=== PATIENT | male | born 1965 | race Caucasian/White ===

== ENCOUNTER 2019-06-23 11:28 | Observation (INO) | payer OTHER ==
[~2019-06-23] VITALS: Ht 175.3 cm; Wt 118.6 kg
[~2019-06-23 11:28] MED LIST: ALBU90OI INH; ALBU90OI61 INH; ALLO300 PO; AMOX500 PO; ATOR40TA PO; AZIT250 PO; CYCL10 PO; DIAZ5 PO; DIPH50 PO; FLUSAL1005 IH; FLUSAL2505 IH; GABA300 PO; GEMF600 PO; GENT.3OPSA OS; GLYB5 PO; HYDACE5 PO; HYDACE7.5 PO; HYDCHL25 PO; IBUP800 PO; LISI20 PO; LOSA50 PO; MECL25 PO; METF500 PO; METO10 PO; METO50 PO; METO5A PO; NAPR500 PO; OMEP20ER PO; PRED20 PO; PROCODE120 PO; PROM25 PO; ROPI1 PO; RXTRAM50 PO; SENN187 PO; SIMV40 PO; SULTRIDS PO; TRAM50 PO
[2019-06-23 12:37] LABS: BASOPHILS ABSOLUTE AUTO 0.11 K/mm3 (0.00-0.23); BASOPHILS PERCENT AUTO 1 % (0-2); EOSINOPHILS ABSOLUTE AUTO 0.46 K/mm3 (0.00-0.68); EOSINOPHILS PERCENT AUTO 4 % (0-6); Hematocrit 43.4 % (37.0-53.0); Hemoglobin 14.2 g/dL (13.5-17.5); IMMATURE GRAN ABSOLUTE AUTO 0.05 K/mm3 (0.00-0.10); IMMATURE GRAN PERCENT AUTO 1 % (0-1); LYMPHOCYTES ABSOLUTE AUTO 3.95 K/mm3 (0.84-5.20); LYMPHOCYTES PERCENT AUTO 38 % (21-46); MONOCYTES ABSOLUTE AUTO 0.83 K/mm3 (0.16-1.47); MONOCYTES PERCENT AUTO 8 % (4-13); Mean Corpuscular HGB Conc 32.7 g/dL (31.5-36.5); Mean Corpuscular Volume 85 fL (80-100); Mean Platelet Volume 9.6 fL (9.1-12.4); NEUTROPHILS ABSOLUTE AUTO 5.09 K/mm3 (1.96-9.15); NEUTROPHILS PERCENT AUTO 49 % (41-73); Platelet Count 264 K/mm3 (150-400); RDW Coefficient Variation 13.2 % (11.7-14.2); RDW Standard Deviation 41.6 fL (35.1-46.3); Red Blood Cell Count 5.08 M/mm3 (4.30-5.90); White Blood Cell Count 10.49 K/mm3 (4.00-11.30)
[2019-06-23 12:43] LABS: Alanine Aminotransfer (ALT/SGP 61 U/L (12-78); Albumin, Blood 3.8 g/dL (3.4-5.0); Albumin/Globulin Ratio 0.9 (0.8-1.8); Alk Phos 94 U/L (50-136); Anion Gap 4 mmol/L (6-16); Aspartate Aminotrans (AST/SGOT 37 U/L (12-37); Bilirubin, Total 0.7 mg/dL (0.1-1.0); Blood Urea Nitrogen 16 mg/dL (8-24); Bun/Creatinine Ratio 19.2 (12.0-20.0); CO2, Blood 22 mmol/L (21-32); Chloride, Blood 111 mmol/L (98-108); Creatinine, Blood 0.84 mg/dL (0.60-1.20); Globulin, Blood 4.2 g/dL (2.2-4.0); Glomerular Filtration Rate >60 (60-); Glucose, Blood 93 mg/dL (70-99); Potassium, Blood 3.8 mmol/L (3.5-5.5); Sodium, Blood 137 mmol/L (136-145); Troponin I <0.015 ng/mL (0.000-0.040)
[2019-06-23] MEDS ORDERED: Crestor40 MG PO (14:07)
[2019-06-23] MEDS ORDERED: LISI5 PO (14:07)
[2019-06-23] MEDS ORDERED: NITR.4SL SL (14:08)
[2019-06-23] MEDS ORDERED: Coreg12.5 MG PO (14:08)
[2019-06-23] MEDS ORDERED: METF500C PO (14:08)
[2019-06-23] MEDS ORDERED: METO25ER PO (14:09)
[2019-06-23] MEDS ORDERED: Aspir 8181 MG PO (14:10)
[2019-06-23] MEDS ORDERED: MAGNESIUM PO (14:12)
--- NOTE | 2019-06-23 18:04 | NUR ---
PT ARRIVES ASSUMED CARE OF PT AT 1600 HRS, PT ARRIVED FROM ED BY YAHIR AND SELF TRANSFERRED TO PCU BED W/O ISSUES. ACCOMPANIED BY FAMILY, FAMILY LEFT PT'S ROOM FOR HOME AT APPROX 1800 HRS, PT AWAKE, ALERT IN BED EATING DINNER. CALL LIGHT W/IN REACH
--- NOTE | 2019-06-23 18:28 | NUR ---
SHIFT SUMMARY NO CHANGES SINCE ARRIVAL TO UNIT. WILL MONITOR UNTIL GIVING REPORT TO ONCOMING SHIFT. BED LOCKED AND LOW, CALL LIGHT W/IN REACH
[2019-06-24 01:19] LABS: BASOPHILS ABSOLUTE AUTO 0.09 K/mm3 (0.00-0.23); BASOPHILS PERCENT AUTO 1 % (0-2); EOSINOPHILS ABSOLUTE AUTO 0.44 K/mm3 (0.00-0.68); EOSINOPHILS PERCENT AUTO 6 % (0-6); Hematocrit 40.6 % (37.0-53.0); Hemoglobin 13.3 g/dL (13.5-17.5); IMMATURE GRAN ABSOLUTE AUTO 0.04 K/mm3 (0.00-0.10); IMMATURE GRAN PERCENT AUTO 1 % (0-1); LYMPHOCYTES ABSOLUTE AUTO 2.64 K/mm3 (0.84-5.20); LYMPHOCYTES PERCENT AUTO 39 % (21-46); MONOCYTES ABSOLUTE AUTO 0.63 K/mm3 (0.16-1.47); MONOCYTES PERCENT AUTO 9 % (4-13); Mean Corpuscular HGB 27.9 pg (26.0-34.0); Mean Corpuscular HGB Conc 32.8 g/dL (31.5-36.5); Mean Corpuscular Volume 85 fL (80-100); Mean Platelet Volume 9.3 fL (9.1-12.4); NEUTROPHILS PERCENT AUTO 44 % (41-73); Platelet Count 203 K/mm3 (150-400); RDW Coefficient Variation 13.2 % (11.7-14.2); RDW Standard Deviation 41.3 fL (35.1-46.3); Red Blood Cell Count 4.76 M/mm3 (4.30-5.90); White Blood Cell Count 6.84 K/mm3 (4.00-11.30)
[2019-06-24 01:38] LABS: Anion Gap 10 mmol/L (6-16); Blood Urea Nitrogen 15 mg/dL (8-24); Bun/Creatinine Ratio 18.9 (12.0-20.0); CO2, Blood 21 mmol/L (21-32); Calcium, Blood 8.5 mg/dL (8.5-10.1); Chloride, Blood 109 mmol/L (98-108); Creatinine, Blood 0.79 mg/dL (0.60-1.20); Glomerular Filtration Rate >60 (60-); Glucose, Blood 170 mg/dL (70-99); Potassium, Blood 3.6 mmol/L (3.5-5.5); Sodium, Blood 140 mmol/L (136-145); Troponin I <0.015 ng/mL (0.000-0.040)
[2019-06-24 03:30] LABS: U Amphetamine Screen Not Detected; U Barbituate Screen Not Detected; U Benzodiazapine Screen Not Detected; U Buprenorphine Screen Not Detected; U Cannabinoids Screen Not Detected; U Cocaine Screen Not Detected; U Methadone Screen Not Detected; U Methamphetamine Screen Not Detected; U Opiates Screen Not Detected; U Oxycodone Screen Not Detected; U Phencyclidine Screen Not Detected; U Propoxyphene Screen Not Detected
--- NOTE | 2019-06-24 05:20 | NUR ---
SHIFT SUMMARY: PATIENT VSS, CALL LIGHT WITHIN REACH, STEADY ON FEET, BED LOW AND LOCKED. PATIENT WANTS TO GO OUTSIDE AND SMOKE. PATIENT EDUCATED ON DANGERS OF SMOKING WITH CP AND THE INABILITY TO MONITOR HIS HEART WHEN HE IS OUTSIDE. PATIENT COMPLIANT AND DECIDED TO STAY IN HIS ROOM. MONITORING CLOSELY.
--- NOTE | 2019-06-24 11:24 | NUR ---
Patient is lying in bed and alert. Patient tells me about his 120 days of being clean and sober, his recent coming to conversion experience and how he now tells everybody about Darren. Patient also explains about his medical issues and the plan of care being executed on his behalf. Patient asks for a Bible and I offer to provide prayer. I listen empathically, supply a Bible, reinforce helpful attitudes and practices and provide pastorl correctional counselor and prayer. Patient responds well and displays evidence of an elevated mood. I will continue to remain available to patient and family.
[2019-06-24] MEDS ORDERED: CLOP75 PO (15:25)
[2019-06-24] MEDS ORDERED: Nicoderm Cq1 EACH TOP (15:26)
--- NOTE | 2019-06-24 16:41 | NUR ---
PT EDUCATED ABOUT NEW MEDCIATIONS, OUTPT IMAGING, AND ESTABLISHING WITH PCP. PT EXPRESSED UNDERSTANDING OF DC TEACHING DENIES FURTHER NEEDS. PT HOME WITH ALL HOME MEDS AND BELONGINGS
--- NOTE | 2019-06-24 17:31 | NUR ---
STRESS TEST SCHEDULING ATTEMPTED TO CALL PATIENT'S CELL PHONE. NO ANSWER AND VOICEMAIL IS FULL. SPOKE TO CHHAYA'S SISTER IDRIS REGARDING PT'S SCHEDULED STRESS TEST ON THURSDAY AND THURSDAY. SISTER VERBALIZES UNDERSTANDING AND DENIES QUESTIONS.
== END 2019-06-24 16:41 | disposition home or self-care (01) ==
LOC: ER 11:28 → PCU 11:29
PROVIDERS: Emergency Medicine; Nurse Practitioner Acute Care; ADMIT Internal Medicine
DX: R07.9 Chest pain, unspecified (principal); I25.10 Atherosclerotic heart disease of native coronary artery without angina pectoris; I25.2 Old myocardial infarction; I11.0 Hypertensive heart disease with heart failure; I50.32 Chronic diastolic (congestive) heart failure; E11.9 Type 2 diabetes mellitus without complications; E78.5 Hyperlipidemia, unspecified; G47.33 Obstructive sleep apnea (adult) (pediatric); F17.210 Nicotine dependence, cigarettes, uncomplicated; Z95.5 Presence of coronary angioplasty implant and graft; Z86.73 Personal history of transient ischemic attack (TIA), and cerebral infarction without residual deficits; Z79.899 Other long term (current) drug therapy; Z79.82 Long term (current) use of aspirin; Z79.84 Long term (current) use of oral hypoglycemic drugs; Z88.1 Allergy status to other antibiotic agents; Z88.8 Allergy status to other drugs, medicaments and biological substances
CPT/HCPCS: 36415; 71046; 80048; 80053; 82947; 83880; 84484; 85025; 93005; 93010; 93306; 96360; 96361; 96372; 99285-25; A9270; G0378; J1650; J7030

== ENCOUNTER 2019-06-27 11:42 | Emergency (ER) | payer OTHER ==
[~2019-06-27] VITALS: Ht 175.3 cm; Wt 111.1 kg
[~2019-06-27 11:42] MED LIST changes: +Aspir 8181 MG PO; +CLOP75 PO; +Coreg12.5 MG PO; +Crestor40 MG PO; +LISI5 PO; +MAGNESIUM PO; +METF500C PO; +METO25ER PO; +NITR.4SL SL; +Nicoderm Cq1 EACH TOP
== END 2019-06-27 12:41 | disposition home or self-care (01) ==
LOC: ER 11:42
DX: Z76.0 Encounter for issue of repeat prescription (principal); Z88.1 Allergy status to other antibiotic agents; Z88.8 Allergy status to other drugs, medicaments and biological substances; Z79.899 Other long term (current) drug therapy; Z79.84 Long term (current) use of oral hypoglycemic drugs; Z79.82 Long term (current) use of aspirin; E11.9 Type 2 diabetes mellitus without complications; I10 Essential (primary) hypertension
CPT/HCPCS: 99281

== ENCOUNTER 2019-07-12 10:23 | Emergency (ER) | payer OTHER ==
[~2019-07-12] VITALS: Ht 175.3 cm; Wt 111.1 kg
[2019-07-12] MEDS ORDERED: MONDOXYNE NL100 MG PO (11:36)
== END 2019-07-12 11:40 | disposition home or self-care (01) ==
LOC: ER 10:23
DX: S91.331A Puncture wound without foreign body, right foot, initial encounter (principal); W22.8XXA Striking against or struck by other objects, initial encounter; Z88.8 Allergy status to other drugs, medicaments and biological substances; Z88.1 Allergy status to other antibiotic agents; Z79.899 Other long term (current) drug therapy; Z79.84 Long term (current) use of oral hypoglycemic drugs; Z79.82 Long term (current) use of aspirin; E11.9 Type 2 diabetes mellitus without complications; I10 Essential (primary) hypertension; F17.200 Nicotine dependence, unspecified, uncomplicated
CPT/HCPCS: 99282

== ENCOUNTER 2019-07-25 12:03 | Emergency (ER) | payer OTHER ==
[~2019-07-25] VITALS: Ht 175.3 cm; Wt 113.4 kg
[~2019-07-25 12:03] MED LIST changes: +MONDOXYNE NL100 MG PO
[2019-07-25] MEDS ORDERED: MAGNESIUM OXID500 MG PO (12:33)
[2019-07-25] MEDS ORDERED: Crestor40 MG PO (12:33)
[2019-07-25] MEDS ORDERED: METF500 PO (12:33)
[2019-07-25] MEDS ORDERED: Prinivil5 MG PO (12:33)
[2019-07-25] MEDS ORDERED: CLOP75 PO (12:33)
[2019-07-25] MEDS ORDERED: Toprol Xl25 MG PO (12:33)
== END 2019-07-25 12:39 | disposition home or self-care (01) ==
LOC: ER 12:03
DX: Z76.0 Encounter for issue of repeat prescription (principal); E11.9 Type 2 diabetes mellitus without complications; I10 Essential (primary) hypertension; F17.200 Nicotine dependence, unspecified, uncomplicated; Z88.8 Allergy status to other drugs, medicaments and biological substances; Z88.1 Allergy status to other antibiotic agents; Z79.899 Other long term (current) drug therapy; Z79.82 Long term (current) use of aspirin; Z79.84 Long term (current) use of oral hypoglycemic drugs; Z79.01 Long term (current) use of anticoagulants
CPT/HCPCS: 99281

== ENCOUNTER 2019-08-03 11:44 | Emergency (ER) | payer OTHER ==
[~2019-08-03] VITALS: Ht 175.3 cm; Wt 113.4 kg
[~2019-08-03 11:44] MED LIST changes: +MAGNESIUM OXID500 MG PO; +Prinivil5 MG PO; +Toprol Xl25 MG PO
[2019-08-03] MEDS ORDERED: METFORMIN HCL500 M2 PO (12:02)
[2019-08-03] MEDS ORDERED: PRINIVIL5 MG PO (12:02)
[2019-08-03] MEDS ORDERED: MAGNESIUM OXID400 M2 PO (12:02)
[2019-08-03] MEDS ORDERED: ROSUVASTATIN CA40 MG PO (12:03)
[2019-08-03] MEDS ORDERED: Nicoderm Cq1 EACH TOP (12:03)
[2019-08-03] MEDS ORDERED: PLAVIX75 MG PO (12:03)
[2019-08-03] MEDS ORDERED: METOPROLOL SUCC25 MG PO (12:03)
[2019-08-03] MEDS ORDERED: Augmentin 875-1 EACH PO (13:54)
[2019-08-03] MEDS ORDERED: Mupirocin22 GM TOP (13:54)
== END 2019-08-03 14:01 | disposition home or self-care (01) ==
LOC: ER 11:44
DX: L03.115 Cellulitis of right lower limb (principal); L03.116 Cellulitis of left lower limb; E11.40 Type 2 diabetes mellitus with diabetic neuropathy, unspecified; I11.0 Hypertensive heart disease with heart failure; I50.9 Heart failure, unspecified; M10.9 Gout, unspecified; I25.10 Atherosclerotic heart disease of native coronary artery without angina pectoris; E78.5 Hyperlipidemia, unspecified; Z86.73 Personal history of transient ischemic attack (TIA), and cerebral infarction without residual deficits; F17.210 Nicotine dependence, cigarettes, uncomplicated; Z88.1 Allergy status to other antibiotic agents; Z88.8 Allergy status to other drugs, medicaments and biological substances; Z79.899 Other long term (current) drug therapy
CPT/HCPCS: 73630; 82947; 99283-25

== ENCOUNTER 2019-10-17 20:55 | Emergency (ER) | payer OTHER ==
[~2019-10-17] VITALS: Ht 175.3 cm; Wt 115.2 kg
[~2019-10-17 20:55] MED LIST changes: +Augmentin 875-1 EACH PO; +MAGNESIUM OXID400 M2 PO; +METFORMIN HCL500 M2 PO; +METOPROLOL SUCC25 MG PO; +Mupirocin22 GM TOP; +PLAVIX75 MG PO; +PRINIVIL5 MG PO; +ROSUVASTATIN CA40 MG PO
== END 2019-10-18 00:20 | disposition home or self-care (01) ==
LOC: ER 20:55
DX: M25.552 Pain in left hip (principal); G89.29 Other chronic pain; E11.40 Type 2 diabetes mellitus with diabetic neuropathy, unspecified; I11.0 Hypertensive heart disease with heart failure; I50.9 Heart failure, unspecified; E78.5 Hyperlipidemia, unspecified; F17.210 Nicotine dependence, cigarettes, uncomplicated; I25.10 Atherosclerotic heart disease of native coronary artery without angina pectoris; Z88.8 Allergy status to other drugs, medicaments and biological substances; Z88.1 Allergy status to other antibiotic agents; M10.9 Gout, unspecified
CPT/HCPCS: 73502; 99283-25; J1100

== ENCOUNTER 2019-11-10 00:41 | Emergency (ER) | payer OTHER ==
[~2019-11-10] VITALS: Ht 175.3 cm; Wt 113.4 kg
[~2019-11-10 00:41] MED LIST changes: +FLUTICASONE-SA1 EAC4 INH; +GEMFIBROZIL600 MG PO; +IBU800 M1 PO; +LOW DOSE ASPIRI81 M1 PO; +Lopressor 50 mg50 MG PO; +NEURONTIN300 MG PO; +Nortriptyline H25 MG PO; +PRINIVIL10 MG PO; +Simvastatin20 MG PO; +Ventolin/Prove6.7 GM INH
[2019-11-10 01:01] LABS: BASOPHILS ABSOLUTE AUTO 0.12 K/mm3 (0.00-0.23); BASOPHILS PERCENT AUTO 1 % (0-2); EOSINOPHILS ABSOLUTE AUTO 0.32 K/mm3 (0.00-0.68); EOSINOPHILS PERCENT AUTO 3 % (0-6); Hematocrit 44.1 % (37.0-53.0); Hemoglobin 14.7 g/dL (13.5-17.5); IMMATURE GRAN ABSOLUTE AUTO 0.23 K/mm3 (0.00-0.10); IMMATURE GRAN PERCENT AUTO 2 % (0-1); LYMPHOCYTES ABSOLUTE AUTO 3.21 K/mm3 (0.84-5.20); LYMPHOCYTES PERCENT AUTO 28 % (21-46); MONOCYTES ABSOLUTE AUTO 0.83 K/mm3 (0.16-1.47); MONOCYTES PERCENT AUTO 7 % (4-13); Mean Corpuscular HGB 27.7 pg (26.0-34.0); Mean Corpuscular HGB Conc 33.3 g/dL (31.5-36.5); Mean Corpuscular Volume 83 fL (80-100); Mean Platelet Volume 9.3 fL (9.1-12.4); NEUTROPHILS ABSOLUTE AUTO 6.94 K/mm3 (1.96-9.15); NEUTROPHILS PERCENT AUTO 60 % (41-73); Platelet Count 256 K/mm3 (150-400); RDW Coefficient Variation 12.8 % (11.7-14.2); RDW Standard Deviation 38.6 fL (35.1-46.3); Red Blood Cell Count 5.31 M/mm3 (4.30-5.90); White Blood Cell Count 11.65 K/mm3 (4.00-11.30)
[2019-11-10 01:19] LABS: Alanine Aminotransfer (ALT/SGP 141 U/L (12-78); Albumin, Blood 3.6 g/dL (3.4-5.0); Albumin/Globulin Ratio 0.8 (0.8-1.8); Alk Phos 124 U/L (50-136); Anion Gap 8 mmol/L (6-16); Aspartate Aminotrans (AST/SGOT 111 U/L (12-37); Bilirubin, Total 0.3 mg/dL (0.1-1.0); Blood Urea Nitrogen 25 mg/dL (8-24); Bun/Creatinine Ratio 27.3 (12.0-20.0); CO2, Blood 23 mmol/L (21-32); Calcium, Blood 9.2 mg/dL (8.5-10.1); Chloride, Blood 107 mmol/L (98-108); Creatinine, Blood 0.92 mg/dL (0.60-1.20); Globulin, Blood 4.3 g/dL (2.2-4.0); Glomerular Filtration Rate >60 (60-); Glucose, Blood 248 mg/dL (70-99); Potassium, Blood 3.7 mmol/L (3.5-5.5); Sodium, Blood 138 mmol/L (136-145); Total Protein, Blood 7.9 g/dL (6.4-8.2)
[2019-11-10 02:13] LABS: Source, Urine Voided
[2019-11-10 02:17] LABS: Bilirubin, Urine Neg (Neg); Blood, Urine 5+ (Neg); Glucose Qualitative, Urine 3+ (Neg); Ketones, Urine Neg (Neg); Leukocyte Esterase, Urine Neg (Neg); Nitrite, Urine Neg (Neg); Protein, Urine 2+ (Neg); Specific Gravity, Urine 1.015 (1.003-1.022); Urobilinogen, Urine NORM (Normal); pH, Urine 6.5 (5.0-8.0)
[2019-11-10 02:18] LABS: Appearance, Urine Clear (Clear); Color, Urine Yellow (P-Yellow)
[2019-11-10 02:24] LABS: Bacteria Few /hpf; Mucus Light (0-Heavy); Red Blood Cells, Urine 50-100 /hpf (0-2); Squamous Epithelial Cells Few /hpf (Few); White Blood Cells, Urine 0-2 /hpf (0-5)
[2019-11-10] MEDS ORDERED: IBUP800 PO (02:45)
[2019-11-10] MEDS ORDERED: Zofran4 MG PO (02:45)
== END 2019-11-10 03:10 | disposition home or self-care (01) ==
LOC: ER 00:41
PROVIDERS: Emergency Medicine
DX: N13.2 Hydronephrosis with renal and ureteral calculous obstruction (principal); E11.40 Type 2 diabetes mellitus with diabetic neuropathy, unspecified; E78.5 Hyperlipidemia, unspecified; I10 Essential (primary) hypertension; F17.210 Nicotine dependence, cigarettes, uncomplicated; Z79.899 Other long term (current) drug therapy
CPT/HCPCS: 36415; 74176; 80053; 81001; 83690; 85025; 93005; 93010; 96361; 96374; 96375; 99284-25; J1885; J2405; J7030

== ENCOUNTER 2019-11-19 02:42 | Emergency (ER) | payer OTHER ==
[~2019-11-19] VITALS: Ht 175.3 cm; Wt 113.4 kg
[~2019-11-19 02:42] MED LIST changes: +Zofran4 MG PO
[2019-11-19 03:04] LABS: BASOPHILS ABSOLUTE AUTO 0.09 K/mm3 (0.00-0.23); BASOPHILS PERCENT AUTO 1 % (0-2); EOSINOPHILS ABSOLUTE AUTO 0.21 K/mm3 (0.00-0.68); EOSINOPHILS PERCENT AUTO 2 % (0-6); Hematocrit 40.6 % (37.0-53.0); Hemoglobin 13.5 g/dL (13.5-17.5); IMMATURE GRAN ABSOLUTE AUTO 0.07 K/mm3 (0.00-0.10); IMMATURE GRAN PERCENT AUTO 1 % (0-1); LYMPHOCYTES ABSOLUTE AUTO 2.82 K/mm3 (0.84-5.20); LYMPHOCYTES PERCENT AUTO 28 % (21-46); MONOCYTES ABSOLUTE AUTO 0.68 K/mm3 (0.16-1.47); MONOCYTES PERCENT AUTO 7 % (4-13); Mean Corpuscular HGB 28.1 pg (26.0-34.0); Mean Corpuscular HGB Conc 33.3 g/dL (31.5-36.5); Mean Corpuscular Volume 84 fL (80-100); Mean Platelet Volume 9.5 fL (9.1-12.4); NEUTROPHILS ABSOLUTE AUTO 6.26 K/mm3 (1.96-9.15); NEUTROPHILS PERCENT AUTO 62 % (41-73); Platelet Count 269 K/mm3 (150-400); RDW Coefficient Variation 12.9 % (11.7-14.2); RDW Standard Deviation 39.8 fL (35.1-46.3); Red Blood Cell Count 4.81 M/mm3 (4.30-5.90); White Blood Cell Count 10.13 K/mm3 (4.00-11.30)
[2019-11-19 03:20] LABS: Alanine Aminotransfer (ALT/SGP 106 U/L (12-78); Albumin, Blood 3.7 g/dL (3.4-5.0); Alk Phos 133 U/L (50-136); Anion Gap 9 mmol/L (6-16); Aspartate Aminotrans (AST/SGOT 56 U/L (12-37); Bilirubin, Total 0.3 mg/dL (0.1-1.0); Blood Urea Nitrogen 23 mg/dL (8-24); Bun/Creatinine Ratio 25.4 (12.0-20.0); CO2, Blood 21 mmol/L (21-32); Chloride, Blood 110 mmol/L (98-108); Creatinine, Blood 0.91 mg/dL (0.60-1.20); Globulin, Blood 3.7 g/dL (2.2-4.0); Glomerular Filtration Rate >60 (60-); Glucose, Blood 236 mg/dL (70-99); Potassium, Blood 3.6 mmol/L (3.5-5.5); Sodium, Blood 140 mmol/L (136-145); Total Protein, Blood 7.4 g/dL (6.4-8.2); Troponin I <0.015 ng/mL (0.000-0.040)
== END 2019-11-19 05:45 | disposition home or self-care (01) ==
LOC: ER 02:42
PROVIDERS: Emergency Medicine
DX: R07.9 Chest pain, unspecified (principal); F19.10 Other psychoactive substance abuse, uncomplicated; I25.10 Atherosclerotic heart disease of native coronary artery without angina pectoris; E11.40 Type 2 diabetes mellitus with diabetic neuropathy, unspecified; I11.0 Hypertensive heart disease with heart failure; I50.9 Heart failure, unspecified; F17.210 Nicotine dependence, cigarettes, uncomplicated; Z88.8 Allergy status to other drugs, medicaments and biological substances; Z88.1 Allergy status to other antibiotic agents; Z79.82 Long term (current) use of aspirin; Z79.899 Other long term (current) drug therapy; Z79.84 Long term (current) use of oral hypoglycemic drugs; Z86.73 Personal history of transient ischemic attack (TIA), and cerebral infarction without residual deficits
CPT/HCPCS: 36415; 71045; 80053; 83690; 84484; 85025; 93005; 93010; 99285-25

== ENCOUNTER 2020-11-06 19:01 | Emergency (ER) | payer OTHER ==
[~2020-11-06] VITALS: Ht 177.8 cm; Wt 111.6 kg
[2020-11-06 19:40] LABS: Calcium, Ionized (POC) 1.23 mmol/L (1.10-1.46); Chloride (POC) 103 mmol/L (98-108); Creatinine (POC) 0.5 mg/dL (0.8-1.3); Glucose (ISTAT POC) 235 mg/dL (70-99); Potassium (POC) 3.6 mmol/L (3.5-5.5); Sodium (POC) 136 mmol/L (135-148); Total CO2 (POC) 25 mmol/L (21-32)
== END 2020-11-06 21:17 | disposition home or self-care (01) ==
LOC: ER 19:01
PROVIDERS: Emergency Medicine
DX: E11.65 Type 2 diabetes mellitus with hyperglycemia (principal); I11.0 Hypertensive heart disease with heart failure; I50.9 Heart failure, unspecified; E11.40 Type 2 diabetes mellitus with diabetic neuropathy, unspecified; E78.5 Hyperlipidemia, unspecified; Z86.73 Personal history of transient ischemic attack (TIA), and cerebral infarction without residual deficits; Z79.899 Other long term (current) drug therapy; Z79.02 Long term (current) use of antithrombotics/antiplatelets; Z88.1 Allergy status to other antibiotic agents; Z88.8 Allergy status to other drugs, medicaments and biological substances; Z79.82 Long term (current) use of aspirin; Z87.442 Personal history of urinary calculi; Z95.5 Presence of coronary angioplasty implant and graft
CPT/HCPCS: 36415; 80047; 85014; 93005; 93010; 96374; 96376; 99285-25; J0360

== ENCOUNTER 2022-01-27 07:21 | Emergency (ER) | payer OTHER ==
[~2022-01-27] VITALS: Ht 167.6 cm; Wt 113.8 kg
[2022-01-27] MEDS ORDERED: Amoxicillin500 MG PO (08:14)
== END 2022-01-27 08:30 | disposition home or self-care (01) ==
LOC: ER 07:21
DX: K04.7 Periapical abscess without sinus (principal); Z88.1 Allergy status to other antibiotic agents; Z88.8 Allergy status to other drugs, medicaments and biological substances; Z79.899 Other long term (current) drug therapy; I10 Essential (primary) hypertension; E11.9 Type 2 diabetes mellitus without complications; F17.210 Nicotine dependence, cigarettes, uncomplicated
CPT/HCPCS: 99282

== ENCOUNTER 2022-11-07 11:48 | Inpatient (IN) | payer OTHER ==
[~2022-11-07] VITALS: Ht 167.6 cm; Wt 113.5 kg
[~2022-11-07 11:48] MED LIST changes: +Amoxicillin500 MG PO
[2022-11-07 12:59] LABS: BASOPHILS ABSOLUTE AUTO 0.07 K/mm3 (0.00-0.23); BASOPHILS PERCENT AUTO 0 % (0-2); EOSINOPHILS PERCENT AUTO 0 % (0-6); Hematocrit 44.6 % (37.0-53.0); Hemoglobin 15.1 g/dL (13.5-17.5); IMMATURE GRAN ABSOLUTE AUTO 0.23 K/mm3 (0.00-0.10); IMMATURE GRAN PERCENT AUTO 1 % (0-1); LYMPHOCYTES PERCENT AUTO 5 % (21-46); MONOCYTES ABSOLUTE AUTO 0.81 K/mm3 (0.16-1.47); MONOCYTES PERCENT AUTO 4 % (4-13); Mean Corpuscular HGB 27.7 pg (26.0-34.0); Mean Corpuscular HGB Conc 33.9 g/dL (31.5-36.5); Mean Corpuscular Volume 82 fL (80-100); Mean Platelet Volume 9.4 fL (9.1-12.4); NEUTROPHILS ABSOLUTE AUTO 20.04 K/mm3 (1.96-9.15); NEUTROPHILS PERCENT AUTO 91 % (41-73); Platelet Count 251 K/mm3 (150-400); RDW Coefficient Variation 12.9 % (11.7-14.2); RDW Standard Deviation 38.5 fL (35.1-46.3); Red Blood Cell Count 5.45 M/mm3 (4.30-5.90); White Blood Cell Count 22.15 K/mm3 (4.00-11.30)
[2022-11-07 13:05] LABS: Influenza A, PCR NEGATIVE (NEGATIVE); Influenza B, PCR NEGATIVE (NEGATIVE); Resp Syncytial Virus, PCR NEGATIVE (NEGATIVE); SARS-Cov-2 (COVID-19) PCR, MMC NEGATIVE (NEGATIVE)
[2022-11-07 13:09] LABS: Albumin, Blood 3.5 g/dL (3.4-5.0); Albumin/Globulin Ratio 0.7 (0.8-1.8); Bilirubin, Total 1.1 mg/dL (0.1-1.0); Bun/Creatinine Ratio 20.7 (12.0-20.0); Calcium, Blood 9.8 mg/dL (8.5-10.1); Creatinine, Blood 0.73 mg/dL (0.60-1.20); Globulin, Blood 4.7 g/dL (2.2-4.0); Potassium, Blood 3.9 mmol/L (3.5-5.5); Total Protein, Blood 8.2 g/dL (6.4-8.2)
[2022-11-07 16:29] LABS: Source, Urine Clean Catch
[2022-11-07 16:33] LABS: Appearance, Urine Clear (Clear); Bilirubin, Urine Neg (Neg); Blood, Urine 1+ (Neg); Color, Urine Yellow (P-Yellow); Glucose Qualitative, Urine 4+ (Neg); Ketones, Urine 1+ (Neg); Leukocyte Esterase, Urine 2+ (Neg); Nitrite, Urine Neg (Neg); Protein, Urine 3+ (Neg); Urobilinogen, Urine NORM (Normal)
[2022-11-07 16:53] LABS: Bacteria Many /hpf; Hyaline Casts 0-2 /lpf (0-2); Squamous Epithelial Cells Rare /hpf (Few); White Blood Cells, Urine 50-100 /hpf (0-5)
[2022-11-07] MEDS ORDERED: ROSU10TA PO (20:15)
[2022-11-07] MEDS ORDERED: LISI20 PO (20:17)
[2022-11-08 05:29] LABS: Bun/Creatinine Ratio 22.4 (12.0-20.0); Calcium, Blood 8.8 mg/dL (8.5-10.1); Creatinine, Blood 0.58 mg/dL (0.60-1.20); Potassium, Blood 3.5 mmol/L (3.5-5.5)
--- NOTE | 2022-11-08 16:47 | NUR ---
DAYSHIFT SUMMARY Patient admitted for UTI. Vitals stable, afberile. Urine is carin color, patient has voided several times today, 100-200mL each void. Patient thinks he is retaining urine. PVR was 0mL. Will continue to assess PVR. IV Potassium, and IV Rocephin administred. Normal saline infusing. Patient complained of constipation x several days. Colace, Miralax & supp given, pt reported 3x small BMs. Telemetry in place, NSR sustaining HR 70-80s all day. This afternoon, answering service telephone operator reported HR increased to 150s for a few seconds, but did not sustain, this was the only abnormal event that occured this shift. Patient will remain hospitalized overnight, will continue plan of care.
[2022-11-09 04:47] LABS: BASOPHILS ABSOLUTE AUTO 0.08 K/mm3 (0.00-0.23); BASOPHILS PERCENT AUTO 1 % (0-2); EOSINOPHILS ABSOLUTE AUTO 0.08 K/mm3 (0.00-0.68); EOSINOPHILS PERCENT AUTO 1 % (0-6); IMMATURE GRAN ABSOLUTE AUTO 0.11 K/mm3 (0.00-0.10); IMMATURE GRAN PERCENT AUTO 1 % (0-1); LYMPHOCYTES ABSOLUTE AUTO 1.38 K/mm3 (0.84-5.20); LYMPHOCYTES PERCENT AUTO 14 % (21-46); MONOCYTES ABSOLUTE AUTO 0.53 K/mm3 (0.16-1.47); MONOCYTES PERCENT AUTO 5 % (4-13); Mean Corpuscular HGB 27.7 pg (26.0-34.0); Mean Corpuscular HGB Conc 33.3 g/dL (31.5-36.5); Mean Corpuscular Volume 83 fL (80-100); Mean Platelet Volume 9.2 fL (9.1-12.4); NEUTROPHILS ABSOLUTE AUTO 7.63 K/mm3 (1.96-9.15); NEUTROPHILS PERCENT AUTO 78 % (41-73); Platelet Count 220 K/mm3 (150-400); RDW Coefficient Variation 13.1 % (11.7-14.2); RDW Standard Deviation 39.7 fL (35.1-46.3); Red Blood Cell Count 5.06 M/mm3 (4.30-5.90); White Blood Cell Count 9.81 K/mm3 (4.00-11.30)
[2022-11-09 05:41] LABS: Albumin, Blood 2.8 g/dL (3.4-5.0); Anion Gap 5 mmol/L (6-16); Blood Urea Nitrogen 12 mg/dL (8-24); Bun/Creatinine Ratio 20.8 (12.0-20.0); CO2, Blood 23 mmol/L (21-32); Calcium, Blood 9.2 mg/dL (8.5-10.1); Chloride, Blood 103 mmol/L (98-108); Creatinine, Blood 0.58 mg/dL (0.60-1.20); Glomerular Filtration Rate 112 (60-); Glucose, Blood 186 mg/dL (70-99); Phosphorus, Blood 2.5 mg/dL (2.5-4.9); Potassium, Blood 3.9 mmol/L (3.5-5.5); Sodium, Blood 131 mmol/L (136-145)
--- NOTE | 2022-11-09 07:10 | NUR ---
This morning patient complaining of constipation & nausea. MOM & Miralax given on NOC shift. Patient reported "small pepple stool" and white mucus-like stool during night. Bowel tones active all quadrants. Rectal exam performed no stool noted during assessment. Sennakot, Bisacodyl supp & prune juice administred. Patient also c/o dysuria.
[2022-11-09] MEDS ORDERED: MIRALAX17 GM PO (13:42)
[2022-11-09] MEDS ORDERED: SULTRIDS PO (13:42)
--- NOTE | 2022-11-09 14:17 | NUR ---
PRNs for constipation effective, patient denies ABD pain. Patient stable for discharge. Reviewed discharge education, encouraged patient to eat high-fiber diet, drinks fluids and take all meds as prescribed. Patient verbalized understanding. Removed IVs. Patient left med floor at 1410.
== END 2022-11-09 15:17 | disposition home or self-care (01) | DRG 872 ==
LOC: ER 11:48 → MEDS 19:30
PROVIDERS: Family Medicine; Physician Assistant; Student in an Organized Health Care Education/Training Program; ADMIT Internal Medicine
DX: A41.51 Sepsis due to Escherichia coli [E. coli] (principal); N39.0 Urinary tract infection, site not specified; E87.20 Acidosis, unspecified; E87.1 Hypo-osmolality and hyponatremia; R65.20 Severe sepsis without septic shock; Z20.822 Contact with and (suspected) exposure to COVID-19; M10.9 Gout, unspecified; I25.10 Atherosclerotic heart disease of native coronary artery without angina pectoris; E11.40 Type 2 diabetes mellitus with diabetic neuropathy, unspecified; I11.0 Hypertensive heart disease with heart failure; I50.9 Heart failure, unspecified; R07.89 Other chest pain; G47.33 Obstructive sleep apnea (adult) (pediatric); E78.5 Hyperlipidemia, unspecified; K59.00 Constipation, unspecified; F17.210 Nicotine dependence, cigarettes, uncomplicated; Z91.198 Patient's noncompliance with other medical treatment and regimen for other reason; Z71.6 Tobacco abuse counseling; Z86.19 Personal history of other infectious and parasitic diseases; Z87.442 Personal history of urinary calculi; Z95.5 Presence of coronary angioplasty implant and graft; Z98.890 Other specified postprocedural states; Z86.73 Personal history of transient ischemic attack (TIA), and cerebral infarction without residual deficits; Z88.1 Allergy status to other antibiotic agents; Z88.8 Allergy status to other drugs, medicaments and biological substances; Z79.02 Long term (current) use of antithrombotics/antiplatelets; Z79.2 Long term (current) use of antibiotics; Z79.82 Long term (current) use of aspirin; Z79.84 Long term (current) use of oral hypoglycemic drugs; Z79.899 Other long term (current) drug therapy
CPT/HCPCS: 0241U; 36415; 71046; 80048; 80053; 80069; 81001; 82947; 83036; 83605; 83735; 83880; 84484; 85025; 87040; 87077; 87086; 87186; 93005; 93010; 94640; 94664; 94760; 96361; 96374; 96375; 99284-25; A9270; J0696; J1650; J1815; J2405; J2765; J3480; J7030; J7050

== ENCOUNTER 2024-01-14 05:54 | Emergency (ER) | payer OTHER ==
[~2024-01-14] VITALS: Ht 167.6 cm; Wt 105.2 kg
[~2024-01-14 05:54] MED LIST changes: +ASPI81CH PO; +B-1100 M1 PO; +Crestor20 MG PO; +DULERA 100 MCG/13 GM INH; +FOLI1 PO; +FURO20 PO; +HUMALOG KW100 UNIT/1 SC; +INSULANI SC; +MIRALAX17 GM PO; +ROSU10TA PO
[2024-01-14] MEDS ORDERED: Ipratropium/Albuterol SulF 2.5-0.5MG/3 ML Amp INH ONE (06:20)
[2024-01-14] MEDS ORDERED: Diphenoxylat/Atrop 2.5 / 0.025MG 1 Tab PO ONE (06:20)
[2024-01-14] MEDS ORDERED: Furosemide 10 MG/ML 4ML Vial IV ONE (06:20)
[2024-01-14 06:31] LABS: BASOPHILS ABSOLUTE AUTO 0.08 K/mm3 (0.00-0.23); BASOPHILS PERCENT AUTO 1 % (0-2); EOSINOPHILS ABSOLUTE AUTO 0.22 K/mm3 (0.00-0.68); EOSINOPHILS PERCENT AUTO 2 % (0-6); Hematocrit 44.4 % (37.0-53.0); Hemoglobin 14.4 g/dL (13.5-17.5); IMMATURE GRAN ABSOLUTE AUTO 0.08 K/mm3 (0.00-0.10); IMMATURE GRAN PERCENT AUTO 1 % (0-1); LYMPHOCYTES ABSOLUTE AUTO 2.85 K/mm3 (0.84-5.20); LYMPHOCYTES PERCENT AUTO 29 % (21-46); MONOCYTES PERCENT AUTO 5 % (4-13); Mean Corpuscular HGB 27.1 pg (26.0-34.0); Mean Corpuscular HGB Conc 32.4 g/dL (31.5-36.5); Mean Corpuscular Volume 84 fL (80-100); Mean Platelet Volume 9.6 fL (9.1-12.4); NEUTROPHILS ABSOLUTE AUTO 6.08 K/mm3 (1.96-9.15); NEUTROPHILS PERCENT AUTO 62 % (41-73); Platelet Count 270 K/mm3 (150-400); RDW Coefficient Variation 13.2 % (11.7-14.2); RDW Standard Deviation 40.1 fL (35.1-46.3); Red Blood Cell Count 5.32 M/mm3 (4.30-5.90); White Blood Cell Count 9.81 K/mm3 (4.00-11.30)
[2024-01-14 06:48] LABS: Albumin, Blood 3.2 g/dL (3.4-5.0); Albumin/Globulin Ratio 0.7 (0.8-1.8); Bilirubin, Total 0.4 mg/dL (0.1-1.0); Bun/Creatinine Ratio 27.1 (12.0-20.0); Calcium, Blood 9.2 mg/dL (8.5-10.1); Creatinine, Blood 0.66 mg/dL (0.60-1.20); Globulin, Blood 4.5 g/dL (2.2-4.0); Magnesium, Blood 1.5 mg/dL (1.6-2.4); Potassium, Blood 4.1 mmol/L (3.5-5.5); Total Protein, Blood 7.7 g/dL (6.4-8.2)
[2024-01-14] MEDS ORDERED: Magnesium Sulf 2 GM/Water 50ML 50 ML IV ONE (07:45)
[2024-01-14 10:10] VITALS: BP 148/96
== END 2024-01-14 10:50 | disposition home or self-care (01) ==
LOC: ER 05:54
PROVIDERS: Student in an Organized Health Care Education/Training Program
DX: I11.0 Hypertensive heart disease with heart failure (principal); I50.21 Acute systolic (congestive) heart failure; R19.7 Diarrhea, unspecified; E11.9 Type 2 diabetes mellitus without complications; J44.9 Chronic obstructive pulmonary disease, unspecified; F17.210 Nicotine dependence, cigarettes, uncomplicated; Z86.73 Personal history of transient ischemic attack (TIA), and cerebral infarction without residual deficits; Z79.82 Long term (current) use of aspirin; Z79.4 Long term (current) use of insulin; Z79.899 Other long term (current) drug therapy; Z88.8 Allergy status to other drugs, medicaments and biological substances; Z88.1 Allergy status to other antibiotic agents
CPT/HCPCS: 71046; 80053; 83735; 83880; 84145; 85025; 93005; 93010; 94640; 94664; 96365; 96374; 96375; 99284-25; A9270; J1940; J3475

== ENCOUNTER 2024-02-03 08:20 | Emergency (ER) | payer OTHER ==
[~2024-02-03] VITALS: Ht 175.3 cm; Wt 99.8 kg
[2024-02-03] MEDS ORDERED: Ipratropium/Albuterol SulF 2.5-0.5MG/3 ML Amp INH ONE (09:10)
[2024-02-03 09:28] LABS: BASOPHILS ABSOLUTE AUTO 0.09 K/mm3 (0.00-0.23); BASOPHILS PERCENT AUTO 1 % (0-2); EOSINOPHILS ABSOLUTE AUTO 0.15 K/mm3 (0.00-0.68); EOSINOPHILS PERCENT AUTO 2 % (0-6); Hematocrit 44.3 % (37.0-53.0); Hemoglobin 14.4 g/dL (13.5-17.5); IMMATURE GRAN ABSOLUTE AUTO 0.04 K/mm3 (0.00-0.10); IMMATURE GRAN PERCENT AUTO 1 % (0-1); LYMPHOCYTES ABSOLUTE AUTO 2.25 K/mm3 (0.84-5.20); LYMPHOCYTES PERCENT AUTO 26 % (21-46); MONOCYTES ABSOLUTE AUTO 0.45 K/mm3 (0.16-1.47); MONOCYTES PERCENT AUTO 5 % (4-13); Mean Corpuscular HGB 27.1 pg (26.0-34.0); Mean Corpuscular HGB Conc 32.5 g/dL (31.5-36.5); Mean Corpuscular Volume 83 fL (80-100); Mean Platelet Volume 9.6 fL (9.1-12.4); NEUTROPHILS ABSOLUTE AUTO 5.57 K/mm3 (1.96-9.15); NEUTROPHILS PERCENT AUTO 65 % (41-73); Platelet Count 228 K/mm3 (150-400); RDW Coefficient Variation 13.5 % (11.7-14.2); RDW Standard Deviation 41.1 fL (35.1-46.3); Red Blood Cell Count 5.31 M/mm3 (4.30-5.90); White Blood Cell Count 8.55 K/mm3 (4.00-11.30)
[2024-02-03 09:48] LABS: Albumin, Blood 3.4 g/dL (3.4-5.0); Albumin/Globulin Ratio 0.8 (0.8-1.8); Bilirubin, Total 0.6 mg/dL (0.1-1.0); Bun/Creatinine Ratio 15.5 (12.0-20.0); Calcium, Blood 8.7 mg/dL (8.5-10.1); Creatinine, Blood 0.77 mg/dL (0.60-1.20); Globulin, Blood 4.5 g/dL (2.2-4.0); Potassium, Blood 4.1 mmol/L (3.5-5.5); Total Protein, Blood 7.9 g/dL (6.4-8.2)
[2024-02-03] MEDS ORDERED: Furosemide 10 MG/ML 4ML Vial IV ONE (10:10)
[2024-02-03 11:08] LABS: Influenza A, PCR NEGATIVE (NEGATIVE); Influenza B, PCR NEGATIVE (NEGATIVE); Resp Syncytial Virus, PCR NEGATIVE (NEGATIVE); SARS-Cov-2 (COVID-19) PCR, MMC NEGATIVE (NEGATIVE)
[2024-02-03 11:30] VITALS: BP 129/96
[2024-02-03] MEDS ORDERED: MethylPREDNISolone Sod Succ 125 MG Vial IV ONE (11:30)
[2024-02-03] MEDS ORDERED: Azithromycin 250 MG Tab PO ONE (11:30)
[2024-02-03] MEDS ORDERED: Amoxicillin/Clavulanate K 875 MG Tab PO ONE (11:30)
[2024-02-03] MEDS ORDERED: AZIT250 PO (11:36)
[2024-02-03] MEDS ORDERED: AMOCLA875 PO (11:36)
== END 2024-02-03 12:05 | disposition home or self-care (01) ==
LOC: ER 08:20
PROVIDERS: Student in an Organized Health Care Education/Training Program
DX: J18.9 Pneumonia, unspecified organism (principal); I11.9 Hypertensive heart disease without heart failure; I50.9 Heart failure, unspecified; J44.9 Chronic obstructive pulmonary disease, unspecified; E78.5 Hyperlipidemia, unspecified; E11.40 Type 2 diabetes mellitus with diabetic neuropathy, unspecified; F17.210 Nicotine dependence, cigarettes, uncomplicated; Z86.73 Personal history of transient ischemic attack (TIA), and cerebral infarction without residual deficits; Z79.899 Other long term (current) drug therapy; Z79.82 Long term (current) use of aspirin; Z79.4 Long term (current) use of insulin; Z88.1 Allergy status to other antibiotic agents; Z88.8 Allergy status to other drugs, medicaments and biological substances
CPT/HCPCS: 0241U; 71046; 80053; 83880; 85025; 93005; 93010; 94640; 94664; 96374; 96375; 99285-25; A9270; J1940; J2919

== ENCOUNTER 2024-02-23 13:00 | Inpatient (IN) | payer OTHER ==
[~2024-02-23] VITALS: Ht 167.6 cm; Wt 103.1 kg
[~2024-02-23 13:00] MED LIST changes: +AMOCLA875 PO
[2024-02-23 13:28] LABS: BASOPHILS ABSOLUTE AUTO 0.08 K/mm3 (0.00-0.23); BASOPHILS PERCENT AUTO 1 % (0-2); EOSINOPHILS ABSOLUTE AUTO 0.17 K/mm3 (0.00-0.68); EOSINOPHILS PERCENT AUTO 3 % (0-6); Hematocrit 40.2 % (37.0-53.0); Hemoglobin 13.1 g/dL (13.5-17.5); IMMATURE GRAN ABSOLUTE AUTO 0.05 K/mm3 (0.00-0.10); IMMATURE GRAN PERCENT AUTO 1 % (0-1); LYMPHOCYTES ABSOLUTE AUTO 2.29 K/mm3 (0.84-5.20); LYMPHOCYTES PERCENT AUTO 36 % (21-46); MONOCYTES PERCENT AUTO 6 % (4-13); Mean Corpuscular HGB Conc 32.6 g/dL (31.5-36.5); Mean Corpuscular Volume 83 fL (80-100); Mean Platelet Volume 9.7 fL (9.1-12.4); NEUTROPHILS ABSOLUTE AUTO 3.36 K/mm3 (1.96-9.15); NEUTROPHILS PERCENT AUTO 53 % (41-73); Platelet Count 236 K/mm3 (150-400); RDW Coefficient Variation 13.4 % (11.7-14.2); RDW Standard Deviation 40.1 fL (35.1-46.3); Red Blood Cell Count 4.86 M/mm3 (4.30-5.90); White Blood Cell Count 6.35 K/mm3 (4.00-11.30)
[2024-02-23] MEDS ORDERED: Nitroglycerin 0.4 MG SUBL SL PRN ×2 (13:45→16:25)
[2024-02-23 13:51] LABS: Albumin, Blood 3.1 g/dL (3.4-5.0); Albumin/Globulin Ratio 0.7 (0.8-1.8); Bilirubin, Total 0.5 mg/dL (0.1-1.0); Bun/Creatinine Ratio 14.4 (12.0-20.0); Calcium, Blood 9.1 mg/dL (8.5-10.1); Creatinine, Blood 0.84 mg/dL (0.60-1.20); Globulin, Blood 4.2 g/dL (2.2-4.0); Potassium, Blood 3.6 mmol/L (3.5-5.5); Total Protein, Blood 7.3 g/dL (6.4-8.2)
[2024-02-23 16:32] LABS: Anti-Xa UFH, PHA Monitoring <0.10 IU/mL; International Normalized Ratio 1.03
[2024-02-23] MEDS ORDERED: Heparin Sodium 5000 Units/ML 1ML MDV IV ONE (16:45)
[2024-02-23] MEDS ORDERED: Heparin Sodium,Porcine/0.5 NS 500 ML IV SCH ×2 (16:45→18:20)
[2024-02-23] MEDS ORDERED: Dose Adjust by Pharmacy XX STA (16:46)
[2024-02-23 17:00] VITALS: BP 151/107
[2024-02-23 17:07] VITALS: BP 150/113
--- NOTE | 2024-02-23 17:34 | NUR ---
Spiritual Care | Pt. Request Pt. is awake in his ED room and welcomes my visit. Pt. is pleasant and recalls meeting this nurse quality on a previous hospitial visit. Pt. displays some measure of misunderstanding about his status. When a family memeber called he verbalized on the phone to them that he was on hospice, but then he also verbalized that the pants cutter was going to see him. Pt. asked this nurse quality "what does hospice mean?" After a brief discussion the Pt. requested this nurse quality to retrieve his daughter's phone numbers. Prayed with Pt. I will attempt to gather info for the Pt.
[2024-02-23] MEDS ORDERED: LORazepam 2 MG/ML 1ML Injection IV PRN (18:00)
[2024-02-23] MEDS ORDERED: ChlordiazePOXIDE 25 MG Cap PO PRN (18:05)
[2024-02-23] MEDS ORDERED: Albuterol HFA200 ACT/6.7 GM INH INH PRN (18:25)
--- NOTE | 2024-02-23 18:56 | NUR ---
PT ADMITTED TO PCU 17 FROM ER AT 1700. PT IS A/O X4, TRANSFERS SELF TO BED. STARTED ON HEPARIN GTT PER PHARMACY AFTER BOLUS GIVEN. NO CP AT THE MOMENT. NO SOB. RELAXED IN BED WATCHING TV.
[2024-02-23 20:16] VITALS: BP 135/101
[2024-02-23] MEDS ORDERED: Ondansetron HCl 2 MG / ML 2ML Vial IV PRN (20:30)
--- NOTE | 2024-02-23 20:48 | NUR ---
ASSUMED CARE PT IS A&O X4; SPO2 >92% ON CPAP; MAP >65. PT DENIES CP AT THIS TIME. COMPLAINS OF SOB W/ CRACKLES NOTED IN BASES, RT CALLED AND PT PLACED ON CPAP. COMPLAINED OF NAUSEA AFTER SITTING UP AT EDGE OF BED, REQUESTED PT GET BACK INTO BED AND TO NOT GET OUT OF BED. MEDICATED W/ ZOFRAN; PT NO LONGER NAUSEOUS. PT RESTING QUIETLY AT THIS TIME.
[2024-02-23] MEDS ORDERED: Thiamine HCl 100 MG in NS 50 ML IV SCH (21:00)
[2024-02-23] MEDS ORDERED: Insulin Human Lispro 100 Units/ML 3ML Syringe SC SCH (21:00)
[2024-02-23] MEDS ORDERED: Insulin Glargine-Yfgn 100 Unit/mL 3 ML SYR SC SCH (21:00)
[2024-02-23] MEDS ORDERED: Folic Acid 1 MG in NS 50 ML IV SCH (21:00)
[2024-02-23 23:32] VITALS: BP 140/103
--- NOTE | 2024-02-23 23:46 | NUR ---
UPDATE/HALLUCINATIONS PT BEGINNING TO FEEL NAUSEOUS, CIWA ASSESSED AT 14~, PT STATES HE DRINKS 1-2 24OZ HIGH ABV BEERS. ATIVAN ADMINISTERED PER CIWA PROTOCOL TO GOOD AFFECT (NAUSEA ABATING, LESS ANXIOUS, ETC.). IN CIWA MARKED HALLUCINATIONS AT 0 D/T PT STATING FOR PAST 7 YEARS PT HAS BEEN EXPERIENCING HALLUCINATIONS (SEEING CARTOON CHARACTERS). PT STATES HE HAS HAD BRAIN SURGERY AND DOCTORS CANNOT FIGURE OUT WHY PT IS HALLUCINATING.
--- NOTE | 2024-02-24 02:08 | NUR ---
UPDATE DR BOSCH NOTIFIED ABOUT DIABETIC ULCER ON LEFT FOOT.
[2024-02-24 02:31] LABS: Anion Gap 9 mmol/L (3-11); Blood Urea Nitrogen 13 mg/dL (8-24); Bun/Creatinine Ratio 21.7 (12.0-20.0); CHOL/HDL RATIO 4.7; CO2, Blood 23 mmol/L (21-32); Calcium, Blood 8.7 mg/dL (8.5-10.1); Chloride, Blood 109 mmol/L (98-108); Cholesterol 170 mg/dL (50-200); Glomerular Filtration Rate 111 (60-); Glucose, Blood 198 mg/dL (70-99); HDL Cholesterol 36 mg/dL (>39); LDL/HDL RATIO 2.9; Low Density Lipoprotein Chol 106 mg/dL (0-110); Sodium, Blood 137 mmol/L (136-145); Triglycerides 142 mg/dL (30-160); Very Low Density Lipoprot Chol 28 mg/dL (6-32)
[2024-02-24 02:33] LABS: BASOPHILS ABSOLUTE AUTO 0.09 K/mm3 (0.00-0.23); BASOPHILS PERCENT AUTO 1 % (0-2); EOSINOPHILS ABSOLUTE AUTO 0.19 K/mm3 (0.00-0.68); EOSINOPHILS PERCENT AUTO 2 % (0-6); Hematocrit 41.5 % (37.0-53.0); Hemoglobin 13.5 g/dL (13.5-17.5); IMMATURE GRAN ABSOLUTE AUTO 0.06 K/mm3 (0.00-0.10); IMMATURE GRAN PERCENT AUTO 1 % (0-1); LYMPHOCYTES PERCENT AUTO 37 % (21-46); MONOCYTES ABSOLUTE AUTO 0.52 K/mm3 (0.16-1.47); MONOCYTES PERCENT AUTO 5 % (4-13); Mean Corpuscular HGB 26.9 pg (26.0-34.0); Mean Corpuscular HGB Conc 32.5 g/dL (31.5-36.5); Mean Corpuscular Volume 83 fL (80-100); Mean Platelet Volume 10.2 fL (9.1-12.4); NEUTROPHILS ABSOLUTE AUTO 5.28 K/mm3 (1.96-9.15); NEUTROPHILS PERCENT AUTO 54 % (41-73); Platelet Count 222 K/mm3 (150-400); RDW Coefficient Variation 13.5 % (11.7-14.2); RDW Standard Deviation 40.2 fL (35.1-46.3); Red Blood Cell Count 5.01 M/mm3 (4.30-5.90); White Blood Cell Count 9.74 K/mm3 (4.00-11.30)
[2024-02-24] MEDS ORDERED: Dose Adjust by Pharmacy XX STA ×2 (02:54→10:28)
[2024-02-24] MEDS ORDERED: Heparin Sodium 5000 Units/ML 1ML MDV IV ONE ×2 (02:55→10:30)
[2024-02-24 04:07] VITALS: BP 142/102
--- NOTE | 2024-02-24 05:10 | NUR ---
SHIFT SUMMARY PT RESTED QUIETLY T/O NIGHT W/ INTERMITTENT EPISODES OF ANXIETY AND NAUSEA. TREATING PER CIWA PROTOCOL AND W/ ZOFRAN. NO ACUTE EVENTS OVERNIGHT. PT CONTINUES TO DENY CP, STATES SOB IS MILD "BETTER THAN BEFORE".
[2024-02-24 07:50] VITALS: BP 134/103
[2024-02-24] MEDS ORDERED: Lisinopril 20 MG Tab PO SCH (09:00)
[2024-02-24] MEDS ORDERED: Aspirin 81 MG Chew PO SCH (09:00)
[2024-02-24] MEDS ORDERED: Nicotine 7 MG PATCH TOP SCH (09:00)
[2024-02-24] MEDS ORDERED: Metoprolol Succinate 25 MG TABCR PO SCH (09:00)
[2024-02-24] MEDS ORDERED: Rosuvastatin Calcium 10 MG Tab PO SCH (09:00)
--- NOTE | 2024-02-24 09:38 | NUR ---
update patient off of tele and heparin infusing on the ground when radha reddy found patient in the bathroom. this rn checked iv patency and iv is good with good blood return to the right ac. heparin restarted and this rn spoke with pharmacist. tele came off at 0915 so said the time heparin came off and pharmacy okay with lab draw at this time. this rn informed primary rn archana.
[2024-02-24 11:15] VITALS: BP 102/84
[2024-02-24 15:53] VITALS: BP 134/98
[2024-02-24] MEDS ORDERED: ASPI81CH PO (16:11)
[2024-02-24] MEDS ORDERED: ALBU90OI INH (16:11)
[2024-02-24] MEDS ORDERED: LISI20 PO (16:11)
[2024-02-24] MEDS ORDERED: METO25ER PO (16:12)
[2024-02-24] MEDS ORDERED: NITR.4SL SL (16:12)
[2024-02-24] MEDS ORDERED: Nicoderm Cq1 EACH TOP (16:12)
[2024-02-24] MEDS ORDERED: MULVITA PO (16:13)
[2024-02-24] MEDS ORDERED: Crestor40 MG PO (16:13)
[2024-02-24] MEDS ORDERED: B-1100 M1 PO (16:13)
--- NOTE | 2024-02-24 18:04 | NUR ---
SHIFT SUMMARY PT A&Ox4, FORGETFUL AT TIMES, REPORTS SHORT TERM MEMORY LOSS AT BASELINE. CIWA STABLE. BP STABLE, SINUS-ST 90-100'S, DENIES CP/PRESSURE. SpO2> 92% RA, DENIES SOB. CONTINENT OF URINE AND BOWEL, SBA TO BATHROOM. PT REPORTS C/O NOT HAVING A PLACE TO GO WHEN DISCHARGE D/T BEING HOMELESS. NO OTHER EVENTS, WILL REPORT TO ONCOMING RN.
[2024-02-24] MEDS ORDERED: Acetaminophen 500 MG Tab PO PRN (18:40)
[2024-02-24 19:20] VITALS: BP 120/90
--- NOTE | 2024-02-24 19:44 | NUR ---
ASSUMPTION OF CARE AFTER RECEIVING REPORT FROM DEAN PALOMO, THIS RN ASSUMED CARE AT APPROX 1915. PATIENT ALERT AND ORIENTED X4. COOPERATIVE WITH CARE. COMMUNICATES NEEDS EFFECTIVELY. PERRLA. MOVES ALL EXTREMITIES EQUALLY. CIWA <8. REPORTS MILD NAUSEA SINCE LAST NIGHT, NO VOMITING AND BASELINE VISUAL HALLUCINATIONS DUE TO HX OF BRAIN SURGERY. REPORTS R SHOULDER PAIN, DESCRIBES AN ACHE. REPORTS THAT IT IS FROM SLEEPING IN A WRONG POSITION LAST NIGHT. ADMINISTERED PO TYLENOL PER EMAR. TELEMETRY SHOWING SINUS, SINUS TACH 90s-110s. DENIES CHEST PAIN, PRESSURE. REPORTS MILD SHORTNESS OF BREATH AT REST. BP STABLE. ON ROOM AIR, SATs >90%. PATIENT REPOSITIONING HIMSELF INDEPENDENTLY IN BED. INDEPENDENT WITH ADLs. SBA WITH MOBILITY. CALL LIGHT IN REACH.
[2024-02-24] MEDS ORDERED: Docusate Sodium 100 MG Cap PO SCH (21:00)
--- NOTE | 2024-02-24 21:21 | NUR ---
REPORT GIVEN TO ANGELA PALOMO FOR CARE ON MEDICAL FLOOR
[2024-02-24 22:09] VITALS: BP 145/101
[2024-02-25 05:15] LABS: BASOPHILS ABSOLUTE AUTO 0.07 K/mm3 (0.00-0.23); BASOPHILS PERCENT AUTO 1 % (0-2); EOSINOPHILS ABSOLUTE AUTO 0.17 K/mm3 (0.00-0.68); EOSINOPHILS PERCENT AUTO 2 % (0-6); Hematocrit 41.5 % (37.0-53.0); Hemoglobin 13.4 g/dL (13.5-17.5); IMMATURE GRAN ABSOLUTE AUTO 0.04 K/mm3 (0.00-0.10); IMMATURE GRAN PERCENT AUTO 1 % (0-1); LYMPHOCYTES ABSOLUTE AUTO 3.14 K/mm3 (0.84-5.20); LYMPHOCYTES PERCENT AUTO 38 % (21-46); MONOCYTES ABSOLUTE AUTO 0.56 K/mm3 (0.16-1.47); MONOCYTES PERCENT AUTO 7 % (4-13); Mean Corpuscular HGB 26.8 pg (26.0-34.0); Mean Corpuscular HGB Conc 32.3 g/dL (31.5-36.5); Mean Corpuscular Volume 83 fL (80-100); Mean Platelet Volume 9.8 fL (9.1-12.4); NEUTROPHILS PERCENT AUTO 52 % (41-73); Platelet Count 230 K/mm3 (150-400); RDW Coefficient Variation 13.5 % (11.7-14.2); RDW Standard Deviation 40.3 fL (35.1-46.3); White Blood Cell Count 8.28 K/mm3 (4.00-11.30)
[2024-02-25 05:25] VITALS: BP 114/79
[2024-02-25 05:31] VITALS: BP 119/88
[2024-02-25 05:38] VITALS: BP 120/92
[2024-02-25 06:02] LABS: Bun/Creatinine Ratio 22.4 (12.0-20.0); Calcium, Blood 9.4 mg/dL (8.5-10.1); Creatinine, Blood 0.67 mg/dL (0.60-1.20); Potassium, Blood 4.2 mmol/L (3.5-5.5)
[2024-02-25] MEDS ORDERED: FentaNYL Citrate 50 MCG/ML 2 ML Injection IV PRN (06:05)
[2024-02-25] MEDS ORDERED: FentaNYL Citrate 50 MCG/ML 2 ML Injection IV ONE (06:05)
[2024-02-25 06:09] VITALS: BP 130/100
[2024-02-25 06:37] VITALS: BP 129/102
[2024-02-25] MEDS ORDERED: Mag Hydrox/Al Hydrox/Simeth 72 ML,Lidocaine 2% Viscous Soln 36 ML,Atropine/Scopalam/Hyo... PO PRN (06:45)
[2024-02-25] MEDS ORDERED: Ketorolac Tromethamine 15mg Vial IV ONE (06:45)
--- NOTE | 2024-02-25 06:45 | NUR ---
SUMMARY- PT ARRIVED TO FLOOR IN NO DISTRESS. PT HAS BEEN SLEEPING MOST OF SHIFT. PT REMAINS ON TELE. PT ALSO ON 2 LPM O2 VIA NC. THIS AM PT WOKE W/ 10 CX PAIN. PT TX W/ 3 NTGS, NO CHANGE IN PAIN JUST INCREASE IN SOB. PROVIDER CALLED AND ORDERED EKG, FENTANYL AND TROPOINS. PT EKG UNREMARKABLE AND IS IN CHART. PT TX W/ FENTANYL W/ NO RELIEF. PROVIDER CALLED AGAIN AND ORDERED TORADOL ONE TIME AND A PRN GI COCKTAIL. PT REPORTS CX PAIN AND SOB BUT IS TALKING CALMLY ON PHONE CURRENTLY. REPORT GIVEN TO DERIAN JAMIL. CALL LIGHT IN REACH AND BED ALARM ON.
[2024-02-25 07:56] VITALS: BP 129/105
[2024-02-25] MEDS ORDERED: Metoprolol Succinate 25 MG TABCR PO SCH (09:00)
--- NOTE | 2024-02-25 10:39 | NUR ---
Pt. is awake in bed when he welcomes my visit. Facilitated updates about the Pts. prognosis and potential discharge plan. Pt. requested assistance in tracking down some of his family members and friends. Will attempt to do so. Considered matters of grief and loss. Pt. verbalized gratitude for the spiritual care visit.
--- NOTE | 2024-02-25 10:42 | NUR ---
pt sitting up on the side of the bed, a/ox4 pleasant and cooperative with care, follows commands well, reports 10/10 chest pain and is worse with deep breath, lungs are dim in bases resp even and unlabored, no cough noted, night rn turned 02 up to 5 liters as he is having chest pain, toradol and gi cocktail ordered, hrr, tele in place running sr in the 90's, voids with outdiff, skin c/w/d, sergio, christopher, call light in reach.
--- NOTE | 2024-02-25 11:00 | NUR ---
Pt sats are in high 90's, placed pt on r/a, checked him after ten minutes he is still in high 90's. pt states he's suppose to go home today. call light in reach.
--- NOTE | 2024-02-25 11:59 | NUR ---
Spiritual care follow up Retrieved contact information for Pt. from public [employer] pages source, as Pt. requested. Pt. verbalized gratitude for the spiritual care support.
--- NOTE | 2024-02-25 13:23 | NUR ---
pt states he is supposed to be discharged today, and has things to do so he's going to leave ama, he removed his iv, site was bleeding, he was holding a paper towel on it, dressing was placed on this, call to Dr. Westfall, he is ok for him to discharge which was written yesterday, faxed new medications to [facility], went over discharge instructions, he verbalized understanding, states his sister is waiting downstairs, left via wheelchair with director of financial planning in attendece with all his belongings.
== END 2024-02-25 13:12 | disposition home or self-care (01) | DRG 303 ==
LOC: ER 13:00 → MEDS 15:47 → PCU 15:47 → MEDS 02-24 21:41
PROVIDERS: Emergency Medicine; ADMIT Internal Medicine
DX: I25.110 Atherosclerotic heart disease of native coronary artery with unstable angina pectoris (principal); I50.22 Chronic systolic (congestive) heart failure; F17.210 Nicotine dependence, cigarettes, uncomplicated; B19.20 Unspecified viral hepatitis C without hepatic coma; J42 Unspecified chronic bronchitis; E78.5 Hyperlipidemia, unspecified; F15.10 Other stimulant abuse, uncomplicated; F10.10 Alcohol abuse, uncomplicated; E11.65 Type 2 diabetes mellitus with hyperglycemia; M10.9 Gout, unspecified; I11.0 Hypertensive heart disease with heart failure; G47.33 Obstructive sleep apnea (adult) (pediatric); Z95.5 Presence of coronary angioplasty implant and graft; Z98.890 Other specified postprocedural states; Z88.8 Allergy status to other drugs, medicaments and biological substances; Z88.1 Allergy status to other antibiotic agents; Z79.4 Long term (current) use of insulin; Z79.82 Long term (current) use of aspirin; Z79.01 Long term (current) use of anticoagulants; Z79.899 Other long term (current) drug therapy; Z86.73 Personal history of transient ischemic attack (TIA), and cerebral infarction without residual deficits; Z87.442 Personal history of urinary calculi; Z91.148 Patient's other noncompliance with medication regimen for other reason
CPT/HCPCS: 36415; 71046; 80048; 80053; 80061; 82947; 83036; 84484; 85025; 85520; 85610; 93005; 93010; 94660; 94762; 99285-25; A9270; C8929; J1644; J1815; J1885; J2060; J2405; J3010; J3411; Q9957

== ENCOUNTER 2024-03-10 17:15 | Emergency (ER) | payer OTHER ==
[~2024-03-10] VITALS: Ht 167.6 cm; Wt 102.1 kg
[~2024-03-10 17:15] MED LIST changes: +MULVITA PO
[2024-03-10 17:59] LABS: BASOPHILS PERCENT AUTO 1 % (0-2); EOSINOPHILS ABSOLUTE AUTO 0.17 K/mm3 (0.00-0.68); EOSINOPHILS PERCENT AUTO 2 % (0-6); Hematocrit 40.4 % (37.0-53.0); Hemoglobin 12.8 g/dL (13.5-17.5); IMMATURE GRAN ABSOLUTE AUTO 0.03 K/mm3 (0.00-0.10); IMMATURE GRAN PERCENT AUTO 0 % (0-1); LYMPHOCYTES ABSOLUTE AUTO 2.03 K/mm3 (0.84-5.20); LYMPHOCYTES PERCENT AUTO 25 % (21-46); MONOCYTES ABSOLUTE AUTO 0.54 K/mm3 (0.16-1.47); MONOCYTES PERCENT AUTO 7 % (4-13); Mean Corpuscular HGB 26.8 pg (26.0-34.0); Mean Corpuscular HGB Conc 31.7 g/dL (31.5-36.5); Mean Corpuscular Volume 85 fL (80-100); NEUTROPHILS ABSOLUTE AUTO 5.15 K/mm3 (1.96-9.15); NEUTROPHILS PERCENT AUTO 64 % (41-73); Platelet Count 274 K/mm3 (150-400); RDW Coefficient Variation 13.7 % (11.7-14.2); Red Blood Cell Count 4.77 M/mm3 (4.30-5.90); White Blood Cell Count 8.02 K/mm3 (4.00-11.30)
[2024-03-10 18:09] LABS: Albumin, Blood 2.9 g/dL (3.4-5.0); Albumin/Globulin Ratio 0.7 (0.8-1.8); Bilirubin, Total 0.3 mg/dL (0.1-1.0); Bun/Creatinine Ratio 33.6 (12.0-20.0); Calcium, Blood 8.8 mg/dL (8.5-10.1); Creatinine, Blood 0.63 mg/dL (0.60-1.20); Globulin, Blood 3.9 g/dL (2.2-4.0); Potassium, Blood 4.2 mmol/L (3.5-5.5); Total Protein, Blood 6.8 g/dL (6.4-8.2)
[2024-03-10] MEDS ORDERED: Ipratropium/Albuterol SulF 2.5-0.5MG/3 ML Amp INH ONE (18:30)
[2024-03-10] MEDS ORDERED: Furosemide 10 MG/ML 4ML Vial IV ONE (20:05)
[2024-03-10 21:00] VITALS: BP 92/71
== END 2024-03-10 21:19 | disposition home or self-care (01) ==
LOC: ER 17:15
PROVIDERS: Student in an Organized Health Care Education/Training Program
DX: R06.02 Shortness of breath (principal); E11.65 Type 2 diabetes mellitus with hyperglycemia; Z88.8 Allergy status to other drugs, medicaments and biological substances; Z88.1 Allergy status to other antibiotic agents; Z79.899 Other long term (current) drug therapy; Z79.4 Long term (current) use of insulin; Z79.82 Long term (current) use of aspirin; I11.0 Hypertensive heart disease with heart failure; I50.30 Unspecified diastolic (congestive) heart failure; E78.5 Hyperlipidemia, unspecified; E11.40 Type 2 diabetes mellitus with diabetic neuropathy, unspecified; J44.9 Chronic obstructive pulmonary disease, unspecified; F17.210 Nicotine dependence, cigarettes, uncomplicated
CPT/HCPCS: 71045; 80053; 83880; 84145; 84484; 85025; 93005; 93010; 94640; 94664; 96374; 99285-25; J1940

== ENCOUNTER 2024-03-13 10:04 | Emergency (ER) | payer OTHER ==
[~2024-03-13] VITALS: Ht 167.6 cm; Wt 102.1 kg
[2024-03-13 10:23] VITALS: BP 141/116
[2024-03-13] MEDS ORDERED: BACTRIM DS TAB1 EAC1 PO (11:18)
== END 2024-03-13 11:33 | disposition home or self-care (01) ==
LOC: ER 10:04
DX: E11.621 Type 2 diabetes mellitus with foot ulcer (principal); L97.511 Non-pressure chronic ulcer of other part of right foot limited to breakdown of skin; I25.10 Atherosclerotic heart disease of native coronary artery without angina pectoris; I11.0 Hypertensive heart disease with heart failure; I50.9 Heart failure, unspecified; J44.9 Chronic obstructive pulmonary disease, unspecified; F17.210 Nicotine dependence, cigarettes, uncomplicated; Z59.00 Homelessness unspecified; Z88.8 Allergy status to other drugs, medicaments and biological substances; Z88.1 Allergy status to other antibiotic agents; Z86.73 Personal history of transient ischemic attack (TIA), and cerebral infarction without residual deficits; Z95.5 Presence of coronary angioplasty implant and graft
CPT/HCPCS: 99283

== ENCOUNTER 2024-03-16 04:13 | Day surgery (SDC) | payer OTHER ==
[~2024-03-16 04:13] MED LIST changes: +BACTRIM DS TAB1 EAC1 PO
[2024-03-16] MEDS ORDERED: Lidocaine HCl 4% Cream 5 GM ONE (07:44)
== END 2024-03-16 23:03 | disposition home or self-care (01) ==
LOC: WOUND 04:13
DX: E11.621 Type 2 diabetes mellitus with foot ulcer (principal); L97.422 Non-pressure chronic ulcer of left heel and midfoot with fat layer exposed; I11.0 Hypertensive heart disease with heart failure; I50.9 Heart failure, unspecified; I25.10 Atherosclerotic heart disease of native coronary artery without angina pectoris; J44.9 Chronic obstructive pulmonary disease, unspecified; F17.200 Nicotine dependence, unspecified, uncomplicated; Z88.8 Allergy status to other drugs, medicaments and biological substances
CPT/HCPCS: 73630; 99406; A9270; G0463

== ENCOUNTER 2024-03-21 21:06 | Emergency (ER) | payer OTHER ==
[~2024-03-21] VITALS: Ht 167.6 cm; Wt 108.9 kg
[2024-03-21 22:04] LABS: BASOPHILS ABSOLUTE AUTO 0.12 K/mm3 (0.00-0.23); BASOPHILS PERCENT AUTO 1 % (0-2); EOSINOPHILS ABSOLUTE AUTO 0.26 K/mm3 (0.00-0.68); EOSINOPHILS PERCENT AUTO 3 % (0-6); Hematocrit 42.7 % (37.0-53.0); Hemoglobin 13.6 g/dL (13.5-17.5); IMMATURE GRAN ABSOLUTE AUTO 0.04 K/mm3 (0.00-0.10); IMMATURE GRAN PERCENT AUTO 0 % (0-1); LYMPHOCYTES ABSOLUTE AUTO 3.74 K/mm3 (0.84-5.20); LYMPHOCYTES PERCENT AUTO 40 % (21-46); MONOCYTES ABSOLUTE AUTO 0.51 K/mm3 (0.16-1.47); MONOCYTES PERCENT AUTO 6 % (4-13); Mean Corpuscular HGB Conc 31.9 g/dL (31.5-36.5); Mean Corpuscular Volume 82 fL (80-100); Mean Platelet Volume 9.8 fL (9.1-12.4); NEUTROPHILS ABSOLUTE AUTO 4.63 K/mm3 (1.96-9.15); NEUTROPHILS PERCENT AUTO 50 % (41-73); Platelet Count 288 K/mm3 (150-400); RDW Coefficient Variation 13.7 % (11.7-14.2); RDW Standard Deviation 40.6 fL (35.1-46.3); Red Blood Cell Count 5.23 M/mm3 (4.30-5.90)
[2024-03-21 22:17] LABS: Ethanol (Alcohol), Blood, Med <3 mg/dL
[2024-03-21 22:21] LABS: Alanine Aminotransfer (ALT/SGP 29 U/L (12-78); Albumin, Blood 3.2 g/dL (3.4-5.0); Albumin/Globulin Ratio 0.7 (0.8-1.8); Alk Phos 127 U/L (50-136); Anion Gap 11 mmol/L (3-11); Aspartate Aminotrans (AST/SGOT 22 U/L (12-37); Bilirubin, Total 0.6 mg/dL (0.1-1.0); Blood Urea Nitrogen 23 mg/dL (8-24); Bun/Creatinine Ratio 31.1 (12.0-20.0); CO2, Blood 22 mmol/L (21-32); Calcium, Blood 8.9 mg/dL (8.5-10.1); Chloride, Blood 108 mmol/L (98-108); Creatinine, Blood 0.74 mg/dL (0.60-1.20); Globulin, Blood 4.3 g/dL (2.2-4.0); Glomerular Filtration Rate 104 (60-); Glucose, Blood 191 mg/dL (70-99); Potassium, Blood 4.4 mmol/L (3.5-5.5); Sodium, Blood 137 mmol/L (136-145); Total Protein, Blood 7.5 g/dL (6.4-8.2)
[2024-03-21] MEDS ORDERED: Ondansetron HCl 2 MG / ML 2ML Vial IV ONE (23:40)
[2024-03-21] MEDS ORDERED: NS 1,000 ML IV SCH (23:40)
[2024-03-22 01:00] VITALS: BP 110/85
[2024-03-22] MEDS ORDERED: ALMACONE SUSPE355 ML PO (04:57)
[2024-03-27] MEDS ORDERED: ADULT GLYCERIN1 EACH PR (20:21)
[2024-03-27] MEDS ORDERED: MINERAL OIL133 M1 PR (20:21)
[2024-03-27] MEDS ORDERED: MIRALAX17 GM PO (20:21)
[2024-03-27] MEDS ORDERED: DICY20 PO (20:21)
[2024-04-07] MEDS ORDERED: AMOCLA875 PO (13:36)
[2024-04-15] MEDS ORDERED: ACET500 PO (01:19)
[2024-04-15] MEDS ORDERED: BASAGLAR K100 UNIT/1 SC (01:20)
[2024-04-15] MEDS ORDERED: Aspir 8181 MG PO (01:20)
[2024-04-15] MEDS ORDERED: METOPROLOL SUCC25 MG PO (01:21)
[2024-04-15] MEDS ORDERED: ROSUVASTATIN CA10 MG PO (01:23)
== END 2024-03-22 01:27 | disposition home or self-care (01) ==
LOC: ER 21:06
PROVIDERS: Student in an Organized Health Care Education/Training Program
DX: E86.0 Dehydration (principal); R11.0 Nausea; F10.20 Alcohol dependence, uncomplicated; E11.621 Type 2 diabetes mellitus with foot ulcer; L97.529 Non-pressure chronic ulcer of other part of left foot with unspecified severity; I11.0 Hypertensive heart disease with heart failure; I50.20 Unspecified systolic (congestive) heart failure; I25.10 Atherosclerotic heart disease of native coronary artery without angina pectoris; J44.9 Chronic obstructive pulmonary disease, unspecified; F17.210 Nicotine dependence, cigarettes, uncomplicated; Z79.899 Other long term (current) drug therapy; Z88.8 Allergy status to other drugs, medicaments and biological substances
CPT/HCPCS: 80053; 80320; 85025; 93005; 93010; 96361; 96374; 99285-25; A9270; J2405; J7030

== ENCOUNTER 2024-04-04 03:00 | Day surgery (SDC) | payer OTHER ==
[~2024-04-04 03:00] MED LIST changes: +ADULT GLYCERIN1 EACH PR; +ALMACONE SUSPE355 ML PO; +DICY20 PO; +MINERAL OIL133 M1 PR
[2024-04-04] MEDS ORDERED: Lidocaine HCl 4% Cream 5 GM ONE (08:35)
[2024-04-05] MEDS ORDERED: CEPH500 PO (01:19)
[2024-04-07] MEDS ORDERED: AMOCLA875 PO ×2 (13:36)
[2024-04-15] MEDS ORDERED: ACET500 PO (01:19)
[2024-04-15] MEDS ORDERED: Aspir 8181 MG PO (01:20)
[2024-04-15] MEDS ORDERED: BASAGLAR K100 UNIT/1 SC (01:20)
[2024-04-15] MEDS ORDERED: METOPROLOL SUCC25 MG PO (01:21)
[2024-04-15] MEDS ORDERED: ROSUVASTATIN CA10 MG PO (01:23)
== END 2024-04-05 00:57 | disposition home or self-care (01) ==
LOC: WOUND 03:00
DX: E11.621 Type 2 diabetes mellitus with foot ulcer (principal); L97.522 Non-pressure chronic ulcer of other part of left foot with fat layer exposed; E11.65 Type 2 diabetes mellitus with hyperglycemia; I11.0 Hypertensive heart disease with heart failure; I50.9 Heart failure, unspecified; I25.10 Atherosclerotic heart disease of native coronary artery without angina pectoris; J44.9 Chronic obstructive pulmonary disease, unspecified; R07.89 Other chest pain; M25.511 Pain in right shoulder; T36.4X5A Adverse effect of tetracyclines, initial encounter; E11.40 Type 2 diabetes mellitus with diabetic neuropathy, unspecified; I50.20 Unspecified systolic (congestive) heart failure; E78.5 Hyperlipidemia, unspecified; F17.210 Nicotine dependence, cigarettes, uncomplicated; Z86.73 Personal history of transient ischemic attack (TIA), and cerebral infarction without residual deficits; Z86.79 Personal history of other diseases of the circulatory system; Z79.4 Long term (current) use of insulin; Z79.899 Other long term (current) drug therapy; Z79.82 Long term (current) use of aspirin; Z88.8 Allergy status to other drugs, medicaments and biological substances; Z88.1 Allergy status to other antibiotic agents
CPT/HCPCS: 71046; 80047; 80053; 83735; 84484; 85014; 85025; 93005; 93010; 99284-25; A9270

== ENCOUNTER 2024-04-05 00:08 | Emergency (ER) | payer OTHER ==
[~2024-04-05] VITALS: Ht 167.6 cm; Wt 99.8 kg
[2024-04-05] MEDS ORDERED: Cephalexin Monohydrate 500 MG Cap PO ONE (00:55)
[2024-04-05] MEDS ORDERED: Ibuprofen 600 MG Tab PO ONE (00:55)
[2024-04-05] MEDS ORDERED: CEPH500 PO (01:19)
[2024-04-05 01:30] VITALS: BP 131/83
[2024-04-07] MEDS ORDERED: AMOCLA875 PO ×2 (13:36)
[2024-04-15] MEDS ORDERED: ACET500 PO (01:19)
[2024-04-15] MEDS ORDERED: Aspir 8181 MG PO (01:20)
[2024-04-15] MEDS ORDERED: BASAGLAR K100 UNIT/1 SC (01:20)
[2024-04-15] MEDS ORDERED: METOPROLOL SUCC25 MG PO (01:21)
[2024-04-15] MEDS ORDERED: ROSUVASTATIN CA10 MG PO (01:23)
== END 2024-04-05 01:50 | disposition home or self-care (01) ==
LOC: ER 00:08
DX: Z47.89 Encounter for other orthopedic aftercare (principal); E11.40 Type 2 diabetes mellitus with diabetic neuropathy, unspecified; I11.0 Hypertensive heart disease with heart failure; I50.20 Unspecified systolic (congestive) heart failure; F17.210 Nicotine dependence, cigarettes, uncomplicated; Z86.73 Personal history of transient ischemic attack (TIA), and cerebral infarction without residual deficits; J44.9 Chronic obstructive pulmonary disease, unspecified; Z68.35 Body mass index [BMI] 35.0-35.9, adult; Z79.899 Other long term (current) drug therapy; Z88.1 Allergy status to other antibiotic agents; Z88.8 Allergy status to other drugs, medicaments and biological substances
CPT/HCPCS: 93971; 99284-25; A9270

== ENCOUNTER 2024-04-08 03:32 | Emergency (ER) | payer OTHER ==
[~2024-04-08] VITALS: Ht 170.2 cm; Wt 99.8 kg
[~2024-04-08 03:32] MED LIST changes: +CEPH500 PO
[2024-04-08] MEDS ORDERED: ONDA4ODT MM (06:38)
[2024-04-08 06:47] VITALS: BP 144/88
[2024-04-15] MEDS ORDERED: ACET500 PO (01:19)
[2024-04-15] MEDS ORDERED: Aspir 8181 MG PO (01:20)
[2024-04-15] MEDS ORDERED: BASAGLAR K100 UNIT/1 SC (01:20)
[2024-04-15] MEDS ORDERED: METOPROLOL SUCC25 MG PO (01:21)
[2024-04-15] MEDS ORDERED: ROSUVASTATIN CA10 MG PO (01:23)
== END 2024-04-08 06:47 | disposition home or self-care (01) ==
LOC: ER 03:32
DX: R11.0 Nausea (principal); Z88.8 Allergy status to other drugs, medicaments and biological substances; Z88.1 Allergy status to other antibiotic agents; Z79.899 Other long term (current) drug therapy; E11.40 Type 2 diabetes mellitus with diabetic neuropathy, unspecified; I11.0 Hypertensive heart disease with heart failure; I50.9 Heart failure, unspecified; E78.5 Hyperlipidemia, unspecified; J44.9 Chronic obstructive pulmonary disease, unspecified; F17.210 Nicotine dependence, cigarettes, uncomplicated
CPT/HCPCS: 99283

== ENCOUNTER 2024-04-11 14:51 | Emergency (ER) | payer OTHER ==
[~2024-04-11] VITALS: Ht 167.6 cm; Wt 99.8 kg
[~2024-04-11 14:51] MED LIST changes: +ONDA4ODT MM
[2024-04-11 17:43] LABS: BASOPHILS ABSOLUTE AUTO 0.12 K/mm3 (0.00-0.23); BASOPHILS PERCENT AUTO 1 % (0-2); EOSINOPHILS ABSOLUTE AUTO 0.24 K/mm3 (0.00-0.68); EOSINOPHILS PERCENT AUTO 2 % (0-6); Hematocrit 47.2 % (37.0-53.0); Hemoglobin 14.9 g/dL (13.5-17.5); IMMATURE GRAN ABSOLUTE AUTO 0.03 K/mm3 (0.00-0.10); IMMATURE GRAN PERCENT AUTO 0 % (0-1); LYMPHOCYTES ABSOLUTE AUTO 3.37 K/mm3 (0.84-5.20); LYMPHOCYTES PERCENT AUTO 33 % (21-46); MONOCYTES ABSOLUTE AUTO 0.56 K/mm3 (0.16-1.47); MONOCYTES PERCENT AUTO 5 % (4-13); Mean Corpuscular HGB 26.1 pg (26.0-34.0); Mean Corpuscular HGB Conc 31.6 g/dL (31.5-36.5); Mean Corpuscular Volume 83 fL (80-100); Mean Platelet Volume 10.2 fL (9.1-12.4); NEUTROPHILS ABSOLUTE AUTO 5.97 K/mm3 (1.96-9.15); NEUTROPHILS PERCENT AUTO 58 % (41-73); Platelet Count 234 K/mm3 (150-400); RDW Coefficient Variation 14.6 % (11.7-14.2); RDW Standard Deviation 43.7 fL (35.1-46.3); Red Blood Cell Count 5.71 M/mm3 (4.30-5.90); White Blood Cell Count 10.29 K/mm3 (4.00-11.30)
[2024-04-11 18:01] LABS: Albumin, Blood 3.2 g/dL (3.4-5.0); Albumin/Globulin Ratio 0.8 (0.8-1.8); Bilirubin, Total 1.2 mg/dL (0.1-1.0); Bun/Creatinine Ratio 18.6 (12.0-20.0); Calcium, Blood 8.9 mg/dL (8.5-10.1); Creatinine, Blood 0.91 mg/dL (0.60-1.20); Globulin, Blood 3.9 g/dL (2.2-4.0); Potassium, Blood 3.9 mmol/L (3.5-5.5); Total Protein, Blood 7.1 g/dL (6.4-8.2)
[2024-04-11] MEDS ORDERED: Promethazine HCl 25 MG Tab PO ONE (19:30)
[2024-04-11] MEDS ORDERED: MAGCIT300 PO (19:30)
[2024-04-11] MEDS ORDERED: PROM25 PO (19:31)
[2024-04-11 20:26] VITALS: BP 107/85
[2024-04-15] MEDS ORDERED: ACET500 PO (01:19)
[2024-04-15] MEDS ORDERED: BASAGLAR K100 UNIT/1 SC (01:20)
[2024-04-15] MEDS ORDERED: Aspir 8181 MG PO (01:20)
[2024-04-15] MEDS ORDERED: METOPROLOL SUCC25 MG PO (01:21)
[2024-04-15] MEDS ORDERED: ROSUVASTATIN CA10 MG PO (01:23)
[2024-04-16] MEDS ORDERED: METO25 PO (13:18)
[2024-04-18] MEDS ORDERED: ONDA4ODT MM (21:32)
== END 2024-04-11 20:44 | disposition home or self-care (01) ==
LOC: ER 14:51
PROVIDERS: Student in an Organized Health Care Education/Training Program
DX: K59.00 Constipation, unspecified (principal); K52.9 Noninfective gastroenteritis and colitis, unspecified; I11.0 Hypertensive heart disease with heart failure; I50.20 Unspecified systolic (congestive) heart failure; E11.40 Type 2 diabetes mellitus with diabetic neuropathy, unspecified; I25.10 Atherosclerotic heart disease of native coronary artery without angina pectoris; E78.5 Hyperlipidemia, unspecified; J44.9 Chronic obstructive pulmonary disease, unspecified; F17.210 Nicotine dependence, cigarettes, uncomplicated; Z88.5 Allergy status to narcotic agent; Z88.8 Allergy status to other drugs, medicaments and biological substances; Z88.1 Allergy status to other antibiotic agents; Z79.899 Other long term (current) drug therapy
CPT/HCPCS: 74019; 74177; 80053; 83605; 83690; 85025; 99284-25; A9270; Q9967

== ENCOUNTER 2024-04-16 22:57 | Emergency (ER) | payer OTHER ==
[~2024-04-16] VITALS: Ht 167.6 cm; Wt 101.2 kg
[~2024-04-16 22:57] MED LIST changes: +ACET500 PO; +BASAGLAR K100 UNIT/1 SC; +MAGCIT300 PO; +METO25 PO; +ROSUVASTATIN CA10 MG PO
[2024-04-16 23:17] LABS: BASOPHILS PERCENT AUTO 1 % (0-2); EOSINOPHILS ABSOLUTE AUTO 0.24 K/mm3 (0.00-0.68); EOSINOPHILS PERCENT AUTO 3 % (0-6); Hematocrit 50.1 % (37.0-53.0); Hemoglobin 15.4 g/dL (13.5-17.5); IMMATURE GRAN ABSOLUTE AUTO 0.02 K/mm3 (0.00-0.10); IMMATURE GRAN PERCENT AUTO 0 % (0-1); LYMPHOCYTES ABSOLUTE AUTO 3.31 K/mm3 (0.84-5.20); LYMPHOCYTES PERCENT AUTO 34 % (21-46); MONOCYTES ABSOLUTE AUTO 0.56 K/mm3 (0.16-1.47); MONOCYTES PERCENT AUTO 6 % (4-13); Mean Corpuscular HGB 25.5 pg (26.0-34.0); Mean Corpuscular HGB Conc 30.7 g/dL (31.5-36.5); Mean Corpuscular Volume 83 fL (80-100); Mean Platelet Volume 10.3 fL (9.1-12.4); NEUTROPHILS ABSOLUTE AUTO 5.45 K/mm3 (1.96-9.15); NEUTROPHILS PERCENT AUTO 56 % (41-73); Platelet Count 214 K/mm3 (150-400); RDW Coefficient Variation 14.4 % (11.7-14.2); RDW Standard Deviation 43.3 fL (35.1-46.3); Red Blood Cell Count 6.05 M/mm3 (4.30-5.90); White Blood Cell Count 9.68 K/mm3 (4.00-11.30)
[2024-04-16 23:35] LABS: Albumin, Blood 3.2 g/dL (3.4-5.0); Albumin/Globulin Ratio 0.9 (0.8-1.8); Bilirubin, Total 0.9 mg/dL (0.1-1.0); Bun/Creatinine Ratio 13.2 (12.0-20.0); Calcium, Blood 9.2 mg/dL (8.5-10.1); Creatinine, Blood 1.06 mg/dL (0.60-1.20); Globulin, Blood 3.6 g/dL (2.2-4.0); Potassium, Blood 4.4 mmol/L (3.5-5.5); Total Protein, Blood 6.8 g/dL (6.4-8.2)
[2024-04-16] MEDS ORDERED: Magnesium Hydroxide Conc 10 ML UDC PO ONE (23:55)
[2024-04-17] MEDS ORDERED: Miralax17 GM PO (00:29)
[2024-04-17 00:35] LABS: Source, Urine Voided
[2024-04-17 00:39] LABS: Appearance, Urine Clear (Clear); Bilirubin, Urine Neg (Neg); Blood, Urine Neg (Neg); Color, Urine Yellow (P-Yellow); Glucose Qualitative, Urine Neg (Neg); Ketones, Urine Neg (Neg); Leukocyte Esterase, Urine 1+ (Neg); Nitrite, Urine Neg (Neg); Protein, Urine 3+ (Neg); Specific Gravity, Urine 1.015 (1.003-1.022); Urobilinogen, Urine NORM (Normal)
[2024-04-17 00:45] LABS: Bacteria Rare /hpf; Hyaline Casts 0-2 /lpf (0-2); Red Blood Cells, Urine Not Seen /hpf (0-2); Squamous Epithelial Cells Not Seen /hpf (Few)
[2024-04-17 01:00] VITALS: BP 139/99
[2024-04-18] MEDS ORDERED: ONDA4ODT MM (21:32)
[2024-04-20] MEDS ORDERED: K-Dur10 MEQ PO (15:53)
[2024-04-20] MEDS ORDERED: FURO40 PO (15:53)
[2024-04-20] MEDS ORDERED: SULTRIDS PO (15:53)
== END 2024-04-17 01:05 | disposition home or self-care (01) ==
LOC: ER 22:57
PROVIDERS: Emergency Medicine
DX: K59.00 Constipation, unspecified (principal); E78.5 Hyperlipidemia, unspecified; I11.0 Hypertensive heart disease with heart failure; I50.20 Unspecified systolic (congestive) heart failure; E11.40 Type 2 diabetes mellitus with diabetic neuropathy, unspecified; J44.9 Chronic obstructive pulmonary disease, unspecified; F17.210 Nicotine dependence, cigarettes, uncomplicated; Z86.73 Personal history of transient ischemic attack (TIA), and cerebral infarction without residual deficits; Z79.82 Long term (current) use of aspirin; Z79.4 Long term (current) use of insulin; Z79.899 Other long term (current) drug therapy; Z88.1 Allergy status to other antibiotic agents; Z88.8 Allergy status to other drugs, medicaments and biological substances
CPT/HCPCS: 74018; 80053; 81001; 85025; 99284-25; A9270

== ENCOUNTER 2024-04-30 22:13 | Emergency (ER) | payer OTHER ==
[~2024-04-30] VITALS: Ht 167.6 cm; Wt 90.7 kg
[~2024-04-30 22:13] MED LIST changes: +BUME1 PO; +CEFD300 PO; +FURO40 PO; +Flomax0.4 MG PO; +K-Dur10 MEQ PO; +Miralax17 GM PO
[2024-04-30] MEDS ORDERED: Nitroglycerin 0.4 MG SUBL SL PRN (22:25)
[2024-04-30] MEDS ORDERED: INSULIN GL100 UNIT/2 SQ (22:30)
[2024-04-30 22:34] LABS: BASOPHILS ABSOLUTE AUTO 0.08 K/mm3 (0.00-0.23); BASOPHILS PERCENT AUTO 1 % (0-2); EOSINOPHILS ABSOLUTE AUTO 0.17 K/mm3 (0.00-0.68); EOSINOPHILS PERCENT AUTO 2 % (0-6); Hematocrit 44.1 % (37.0-53.0); IMMATURE GRAN ABSOLUTE AUTO 0.02 K/mm3 (0.00-0.10); IMMATURE GRAN PERCENT AUTO 0 % (0-1); LYMPHOCYTES ABSOLUTE AUTO 1.97 K/mm3 (0.84-5.20); LYMPHOCYTES PERCENT AUTO 28 % (21-46); MONOCYTES ABSOLUTE AUTO 0.46 K/mm3 (0.16-1.47); MONOCYTES PERCENT AUTO 6 % (4-13); Mean Corpuscular HGB 25.8 pg (26.0-34.0); Mean Corpuscular HGB Conc 31.7 g/dL (31.5-36.5); Mean Corpuscular Volume 81 fL (80-100); Mean Platelet Volume 10.2 fL (9.1-12.4); NEUTROPHILS ABSOLUTE AUTO 4.46 K/mm3 (1.96-9.15); NEUTROPHILS PERCENT AUTO 62 % (41-73); Platelet Count 191 K/mm3 (150-400); RDW Coefficient Variation 14.6 % (11.7-14.2); RDW Standard Deviation 42.4 fL (35.1-46.3); Red Blood Cell Count 5.43 M/mm3 (4.30-5.90); White Blood Cell Count 7.16 K/mm3 (4.00-11.30)
[2024-04-30 22:49] LABS: Bun/Creatinine Ratio 21.8 (12.0-20.0); Calcium, Blood 9.3 mg/dL (8.5-10.1); Creatinine, Blood 1.33 mg/dL (0.60-1.20); Potassium, Blood 4.5 mmol/L (3.5-5.5)
[2024-05-01] MEDS ORDERED: Ondansetron HCl 2 MG / ML 2ML Vial IV ONE (01:00)
[2024-05-01 01:30] VITALS: BP 109/84
[2024-05-01] MEDS ORDERED: Furosemide 10 MG/ML 4ML Vial IV ONE (01:30)
[2024-05-01] MEDS ORDERED: ACET500 PO (01:33)
[2024-05-01] MEDS ORDERED: FURO20 PO (01:33)
[2024-05-01] MEDS ORDERED: ONDA4ODT MM (01:33)
== END 2024-05-01 02:10 | disposition home or self-care (01) ==
LOC: ER 22:13
PROVIDERS: Emergency Medicine
DX: R07.89 Other chest pain (principal); R60.9 Edema, unspecified; I50.20 Unspecified systolic (congestive) heart failure; I11.0 Hypertensive heart disease with heart failure; E78.5 Hyperlipidemia, unspecified; E11.40 Type 2 diabetes mellitus with diabetic neuropathy, unspecified; J44.9 Chronic obstructive pulmonary disease, unspecified; F17.210 Nicotine dependence, cigarettes, uncomplicated; Z86.73 Personal history of transient ischemic attack (TIA), and cerebral infarction without residual deficits; Z79.899 Other long term (current) drug therapy; Z79.4 Long term (current) use of insulin; Z88.1 Allergy status to other antibiotic agents; Z88.8 Allergy status to other drugs, medicaments and biological substances
CPT/HCPCS: 71045; 80048; 83735; 83880; 84484; 85025; 93005; 93010; 96374; 99285-25; A9270; J2405

== ENCOUNTER 2024-05-14 11:20 | Inpatient (IN) | payer OTHER ==
[~2024-05-14] VITALS: Ht 167.6 cm; Wt 109.0 kg
[~2024-05-14 11:20] MED LIST changes: +INSULIN GL100 UNIT/2 SC
[2024-05-14 12:25] LABS: BASOPHILS ABSOLUTE AUTO 0.08 K/mm3 (0.00-0.23); BASOPHILS PERCENT AUTO 1 % (0-2); EOSINOPHILS ABSOLUTE AUTO 0.04 K/mm3 (0.00-0.68); EOSINOPHILS PERCENT AUTO 0 % (0-6); Hematocrit 46.6 % (37.0-53.0); Hemoglobin 14.8 g/dL (13.5-17.5); IMMATURE GRAN ABSOLUTE AUTO 0.08 K/mm3 (0.00-0.10); IMMATURE GRAN PERCENT AUTO 1 % (0-1); LYMPHOCYTES ABSOLUTE AUTO 2.52 K/mm3 (0.84-5.20); LYMPHOCYTES PERCENT AUTO 20 % (21-46); MONOCYTES ABSOLUTE AUTO 0.92 K/mm3 (0.16-1.47); MONOCYTES PERCENT AUTO 7 % (4-13); Mean Corpuscular HGB 25.1 pg (26.0-34.0); Mean Corpuscular HGB Conc 31.8 g/dL (31.5-36.5); Mean Corpuscular Volume 79 fL (80-100); Mean Platelet Volume 10.7 fL (9.1-12.4); NEUTROPHILS ABSOLUTE AUTO 8.86 K/mm3 (1.96-9.15); NEUTROPHILS PERCENT AUTO 71 % (41-73); Platelet Count 201 K/mm3 (150-400); RDW Coefficient Variation 15.3 % (11.7-14.2); RDW Standard Deviation 42.8 fL (35.1-46.3)
[2024-05-14 12:38] LABS: Albumin, Blood 3.4 g/dL (3.4-5.0); Albumin/Globulin Ratio 0.9 (0.8-1.8); Bilirubin, Total 2.6 mg/dL (0.1-1.0); Bun/Creatinine Ratio 26.2 (12.0-20.0); Calcium, Blood 9.4 mg/dL (8.5-10.1); Creatinine, Blood 0.84 mg/dL (0.60-1.20); Globulin, Blood 3.7 g/dL (2.2-4.0); Potassium, Blood 4.2 mmol/L (3.5-5.5); Total Protein, Blood 7.1 g/dL (6.4-8.2)
[2024-05-14] MEDS ORDERED: Vancomycin HCL 2,000 MG in NS 520 ML IV ONE (15:35)
[2024-05-14] MEDS ORDERED: Nitroglycerin 0.4 MG SUBL SL PRN (18:55)
[2024-05-14] MEDS ORDERED: Piperacillin/Tazobactam Sod 3.375 GM in NS 100 ML IV SCH ×2 (19:00→19:30)
[2024-05-14] MEDS ORDERED: Acetaminophen 500 MG Tab PO PRN (19:00)
[2024-05-14] MEDS ORDERED: Furosemide 10 MG/ML 4ML Vial IV ONE ×2 (19:00→19:35)
[2024-05-14] MEDS ORDERED: Acetaminophen 325 MG TABLET PO PRN (19:05)
[2024-05-14] MEDS ORDERED: FLU VACC TS2024-25(6MOS UP)/PF 45 MCG/0.5 ML SYRINGE IM SCH (19:05)
[2024-05-14] MEDS ORDERED: Magnesium Hydroxide Conc 10 ML UDC PO PRN (19:15)
[2024-05-14] MEDS ORDERED: Bisacodyl 10 MG Supp PR PRN (19:15)
[2024-05-14] MEDS ORDERED: Lisinopril 5 MG Tab PO SCH (20:00)
[2024-05-14] MEDS ORDERED: Spironolactone 25 MG Tab PO SCH (20:00)
[2024-05-14] MEDS ORDERED: Ondansetron 4 MG SoluTab MM SCH (20:00)
[2024-05-14] MEDS ORDERED: Insulin Glargine-Yfgn 100 Unit/mL 3 ML SYR SC SCH ×2 (21:00)
[2024-05-14] MEDS ORDERED: Insulin Human Lispro 100 Units/ML 3ML Syringe SC SCH (21:00)
[2024-05-14] MEDS ORDERED: Docusate Sodium 100 MG Cap PO SCH (21:00)
[2024-05-14] MEDS ORDERED: Sennosides 8.6 MG Tab PO SCH (21:00)
[2024-05-14 22:44] VITALS: BP 111/83
--- NOTE | 2024-05-14 23:39 | NUR ---
Patient arrived to room 340 via stretcher for the ED. Patient is alert and oriented but then is forgetful on some health questions. He does not seem to remember what to do first check his blood sugars, eat first then check it or take his insulin then check it. 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 He states he smokes 1 cig a day. He lives [facility] the transportation center. Patient has a heart murmur. He has edema tariq lower extremities and feet. Feet painful to the touch, pulses via doppler. Pt has crackles tariq lung bases rt greather then left. Pt is on RA. States he recently had PNA. Pt abdomen is rounded and distended, soft to touch. States no BM for 4 days and he "feels full" and says eating is hard. Bowel tones are active. Patient was admitted for cellulitis to tariq lower legs. Left lower leg is much more red/purple with some slight weeping around ankle. Right leg is pink. Both legs and feet are painful. Pt states he is unsteady and has difficulty ambulating. Has recently been using a walker.
[2024-05-15] MEDS ORDERED: NS 250 ML IV PRN (00:35)
[2024-05-15 04:40] VITALS: BP 104/79
[2024-05-15 05:39] LABS: BASOPHILS ABSOLUTE AUTO 0.08 K/mm3 (0.00-0.23); BASOPHILS PERCENT AUTO 1 % (0-2); EOSINOPHILS ABSOLUTE AUTO 0.12 K/mm3 (0.00-0.68); EOSINOPHILS PERCENT AUTO 1 % (0-6); Hematocrit 42.7 % (37.0-53.0); Hemoglobin 13.6 g/dL (13.5-17.5); IMMATURE GRAN ABSOLUTE AUTO 0.02 K/mm3 (0.00-0.10); IMMATURE GRAN PERCENT AUTO 0 % (0-1); LYMPHOCYTES ABSOLUTE AUTO 1.41 K/mm3 (0.84-5.20); LYMPHOCYTES PERCENT AUTO 17 % (21-46); MONOCYTES ABSOLUTE AUTO 0.53 K/mm3 (0.16-1.47); MONOCYTES PERCENT AUTO 6 % (4-13); Mean Corpuscular HGB 25.5 pg (26.0-34.0); Mean Corpuscular HGB Conc 31.9 g/dL (31.5-36.5); Mean Corpuscular Volume 80 fL (80-100); Mean Platelet Volume 10.4 fL (9.1-12.4); NEUTROPHILS ABSOLUTE AUTO 6.26 K/mm3 (1.96-9.15); NEUTROPHILS PERCENT AUTO 74 % (41-73); Platelet Count 164 K/mm3 (150-400); RDW Coefficient Variation 15.1 % (11.7-14.2); RDW Standard Deviation 43.7 fL (35.1-46.3); Red Blood Cell Count 5.34 M/mm3 (4.30-5.90); White Blood Cell Count 8.42 K/mm3 (4.00-11.30)
[2024-05-15 06:23] LABS: Albumin, Blood 2.8 g/dL (3.4-5.0); Albumin/Globulin Ratio 0.8 (0.8-1.8); Bilirubin, Total 1.5 mg/dL (0.1-1.0); Bun/Creatinine Ratio 25.5 (12.0-20.0); Creatinine, Blood 0.83 mg/dL (0.60-1.20); Globulin, Blood 3.7 g/dL (2.2-4.0); Potassium, Blood 3.3 mmol/L (3.5-5.5); Total Protein, Blood 6.5 g/dL (6.4-8.2)
--- NOTE | 2024-05-15 06:35 | NUR ---
SHIFT SUMMARY: Pt is admitted for cellulitis of the right leg and is a full code. Is alert and able to make needs known. ADLs have been 1p. States that he has some pain but did not need anything to help manage pain when asked. Iv to left forearm is patent with dressing that is CDI. IV ATB infused without issues.
[2024-05-15 07:52] VITALS: BP 105/82
[2024-05-15] MEDS ORDERED: Metoprolol Succinate 25 MG TABCR PO SCH (09:00)
[2024-05-15] MEDS ORDERED: Empagliflozin 10 MG TAB PO SCH ×2 (09:00)
[2024-05-15] MEDS ORDERED: Spironolactone 25 MG Tab PO SCH ×2 (09:00)
[2024-05-15] MEDS ORDERED: Metoprolol Tartrate 25 MG Tab PO SCH (09:00)
[2024-05-15] MEDS ORDERED: Enoxaparin 40 MG/0.4 ML SYR SC SCH (09:00)
[2024-05-15] MEDS ORDERED: Furosemide 40 MG Tab PO SCH (09:00)
[2024-05-15] MEDS ORDERED: Tamsulosin HCl 0.4 MG Cap PO SCH (09:00)
[2024-05-15] MEDS ORDERED: Vancomycin HCL 2,000 MG in NS 500 ML IV ONE (15:45)
[2024-05-15 15:51] VITALS: BP 106/76
[2024-05-15] MEDS ORDERED: Potassium Chloride 20 MEQ TabCR PO ONE (16:00)
--- NOTE | 2024-05-15 18:40 | NUR ---
REPORT RECEIVED VERIFIED, PT DOING WELL TODAY. BILAT EXTREMITY EDEMA, LEFT LEG WITH SCD. RIGHT LEG PAINFUL AND RED WITH MINIMAL WEEPING, LEG PROPED UP ON PAPER BISHOP. ANTIBIOTIC ARE INFUSING, PT HAS BEEN VERY PLEASENT AND COOPERATIVE. NEW IV STARTED TO RIGHT FA AND HAS VANCO INFUSING. PT ABLE TO MAKE NEEDS KNOWN
[2024-05-15 19:40] VITALS: BP 85/53
[2024-05-15 19:54] VITALS: BP 104/85
[2024-05-16] MEDS ORDERED: MIRALAX17 GM PO
[2024-05-16] MEDS ORDERED: Vancomycin HCL 1,500 MG in NS 250 ML IV SCH (04:00)
[2024-05-16 04:48] VITALS: BP 94/70
[2024-05-16 05:04] LABS: BASOPHILS ABSOLUTE AUTO 0.06 K/mm3 (0.00-0.23); BASOPHILS PERCENT AUTO 1 % (0-2); EOSINOPHILS ABSOLUTE AUTO 0.15 K/mm3 (0.00-0.68); EOSINOPHILS PERCENT AUTO 2 % (0-6); IMMATURE GRAN ABSOLUTE AUTO 0.04 K/mm3 (0.00-0.10); IMMATURE GRAN PERCENT AUTO 1 % (0-1); LYMPHOCYTES ABSOLUTE AUTO 1.49 K/mm3 (0.84-5.20); LYMPHOCYTES PERCENT AUTO 18 % (21-46); MONOCYTES ABSOLUTE AUTO 0.62 K/mm3 (0.16-1.47); MONOCYTES PERCENT AUTO 8 % (4-13); Mean Corpuscular HGB 25.5 pg (26.0-34.0); Mean Corpuscular HGB Conc 31.8 g/dL (31.5-36.5); Mean Corpuscular Volume 80 fL (80-100); Mean Platelet Volume 10.3 fL (9.1-12.4); NEUTROPHILS ABSOLUTE AUTO 5.77 K/mm3 (1.96-9.15); NEUTROPHILS PERCENT AUTO 71 % (41-73); Platelet Count 182 K/mm3 (150-400); RDW Standard Deviation 43.5 fL (35.1-46.3); Red Blood Cell Count 5.48 M/mm3 (4.30-5.90); White Blood Cell Count 8.13 K/mm3 (4.00-11.30)
[2024-05-16 05:39] LABS: Albumin, Blood 2.9 g/dL (3.4-5.0); Albumin/Globulin Ratio 0.8 (0.8-1.8); Bilirubin, Total 1.4 mg/dL (0.1-1.0); Bun/Creatinine Ratio 17.9 (12.0-20.0); Creatinine, Blood 1.06 mg/dL (0.60-1.20); Globulin, Blood 3.8 g/dL (2.2-4.0); Total Protein, Blood 6.7 g/dL (6.4-8.2)
--- NOTE | 2024-05-16 06:19 | NUR ---
SHIFT SUMMARY: Pt is admitted for cellulitis of the right leg and is a full code. Is alert and able to make needs known. ADLs have been 1p. Stated that he had minimal pain and did not need anything to help with pain management. Did state that he have nausea off and on through out the shift. Currently taking zofran every 4 hours that he states is mostly effective.
[2024-05-16 07:45] VITALS: BP 110/90
[2024-05-16] MEDS ORDERED: Furosemide 10 MG / ML 2ML Vial IV SCH (09:00)
[2024-05-16 15:37] LABS: Vancomycin, Trough 20.1 ug/mL (5.0-10.0)
[2024-05-16 15:49] VITALS: BP 111/90
--- NOTE | 2024-05-16 17:17 | NUR ---
report received verified. pt doing much better today legs are less swollen and no discharge noted. pt hoping to go home today. pt worked with Physical Therapy and ambulated in hendrix, pt was very FUENTES and requested to go back to bed. Dr Mckeon into see pt and CT ordered of pt right leg to rule out infection. CT was negative and confirmed cellulits. spoke with heart center and imaging today about pt appointments tomorrow. morning imagines of ALBERTO will need to be rescheduled. if pt is discharged he has appointment with cart driver.
[2024-05-16 20:30] VITALS: BP 110/90
[2024-05-16] MEDS ORDERED: MULVITA PO (23:56)
[2024-05-16] MEDS ORDERED: Fleet Enema132 ML PR (23:56)
[2024-05-16] MEDS ORDERED: ASPI81CH PO (23:56)
[2024-05-16] MEDS ORDERED: Nicoderm Cq1 EACH TOP (23:57)
[2024-05-16] MEDS ORDERED: Acetaminophen650 M1 PO (23:58)
[2024-05-16] MEDS ORDERED: MICONAZOLE NITR85 GM TOP (23:58)
[2024-05-16] MEDS ORDERED: ROSUVASTATIN CA10 MG PO (23:59)
[2024-05-16] MEDS ORDERED: DULCOLAX400 MG/5 M PO (23:59)
[2024-05-17] MEDS ORDERED: METOPROLOL TART25 MG PO
[2024-05-17] MEDS ORDERED: FUROSEMIDE20 MG PO (00:01)
[2024-05-17] MEDS ORDERED: SPIRONOLACTONE50 MG PO (00:01)
[2024-05-17] MEDS ORDERED: METOPROLOL SUCC25 MG PO (00:02)
[2024-05-17] MEDS ORDERED: LISI5 PO (00:02)
[2024-05-17] MEDS ORDERED: NEURONTIN300 MG PO (00:02)
[2024-05-17] MEDS ORDERED: TAMSULOSIN HCL0.4 M1 PO (00:03)
[2024-05-17] MEDS ORDERED: BUME2 PO (00:03)
[2024-05-17] MEDS ORDERED: ONDA4ODT MM (00:05)
[2024-05-17] MEDS ORDERED: Vancomycin HCL 1,250 MG in NS 250 ML IV SCH (04:00)
--- NOTE | 2024-05-17 04:44 | NUR ---
SUMMARY: PT A/OX4, IS PLEASANT AND COOPERATIVE W/CARE AND CALLS APPROPRIATELY TO SPECIFY NEEDS. HE'S 1PA OOB AND USES URINAL AD DANIS. IV ABX BEING RECIEVED FOR RLE CELLULITIS. LEG REMAINS RED, EDEMATOUS AND WARM TO TOUCH BUT IS GRADUALLY IMPROVING. PLAN IS TO RECEIVE AM ABX THEN D/C AROUND NOON TO MAKE OUTPATIENT CARDIOLOGY APPOINTMENT AT 1600. NO ACUTE CHANGES, VSS/AFEBRILE. WCTM AND REPORT TO DAY RN.
[2024-05-17 05:20] VITALS: BP 118/93
[2024-05-17 07:07] VITALS: BP 117/92
[2024-05-17] MEDS ORDERED: OxyCODONE HCL 5 MG TAB PO PRN (10:45)
[2024-05-17 15:42] VITALS: BP 114/95
--- NOTE | 2024-05-17 18:20 | NUR ---
SHIFT SUMMARY: PT IS A/O X 4, ONE ASSIST, PLEASANT AND COOPERATIVE WITH CARE. REDNESS AND SWELLING TO RLE SLIGHTLY IMPROVING. PAIN IS MANAGED BETTER WITH OXYCODONE. NO FURTHER REPORTS OF NAUSEA AT THIS TIME. ELEVATING RLE ON 2 PILLOWS AND HEATING PAD PLACED PER DR. BOUDREAUX'S INSTRUCTIONS THIS MORNING. PT REPORTS HEAT PAD HELPS WITH PAIN ALSO.
[2024-05-17 19:52] VITALS: BP 117/85
[2024-05-18 02:17] VITALS: BP 109/89
--- NOTE | 2024-05-18 05:37 | NUR ---
SUMMARY: PT A/OX4, CALLS APPROPRIATELY TO SPECIFY NEEDS AND IS PLEASANT AND COOPERATIVE W/CARE. HE'S UP W/1PA TO TOILET AND USES URINAL AD DANIS. RLE REMAINS EDEMATOUS AND RED W/CONCENTRATED PURPLE TINGED AREA TO R.CALF. LEGS ELEVATED IN BED AND KPAD IN PLACE PER INSTRUCTIONS. IV ABX BEING RECEIVED FOR CELLULITIS AND PRN ROXICODONE PROVIDED FOR TOLERABLE RELIEF OF ASSOCIATED PAIN. NO ACUTE CHANGES, VSS/AFEBRILE. WCTM AND REPORT TO DAY RN.
[2024-05-18 07:16] VITALS: BP 121/98
[2024-05-18] MEDS ORDERED: Bumetanide 1 MG Tab PO SCH (09:00)
[2024-05-18] MEDS ORDERED: Spironolactone 50 MG Tab PO SCH (09:00)
[2024-05-18 15:12] VITALS: BP 125/95
--- NOTE | 2024-05-18 17:32 | NUR ---
SHIFT SUMMARY PT SHOWERED TODAY. MEDICATED FOR PAIN TWICE THIS SHIFT. PT AMBULATING WELL IN ROOM, WORKED WITH PHYSICAL THERAPY WELL. PT THOUGHT HE LOST SOME MONEY TODAY, BUT THEN FOUND IT IN HIS ROOM. SECURITY WAS CALLED TO LOCK IT UP SO THE PATIENT DOES NOT LOSE IT AGAIN. PT ELEVATING FOOT WHILE IN BED WELL. HEAT THERAPY IN USE PRN. PT DENIES OTHER NEEDS AT THIS TIME. VS REVIEWED. CALL LIGHT IN REACH. DENIES OTHER NEEDS AT THIS TIME.
[2024-05-18 19:05] VITALS: BP 137/98
[2024-05-19 04:38] VITALS: BP 130/81
[2024-05-19 05:24] LABS: BASOPHILS ABSOLUTE AUTO 0.08 K/mm3 (0.00-0.23); BASOPHILS PERCENT AUTO 1 % (0-2); EOSINOPHILS ABSOLUTE AUTO 0.21 K/mm3 (0.00-0.68); EOSINOPHILS PERCENT AUTO 3 % (0-6); Hematocrit 44.8 % (37.0-53.0); IMMATURE GRAN ABSOLUTE AUTO 0.04 K/mm3 (0.00-0.10); IMMATURE GRAN PERCENT AUTO 1 % (0-1); LYMPHOCYTES ABSOLUTE AUTO 1.97 K/mm3 (0.84-5.20); LYMPHOCYTES PERCENT AUTO 25 % (21-46); MONOCYTES ABSOLUTE AUTO 0.68 K/mm3 (0.16-1.47); MONOCYTES PERCENT AUTO 8 % (4-13); Mean Corpuscular HGB Conc 31.3 g/dL (31.5-36.5); Mean Corpuscular Volume 80 fL (80-100); Mean Platelet Volume 9.9 fL (9.1-12.4); NEUTROPHILS ABSOLUTE AUTO 5.07 K/mm3 (1.96-9.15); NEUTROPHILS PERCENT AUTO 63 % (41-73); Platelet Count 229 K/mm3 (150-400); RDW Coefficient Variation 14.8 % (11.7-14.2); RDW Standard Deviation 43.4 fL (35.1-46.3); Red Blood Cell Count 5.59 M/mm3 (4.30-5.90); White Blood Cell Count 8.05 K/mm3 (4.00-11.30)
--- NOTE | 2024-05-19 05:52 | NUR ---
DRIVING TEACHER PATIENT IS A&OX4, FORGETFUL AT TIMES DUE TO SHORT TERM MEMORY LOSS FROM A PAST BRAIN SURGERY. PATIENT IS NOT ON TELE, AND IS ON ROOM AIR. PATIENT COMPLAINED OF PAIN AND NAUSEA. PAIN MEDS GIVEN AND SCHEDULE NAUSEA MEDS GIVEN. PATIENT IS INDEPENDENT IN ROOM AND CALLS APPROPRIATELY. PLAN POSSIBLE D/C HOME TODAY
[2024-05-19 06:07] LABS: Albumin, Blood 3.2 g/dL (3.4-5.0); Albumin/Globulin Ratio 0.8 (0.8-1.8); Bilirubin, Total 0.9 mg/dL (0.1-1.0); Bun/Creatinine Ratio 19.4 (12.0-20.0); Calcium, Blood 9.6 mg/dL (8.5-10.1); Creatinine, Blood 1.03 mg/dL (0.60-1.20); Globulin, Blood 4.2 g/dL (2.2-4.0); Potassium, Blood 4.2 mmol/L (3.5-5.5); Total Protein, Blood 7.4 g/dL (6.4-8.2)
[2024-05-19 07:20] VITALS: BP 131/110
--- NOTE | 2024-05-19 07:50 | NUR ---
ASSUMED CARE OF PATIENT. UPON INTRODUCING SELF, PATIENT ASKED WHEN LEFT ARM BANDAGE WOULD BE CHANGED, STATING IT WAS DUE AT 0600 BUT NIGHT NURSE STATED THAT IS WHEN SHE WAS OFF WORK AND DAY SHIFT NURSE WOULD BE DOING IT. SPOKE WITH NIGHT NURSE WHO STATED SHE HAD TOLD PATIENT IT SEEMED SENSELESS TO DO SO AT 0600 SINCE HE WAS DISCHARGING THIS MORNING AND SISTER WAS COMING TO SEE HOW WOUND CARE WAS DONE. PATIENT WILL NOT BE DISCHARGING BEFORE NEXT DRESSING WOULD'VE BEEN DUE AT 1000.
[2024-05-19] MEDS ORDERED: JARDIANCE10 MG PO (13:13)
[2024-05-19] MEDS ORDERED: CIPR500 PO (13:14)
[2024-05-19] MEDS ORDERED: OXAYDO5 M1 PO (13:15)
--- NOTE | 2024-05-19 21:07 | NUR ---
DISCHARGE/SHIFT SUMMARY: A&Ox4. PLEASANT AND COOPERATIVE WITH CARE. CALLS APPROPRIATELY AND IS ABLE TO ADVOCATE NEEDS EFFECTIVELY. ANXIOUS AND FIXATED ON WHEN MONEY WOULD BE PICKED UP FROM SECURITY DESPITE SEVERAL REMINDERS. AMBULATING INDEPENDENTLY WITHIN ROOM WITH FWW AND 4WW ONCE DELIVERED BY [facility] [place]. CONTINENT x2 WITH BM TODAY. MEDICATED PRN PAIN x2. DISCHARGED WITH INSTRUCTIONS TO FOLLOW-UP WITH PCP NEXT WEEK. MED REC TO [facility] IN [place]. IV REMOVED BY THIS RN. PATIENT ESCORTED FROM FLOOR BY [facility] WITH ALL BELONGINGS, DISCHARGE PACKET, AND YELLOW ENVELOPE SLIP TO SECURITY FOR VALUABLES AND THEN TO PARKING LOT FOR [employer] TRANSPORTATION.
[2024-05-20] MEDS ORDERED: PRED20 PO (08:46)
== END 2024-05-19 14:12 | disposition home health service (06) | DRG 602 ==
LOC: ER 11:20 → ERHOLD 11:21 → MEDS 11:21
PROVIDERS: Emergency Medicine; Internal Medicine; ADMIT Internal Medicine
DX: L03.115 Cellulitis of right lower limb (principal); I50.23 Acute on chronic systolic (congestive) heart failure; I11.0 Hypertensive heart disease with heart failure; G47.33 Obstructive sleep apnea (adult) (pediatric); I25.10 Atherosclerotic heart disease of native coronary artery without angina pectoris; E78.5 Hyperlipidemia, unspecified; F17.210 Nicotine dependence, cigarettes, uncomplicated; J44.9 Chronic obstructive pulmonary disease, unspecified; M10.9 Gout, unspecified; B19.20 Unspecified viral hepatitis C without hepatic coma; F15.10 Other stimulant abuse, uncomplicated; F10.10 Alcohol abuse, uncomplicated; E11.65 Type 2 diabetes mellitus with hyperglycemia; E11.40 Type 2 diabetes mellitus with diabetic neuropathy, unspecified; Z88.8 Allergy status to other drugs, medicaments and biological substances; B96.5 Pseudomonas (aeruginosa) (mallei) (pseudomallei) as the cause of diseases classified elsewhere; Z88.1 Allergy status to other antibiotic agents; Z79.4 Long term (current) use of insulin; Z95.5 Presence of coronary angioplasty implant and graft; Z79.01 Long term (current) use of anticoagulants; Z86.73 Personal history of transient ischemic attack (TIA), and cerebral infarction without residual deficits; Z87.442 Personal history of urinary calculi; Z91.148 Patient's other noncompliance with medication regimen for other reason; Z98.890 Other specified postprocedural states
CPT/HCPCS: 36415; 73590; 73701; 80053; 80202; 82947; 83605; 85025; 87040; 87070; 87075; 87077; 87186; 87205; 94762; 96365; 96366; 96367; 96372; 96375; 96376; 97110; 97116; 97162; 97530; 99284-25; A9270; G0378; J1650; J1815; J1940; J2543; J3370; J7040; J7050; Q9967

== ENCOUNTER 2024-05-19 17:33 | Emergency (ER) | payer OTHER ==
[~2024-05-19] VITALS: Ht 167.6 cm; Wt 97.5 kg
[~2024-05-19 17:33] MED LIST changes: +Acetaminophen650 M1 PO; +BUME2 PO; +CIPR500 PO; +DULCOLAX400 MG/5 M PO; +FUROSEMIDE20 MG PO; +Fleet Enema132 ML PR; +JARDIANCE10 MG PO; +METOPROLOL TART25 MG PO; +MICONAZOLE NITR85 GM TOP; +OXAYDO5 M1 PO; +SPIRONOLACTONE50 MG PO; +TAMSULOSIN HCL0.4 M1 PO
[2024-05-19 18:08] VITALS: BP 115/82
[2024-05-20] MEDS ORDERED: PRED20 PO (08:46)
== END 2024-05-20 01:16 | disposition left against medical advice (07) ==
LOC: ER 17:33
DX: Z53.21 Procedure and treatment not carried out due to patient leaving prior to being seen by health care provider (principal)
CPT/HCPCS: 82947

== ENCOUNTER 2024-05-20 05:41 | Emergency (ER) | payer OTHER ==
[~2024-05-20] VITALS: Ht 180.3 cm; Wt 158.8 kg
[2024-05-20] MEDS ORDERED: Albuterol 2.5 MG/3 ML VIAL INH SCH (05:50)
[2024-05-20 05:57] LABS: BASOPHILS ABSOLUTE AUTO 0.08 K/mm3 (0.00-0.23); BASOPHILS PERCENT AUTO 1 % (0-2); EOSINOPHILS ABSOLUTE AUTO 0.17 K/mm3 (0.00-0.68); EOSINOPHILS PERCENT AUTO 2 % (0-6); Hematocrit 43.9 % (37.0-53.0); Hemoglobin 13.9 g/dL (13.5-17.5); IMMATURE GRAN ABSOLUTE AUTO 0.06 K/mm3 (0.00-0.10); IMMATURE GRAN PERCENT AUTO 1 % (0-1); LYMPHOCYTES ABSOLUTE AUTO 1.47 K/mm3 (0.84-5.20); LYMPHOCYTES PERCENT AUTO 20 % (21-46); MONOCYTES ABSOLUTE AUTO 0.57 K/mm3 (0.16-1.47); MONOCYTES PERCENT AUTO 8 % (4-13); Mean Corpuscular HGB Conc 31.7 g/dL (31.5-36.5); Mean Corpuscular Volume 79 fL (80-100); Mean Platelet Volume 9.2 fL (9.1-12.4); NEUTROPHILS ABSOLUTE AUTO 4.93 K/mm3 (1.96-9.15); NEUTROPHILS PERCENT AUTO 68 % (41-73); Platelet Count 221 K/mm3 (150-400); RDW Coefficient Variation 14.6 % (11.7-14.2); Red Blood Cell Count 5.56 M/mm3 (4.30-5.90); White Blood Cell Count 7.28 K/mm3 (4.00-11.30)
[2024-05-20 06:37] LABS: Albumin, Blood 3.3 g/dL (3.4-5.0); Albumin/Globulin Ratio 0.8 (0.8-1.8); Bilirubin, Total 0.9 mg/dL (0.1-1.0); Bun/Creatinine Ratio 18.2 (12.0-20.0); Calcium, Blood 9.6 mg/dL (8.5-10.1); Creatinine, Blood 1.48 mg/dL (0.60-1.20); Globulin, Blood 4.3 g/dL (2.2-4.0); Potassium, Blood 4.4 mmol/L (3.5-5.5); Total Protein, Blood 7.6 g/dL (6.4-8.2)
[2024-05-20] MEDS ORDERED: PRED20 PO (08:46)
[2024-05-20] MEDS ORDERED: Ciprofloxacin 500 MG Tab PO ONE (08:50)
[2024-05-20 08:58] VITALS: BP 104/78
== END 2024-05-20 08:59 | disposition home or self-care (01) ==
LOC: ER 05:41
PROVIDERS: Emergency Medicine
DX: J44.1 Chronic obstructive pulmonary disease with (acute) exacerbation (principal); R07.9 Chest pain, unspecified; L03.115 Cellulitis of right lower limb; F17.200 Nicotine dependence, unspecified, uncomplicated; Z88.8 Allergy status to other drugs, medicaments and biological substances; Z88.1 Allergy status to other antibiotic agents; Z79.899 Other long term (current) drug therapy; Z79.4 Long term (current) use of insulin; E11.40 Type 2 diabetes mellitus with diabetic neuropathy, unspecified; E78.5 Hyperlipidemia, unspecified; F17.210 Nicotine dependence, cigarettes, uncomplicated; I11.0 Hypertensive heart disease with heart failure; I50.20 Unspecified systolic (congestive) heart failure
CPT/HCPCS: 71045; 80053; 84484; 85025; 93005; 93010; 93971; 94644; 94664; 99285-25

== ENCOUNTER 2024-05-29 04:34 | Emergency (ER) | payer OTHER ==
[~2024-05-29] VITALS: Ht 167.6 cm; Wt 95.7 kg
[2024-05-29 04:38] VITALS: BP 115/92
[2024-05-29] MEDS ORDERED: Acetaminophen 325 MG TABLET PO ONE (04:55)
[2024-05-29] MEDS ORDERED: OxyCODONE HCL 5 MG TAB PO ONE (06:15)
[2024-05-29] MEDS ORDERED: ELIQUIS5 M2 PO (06:15)
[2024-05-29] MEDS ORDERED: RX Prepack 6 Tabs Oxycodone 5mg UD ONE (06:15)
== END 2024-05-29 06:28 | disposition home or self-care (01) ==
LOC: ER 04:34
DX: I82.4Z1 Acute embolism and thrombosis of unspecified deep veins of right distal lower extremity (principal); I10 Essential (primary) hypertension; E78.5 Hyperlipidemia, unspecified; E11.40 Type 2 diabetes mellitus with diabetic neuropathy, unspecified; J44.9 Chronic obstructive pulmonary disease, unspecified; F17.210 Nicotine dependence, cigarettes, uncomplicated; Z87.2 Personal history of diseases of the skin and subcutaneous tissue; Z86.73 Personal history of transient ischemic attack (TIA), and cerebral infarction without residual deficits; Z79.52 Long term (current) use of systemic steroids; Z79.82 Long term (current) use of aspirin; Z79.899 Other long term (current) drug therapy; Z88.1 Allergy status to other antibiotic agents; Z88.8 Allergy status to other drugs, medicaments and biological substances
CPT/HCPCS: 93971; 99284-25; A9270

== ENCOUNTER 2024-06-03 19:25 | Inpatient (IN) | payer OTHER ==
[~2024-06-03] VITALS: Ht 167.6 cm; Wt 93.5 kg
[~2024-06-03 19:25] MED LIST changes: +ELIQUIS5 M2 PO
[2024-06-03 19:52] LABS: BASOPHILS ABSOLUTE AUTO 0.09 K/mm3 (0.00-0.23); BASOPHILS PERCENT AUTO 1 % (0-2); EOSINOPHILS ABSOLUTE AUTO 0.18 K/mm3 (0.00-0.68); EOSINOPHILS PERCENT AUTO 2 % (0-6); Hematocrit 49.1 % (37.0-53.0); Hemoglobin 16.1 g/dL (13.5-17.5); IMMATURE GRAN ABSOLUTE AUTO 0.08 K/mm3 (0.00-0.10); IMMATURE GRAN PERCENT AUTO 1 % (0-1); LYMPHOCYTES ABSOLUTE AUTO 2.72 K/mm3 (0.84-5.20); LYMPHOCYTES PERCENT AUTO 24 % (21-46); MONOCYTES ABSOLUTE AUTO 0.78 K/mm3 (0.16-1.47); MONOCYTES PERCENT AUTO 7 % (4-13); Mean Corpuscular HGB 25.3 pg (26.0-34.0); Mean Corpuscular HGB Conc 32.8 g/dL (31.5-36.5); Mean Corpuscular Volume 77 fL (80-100); Mean Platelet Volume 9.5 fL (9.1-12.4); NEUTROPHILS PERCENT AUTO 66 % (41-73); Platelet Count 275 K/mm3 (150-400); RDW Coefficient Variation 15.8 % (11.7-14.2); RDW Standard Deviation 41.6 fL (35.1-46.3); Red Blood Cell Count 6.37 M/mm3 (4.30-5.90); White Blood Cell Count 11.35 K/mm3 (4.00-11.30)
[2024-06-03 20:10] LABS: Alanine Aminotransfer (ALT/SGP 32 U/L (12-78); Albumin, Blood 3.4 g/dL (3.4-5.0); Albumin/Globulin Ratio 0.8 (0.8-1.8); Alk Phos 127 U/L (50-136); Anion Gap 10 mmol/L (3-11); Aspartate Aminotrans (AST/SGOT 27 U/L (12-37); Bilirubin, Total 0.9 mg/dL (0.1-1.0); Blood Urea Nitrogen 30 mg/dL (8-24); Bun/Creatinine Ratio 32.6 (12.0-20.0); CO2, Blood 23 mmol/L (21-32); Calcium, Blood 9.5 mg/dL (8.5-10.1); Chloride, Blood 106 mmol/L (98-108); Creatinine, Blood 0.92 mg/dL (0.60-1.20); Globulin, Blood 4.3 g/dL (2.2-4.0); Glomerular Filtration Rate 95 (60-); Glucose, Blood 172 mg/dL (70-99); Potassium, Blood 4.3 mmol/L (3.5-5.5); Sodium, Blood 135 mmol/L (136-145); Total Protein, Blood 7.7 g/dL (6.4-8.2)
[2024-06-03] MEDS ORDERED: NS 1,000 ML IV SCH (20:15)
[2024-06-03] MEDS ORDERED: Metoprolol Tartrate 1 MG/ML 5 ML VIAL IV PRN (20:15)
[2024-06-03 20:52] LABS: C-REACTIVE PROTEIN, EXT RANGE <0.290 mg/dL (0.000-0.300)
[2024-06-03] MEDS ORDERED: Clindamycin 600mg in D5W 50 ML IV ONE (21:35)
[2024-06-03] MEDS ORDERED: Vancomycin HCL 1,250 MG in NS 250 ML IV ONE (21:35)
[2024-06-03] MEDS ORDERED: Digoxin 0.25 MG/ML 2ML Amp IV SCH (23:45)
[2024-06-03] MEDS ORDERED: OxyCODONE HCL 5 MG TAB PO PRN (23:55)
[2024-06-03] MEDS ORDERED: Ondansetron HCl 2 MG / ML 2ML Vial IV PRN (23:55)
[2024-06-04] MEDS ORDERED: FLU VACC TS2024-25(6MOS UP)/PF 45 MCG/0.5 ML SYRINGE IM SCH (00:25)
[2024-06-04] MEDS ORDERED: NS 1,000 ML IV SCH (01:00)
[2024-06-04] MEDS ORDERED: Albuterol 2.5 MG/3 ML VIAL INH PRN (01:55)
[2024-06-04] MEDS ORDERED: Vancomycin HCL 750 MG in NS 250 ML IV ONE (02:00)
[2024-06-04] MEDS ORDERED: Gabapentin 300 MG Cap PO SCH (02:00)
[2024-06-04] MEDS ORDERED: Digoxin 0.25 MG/ML 2ML Amp IV ONE (03:00)
[2024-06-04] MEDS ORDERED: NS 500 ML IV SCH ×2 (03:00)
[2024-06-04] MEDS ORDERED: NS 250 ML IV SCH (03:00)
[2024-06-04 03:10] LABS: Anti-Xa UFH, PHA Monitoring 0.85 IU/mL; International Normalized Ratio 1.1; Prothrombin Time Results 11.7 Sec (9.7-11.5)
[2024-06-04] MEDS ORDERED: Heparin Sodium 5000 Units/ML 1ML MDV IV ONE (03:20)
[2024-06-04] MEDS ORDERED: Heparin Sodium,Porcine/0.5 NS 500 ML IV SCH (03:20)
[2024-06-04 03:56] LABS: Anion Gap 9 mmol/L (3-11); Blood Urea Nitrogen 26 mg/dL (8-24); Bun/Creatinine Ratio 38.3 (12.0-20.0); CO2, Blood 22 mmol/L (21-32); Calcium, Blood 9.1 mg/dL (8.5-10.1); Chloride, Blood 109 mmol/L (98-108); Creatinine, Blood 0.68 mg/dL (0.60-1.20); Digoxin (Lanoxin) 0.38 ug/mL (0.80-2.00); Glomerular Filtration Rate 106 (60-); Glucose, Blood 176 mg/dL (70-99); Potassium, Blood 4.2 mmol/L (3.5-5.5); Sodium, Blood 136 mmol/L (136-145)
[2024-06-04] MEDS ORDERED: Metoprolol Tartrate 50 MG Tab PO ONE (04:00)
[2024-06-04 04:26] LABS: BASOPHILS ABSOLUTE AUTO 0.07 K/mm3 (0.00-0.23); BASOPHILS PERCENT AUTO 1 % (0-2); EOSINOPHILS PERCENT AUTO 2 % (0-6); Hematocrit 41.4 % (37.0-53.0); Hemoglobin 13.1 g/dL (13.5-17.5); IMMATURE GRAN ABSOLUTE AUTO 0.05 K/mm3 (0.00-0.10); IMMATURE GRAN PERCENT AUTO 1 % (0-1); LYMPHOCYTES PERCENT AUTO 30 % (21-46); MONOCYTES ABSOLUTE AUTO 0.67 K/mm3 (0.16-1.47); MONOCYTES PERCENT AUTO 8 % (4-13); Mean Corpuscular HGB 24.8 pg (26.0-34.0); Mean Corpuscular HGB Conc 31.6 g/dL (31.5-36.5); Mean Corpuscular Volume 78 fL (80-100); Mean Platelet Volume 9.3 fL (9.1-12.4); NEUTROPHILS ABSOLUTE AUTO 4.77 K/mm3 (1.96-9.15); NEUTROPHILS PERCENT AUTO 58 % (41-73); Platelet Count 191 K/mm3 (150-400); RDW Standard Deviation 42.7 fL (35.1-46.3); Red Blood Cell Count 5.29 M/mm3 (4.30-5.90); White Blood Cell Count 8.26 K/mm3 (4.00-11.30)
[2024-06-04 05:32] LABS: Albumin, Blood 2.3 g/dL (3.4-5.0); Albumin/Globulin Ratio 0.8 (0.8-1.8); Bilirubin, Total 0.7 mg/dL (0.1-1.0); Bun/Creatinine Ratio 37.7 (12.0-20.0); Calcium, Blood 7.1 mg/dL (8.5-10.1); Creatinine, Blood 0.58 mg/dL (0.60-1.20); Globulin, Blood 2.9 g/dL (2.2-4.0); Potassium, Blood 3.4 mmol/L (3.5-5.5); Total Protein, Blood 5.2 g/dL (6.4-8.2)
[2024-06-04] MEDS ORDERED: Potassium Chl 20MEQ/Water100ML 100 ML IV SCH (06:15)
[2024-06-04 06:48] LABS: Source, Urine Clean Catch
[2024-06-04 06:51] LABS: Appearance, Urine Clear (Clear); Bilirubin, Urine Neg (Neg); Blood, Urine 2+ (Neg); Color, Urine Yellow (P-Yellow); Glucose Qualitative, Urine Neg (Neg); Ketones, Urine Neg (Neg); Leukocyte Esterase, Urine Neg (Neg); Nitrite, Urine Neg (Neg); Protein, Urine 3+ (Neg); Specific Gravity, Urine 1.015 (1.003-1.022); Urobilinogen, Urine NORM (Normal); pH, Urine 6.5 (5.0-8.0)
[2024-06-04 06:57] LABS: Bacteria Rare /hpf; Squamous Epithelial Cells Rare /hpf (Few); White Blood Cells, Urine 0-2 /hpf (0-5)
[2024-06-04 07:02] LABS: U Amphetamine Screen Not Detected; U Barbituate Screen Not Detected; U Benzodiazapine Screen Not Detected; U Buprenorphine Screen Not Detected; U Cannabinoids Screen Not Detected; U Cocaine Screen Not Detected; U Methadone Screen Not Detected; U Methamphetamine Screen Not Detected; U Opiates Screen Not Detected; U Oxycodone Screen Not Detected; U Phencyclidine Screen Not Detected
[2024-06-04 07:31] LABS: Influenza A, PCR NEGATIVE (NEGATIVE); Influenza B, PCR NEGATIVE (NEGATIVE); Resp Syncytial Virus, PCR NEGATIVE (NEGATIVE); SARS-Cov-2 (COVID-19) PCR, MMC NEGATIVE (NEGATIVE)
[2024-06-04] MEDS ORDERED: Digoxin 0.25 MG/ML 2ML Amp IV SCH (09:00)
[2024-06-04] MEDS ORDERED: Nicotine 7 MG PATCH TOP SCH (09:00)
[2024-06-04] MEDS ORDERED: Metoprolol Tartrate 25 MG Tab PO SCH (09:00)
[2024-06-04] MEDS ORDERED: Dose Adjust by Pharmacy XX STA (11:06)
[2024-06-04] MEDS ORDERED: Digoxin 0.25 MG/ML 2ML Amp IV STA (12:52)
[2024-06-04] MEDS ORDERED: Spironolactone 25 MG Tab PO SCH (13:00)
[2024-06-04] MEDS ORDERED: Torsemide 20 MG TAB PO SCH (13:00)
[2024-06-04] MEDS ORDERED: Empagliflozin 10 MG TAB PO SCH ×2 (13:00→14:00)
[2024-06-04] MEDS ORDERED: Metoprolol Succinate 25 MG TABCR PO SCH (13:00)
[2024-06-04] MEDS ORDERED: Vancomycin HCL 1,250 MG in NS 250 ML IV SCH (14:00)
[2024-06-04] MEDS ORDERED: Propofol 10mg/ml 20 ml Vial (Procedural) IV ONE (14:29)
[2024-06-04 18:03] VITALS: BP 109/68
--- NOTE | 2024-06-04 18:43 | NUR ---
PT ARRIVED TO [facility] FROM ER VIA STRETCHER AT 1755. PT ABLE TO STAND AND PIVOT TO BED WITHOUT DIFFICULTY. SEE DOCUMENTED VS AND ASSESSMENT. PT HAS NO COMPLAINTS ON ARRIVAL. CONTINUOUS TELEMETRY MONITORING IN PLACE. PT'S BELONGINGS ARRIVED TO ROOM WITH PT. PT HAS NO NEEDS OR CONCERNS AT THIS TIME. PT ORIENTED TO ROOM, CALL LIGHT AND UNIT ROUTINES, VERBALIZES UNDERSTANDING. CALL LIGHT IN REACH. WILL CONTINUE TO MONITOR AND GIVE REPORT TO NOC SHIFT RN.
[2024-06-04 19:59] VITALS: BP 122/107
[2024-06-04] MEDS ORDERED: Apixaban 5 MG Tab PO SCH (21:00)
[2024-06-04] MEDS ORDERED: Acetaminophen 325 MG TABLET PO PRN (23:15)
[2024-06-04] MEDS ORDERED: Nitroglycerin 0.4 MG SUBL SL PRN (23:15)
[2024-06-04] MEDS ORDERED: Magnesium Hydroxide Conc 10 ML UDC PO PRN (23:15)
[2024-06-04] MEDS ORDERED: Polyethylene Glycol 3350 17 gm PO PRN (23:15)
[2024-06-05 00:11] VITALS: BP 116/87
[2024-06-05 04:45] VITALS: BP 129/90
--- NOTE | 2024-06-05 04:45 | NUR ---
SHIFT SUMMERY PT IS ALERT AND ORIENTED X4. 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 BP WNL. AFRBRILE. HE HAS CHRONIC PAIN AND HAS BEEN MEDICATED PER EMAR. VOIDS IN THE URINAL. HE IS ON ROOM AIR W/OXYGEN SAT 100% AT THIS TIME. HE HAS HAD NO CHEST PAIN OR RESP DISTRESS THIS SHIFT. HE HAS BEEN AWAKE MOST OF THE NIGHT. PT HAS TOLERATED DIET/MEDS WELL.
[2024-06-05 04:55] LABS: BASOPHILS ABSOLUTE AUTO 0.12 K/mm3 (0.00-0.23); BASOPHILS PERCENT AUTO 1 % (0-2); EOSINOPHILS ABSOLUTE AUTO 0.29 K/mm3 (0.00-0.68); EOSINOPHILS PERCENT AUTO 3 % (0-6); Hematocrit 53.1 % (37.0-53.0); Hemoglobin 16.8 g/dL (13.5-17.5); IMMATURE GRAN ABSOLUTE AUTO 0.05 K/mm3 (0.00-0.10); IMMATURE GRAN PERCENT AUTO 1 % (0-1); LYMPHOCYTES ABSOLUTE AUTO 2.86 K/mm3 (0.84-5.20); LYMPHOCYTES PERCENT AUTO 31 % (21-46); MONOCYTES ABSOLUTE AUTO 0.75 K/mm3 (0.16-1.47); MONOCYTES PERCENT AUTO 8 % (4-13); Mean Corpuscular HGB 24.7 pg (26.0-34.0); Mean Corpuscular HGB Conc 31.6 g/dL (31.5-36.5); Mean Corpuscular Volume 78 fL (80-100); Mean Platelet Volume 9.7 fL (9.1-12.4); NEUTROPHILS ABSOLUTE AUTO 5.27 K/mm3 (1.96-9.15); NEUTROPHILS PERCENT AUTO 57 % (41-73); Platelet Count 259 K/mm3 (150-400); RDW Coefficient Variation 16.6 % (11.7-14.2); RDW Standard Deviation 42.1 fL (35.1-46.3); Red Blood Cell Count 6.79 M/mm3 (4.30-5.90); White Blood Cell Count 9.34 K/mm3 (4.00-11.30)
[2024-06-05 05:34] LABS: Magnesium, Blood 1.8 mg/dL (1.6-2.4)
[2024-06-05 05:46] LABS: Creatinine, Blood 0.79 mg/dL (0.60-1.20); Potassium, Blood 4.1 mmol/L (3.5-5.5)
[2024-06-05 05:48] LABS: Calcium, Blood 9.8 mg/dL (8.5-10.1)
[2024-06-05] MEDS ORDERED: Insulin Human Lispro 100 Units/ML 3ML Syringe SC SCH (07:30)
[2024-06-05 07:35] VITALS: BP 114/89
[2024-06-05] MEDS ORDERED: Aspirin 81 MG Chew PO SCH (09:00)
[2024-06-05] MEDS ORDERED: Tamsulosin HCl 0.4 MG Cap PO SCH (09:00)
[2024-06-05] MEDS ORDERED: Multivitamins 1 Tab PO SCH (09:00)
[2024-06-05] MEDS ORDERED: Digoxin 0.25 MG Tab PO SCH (09:00)
[2024-06-05] MEDS ORDERED: Metoprolol Succinate 50 MG TABCR PO SCH (09:00)
[2024-06-05] MEDS ORDERED: Lisinopril 5 MG Tab PO SCH ×2 (09:00→21:00)
[2024-06-05 12:20] VITALS: BP 114/85
[2024-06-05] MEDS ORDERED: Vancomycin HCL 1,000 MG in NS 250 ML IV SCH (14:00)
[2024-06-05] MEDS ORDERED: Amiodarone HCl 200 MG Tab PO ONE (14:25)
--- NOTE | 2024-06-05 17:52 | NUR ---
SHIFT SUMMARY: REPORT FROM BRIDGET RN, THIS RN TO ASSUME CARE OF PT AT 1128 PT A&OX4 THROUGHOUT SHIFT. CALLED APPROPRIATELY AND MADE NEEDS KNOWN TO STAFF. PREVIOUS NURSE REPORTED HR IN THE 120'S AT REST AND HR IN THE 140'S WITH ACTIVITY. PTS HE BEGAN TO TREND UP TO THE 130'S-[address] LAM NOTIFIED AND GAVE A VERBAL ORDER FOR 400MG AMIODERONE PO NOW AND THEN 400MG AMIODERONE PO TID. PT MEDICATED PER ORDERS AND STILL REMAINS WITH A HR AT 138-140. DENIES ANY CP OR SOB. VSS OTHERWISE. ON RA MAINTAINING AN O2 SAT ABOVE 95%. NO OTHER SIGNIFICANT EVENTS HAPPENED THIS SHIFT. WILL CONTINUE TO CARE FOR PT WILL END OF SHIFT.
[2024-06-05 19:37] VITALS: BP 115/85
[2024-06-05] MEDS ORDERED: Amiodarone HCl 200 MG Tab PO SCH (21:00)
[2024-06-05] MEDS ORDERED: Insulin Glargine-Yfgn 100 Unit/mL 3 ML SYR SC SCH (21:00)
[2024-06-05 23:51] VITALS: BP 96/76
[2024-06-06] VITALS (39 sets, daily range): BP systolic 54–113; BP diastolic 35–101
[2024-06-06] MEDS ORDERED: Omeprazole 20 MG CapCR PO SCH (06:00)
--- NOTE | 2024-06-06 06:12 | NUR ---
SHIFT SUMMARY; PT WAS A LITTLE CONFUSED LAST NIGHT UPON WAKING UP CHANGED HIS GOWN TO HOME CLOTHES AND WAS PLANNING ON LEAVING, PT WAS EASILY REDIRECTED MADE AWARE THAT HE'S AT THE HOSPITAL AT THIS TIME. PT WENT BACK TO BED. PT WAS ABLE TO AMBULATE TO THE BATHROOM VIA WALKER SBA WITH NO ISSUES. PT MEDICATED FOR RIGHT LEG PAIN. VITALS HAS BEEN STABLE, HRR AFIB MOSTLY IN THE 110'S, TACHS UP TO 130'S WITH AMBULATION/EXERTION. PT DENIES SOB, CHEST PAIN/PRESSURE. SBP 100-110'S, SATS ABOVE 90% ON RA, AFEBRILE. PT COMPLIANT WITH FLUIDS RESTRICTION MAXED OUT 500MLS FLUID FOR THE NIGHT. NO OTHER ISSUES ENCOUNTERED FOR THE SHIFT, PT WAS ABLE TO WEAR CPAP MACHINE HALF OF THE SHIFT. PT HAS BEEN CALLING APPROPRIATELY, WILL REPORT TO ONCOMING SHIFT
[2024-06-06 08:19] LABS: Albumin, Blood 3.5 g/dL (3.4-5.0); Albumin/Globulin Ratio 0.8 (0.8-1.8); Bilirubin, Total 0.9 mg/dL (0.1-1.0); Bun/Creatinine Ratio 30.9 (12.0-20.0); Calcium, Blood 9.5 mg/dL (8.5-10.1); Creatinine, Blood 0.94 mg/dL (0.60-1.20); Globulin, Blood 4.4 g/dL (2.2-4.0); Magnesium, Blood 2.2 mg/dL (1.6-2.4); Phosphorus, Blood 5.2 mg/dL (2.5-4.9); Potassium, Blood 4.8 mmol/L (3.5-5.5); Total Protein, Blood 7.9 g/dL (6.4-8.2)
[2024-06-06 08:20] LABS: BASOPHILS ABSOLUTE AUTO 0.07 K/mm3 (0.00-0.23); BASOPHILS PERCENT AUTO 1 % (0-2); EOSINOPHILS ABSOLUTE AUTO 0.22 K/mm3 (0.00-0.68); EOSINOPHILS PERCENT AUTO 2 % (0-6); Hematocrit 53.1 % (37.0-53.0); Hemoglobin 16.6 g/dL (13.5-17.5); IMMATURE GRAN ABSOLUTE AUTO 0.07 K/mm3 (0.00-0.10); IMMATURE GRAN PERCENT AUTO 1 % (0-1); LYMPHOCYTES ABSOLUTE AUTO 2.85 K/mm3 (0.84-5.20); LYMPHOCYTES PERCENT AUTO 29 % (21-46); MONOCYTES ABSOLUTE AUTO 0.77 K/mm3 (0.16-1.47); MONOCYTES PERCENT AUTO 8 % (4-13); Mean Corpuscular HGB 24.7 pg (26.0-34.0); Mean Corpuscular HGB Conc 31.3 g/dL (31.5-36.5); Mean Corpuscular Volume 79 fL (80-100); Mean Platelet Volume 9.9 fL (9.1-12.4); NEUTROPHILS ABSOLUTE AUTO 5.96 K/mm3 (1.96-9.15); NEUTROPHILS PERCENT AUTO 60 % (41-73); Platelet Count 245 K/mm3 (150-400); RDW Coefficient Variation 16.3 % (11.7-14.2); RDW Standard Deviation 42.5 fL (35.1-46.3); Red Blood Cell Count 6.72 M/mm3 (4.30-5.90); White Blood Cell Count 9.94 K/mm3 (4.00-11.30)
[2024-06-06] MEDS ORDERED: Amiodarone HCl 200 MG Tab PO SCH (09:15)
[2024-06-06 14:32] LABS: Vancomycin, Trough 19.6 ug/mL (5.0-10.0)
[2024-06-06] MEDS ORDERED: Vancomycin HCL 750 MG in NS 250 ML IV SCH (15:00)
[2024-06-06] MEDS ORDERED: Prochlorperazine Edisylate 10 mg Vial IV PRN (15:40)
[2024-06-06] MEDS ORDERED: NS 250 ML IV ONE ×2 (15:45→16:20)
[2024-06-06] MEDS ORDERED: Scopolamine Hydrobromide Patch TD ONE (16:30)
[2024-06-06] MEDS ORDERED: NS 500 ML IV ONE (17:10)
--- NOTE | 2024-06-06 17:30 | NUR ---
ARRIVAL TO ICU: Patient came over from PCU for hypotension, SBP fell into the 50s. Patient was given 500cc NS bolus and blood pressures improved. He is alert and oriented, he states when this started he started having visual changes and his neck hurt. EKG was done no changes noted. He is in A-Fib with a rate in the low 100s. BP is 80s/60s with a MAP of 67-70. LS DIM T/O, he is mid to high 90s on RA. BT+. PPP, his BLE are dusky. He has an ulcer to his left inner foot, he states he cut off his own bunion and it didn't heal. Blood pressures are stable at this time, per RN we should be recieving orders for Levophed.
--- NOTE | 2024-06-06 17:31 | NUR ---
TRANSFER NOTE PT RETURNED FROM SHOWER @ 1545. VITALS TAKEN.BP HYPOTENSIVE. EKG TAKEN, NOTIFED MD, 250 ML BOLUS GIVEN AND PT LAID FLAT IN BED, UPON COMPLETION BP CAME TO PT BASELINE, BUT AFTER 15 MIN PT BECAME HYPOTENSICE AGAIN. MD NOTIFED WITH ANOTHER 250 ML BOLUS, UPON COMPLETION PT BP DID NOT RETURN TO BASELINE. MD NOTIFED, PT TRANFERED TO ICU, BEDSIDE REPORT GIVEN TO RECIVING NURSE. PT CONTINUED NAUSEA T/O AFTERNOON, ZOFAN NOT EFFECTIVE/DC'D DUE TO QTC PROLONGATION AND SCOPOLAMINE PATCH ORDED AND PLACED BEHIND RIGHT EAR.
[2024-06-06] MEDS ORDERED: Piperacillin/Tazobactam Sod 4.5 GM in NS 100 ML IV SCH (17:39)
[2024-06-06 17:41] LABS: BASOPHILS ABSOLUTE AUTO 0.08 K/mm3 (0.00-0.23); BASOPHILS PERCENT AUTO 1 % (0-2); EOSINOPHILS ABSOLUTE AUTO 0.09 K/mm3 (0.00-0.68); EOSINOPHILS PERCENT AUTO 1 % (0-6); Hematocrit 45.5 % (37.0-53.0); Hemoglobin 14.1 g/dL (13.5-17.5); IMMATURE GRAN ABSOLUTE AUTO 0.09 K/mm3 (0.00-0.10); IMMATURE GRAN PERCENT AUTO 1 % (0-1); LYMPHOCYTES ABSOLUTE AUTO 1.95 K/mm3 (0.84-5.20); LYMPHOCYTES PERCENT AUTO 16 % (21-46); MONOCYTES ABSOLUTE AUTO 0.55 K/mm3 (0.16-1.47); MONOCYTES PERCENT AUTO 5 % (4-13); Mean Corpuscular HGB 24.7 pg (26.0-34.0); Mean Corpuscular Volume 80 fL (80-100); Mean Platelet Volume 9.9 fL (9.1-12.4); NEUTROPHILS ABSOLUTE AUTO 9.22 K/mm3 (1.96-9.15); NEUTROPHILS PERCENT AUTO 77 % (41-73); Platelet Count 198 K/mm3 (150-400); RDW Coefficient Variation 14.9 % (11.7-14.2); RDW Standard Deviation 42.6 fL (35.1-46.3); Red Blood Cell Count 5.72 M/mm3 (4.30-5.90); White Blood Cell Count 11.98 K/mm3 (4.00-11.30)
[2024-06-06 18:05] LABS: Albumin, Blood 2.7 g/dL (3.4-5.0); Albumin/Globulin Ratio 0.9 (0.8-1.8); Bilirubin, Total 0.9 mg/dL (0.1-1.0); Bun/Creatinine Ratio 23.9 (12.0-20.0); Calcium, Blood 7.6 mg/dL (8.5-10.1); Creatinine, Blood 1.42 mg/dL (0.60-1.20); Globulin, Blood 3.1 g/dL (2.2-4.0); Phosphorus, Blood 4.6 mg/dL (2.5-4.9); Potassium, Blood 5.1 mmol/L (3.5-5.5); Total Protein, Blood 5.8 g/dL (6.4-8.2)
--- NOTE | 2024-06-06 18:40 | NUR ---
UPdate: Patients MAP dropped into the low 60s, Levophed has been started at 2 mcg. He is resting comforotably, call light in reach.
[2024-06-06 20:35] LABS: Source, Urine Clean Catch
[2024-06-06 20:40] LABS: Appearance, Urine Hazy (Clear); Bilirubin, Urine Neg (Neg); Blood, Urine 5+ (Neg); Color, Urine Yellow (P-Yellow); Glucose Qualitative, Urine 4+ (Neg); Ketones, Urine Neg (Neg); Leukocyte Esterase, Urine 1+ (Neg); Nitrite, Urine Neg (Neg); Protein, Urine 3+ (Neg); Urobilinogen, Urine NORM (Normal)
[2024-06-06 20:48] LABS: Bacteria Few /hpf; Hyaline Casts 0-2 /lpf (0-2); Squamous Epithelial Cells Rare /hpf (Few)
[2024-06-06 20:49] LABS: Calcium Oxalate Crystals Rare /hpf
--- NOTE | 2024-06-06 21:14 | NUR ---
ASSUMPTION OF CARE: RECEIVED REPORT FROM EMILIA PALOMO AT 1900. PT ALERT AND ORIENTED, FOLLOWING COMMANDS. PT HAS C/O NAUSEA, HEADACHE AND BLURRED VISION UPON ASSESSMENT. ALLEVIATED WITH CRACKERS AND SPRITE. PT RESTING COMFORTABLY AT THIS TIME. HAD C/O PAIN IN RIGHT LOWER LEG, MEDICATED WITH PRN PAIN MEDICATION. MANAGER BUSINESS INTELLIGENCE IN PLACE, A-FLUTTER, HR 100'S. SBP 70'S-80'S. MAP >65, LEVOPHED AT 2 MCG/MIN THROUGH RAC PIV. PIV INTACT, FLUSHES AND DRAWS BACK. PIV TO LAC, PATENT AND SALINE LOCKED. CURRENTLY ON RA WITH SPO2 MID 90'S. DENIES SOB. LUNGS CLEAR. TOLERATING PO INTAKE. VOIDING INTO URINAL DARK/RHONDA URINE. NO BM YET. RIGHT LOWER LEG RED/WARM TO TOUCH. BED LOW AND LOCKED, CALL LIGHT IN REACH.
[2024-06-07] VITALS (75 sets, daily range): BP systolic 74–164; BP diastolic 56–125
[2024-06-07] MEDS ORDERED: Midodrine 5 MG Tab PO ONE (00:45)
[2024-06-07 03:50] LABS: BASOPHILS ABSOLUTE AUTO 0.06 K/mm3 (0.00-0.23); BASOPHILS PERCENT AUTO 1 % (0-2); EOSINOPHILS ABSOLUTE AUTO 0.07 K/mm3 (0.00-0.68); EOSINOPHILS PERCENT AUTO 1 % (0-6); Hematocrit 46.6 % (37.0-53.0); Hemoglobin 14.7 g/dL (13.5-17.5); IMMATURE GRAN ABSOLUTE AUTO 0.08 K/mm3 (0.00-0.10); IMMATURE GRAN PERCENT AUTO 1 % (0-1); LYMPHOCYTES ABSOLUTE AUTO 2.79 K/mm3 (0.84-5.20); LYMPHOCYTES PERCENT AUTO 23 % (21-46); MONOCYTES ABSOLUTE AUTO 1.02 K/mm3 (0.16-1.47); MONOCYTES PERCENT AUTO 8 % (4-13); Mean Corpuscular HGB 24.7 pg (26.0-34.0); Mean Corpuscular HGB Conc 31.5 g/dL (31.5-36.5); Mean Corpuscular Volume 79 fL (80-100); Mean Platelet Volume 10.5 fL (9.1-12.4); NEUTROPHILS ABSOLUTE AUTO 8.16 K/mm3 (1.96-9.15); NEUTROPHILS PERCENT AUTO 67 % (41-73); Platelet Count 201 K/mm3 (150-400); RDW Coefficient Variation 15.2 % (11.7-14.2); RDW Standard Deviation 42.5 fL (35.1-46.3); Red Blood Cell Count 5.94 M/mm3 (4.30-5.90); White Blood Cell Count 12.18 K/mm3 (4.00-11.30)
[2024-06-07 04:14] LABS: Albumin, Blood 3.1 g/dL (3.4-5.0); Albumin/Globulin Ratio 0.8 (0.8-1.8); Bilirubin, Total 1.2 mg/dL (0.1-1.0); Bun/Creatinine Ratio 30.2 (12.0-20.0); Calcium, Blood 9.4 mg/dL (8.5-10.1); Creatinine, Blood 1.59 mg/dL (0.60-1.20); Potassium, Blood 5.7 mmol/L (3.5-5.5); Total Protein, Blood 7.1 g/dL (6.4-8.2)
[2024-06-07] MEDS ORDERED: Prochlorperazine Edisylate 10 mg Vial IV PRN (04:35)
--- NOTE | 2024-06-07 05:04 | NUR ---
SHIFT SUMMARY: PT MORE CONFUSED THIS MORNING. WOKE UP AND ASKED WHERE HE WAS AND WHY HE WAS HERE. STATES HE HAS NO RECOLLECTION OF COMING TO THE HOSPITAL. PT HAVING FREQUENT COMPLAINTS OF NAUSEA/ VOMITING, BLURRED VISION AND HEADACHES. DR. LÓPEZ MADE AWARE. MEDICATED PER EMAR WITH COMPAZINE FOR NAUSEA. PT ALSO HAVING C/O PAIN IN LOWER RIGHT LEG, MEDICATED WITH PRN PAIN MEDICATION. REMAINS ON RA WITH SPO2 MID TO HIGH 90'S. REMAINS IN FLUTTER/AFIB WITH HR 100'S. MAP MAINTAINING >65. LEVOPHED ON SB SINCE 0. ONE TIME DOSE OF MIDODRINE GIVEN FOR BP. PT ABLE TO TOLERATE PO MEDS WELL THIS AM. PT UNABLE TO VOID THIS AM, BLADDER SCAN SHOWED 400, PT STRAIGHT CATHED, DRAINING YELLOW URINE. NO BM THIS SHIFT. PIVS INTACT AND SALINE LOCKED. AFEBRILE. BED LOW AND LOCKED, CALL LIGHT IN REACH.
[2024-06-07] MEDS ORDERED: Bumetanide 0.25 MG/ML 4ML ViaL IV STA (06:39)
[2024-06-07] MEDS ORDERED: DOBUtamine 250 MG/D5W 250 ML 250 ML IV SCH (06:50)
[2024-06-07 08:22] LABS: Source, Urine Foley catheter
[2024-06-07 08:51] LABS: Appearance, Urine Clear (Clear); Bilirubin, Urine Neg (Neg); Blood, Urine 4+ (Neg); Color, Urine Yellow (P-Yellow); Glucose Qualitative, Urine 3+ (Neg); Ketones, Urine Neg (Neg); Leukocyte Esterase, Urine 2+ (Neg); Nitrite, Urine Neg (Neg); Protein, Urine 3+ (Neg); Urobilinogen, Urine NORM (Normal)
[2024-06-07] MEDS ORDERED: Lactobacil 2-S.Thermo-Bifido 1 1 Cap PO SCH (09:00)
--- NOTE | 2024-06-07 09:09 | NUR ---
ASSUMED CARE BEDSIDE REPORT FROM JAYDA PALOMO AT 0700. PT RESTING IN BED, WAKES c VERBAL STIMULI. A&OX 4. FOLLOWS COMMANDS. STATES HE WAS CONFUSED LAST NOC. STATES THIS NORMAL FOR HIM. DENIES NEEDS OR COMPLAINTS OTHER THAN URINARY RETENTION. DISCUSSED c LUCÍA BLUE PLACED FOR CRITICAL I&O. LUNGS CLEAR, DIM IN BASES. ON RA. HR 100-110'S. BP STABLE. MAP>65. DOBUTAMINE HELD D/T MAP PARAMETERS. DISCUSSED c DR MANNING. WILL CONTINUE PLAN OF CARE.
[2024-06-07 09:26] LABS: Bacteria Few /hpf; Granular Casts 0-2 /lpf (0); Squamous Epithelial Cells Rare /hpf (Few)
[2024-06-07 14:58] LABS: Vancomycin, Trough 23.7 ug/mL (5.0-10.0)
--- NOTE | 2024-06-07 17:19 | NUR ---
SHIFT SUMMARY PT SLEPT MOST OF SHIFT, WOKE FOR MEALS. OCCASIONALLY DISORIENTED UP AWAKENING BUT REORIENTS EASILY. A&X 4. FOLLOWS COMMANDS. DENIES COMPLAINTS. LUNGS CLEAR, ON RA. AFIB, RATE 100-120'S. BP STABLE. DOBUTAMINE GTT STARTED FOR URINARY OUTPUT. AT MAX RATE OF 10 MCG/KG/MIN PER DR LAM, OK TO RUN PIV PER MD. IV PATENCY CHECKED HOURLY, INFUSING THROUGH LAC, + BLOOD RETURN. CASTREJON PLACED, 1635 ML CLEAR YELLOW URINE OUT THIS SHIFT. 1500 FLUID RESTRICTION. TOLERATING PO WELL. WILL CONTINUE PLAN OF CARE UNTIL REPORT TO ONCOMING NURSE.
--- NOTE | 2024-06-07 19:00 | NUR ---
ASSUMED CARE OF PATIENT AT APPROXIMATELY 1900. REPORT RECEIVED FROM STACIA MELO. PT RESTING IN BED, WATCHING TELEVISION. INTERACTING WITH STAFF APPROPRIATELY DURING BEDSIDE REPORT. CONTINOUS CARDIAC MONITORING IN PLACE SHOWING ST WITH HR OF 114. BP 150/90, MAP 106. DOBUTAMINE INFUSING AT 10 MCG/KG/MIN. ON RA WITH O2 SATURATION OF 95%. CASTREJON PATENT AND DRAINING CLEAR YELLOW URINE TO GRAVITY. VSS AND NO ACUTE NEEDS IDENTIFIED AT THIS TIME. SEE SHIFT ASSESSMENT FOR FULL DETAILS.
[2024-06-07] MEDS ORDERED: Metoprolol Succinate 25 MG TABCR PO SCH (21:00)
[2024-06-07] MEDS ORDERED: Tamsulosin HCl 0.4 MG Cap PO SCH (21:00)
[2024-06-07] MEDS ORDERED: Vancomycin HCL 1,000 MG in NS 250 ML IV SCH (21:00)
[2024-06-08] VITALS (81 sets, daily range): BP systolic 84–163; BP diastolic 50–140
[2024-06-08 03:39] LABS: BASOPHILS ABSOLUTE AUTO 0.07 K/mm3 (0.00-0.23); BASOPHILS PERCENT AUTO 1 % (0-2); EOSINOPHILS ABSOLUTE AUTO 0.19 K/mm3 (0.00-0.68); EOSINOPHILS PERCENT AUTO 2 % (0-6); Hematocrit 43.8 % (37.0-53.0); Hemoglobin 14.1 g/dL (13.5-17.5); IMMATURE GRAN ABSOLUTE AUTO 0.05 K/mm3 (0.00-0.10); IMMATURE GRAN PERCENT AUTO 1 % (0-1); LYMPHOCYTES ABSOLUTE AUTO 2.11 K/mm3 (0.84-5.20); LYMPHOCYTES PERCENT AUTO 21 % (21-46); MONOCYTES ABSOLUTE AUTO 0.55 K/mm3 (0.16-1.47); MONOCYTES PERCENT AUTO 6 % (4-13); Mean Corpuscular HGB 25.1 pg (26.0-34.0); Mean Corpuscular HGB Conc 32.2 g/dL (31.5-36.5); Mean Corpuscular Volume 78 fL (80-100); NEUTROPHILS PERCENT AUTO 70 % (41-73); Platelet Count 165 K/mm3 (150-400); RDW Standard Deviation 42.2 fL (35.1-46.3); Red Blood Cell Count 5.62 M/mm3 (4.30-5.90); White Blood Cell Count 10.07 K/mm3 (4.00-11.30)
[2024-06-08 04:02] LABS: Albumin/Globulin Ratio 0.8 (0.8-1.8); Bilirubin, Total 1.2 mg/dL (0.1-1.0); Creatinine, Blood 1.09 mg/dL (0.60-1.20); Globulin, Blood 3.6 g/dL (2.2-4.0); Magnesium, Blood 1.8 mg/dL (1.6-2.4); Potassium, Blood 4.4 mmol/L (3.5-5.5); Total Protein, Blood 6.6 g/dL (6.4-8.2)
--- NOTE | 2024-06-08 05:07 | NUR ---
SHIFT SUMMARY PT REMAINED ALERT AND ORIENTED X 4 T/O ENTIRETY OF SHIFT. ABLE TO FOLLOW COMMANDS, MAKE PURPOSEFUL MOVEMENTS, AND MAKE NEEDS KNOWN. AFEBRILE. REPORTED ONE EPISODE OF L LEG PAIN AT 04/26. MEDICATED PER EMAR WITH GOOD BENEFIT. CONTINOUS CARDIAC MONITORING IN PLACE SHOWING AFIB/FLUTTER WITH HR IN 110'S-120'S. BP STABLE, MAP > 65. ON RA WITH O2 SATURATIONS > 92%. NO BM THIS SHIFT. DENIES N/V. 500 mL FLUID INTAKE PER RESTRICTION. HOURLY I+O's TRACKED VIA PATENT CASTREJON. DISCOLORATION TO RLE REMAINS UNCHANGED SINCE START OF SHIFT. DOBUTATMINE CONTINUES TO INFUSE AT 10 MCG/KG/MIN. WILL CONTINUE TO MONITOR AND REPORT TO ONCOMING RN.
[2024-06-08] MEDS ORDERED: Mag Sulfate 1 GM/D5% 100ML 100 ML IV STA (06:53)
--- NOTE | 2024-06-08 07:08 | NUR ---
CALL FROM DR. LAM VERBAL FROM DR. LAM TO TITRATE PT'S DOBUTAMINE DOWN TO OFF OVER 5 HOURS. HERNANDEZ REYNOSO, RN NOTIFIED OF THIS PT'S DAY SHIFT NURSE.
--- NOTE | 2024-06-08 07:24 | NUR ---
ASSUMPTION OF CARE: ASSUMED CARE OF PATIENT. PATIENT SITTING UP IN BED. PATIENT ALERT, CHATTING WITH RN AND ANSWERING QUESTIONS APPROPRIATELY. PATIENT REPORTS HIS PAIN IS DECREASING POST ADMINISTRATION OF PRN OXYCODONE. PATIENT REPORTS FEELING CONSTIPATED. PRN BOWEL CARE ON EMAR. PATIENT STABLE ON ROOM AIR WITH SPO2 >96%. PATIENT DENIES SHORTNESS OF BREATH OR DIFFICULTY BREATHING. VITALS STABLE WITH BPS IN THE 120S AND MAPS >65. HR IN THE LOW 120S. TITRATION DOWN OF DOBUTAMINE STARTED PER DR. LAM ORDERS (DOWN TO 8 MCG/KG/MIN). URINE OUTPUT 285 OVER LAST TWO HOURS. CASTREJON IN PLACE AND DRAINING FREELY.
[2024-06-08] MEDS ORDERED: Torsemide 20 MG TAB PO SCH (09:00)
[2024-06-08] MEDS ORDERED: Digoxin 0.25 MG/ML 2ML Amp IV ONE (12:35)
--- NOTE | 2024-06-08 14:38 | NUR ---
Pt. is awake in bed when he welcomes my visit. Pt. is known to this product operations associate from previous stays in this hospital. Facilitaed a medical update and reveiw of his life story since his [facility] hospital visit. Considered matters olf radha and belief. Listen with empathy and a calming presence. Prayed with Pt. Pt. verbalized gratitude for the spiritual care visit.
[2024-06-08 16:35] LABS: Magnesium, Blood 2.2 mg/dL (1.6-2.4); Potassium, Blood 4.4 mmol/L (3.5-5.5)
[2024-06-08 16:36] LABS: Vancomycin, Random 15.2 ug/mL
[2024-06-08] MEDS ORDERED: Digoxin 0.25 MG/ML 2ML Amp IV SCH (17:00)
--- NOTE | 2024-06-08 18:19 | NUR ---
SHIFT SUMMARY: NEURO: PATIENT ALERT AND ORIENTED X 4 THROUGHOUT THE SHIFT. PATIENT WILL JUMP FROM THOUGHT TO THOUGHT AT TIMES. PATIENT REPORTS NUMBNESS/TINGLING IN BLE AT BASELINE. EQUAL STRENGTH ACROSS EXTREMITIES. PATIENT UP TO THE CHAIR TWICE. PATIENT UTILIZED WALKER APPROPRIATELY. HOME WALKER AT BEDSIDE. CARDIAC: PATIENT TITRATED OFF OF DOBUTAMINE TODAY PER DR. LAM ORDERS. PATIENT TO STANDBY AROUND NOON. PATIENT'S HR IN THE MORNING WAS 120-121. THE DAY PROGRESSED, HR TRENDED DOWN SLIGHTLY. BY THE END OF SHIFT, HR 113-115 BPM. VITALS SOFT AT TIMES WITH SBP AROUND 90. MAPS REMAINED >65. DISCUSSED DIGOXIN DOSES WITH PHARMACY AND DR. LAM. TOTAL NUMBER OF IV DOSES FOR TODAY DECREASED TO 2 (FROM 3). RESPIRATORY: PATIENT REMAINS STABLE ON ROOM AIR. PATIENT DENIES SHORTNESS OF BREATH OR DIFFICULTY BREATHING. SPO2 >96%. GI/: PATIENT DENIES NAUSEA. PATIENT HAS A MODERATE TO EXCELLENT APPETITE. PATIENT REPORTS SOME FEELINGS OF CONSTIPATION. MEDICATED PER PRN ORDERS THIS AM. OBTAINED ORDER FOR SCHEDULED BOWEL CARE FROM DR. DYER. PATIENT RESPONDED WELL TO DIURETICS. OUTPUT INCREASED AFTER ADMINISTRATION. A DELAYED RESPONSE WAS NOTED THIS AFTERNOON WITH A LARGE RESPONSE OVER 3 HOURS. URINE IS CLEAR YELLOW WITH NO FOUL ODOR NOTED. PSYCHSOCIAL: PATIENT VISITED BY HIS MACHINIST CLASS B TODAY. PATIENT SPEAKS OF FRIENDS AND FAMILY AND REPORTS THAT HE HAS A "GOOD SUPPORT SYSTEM".
--- NOTE | 2024-06-08 19:07 | NUR ---
ASSUMED CARE OF PATIENT AT APPROXIMATELY 1900 REPORT RECEIVED FROM HERNANDEZ REYNOSO RN. PT UP TO CHAIR TODAY, WATCHING TELEVISION, INTERACTING WITH STAFF APPROPRIATELY DURING BEDSIDE REPORT. MEDICATED FOR PAIN AT APPROXIMATELY 1800, AND REPORTS THAT HIS PAIN IS NOW DOWN TO A 5. CONTINOUS CARIDAC MONITORING IN PLACE SHOWING A FLUTTER WITH HR OF 84, BP STABLE WITH MAP > 65. ON RA WITH O2 SATURATION > 92%. CASTREJON PATENT. PIP/TAZO INFUSING. VSS AND NO ACUTE NEEDS IDENTIFED AT THIS TIME. SEE SHIFT ASSESSMENT FOR FULL DETAILS.
[2024-06-08] MEDS ORDERED: Vancomycin HCL 1,250 MG in NS 250 ML IV SCH (21:00)
[2024-06-08] MEDS ORDERED: Docusate Sodium/Senna 1 Tab PO SCH (21:00)
[2024-06-09] VITALS (38 sets, daily range): BP systolic 88–227; BP diastolic 64–186
--- NOTE | 2024-06-09 02:56 | NUR ---
PT TO ICU ROOM 11 VIA [facility] WITH ED STAFF. SETTLED INTO ROOM BY LINDA PALOMO AND BRET RN. CONTINOUS CARDIAC MONITORING IN PLACE SHOWED SINUS RUBENS WITH HR OF 46 AND BP OF 183/56. PT ASYMPTOMATIC, ALERT AND ORIENTED X 4, INTERACTING WITH STAFF AND ANSWERING QUESTIONS APPROPRIATELY. ON RA WITH O2 SATURATION OF 94%. PT AND GRANDDAUGHTER AT BEDSIDE. SEE ADMIT ASSESSMENT FOR FULL DETAILS.
[2024-06-09 03:36] LABS: BASOPHILS ABSOLUTE AUTO 0.07 K/mm3 (0.00-0.23); BASOPHILS PERCENT AUTO 1 % (0-2); EOSINOPHILS ABSOLUTE AUTO 0.18 K/mm3 (0.00-0.68); EOSINOPHILS PERCENT AUTO 2 % (0-6); Hematocrit 45.5 % (37.0-53.0); Hemoglobin 14.5 g/dL (13.5-17.5); IMMATURE GRAN ABSOLUTE AUTO 0.05 K/mm3 (0.00-0.10); IMMATURE GRAN PERCENT AUTO 1 % (0-1); LYMPHOCYTES ABSOLUTE AUTO 2.28 K/mm3 (0.84-5.20); LYMPHOCYTES PERCENT AUTO 25 % (21-46); MONOCYTES PERCENT AUTO 7 % (4-13); Mean Corpuscular HGB 24.7 pg (26.0-34.0); Mean Corpuscular HGB Conc 31.9 g/dL (31.5-36.5); Mean Corpuscular Volume 78 fL (80-100); Mean Platelet Volume 10.2 fL (9.1-12.4); NEUTROPHILS ABSOLUTE AUTO 6.12 K/mm3 (1.96-9.15); NEUTROPHILS PERCENT AUTO 66 % (41-73); Platelet Count 175 K/mm3 (150-400); RDW Coefficient Variation 14.8 % (11.7-14.2); RDW Standard Deviation 41.5 fL (35.1-46.3); Red Blood Cell Count 5.87 M/mm3 (4.30-5.90)
[2024-06-09 04:22] LABS: Anion Gap 9 mmol/L (3-11); Blood Urea Nitrogen 31 mg/dL (8-24); Bun/Creatinine Ratio 25.6 (12.0-20.0); CO2, Blood 28 mmol/L (21-32); Calcium, Blood 9.7 mg/dL (8.5-10.1); Chloride, Blood 101 mmol/L (98-108); Creatinine, Blood 1.21 mg/dL (0.60-1.20); Digoxin (Lanoxin) 1.72 ug/mL (0.80-2.00); Glomerular Filtration Rate 69 (60-); Glucose, Blood 93 mg/dL (70-99); Magnesium, Blood 2.2 mg/dL (1.6-2.4); Sodium, Blood 134 mmol/L (136-145)
--- NOTE | 2024-06-09 05:31 | NUR ---
SHIFT SUMMARY PT REMAINED ALERT AND ORIENTED X 4 T/O ENTIRETY OF SHIFT. ABLE TO FOLLOW COMMANDS, MAKE PURPOSEFUL MOVEMENTS, AND MAKE NEEDS KNOWN. AFEBRILE. REPORTED ONE EPISODE OF PAIN IN RLE AT 04/26. MEDICATED PER EMAR WITH GOOD BENEFIT. CONTINOUS CARDIAC MONITORING SHOWED A FLUTTER WITH HR 70'S-80'S. BP STABLE WITH MAP > 65. ON RA WITH O2 SATURATIONS > 92%. NO BM THIS SHIFT. BOWEL PROTOCOL INTITIATED 06/08/24 AM. CASTREJON REMAINS PATENT AND DRAINING TO GRAVITY. WILL CONTINUE TO MONITOR AND REPORT TO ONCOMING RN.
--- NOTE | 2024-06-09 08:00 | NUR ---
ASSUMPTION OF CARE THIS RN ASSUMED CARE OF PT AT 0700 UPON RECEIVING BEDSIDE SHIFT REPORT FROM NIGHT RN. UPON INITIAL ASSESSMENT, PT ALERT AND ORIENTED x4. COMPLAINS OF PAIN TO RT LEG, PRN OXYCODONE GIVEN, SEE MAR. MAP > 65. VITALLY STABLE ON ROOM AIR. NO S/S ACUTE DISTRESS. OOBTC W/ 1P ASSIST AND WALKER. CASTREJON PATENT, DRAINING VIA GRAVITY WITHOUT DIFFICULTY.
--- NOTE | 2024-06-09 10:27 | NUR ---
FAMILY COMMUNICATION/PLAN OF CARE: THIS RN SPOKE WITH PT'S ZACKERY العلي REGARDING UPDATES AND PLAN OF CARE. SEVERIANO EXPRESSED THAT PER PREVIOUS DISCUSSIONS WITH DR. RUIZ, THE PLAN IS TO GIVE THE PT 14 DAYS ON THE VENTILATOR BEFORE TERMINAL EXTUBATION WITH FAMILY PRESENT AND AT BEDSIDE. PER PREVIOUS DOCUMENTATION, PATIENT HAS BEEN INTUBATED SINCE 06/02. THIS RN DISCUSSED THIS PLAN WITH DR. VELASQUEZ AT BEDSIDE.
--- NOTE | 2024-06-09 21:20 | NUR ---
ASSUMED CARE/TRANSFER TO PCU ASSUMED CARE AT 1900. PT A/O X 4. FOLLOWS DIRECTIONS. C/O 05/26 RLE PAIN AT SHIFT CHANGE. MEDICATED PER EMAR. VSS. ON RA. PT TRANSFERED TO PCU 14 WITH THIS RN. ALL BELONGINGS AND MEDICATIONS SENT WITH.
--- NOTE | 2024-06-09 21:38 | NUR ---
Receiving pt from ICU- Received report from STACIA Paiz. Patient arrived via WC, stand pivot into bed without issue. Vancomycin still infusing without issue. Patients' VSS are stable. Patient inquiring about pain meds, told him he's not eligble for any until after midnight, pt states an understanding and says "i just dont like this to get out of control", referencing his RLE. Denies other pain interventions when offered. Pt requesting a bible, bible provided to patient. No other needs at this time, pt is stable, resting in bed.
[2024-06-10] VITALS (7 sets, daily range): BP systolic 81–117; BP diastolic 58–95
[2024-06-10 04:39] LABS: BASOPHILS ABSOLUTE AUTO 0.09 K/mm3 (0.00-0.23); BASOPHILS PERCENT AUTO 1 % (0-2); EOSINOPHILS PERCENT AUTO 2 % (0-6); Hematocrit 47.7 % (37.0-53.0); Hemoglobin 14.9 g/dL (13.5-17.5); IMMATURE GRAN ABSOLUTE AUTO 0.05 K/mm3 (0.00-0.10); IMMATURE GRAN PERCENT AUTO 1 % (0-1); LYMPHOCYTES ABSOLUTE AUTO 2.73 K/mm3 (0.84-5.20); LYMPHOCYTES PERCENT AUTO 32 % (21-46); MONOCYTES ABSOLUTE AUTO 0.49 K/mm3 (0.16-1.47); MONOCYTES PERCENT AUTO 6 % (4-13); Mean Corpuscular HGB 24.4 pg (26.0-34.0); Mean Corpuscular HGB Conc 31.2 g/dL (31.5-36.5); Mean Corpuscular Volume 78 fL (80-100); Mean Platelet Volume 10.1 fL (9.1-12.4); NEUTROPHILS ABSOLUTE AUTO 4.91 K/mm3 (1.96-9.15); NEUTROPHILS PERCENT AUTO 58 % (41-73); Platelet Count 183 K/mm3 (150-400); RDW Coefficient Variation 14.9 % (11.7-14.2); RDW Standard Deviation 41.8 fL (35.1-46.3); Red Blood Cell Count 6.11 M/mm3 (4.30-5.90); White Blood Cell Count 8.47 K/mm3 (4.00-11.30)
[2024-06-10 05:03] LABS: Albumin, Blood 3.1 g/dL (3.4-5.0); Albumin/Globulin Ratio 0.8 (0.8-1.8); Bun/Creatinine Ratio 24.1 (12.0-20.0); Calcium, Blood 9.5 mg/dL (8.5-10.1); Globulin, Blood 3.9 g/dL (2.2-4.0); Potassium, Blood 4.4 mmol/L (3.5-5.5)
--- NOTE | 2024-06-10 06:07 | NUR ---
shift summary- No changes to note over night. Pt spo2 held above 92% the entire night, vitals stable throughout the night. Pt is requesting pain meds every four hours- watching the clock, and then when asking what his pain level is, he states "10/10" nearly everytime. Attempted to educate him about use of the pain scale and rating pain, but unsure if successful. Pt requesting shower today and hopeful to discharge.
[2024-06-10] MEDS ORDERED: Digoxin 0.125 MG Tab PO SCH (09:00)
[2024-06-10] MEDS ORDERED: Sacubitril/Valsartan 24 MG-26 MG Tab PO SCH (09:00)
[2024-06-10] MEDS ORDERED: Metoprolol Succinate 25 MG TABCR PO SCH (09:00)
[2024-06-10] MEDS ORDERED: Torsemide 20 MG TAB PO SCH (09:00)
--- NOTE | 2024-06-10 18:18 | NUR ---
SHIFT SUMMARY PT A&OX4. SP02>90%ON RA. TELEMETRY SHOWS AFLUTTER, HR 100'S-120'S. MD IBARRA IN ROOM THIS AM TO ASSESS, STARTED NEW MEDICATIONS, SEE EMAR. CASTREJON CATHETER DRAINING CLEAR YELLOW URINE TO GRAVITY, SEVERAL LITERS OUT, SEE I&O. NO BM THIS SHIFT. PT C/O OF CONSTIPATION, BOWEL CARE GIVEN PER EMAR. PT C/O OF PAIN, MEDICATED PER EMAR. PT ABLE TO AMBULATE TO SHOWER THIS AFTERNOON. FRIEND IN ROOM VISITING THIS SHIFT. CALL LIGHT IN REACH.
[2024-06-11] VITALS (11 sets, daily range): BP systolic 82–115; BP diastolic 55–90
[2024-06-11 04:05] LABS: BASOPHILS ABSOLUTE AUTO 0.12 K/mm3 (0.00-0.23); BASOPHILS PERCENT AUTO 1 % (0-2); EOSINOPHILS ABSOLUTE AUTO 0.28 K/mm3 (0.00-0.68); EOSINOPHILS PERCENT AUTO 3 % (0-6); Hematocrit 51.2 % (37.0-53.0); Hemoglobin 16.6 g/dL (13.5-17.5); IMMATURE GRAN ABSOLUTE AUTO 0.07 K/mm3 (0.00-0.10); IMMATURE GRAN PERCENT AUTO 1 % (0-1); LYMPHOCYTES ABSOLUTE AUTO 2.58 K/mm3 (0.84-5.20); LYMPHOCYTES PERCENT AUTO 27 % (21-46); MONOCYTES ABSOLUTE AUTO 0.53 K/mm3 (0.16-1.47); MONOCYTES PERCENT AUTO 6 % (4-13); Mean Corpuscular HGB 24.9 pg (26.0-34.0); Mean Corpuscular HGB Conc 32.4 g/dL (31.5-36.5); Mean Corpuscular Volume 77 fL (80-100); Mean Platelet Volume 10.1 fL (9.1-12.4); NEUTROPHILS ABSOLUTE AUTO 5.88 K/mm3 (1.96-9.15); NEUTROPHILS PERCENT AUTO 62 % (41-73); Platelet Count 239 K/mm3 (150-400); RDW Coefficient Variation 15.9 % (11.7-14.2); RDW Standard Deviation 40.7 fL (35.1-46.3); Red Blood Cell Count 6.66 M/mm3 (4.30-5.90); White Blood Cell Count 9.46 K/mm3 (4.00-11.30)
[2024-06-11 04:44] LABS: Anion Gap 12 mmol/L (3-11); Blood Urea Nitrogen 24 mg/dL (8-24); Bun/Creatinine Ratio 19.7 (12.0-20.0); CO2, Blood 27 mmol/L (21-32); Calcium, Blood 9.8 mg/dL (8.5-10.1); Chloride, Blood 98 mmol/L (98-108); Creatinine, Blood 1.22 mg/dL (0.60-1.20); Digoxin (Lanoxin) 0.87 ug/mL (0.80-2.00); Glomerular Filtration Rate 68 (60-); Glucose, Blood 140 mg/dL (70-99); Magnesium, Blood 2.2 mg/dL (1.6-2.4); Potassium, Blood 4.1 mmol/L (3.5-5.5); Sodium, Blood 133 mmol/L (136-145)
--- NOTE | 2024-06-11 16:39 | NUR ---
SHIFT SUMMARY PT A&Ox4, CALLS AND COMMUNICATES NEEDS APPROPRIATELY. BP SOFT WITH SBP 80-90's, ASYMPTOMATIC, MAP> 65. AFLUTTER 90-110's, DENIES CP/PRESSURE. SpO2> 92% RA, DENIES SOB. SBA w/ HOME WALKER IN ROOM. CONTINENT OF URINE AND BOWEL. COMPLIANT WITH FLUID RESTRICTION. MANAGED CHRONIC PAIN PER EMAR. NO OTHER EVENTS, WILL REPORT TO ONCOMING RN.
--- NOTE | 2024-06-11 21:07 | NUR ---
spoke to - during intial assessment of the patient, pt stated that the pain in his RLE has since changed. initially his pain was in the front of his leg (biggs), and now the pain has since migrated to the back of the calf. assessed for homans sign and spoke to who went to the bedside to assess pt. MD to review chart and put orders in for US if he deems it appropriate.
[2024-06-12 03:50] VITALS: BP 121/91
[2024-06-12 03:59] LABS: BASOPHILS ABSOLUTE AUTO 0.11 K/mm3 (0.00-0.23); BASOPHILS PERCENT AUTO 1 % (0-2); EOSINOPHILS ABSOLUTE AUTO 0.31 K/mm3 (0.00-0.68); EOSINOPHILS PERCENT AUTO 3 % (0-6); Hematocrit 48.7 % (37.0-53.0); Hemoglobin 15.5 g/dL (13.5-17.5); IMMATURE GRAN ABSOLUTE AUTO 0.06 K/mm3 (0.00-0.10); IMMATURE GRAN PERCENT AUTO 1 % (0-1); LYMPHOCYTES ABSOLUTE AUTO 2.89 K/mm3 (0.84-5.20); LYMPHOCYTES PERCENT AUTO 29 % (21-46); MONOCYTES ABSOLUTE AUTO 0.72 K/mm3 (0.16-1.47); MONOCYTES PERCENT AUTO 7 % (4-13); Mean Corpuscular HGB 24.6 pg (26.0-34.0); Mean Corpuscular HGB Conc 31.8 g/dL (31.5-36.5); Mean Corpuscular Volume 77 fL (80-100); Mean Platelet Volume 9.6 fL (9.1-12.4); NEUTROPHILS ABSOLUTE AUTO 6.03 K/mm3 (1.96-9.15); NEUTROPHILS PERCENT AUTO 60 % (41-73); Platelet Count 215 K/mm3 (150-400); RDW Coefficient Variation 14.8 % (11.7-14.2); RDW Standard Deviation 40.2 fL (35.1-46.3); White Blood Cell Count 10.12 K/mm3 (4.00-11.30)
[2024-06-12 04:16] LABS: Bun/Creatinine Ratio 21.9 (12.0-20.0); Calcium, Blood 9.5 mg/dL (8.5-10.1); Creatinine, Blood 1.14 mg/dL (0.60-1.20); Magnesium, Blood 2.2 mg/dL (1.6-2.4); Potassium, Blood 3.9 mmol/L (3.5-5.5)
--- NOTE | 2024-06-12 05:18 | NUR ---
shift summary- Carlitos had a relatively good night. A/O x4, pleasant and cooperative with all cares. still requiring the oxycodone for pain management, as he states his pain is 9/10 or 10/10 in RLE. though the oxycodone does appear to help, upon re-assessment. carlitos woke up around midnight and decided he was up for the day, RN noted odd behavior and bloodshot eyes, and pt stated "about to smoke this blunt". at that time the RN asked to search his belongings and pt admitted to having marijuana, but said he didnt use or smoke it. marijuana collected and locked in his med teacher lip reading a bio-hazard bag. charge attendant notified. after this incident carlitos fell asleep for a few hours and has been cooperative with all cares. no other incidents or issues to note. will continue to monitor.
[2024-06-12 07:50] VITALS: BP 116/90
[2024-06-12 08:40] LABS: Digoxin (Lanoxin) 0.98 ug/mL (0.80-2.00)
[2024-06-12 11:07] VITALS: BP 95/68
[2024-06-12 15:33] VITALS: BP 98/73
--- NOTE | 2024-06-12 17:34 | NUR ---
SHIFT SUMMARY PT A&Ox4, CALLS AND COMMUNICATES NEEDS APPROPRIATELY. BP SOFT WITH SBP 90-LOW 100's, ASYMPTOMATIC, MAP> 65. AFLUTTER 90-110's, DENIES CP/PRESSURE. SpO2> 92% RA, DENIES SOB. IND w/ HOME WALKER IN ROOM AND AMBULATING AROUND UNIT. CONTINENT OF URINE AND BOWEL. NONCOMPLIANT WITH FLUID RESTRICTION PT HAS 250mLs LEFT TO DRINK DURING NOC SHIFT; PTs FRIEND BROUGHT FOOD AND DRINK INTO ROOM. MANAGED CHRONIC PAIN PER EMAR. NO OTHER EVENTS, WILL REPORT TO ONCOMING RN.
[2024-06-12 19:39] VITALS: BP 125/92
--- NOTE | 2024-06-12 21:15 | NUR ---
ASSUMPTION OF CARE AFTER RECEIVING REPORT FROM DEAN PALOMO, THIS RN ASSUMED CARE AT APPROX 1915. PATIENT ALERT, SITTING ON SIDE OF BED COLORING DURING INITIAL ENCOUNTER. ANSWERS ORIENTATION QUESTIONS APPROPRIATELY. PERRLA. MOVES ALL EXTREMITIES WITH WEAKNESS TO RLE RELATED TO HX OF DVT/CELLULITIS. REPORTING 8/10 PAIN TO RLE. MEDICATED PER EMAR. PP FAINT/THREADY. RLE W/ TRACE EDEMA, PINK IN COLOR. AFEBRILE. TELEMETRY SHOWING AFLUTTER 80s-100s. BP STABLE, SBP 120s. MAP >65. DENIES CHEST PAIN, PRESSURE. NPO AT MIDNIGHT FOR CARDIOVERSION IN THE MORNING. CURRENTLY ON ROOM AIR, SATs >90%. RR EVEN, UNLABORED AT REST. MILD SHORTNESS OF BREATH WITH MOBILITY. SBA WITH WALKER FOR LINE, DEVICE MANAGEMENT. CALL LIGHT IN REACH.
[2024-06-12 23:18] VITALS: BP 100/80
[2024-06-13] VITALS (19 sets, daily range): BP systolic 92–127; BP diastolic 76–99
[2024-06-13 03:51] LABS: BASOPHILS PERCENT AUTO 1 % (0-2); EOSINOPHILS ABSOLUTE AUTO 0.28 K/mm3 (0.00-0.68); EOSINOPHILS PERCENT AUTO 3 % (0-6); Hematocrit 52.1 % (37.0-53.0); Hemoglobin 16.7 g/dL (13.5-17.5); IMMATURE GRAN ABSOLUTE AUTO 0.06 K/mm3 (0.00-0.10); IMMATURE GRAN PERCENT AUTO 1 % (0-1); LYMPHOCYTES ABSOLUTE AUTO 2.58 K/mm3 (0.84-5.20); LYMPHOCYTES PERCENT AUTO 28 % (21-46); MONOCYTES ABSOLUTE AUTO 0.63 K/mm3 (0.16-1.47); MONOCYTES PERCENT AUTO 7 % (4-13); Mean Corpuscular HGB 24.5 pg (26.0-34.0); Mean Corpuscular HGB Conc 32.1 g/dL (31.5-36.5); Mean Corpuscular Volume 76 fL (80-100); Mean Platelet Volume 9.8 fL (9.1-12.4); NEUTROPHILS ABSOLUTE AUTO 5.61 K/mm3 (1.96-9.15); NEUTROPHILS PERCENT AUTO 61 % (41-73); Platelet Count 234 K/mm3 (150-400); RDW Coefficient Variation 15.5 % (11.7-14.2); RDW Standard Deviation 40.1 fL (35.1-46.3); Red Blood Cell Count 6.83 M/mm3 (4.30-5.90); White Blood Cell Count 9.26 K/mm3 (4.00-11.30)
[2024-06-13 04:09] LABS: Bun/Creatinine Ratio 25.5 (12.0-20.0); Creatinine, Blood 1.02 mg/dL (0.60-1.20); Magnesium, Blood 2.2 mg/dL (1.6-2.4); Potassium, Blood 3.7 mmol/L (3.5-5.5)
[2024-06-13] MEDS ORDERED: [UNRECOGNIZED DRUG - OTHER] BOTHEYES PRN (04:50)
[2024-06-13] MEDS ORDERED: Peg 400/Hypromellose/Glycerin 15 DROP/ML BTL BOTHEYES PRN (05:00)
--- NOTE | 2024-06-13 05:33 | NUR ---
SHIFT SUMMARY NO ACUTE EVENTS SINCE ASSUMPTION OF CARE NOTE. PATIENT SLEPT OR RESTED QUIETLY THROUGHOUT NIGHT. AFEBRILE. RLE PAIN MANAGED PER EMAR WITH PO OXYCODONE. THIS MORNING, DID REPORT EYE DRYNESS AND BURNING. REPORTS THAT HE NORMALLY USES CLEAR EYE DROPS FOR RELIEF. MD RODAS CONTACTED - ARTIFICIAL TEAR DROPS ORDERED WITH REPORTED RELIEF. TELEMETRY SHOWING AFLUTTER 90s-100s. BP STABLE, SBP 100s-120s. MAP >65. DENIES CHEST PAIN, PRESSURE. NPO SINCE MIDNIGHT FOR POSSIBLE CARDIOVERSION TODAY. REMAINS ON ROOM AIR, SATs >90%. INDEPENDENT WITH ADLs. UP TO RESTROOM WITH SBA FWW FOR DEVICE MANAGEMENT. VOIDING. X1 BM THIS SHIFT. CALL LIGHT IN REACH. WILL CONTINUE TO MONITOR AND REPORT TO ONCOMING RN.
[2024-06-13] MEDS ORDERED: Lactated Ringer's 1,000 ML IV ONE (10:43)
[2024-06-13] MEDS ORDERED: Benzocaine Oral Spray 0.5ML UD ONE (11:02)
--- NOTE | 2024-06-13 11:24 | NUR ---
assumed care at 1125. anesthesia record in chart. pt awake.
--- NOTE | 2024-06-13 11:32 | NUR ---
pt a&ox4.
[2024-06-13] MEDS ORDERED: Digoxin 0.125 MG Tab PO SCH (15:00)
--- NOTE | 2024-06-13 18:19 | NUR ---
SHIFT SUMMARY PT A&OX4. VSS. PT TO CARDIOVERSION THIS AM IN [facility]. NOW NSR/SINUS TACH, HR 80'S-100'S. PT W/ FR 1500, REMAINED UNDER FOR THIS SHIFT ALLOTMENT. C/O OF BACK PAIN, MEDICATED PER EMAR. USED URINAL TO VOID. SOME DIFFICULTY VOIDING THIS MORNING BUT ABLE TO AFTER WALKING AROUND. BM THIS AFTERNOON. PT UP WALKING HALLS MOST OF SHIFT. STATES MULTIPLE TIMES "I WANT TO GO HOME". PT CURRENTLY SITTING ON SIDE OF BED, WATCHING FOOTBALL. CALL LIGHT IN REACH.
[2024-06-13] MEDS ORDERED: Amiodarone HCl 200 MG Tab PO SCH (21:00)
--- NOTE | 2024-06-13 21:34 | NUR ---
ASSUMPTION OF CARE AFTER RECEIVING REPORT FROM CAROL PALOMO, THIS RN ASSUMED CARE AT APPROX 1915. PATIENT ALERT AND ORIENTED X4. WATCHING TV IN ROOM. PERRLA. MOVES ALL EXTREMITIES WITH WEAKNESS TO RLE RELATED TO DVT/CELLULITIS. USES FWW INDEPENDENTLY TO AMBULATE. COMMUNICATING NEEDS EFFECTIVELY. AFEBRILE. REPORTING 8/10 PAIN TO RLE - MEDICATED PER EMAR W/ REPORTED RELIEF. TELEMETRY SHOWING SINUS 80s-90s S/P CARDIOVERSION TODAY. BP STABLE, SBP 100s. MAP >65. DENIES CHEST PAIN, PRESSURE. ON ROOM AIR, SATs >90%. INDEPENDENT WITH ADLs. VOIDING. CALL LIGHT IN REACH.
[2024-06-14 03:30] VITALS: BP 109/84
[2024-06-14 04:27] LABS: BASOPHILS PERCENT AUTO 1 % (0-2); EOSINOPHILS ABSOLUTE AUTO 0.29 K/mm3 (0.00-0.68); EOSINOPHILS PERCENT AUTO 3 % (0-6); Hematocrit 48.7 % (37.0-53.0); Hemoglobin 15.7 g/dL (13.5-17.5); IMMATURE GRAN ABSOLUTE AUTO 0.05 K/mm3 (0.00-0.10); IMMATURE GRAN PERCENT AUTO 1 % (0-1); LYMPHOCYTES PERCENT AUTO 32 % (21-46); MONOCYTES ABSOLUTE AUTO 0.62 K/mm3 (0.16-1.47); MONOCYTES PERCENT AUTO 7 % (4-13); Mean Corpuscular HGB 24.6 pg (26.0-34.0); Mean Corpuscular HGB Conc 32.2 g/dL (31.5-36.5); Mean Corpuscular Volume 76 fL (80-100); Mean Platelet Volume 9.8 fL (9.1-12.4); NEUTROPHILS PERCENT AUTO 57 % (41-73); Platelet Count 219 K/mm3 (150-400); RDW Coefficient Variation 14.9 % (11.7-14.2); RDW Standard Deviation 40.4 fL (35.1-46.3); Red Blood Cell Count 6.38 M/mm3 (4.30-5.90); White Blood Cell Count 9.16 K/mm3 (4.00-11.30)
[2024-06-14 04:55] LABS: Bun/Creatinine Ratio 25.2 (12.0-20.0); Calcium, Blood 9.5 mg/dL (8.5-10.1); Creatinine, Blood 0.99 mg/dL (0.60-1.20); Potassium, Blood 3.7 mmol/L (3.5-5.5)
--- NOTE | 2024-06-14 05:38 | NUR ---
SHIFT SUMMARY NO ACUTE EVENTS SINCE ASSUMPTION OF CARE. PATIENT SLEPT OR RESTED QUIETLY THROUGHOUT NIGHT, EASILY AROUSABLE WITH VERBAL STIMULI. MANAGING RLE PAIN PER EMAR. TELEMETRY SHOWING SINUS 80s-90s. BP STABLE, SBP 100s-110s. DENIES CHEST PAIN, PRESSURE. REMAINS ON ROOM AIR, SATs >90%. INDEPENDENT IN ROOM. DENIES DIFFICULTY VOIDING. URINE IS BECOMING MORE RHONDA IN COLOR. PATIENT TOOK A SHOWER THIS MORNING. CALL LIGHT IN REACH. WILL CONTINUE TO MONITOR AND REPORT TO ONCOMING RN.
[2024-06-14 08:13] VITALS: BP 110/78
[2024-06-14] MEDS ORDERED: AMIODARONE HCL200 M1 PO (10:50)
--- NOTE | 2024-06-14 10:50 | NUR ---
Spiritual Care Visit. Pt. is awake and standing up in his room when he welcomes my visit. Pt. is pleasant and verbalizes that he anticipated being dicharged [facility] today. Facilitated an update, as I had previously seen this Pt. Listen with empathy and a calming presence. Considered matters of radha and the Bible, Pt. displayed evidence of optimism. Prayed with the Pt. pt. verbalized gratitud efor the spiritual care visit.
[2024-06-14] MEDS ORDERED: DIGOX125 MC1 PO (10:51)
[2024-06-14] MEDS ORDERED: DOCUZEN 8.6-501 EACH PO (10:52)
[2024-06-14] MEDS ORDERED: GABA300 PO (10:53)
[2024-06-14] MEDS ORDERED: Nicoderm Cq1 EACH TOP (10:54)
[2024-06-14] MEDS ORDERED: OMEP20ER PO (10:54)
[2024-06-14] MEDS ORDERED: SOAANZ40 M1 PO (10:57)
--- NOTE | 2024-06-14 11:28 | NUR ---
DISCHARGE SUMMARY: PT A&OX4 AND SATTING >92% ON ROOM AIR. TELE REMOVED AND IV TAKEN OUT, WRAPPED WITH COBAND. WENT OVER DISCHARGE PAPERWORK AND KNOWS THAT NEW MEDICATIONS TO BE TAKEN AND THAT THEY WERE SENT TO HIS PHARAMACY OF CHOOSING. PT BELONGINGS TAKEN WITH HIM AND HE WALKED OUT WITH NURSE ASSIST WITH HIS WALKER.
== END 2024-06-14 11:34 | disposition home or self-care (01) | DRG 308 ==
LOC: ER 19:25 → ICUE 06-04 00:21 → PCU 06-04 00:21 → ERHOLD 06-04 00:21 → PCU 06-04 17:57 → ICUE 06-06 17:16 → PCU 06-09 21:11
PROVIDERS: Family Medicine; Internal Medicine; Internal Medicine Cardiovascular Disease; Nurse Practitioner Acute Care; Student in an Organized Health Care Education/Training Program; ADMIT Internal Medicine
PROC: 5A2204Z Restoration of Cardiac Rhythm, Single (ICD-10-PCS; principal; 2024-06-13)
DX: I48.3 Typical atrial flutter (principal); I50.23 Acute on chronic systolic (congestive) heart failure; R57.0 Cardiogenic shock; L03.115 Cellulitis of right lower limb; I82.401 Acute embolism and thrombosis of unspecified deep veins of right lower extremity; N17.9 Acute kidney failure, unspecified; N39.0 Urinary tract infection, site not specified; I25.10 Atherosclerotic heart disease of native coronary artery without angina pectoris; E11.9 Type 2 diabetes mellitus without complications; E78.5 Hyperlipidemia, unspecified; G47.33 Obstructive sleep apnea (adult) (pediatric); I48.19 Other persistent atrial fibrillation; I11.0 Hypertensive heart disease with heart failure; M10.9 Gout, unspecified; I42.0 Dilated cardiomyopathy; E11.40 Type 2 diabetes mellitus with diabetic neuropathy, unspecified; F15.10 Other stimulant abuse, uncomplicated; F10.10 Alcohol abuse, uncomplicated; B18.2 Chronic viral hepatitis C; I25.2 Old myocardial infarction; Z88.8 Allergy status to other drugs, medicaments and biological substances; Z88.1 Allergy status to other antibiotic agents; Z79.899 Other long term (current) drug therapy; Z87.442 Personal history of urinary calculi; Z95.5 Presence of coronary angioplasty implant and graft; Z98.890 Other specified postprocedural states; Z79.4 Long term (current) use of insulin; Z79.82 Long term (current) use of aspirin
CPT/HCPCS: 0241U; 36415; 51702; 71045; 71260; 73590; 80048; 80053; 80162; 80202; 81001; 82947; 83605; 83735; 83880; 84100; 84132; 84145; 84443; 84484; 85025; 85520; 85610; 85730; 86140; 87040; 87086; 93005; 93010; 93312; 93325; 94640; 94660; 94664; 94762; 96365; 96366; 96375; 96375-59; 99285-25; A9270; C8929; J0780; J1160; J1250; J1644; J1815; J2405; J2543; J2704; J3370; J3475; J3480; J7030; J7040; J7050; J7060; J7120; Q9957; Q9967

== ENCOUNTER 2024-07-19 22:20 | Emergency (ER) | payer OTHER ==
[~2024-07-19] VITALS: Ht 167.6 cm; Wt 102.1 kg
[~2024-07-19 22:20] MED LIST changes: +AMIODARONE HCL200 M1 PO; +DIGOX125 MC1 PO; +DOCUZEN 8.6-501 EACH PO; +NICO21TP TOP; +SOAANZ40 M1 PO
[2024-07-19 22:50] LABS: BASOPHILS ABSOLUTE AUTO 0.13 K/mm3 (0.00-0.23); BASOPHILS PERCENT AUTO 1 % (0-2); EOSINOPHILS ABSOLUTE AUTO 0.16 K/mm3 (0.00-0.68); EOSINOPHILS PERCENT AUTO 2 % (0-6); Hemoglobin 14.9 g/dL (13.5-17.5); IMMATURE GRAN ABSOLUTE AUTO 0.04 K/mm3 (0.00-0.10); IMMATURE GRAN PERCENT AUTO 0 % (0-1); LYMPHOCYTES ABSOLUTE AUTO 3.01 K/mm3 (0.84-5.20); LYMPHOCYTES PERCENT AUTO 31 % (21-46); MONOCYTES ABSOLUTE AUTO 0.71 K/mm3 (0.16-1.47); MONOCYTES PERCENT AUTO 7 % (4-13); Mean Corpuscular HGB 25.6 pg (26.0-34.0); Mean Corpuscular HGB Conc 31.7 g/dL (31.5-36.5); Mean Corpuscular Volume 81 fL (80-100); Mean Platelet Volume 9.9 fL (9.1-12.4); NEUTROPHILS PERCENT AUTO 59 % (41-73); Platelet Count 267 K/mm3 (150-400); RDW Coefficient Variation 19.5 % (11.7-14.2); RDW Standard Deviation 53.5 fL (35.1-46.3); Red Blood Cell Count 5.82 M/mm3 (4.30-5.90); White Blood Cell Count 9.85 K/mm3 (4.00-11.30)
[2024-07-19] MEDS ORDERED: Ciprofloxacin 400MG/D5 200ML 200 ML IV ONE (22:55)
[2024-07-19 23:10] LABS: Albumin, Blood 2.9 g/dL (3.4-5.0); Albumin/Globulin Ratio 0.8 (0.8-1.8); Bilirubin, Total 1.3 mg/dL (0.1-1.0); Calcium, Blood 9.2 mg/dL (8.5-10.1); Creatinine, Blood 0.95 mg/dL (0.60-1.20); Globulin, Blood 3.6 g/dL (2.2-4.0); Potassium, Blood 4.3 mmol/L (3.5-5.5); Total Protein, Blood 6.5 g/dL (6.4-8.2)
[2024-07-20 02:09] VITALS: BP 136/88
[2024-07-20] MEDS ORDERED: AZIT250 PO (02:44)
== END 2024-07-20 02:55 | disposition home or self-care (01) ==
LOC: ER 22:20
PROVIDERS: Student in an Organized Health Care Education/Training Program
DX: I27.82 Chronic pulmonary embolism (principal); J18.9 Pneumonia, unspecified organism; J90 Pleural effusion, not elsewhere classified; R18.8 Other ascites; I11.0 Hypertensive heart disease with heart failure; I50.20 Unspecified systolic (congestive) heart failure; J44.9 Chronic obstructive pulmonary disease, unspecified; I48.91 Unspecified atrial fibrillation; E78.5 Hyperlipidemia, unspecified; E11.40 Type 2 diabetes mellitus with diabetic neuropathy, unspecified; F17.210 Nicotine dependence, cigarettes, uncomplicated; Z86.73 Personal history of transient ischemic attack (TIA), and cerebral infarction without residual deficits; Z79.899 Other long term (current) drug therapy; Z79.82 Long term (current) use of aspirin; Z79.4 Long term (current) use of insulin; Z88.1 Allergy status to other antibiotic agents; Z88.8 Allergy status to other drugs, medicaments and biological substances
CPT/HCPCS: 71046; 71260; 74177; 80053; 84484; 85025; 85379; 93005; 93010; 93971; 99285-25; J0744; Q9967

== ENCOUNTER 2024-08-02 17:32 | Emergency (ER) | payer OTHER ==
[~2024-08-02] VITALS: Ht 167.6 cm; Wt 108.9 kg
[2024-08-02 17:54] LABS: BASOPHILS ABSOLUTE AUTO 0.12 K/mm3 (0.00-0.23); BASOPHILS PERCENT AUTO 1 % (0-2); EOSINOPHILS ABSOLUTE AUTO 0.15 K/mm3 (0.00-0.68); EOSINOPHILS PERCENT AUTO 2 % (0-6); Hematocrit 51.4 % (37.0-53.0); Hemoglobin 15.8 g/dL (13.5-17.5); IMMATURE GRAN ABSOLUTE AUTO 0.03 K/mm3 (0.00-0.10); IMMATURE GRAN PERCENT AUTO 0 % (0-1); LYMPHOCYTES ABSOLUTE AUTO 2.47 K/mm3 (0.84-5.20); LYMPHOCYTES PERCENT AUTO 28 % (21-46); MONOCYTES ABSOLUTE AUTO 0.57 K/mm3 (0.16-1.47); MONOCYTES PERCENT AUTO 6 % (4-13); Mean Corpuscular HGB 25.2 pg (26.0-34.0); Mean Corpuscular HGB Conc 30.7 g/dL (31.5-36.5); Mean Corpuscular Volume 82 fL (80-100); Mean Platelet Volume 10.2 fL (9.1-12.4); NEUTROPHILS ABSOLUTE AUTO 5.52 K/mm3 (1.96-9.15); NEUTROPHILS PERCENT AUTO 62 % (41-73); Platelet Count 244 K/mm3 (150-400); RDW Coefficient Variation 19.1 % (11.7-14.2); RDW Standard Deviation 54.6 fL (35.1-46.3); Red Blood Cell Count 6.26 M/mm3 (4.30-5.90); White Blood Cell Count 8.86 K/mm3 (4.00-11.30)
[2024-08-02 18:12] LABS: Albumin, Blood 3.1 g/dL (3.4-5.0); Albumin/Globulin Ratio 0.8 (0.8-1.8); Bun/Creatinine Ratio 15.9 (12.0-20.0); Calcium, Blood 9.2 mg/dL (8.5-10.1); Creatinine, Blood 0.94 mg/dL (0.60-1.20); Potassium, Blood 3.8 mmol/L (3.5-5.5); Total Protein, Blood 7.1 g/dL (6.4-8.2)
[2024-08-02] MEDS ORDERED: Torsemide 10 MG TAB PO ONE (22:25)
[2024-08-02 22:40] LABS: Source, Urine Clean Catch
[2024-08-02 22:53] LABS: Appearance, Urine Hazy (Clear); Blood, Urine 5+ (Neg); Color, Urine Yellow (P-Yellow); Glucose Qualitative, Urine Neg (Neg); Ketones, Urine Neg (Neg); Leukocyte Esterase, Urine 1+ (Neg); Nitrite, Urine Neg (Neg); Protein, Urine 4+ (Neg); Specific Gravity, Urine 1.025 (1.003-1.022); Urobilinogen, Urine 2+ (Normal)
[2024-08-02 23:05] LABS: Bilirubin, Urine 1+ (Neg)
[2024-08-02 23:06] LABS: Bacteria Mod /hpf; Red Blood Cells, Urine 50-100 /hpf (0-2); Squamous Epithelial Cells Few /hpf (Few); White Blood Cells, Urine 0-2 /hpf (0-5)
[2024-08-02] MEDS ORDERED: RX Prepack 2 Tabs Ondansetron ODT 4MG UD ONE (23:10)
[2024-08-02] MEDS ORDERED: Trimethoprim/Sulfamethoxazole DS Tab PO ONE (23:10)
[2024-08-03 02:15] VITALS: BP 133/99
[2024-08-03] MEDS ORDERED: SOAANZ40 M1 PO (02:49)
[2024-08-03] MEDS ORDERED: BACTRIM DS TAB1 EAC1 PO (02:49)
[2024-08-03] MEDS ORDERED: ONDA4 PO (03:03)
[2024-08-03] MEDS ORDERED: Cleocin HCl150 MG PO (03:03)
[2024-08-03] MEDS ORDERED: Percocet 5-3251 EACH PO (03:03)
[2024-08-03] MEDS ORDERED: RX Prepack 6 Tabs Oxycodone 5mg UD ONE (03:05)
== END 2024-08-03 03:17 | disposition home or self-care (01) ==
LOC: ER 17:32
PROVIDERS: Emergency Medicine; Student in an Organized Health Care Education/Training Program
DX: N20.0 Calculus of kidney (principal); L03.116 Cellulitis of left lower limb; I11.0 Hypertensive heart disease with heart failure; I50.9 Heart failure, unspecified; J44.89 Other specified chronic obstructive pulmonary disease; E11.9 Type 2 diabetes mellitus without complications; E78.00 Pure hypercholesterolemia, unspecified; Z79.899 Other long term (current) drug therapy; Z79.82 Long term (current) use of aspirin; Z79.4 Long term (current) use of insulin; Z88.1 Allergy status to other antibiotic agents; Z88.8 Allergy status to other drugs, medicaments and biological substances
CPT/HCPCS: 71046; 74176; 80053; 81001; 83880; 84484; 85025; 87086; 93005; 93010; 99285-25; A9270

== ENCOUNTER 2024-08-31 15:09 | Emergency (ER) | payer OTHER ==
[~2024-08-31] VITALS: Ht 167.6 cm; Wt 90.7 kg
[~2024-08-31 15:09] MED LIST changes: +Cleocin HCl150 MG PO; +ONDA4 PO; +Percocet 5-3251 EACH PO
[2024-08-31 16:24] LABS: BASOPHILS ABSOLUTE AUTO 0.08 K/mm3 (0.00-0.23); BASOPHILS PERCENT AUTO 1 % (0-2); EOSINOPHILS ABSOLUTE AUTO 0.14 K/mm3 (0.00-0.68); EOSINOPHILS PERCENT AUTO 2 % (0-6); Hematocrit 48.7 % (37.0-53.0); Hemoglobin 15.2 g/dL (13.5-17.5); IMMATURE GRAN ABSOLUTE AUTO 0.03 K/mm3 (0.00-0.10); IMMATURE GRAN PERCENT AUTO 0 % (0-1); LYMPHOCYTES ABSOLUTE AUTO 2.11 K/mm3 (0.84-5.20); LYMPHOCYTES PERCENT AUTO 27 % (21-46); MONOCYTES ABSOLUTE AUTO 0.43 K/mm3 (0.16-1.47); MONOCYTES PERCENT AUTO 6 % (4-13); Mean Corpuscular HGB 25.8 pg (26.0-34.0); Mean Corpuscular HGB Conc 31.2 g/dL (31.5-36.5); Mean Corpuscular Volume 83 fL (80-100); Mean Platelet Volume 9.9 fL (9.1-12.4); NEUTROPHILS ABSOLUTE AUTO 5.03 K/mm3 (1.96-9.15); NEUTROPHILS PERCENT AUTO 64 % (41-73); Platelet Count 218 K/mm3 (150-400); RDW Standard Deviation 51.8 fL (35.1-46.3); Red Blood Cell Count 5.89 M/mm3 (4.30-5.90); White Blood Cell Count 7.82 K/mm3 (4.00-11.30)
[2024-08-31 16:45] LABS: Albumin, Blood 3.1 g/dL (3.4-5.0); Albumin/Globulin Ratio 0.8 (0.8-1.8); Bilirubin, Total 1.4 mg/dL (0.1-1.0); Bun/Creatinine Ratio 22.1 (12.0-20.0); Calcium, Blood 9.3 mg/dL (8.5-10.1); Creatinine, Blood 0.86 mg/dL (0.60-1.20); Globulin, Blood 4.1 g/dL (2.2-4.0); Potassium, Blood 4.6 mmol/L (3.5-5.5); Total Protein, Blood 7.2 g/dL (6.4-8.2)
[2024-08-31] MEDS ORDERED: NS 1,000 ML IV SCH (22:15)
[2024-09-01 00:36] LABS: Source, Urine Clean Catch
[2024-09-01 00:47] LABS: Appearance, Urine Clear (Clear); Blood, Urine 1+ (Neg); Color, Urine Amber (P-Yellow); Glucose Qualitative, Urine Neg (Neg); Ketones, Urine Neg (Neg); Leukocyte Esterase, Urine 2+ (Neg); Nitrite, Urine Neg (Neg); Protein, Urine 3+ (Neg); Specific Gravity, Urine 1.025 (1.003-1.022); Urobilinogen, Urine 2+ (Normal)
[2024-09-01 00:54] LABS: Bilirubin, Urine 1+ (Neg)
[2024-09-01 00:55] LABS: Bacteria Mod /hpf; Mucus Light (0-Heavy); Red Blood Cells, Urine 0-2 /hpf (0-2); Squamous Epithelial Cells Few /hpf (Few)
[2024-09-01] MEDS ORDERED: CEPH500 PO (04:20)
[2024-09-01] MEDS ORDERED: CefTRIAXone Sodium 1,000 MG in NS 50 ML IV ONE (04:20)
[2024-09-01 04:45] VITALS: BP 118/89
== END 2024-09-01 04:53 | disposition home or self-care (01) ==
LOC: ER 15:09
PROVIDERS: Emergency Medicine; Physician Assistant
DX: N39.0 Urinary tract infection, site not specified (principal); R51.9 Headache, unspecified; E86.0 Dehydration; I11.0 Hypertensive heart disease with heart failure; I50.20 Unspecified systolic (congestive) heart failure; E11.40 Type 2 diabetes mellitus with diabetic neuropathy, unspecified; I25.10 Atherosclerotic heart disease of native coronary artery without angina pectoris; E78.5 Hyperlipidemia, unspecified; J44.9 Chronic obstructive pulmonary disease, unspecified; I48.91 Unspecified atrial fibrillation; Z95.5 Presence of coronary angioplasty implant and graft; Z88.8 Allergy status to other drugs, medicaments and biological substances; Z88.1 Allergy status to other antibiotic agents; Z79.4 Long term (current) use of insulin; Z79.82 Long term (current) use of aspirin; Z79.899 Other long term (current) drug therapy; Z79.01 Long term (current) use of anticoagulants
CPT/HCPCS: 51798; 80053; 81001; 85025; 87086; 93005; 93010; 96365; 99284-25; J0696; J7030

== ENCOUNTER 2024-09-17 01:06 | Emergency (ER) | payer OTHER ==
[~2024-09-17] VITALS: Ht 167.6 cm; Wt 90.7 kg
[2024-09-17 01:56] LABS: Albumin, Blood 3.3 g/dL (3.4-5.0); Albumin/Globulin Ratio 0.9 (0.8-1.8); Bilirubin, Total 1.1 mg/dL (0.1-1.0); Calcium, Blood 8.8 mg/dL (8.5-10.1); Creatinine, Blood 0.74 mg/dL (0.60-1.20); Globulin, Blood 3.6 g/dL (2.2-4.0); Potassium, Blood 3.5 mmol/L (3.5-5.5); Total Protein, Blood 6.9 g/dL (6.4-8.2)
[2024-09-17 02:09] LABS: BASOPHILS ABSOLUTE AUTO 0.08 K/mm3 (0.00-0.23); BASOPHILS PERCENT AUTO 1 % (0-2); EOSINOPHILS ABSOLUTE AUTO 0.16 K/mm3 (0.00-0.68); EOSINOPHILS PERCENT AUTO 3 % (0-6); Hematocrit 49.3 % (37.0-53.0); Hemoglobin 15.9 g/dL (13.5-17.5); IMMATURE GRAN ABSOLUTE AUTO 0.02 K/mm3 (0.00-0.10); IMMATURE GRAN PERCENT AUTO 0 % (0-1); LYMPHOCYTES ABSOLUTE AUTO 1.99 K/mm3 (0.84-5.20); LYMPHOCYTES PERCENT AUTO 32 % (21-46); MONOCYTES ABSOLUTE AUTO 0.39 K/mm3 (0.16-1.47); MONOCYTES PERCENT AUTO 6 % (4-13); Mean Corpuscular HGB 26.5 pg (26.0-34.0); Mean Corpuscular HGB Conc 32.3 g/dL (31.5-36.5); Mean Corpuscular Volume 82 fL (80-100); Mean Platelet Volume 10.5 fL (9.1-12.4); NEUTROPHILS ABSOLUTE AUTO 3.65 K/mm3 (1.96-9.15); NEUTROPHILS PERCENT AUTO 58 % (41-73); Platelet Count 180 K/mm3 (150-400); RDW Coefficient Variation 17.9 % (11.7-14.2); RDW Standard Deviation 50.4 fL (35.1-46.3); White Blood Cell Count 6.29 K/mm3 (4.00-11.30)
[2024-09-17 03:45] VITALS: BP 112/81
== END 2024-09-17 03:48 | disposition home or self-care (01) ==
LOC: ER 01:06
PROVIDERS: Emergency Medicine
DX: R07.9 Chest pain, unspecified (principal); I11.0 Hypertensive heart disease with heart failure; I50.20 Unspecified systolic (congestive) heart failure; J44.9 Chronic obstructive pulmonary disease, unspecified; I48.91 Unspecified atrial fibrillation; E11.40 Type 2 diabetes mellitus with diabetic neuropathy, unspecified; E78.5 Hyperlipidemia, unspecified; F17.210 Nicotine dependence, cigarettes, uncomplicated; Z79.899 Other long term (current) drug therapy; Z79.4 Long term (current) use of insulin; Z79.82 Long term (current) use of aspirin; Z88.1 Allergy status to other antibiotic agents; Z88.8 Allergy status to other drugs, medicaments and biological substances
CPT/HCPCS: 71045; 80053; 84484; 85025; 93005; 93010; 99285-25

== ENCOUNTER 2024-12-04 11:42 | Emergency (ER) | payer OTHER ==
[~2024-12-04] VITALS: Ht 172.7 cm; Wt 131.5 kg
[2024-12-04 12:04] LABS: BASOPHILS ABSOLUTE AUTO 0.08 K/mm3 (0.00-0.23); BASOPHILS PERCENT AUTO 1 % (0-2); EOSINOPHILS ABSOLUTE AUTO 0.05 K/mm3 (0.00-0.68); EOSINOPHILS PERCENT AUTO 1 % (0-6); Hematocrit 49.8 % (37.0-53.0); Hemoglobin 15.7 g/dL (13.5-17.5); IMMATURE GRAN ABSOLUTE AUTO 0.06 K/mm3 (0.00-0.10); IMMATURE GRAN PERCENT AUTO 1 % (0-1); LYMPHOCYTES ABSOLUTE AUTO 2.09 K/mm3 (0.84-5.20); LYMPHOCYTES PERCENT AUTO 21 % (21-46); MONOCYTES ABSOLUTE AUTO 0.55 K/mm3 (0.16-1.47); MONOCYTES PERCENT AUTO 6 % (4-13); Mean Corpuscular HGB 26.1 pg (26.0-34.0); Mean Corpuscular HGB Conc 31.5 g/dL (31.5-36.5); Mean Corpuscular Volume 83 fL (80-100); Mean Platelet Volume 9.7 fL (9.1-12.4); NEUTROPHILS ABSOLUTE AUTO 7.06 K/mm3 (1.96-9.15); NEUTROPHILS PERCENT AUTO 71 % (41-73); Platelet Count 222 K/mm3 (150-400); RDW Coefficient Variation 18.6 % (11.7-14.2); RDW Standard Deviation 53.1 fL (35.1-46.3); Red Blood Cell Count 6.01 M/mm3 (4.30-5.90); White Blood Cell Count 9.89 K/mm3 (4.00-11.30)
[2024-12-04 12:30] LABS: Albumin, Blood 3.1 g/dL (3.4-5.0); Albumin/Globulin Ratio 0.9 (0.8-1.8); Bilirubin, Total 1.9 mg/dL (0.1-1.0); Bun/Creatinine Ratio 19.7 (12.0-20.0); Calcium, Blood 8.5 mg/dL (8.5-10.1); Creatinine, Blood 0.81 mg/dL (0.60-1.20); Globulin, Blood 3.3 g/dL (2.2-4.0); Potassium, Blood 4.6 mmol/L (3.5-5.5); Total Protein, Blood 6.4 g/dL (6.4-8.2)
[2024-12-04] MEDS ORDERED: Ondansetron HCl 2 MG / ML 2ML Vial IV ONE (15:40)
[2024-12-04] MEDS ORDERED: Ketorolac Tromethamine 30mg Vial IV ONE (15:40)
[2024-12-04] MEDS ORDERED: Polyethylene Glycol 3350 17 gm PO ONE (15:50)
[2024-12-04 17:02] VITALS: BP 107/89
== END 2024-12-04 17:20 | disposition home or self-care (01) ==
LOC: ER 11:42
PROVIDERS: Student in an Organized Health Care Education/Training Program
DX: K59.00 Constipation, unspecified (principal); I10 Essential (primary) hypertension; E11.9 Type 2 diabetes mellitus without complications; J44.89 Other specified chronic obstructive pulmonary disease; F17.210 Nicotine dependence, cigarettes, uncomplicated
CPT/HCPCS: 80053; 85025; 96374; 96375; 99283-25; A9270; J1885; J2405

== ENCOUNTER 2024-12-19 19:09 | Emergency (ER) | payer OTHER ==
[~2024-12-19] VITALS: Ht 167.6 cm; Wt 90.7 kg
[2024-12-19 20:21] LABS: BASOPHILS PERCENT AUTO 2 % (0-2); EOSINOPHILS ABSOLUTE AUTO 0.16 K/mm3 (0.00-0.68); EOSINOPHILS PERCENT AUTO 2 % (0-6); IMMATURE GRAN ABSOLUTE AUTO 0.02 K/mm3 (0.00-0.10); IMMATURE GRAN PERCENT AUTO 0 % (0-1); LYMPHOCYTES PERCENT AUTO 28 % (21-46); MONOCYTES PERCENT AUTO 7 % (4-13); Mean Corpuscular HGB 26.7 pg (26.0-34.0); Mean Corpuscular HGB Conc 31.9 g/dL (31.5-36.5); Mean Corpuscular Volume 84 fL (80-100); Mean Platelet Volume 9.8 fL (9.1-12.4); NEUTROPHILS ABSOLUTE AUTO 4.15 K/mm3 (1.96-9.15); NEUTROPHILS PERCENT AUTO 61 % (41-73); Platelet Count 201 K/mm3 (150-400); RDW Coefficient Variation 18.5 % (11.7-14.2); RDW Standard Deviation 53.5 fL (35.1-46.3); Red Blood Cell Count 5.61 M/mm3 (4.30-5.90); White Blood Cell Count 6.83 K/mm3 (4.00-11.30)
[2024-12-19 20:47] LABS: Albumin/Globulin Ratio 0.8 (0.8-1.8); Bilirubin, Total 1.4 mg/dL (0.1-1.0); Bun/Creatinine Ratio 14.4 (12.0-20.0); Calcium, Blood 8.8 mg/dL (8.5-10.1); Creatinine, Blood 1.04 mg/dL (0.60-1.20); Globulin, Blood 3.7 g/dL (2.2-4.0); Potassium, Blood 3.9 mmol/L (3.5-5.5); Total Protein, Blood 6.7 g/dL (6.4-8.2)
[2024-12-20 01:05] VITALS: BP 139/99
== END 2024-12-20 01:07 | disposition home or self-care (01) ==
LOC: ER 19:09
PROVIDERS: Physician Assistant
DX: I11.0 Hypertensive heart disease with heart failure (principal); I50.9 Heart failure, unspecified; E11.9 Type 2 diabetes mellitus without complications; I25.10 Atherosclerotic heart disease of native coronary artery without angina pectoris; J44.9 Chronic obstructive pulmonary disease, unspecified; R63.5 Abnormal weight gain; F17.210 Nicotine dependence, cigarettes, uncomplicated; Z79.4 Long term (current) use of insulin; Z79.82 Long term (current) use of aspirin; Z79.899 Other long term (current) drug therapy; Z88.8 Allergy status to other drugs, medicaments and biological substances; Z86.73 Personal history of transient ischemic attack (TIA), and cerebral infarction without residual deficits
CPT/HCPCS: 71046; 80053; 83880; 85025; 93005; 93010; 93970; 99284-25

== ENCOUNTER 2025-02-07 14:29 | Inpatient (IN) | payer OTHER ==
[~2025-02-07] VITALS: Ht 167.6 cm; Wt 105.4 kg
[2025-02-07] MEDS ORDERED: Ampicillin Sod/Sulbactam Sod 3 GM in NS 100 ML IV ONE ×2 (14:40→18:25)
[2025-02-07 15:59] LABS: Hematocrit 48.3 % (37.0-53.0); Hemoglobin 15.6 g/dL (13.5-17.5); Mean Corpuscular HGB Conc 32.3 g/dL (31.5-36.5); Mean Corpuscular Volume 82 fL (80-100); NRBC ABSOLUTE 0.00 K/mm3 (0.00-0.02); NRBC Auto 0.0 /100 WBC (0.0-0.2); Platelet Count 189 K/mm3 (150-400); RDW Coefficient Variation 17.2 % (11.7-14.2); RDW Standard Deviation 49.3 fL (35.1-46.3)
[2025-02-07 16:20] LABS: Magnesium, Blood 1.6 mg/dL (1.6-2.4)
[2025-02-07 16:34] LABS: Alanine Aminotransfer (ALT/SGP 23 U/L (12-78); Albumin, Blood 2.8 g/dL (3.4-5.0); Albumin/Globulin Ratio 0.6 (0.8-1.8); Anion Gap 8 mmol/L (3-11); Aspartate Aminotrans (AST/SGOT 35 U/L (12-37); Bilirubin, Total 2.4 mg/dL (0.1-1.0); Blood Urea Nitrogen 24 mg/dL (8-24); CO2, Blood 26 mmol/L (21-32); Calcium, Blood 9.5 mg/dL (8.5-10.1); Chloride, Blood 102 mmol/L (98-108); Creatinine, Blood 0.89 mg/dL (0.60-1.20); Globulin, Blood 4.6 g/dL (2.2-4.0); Glucose, Blood 135 mg/dL (70-99); Potassium, Blood 4.3 mmol/L (3.5-5.5); Sodium, Blood 132 mmol/L (136-145); Total Protein, Blood 7.4 g/dL (6.4-8.2)
[2025-02-07 16:35] LABS: BAND PERCENT MAN 12 % (0-8); BASOPHILS ABSOLUTE MAN 0.00 K/mm3 (0.00-0.23); BASOPHILS PERCENT MAN 0 % (0-2); EOSINOPHILS ABSOLUTE MAN 0.10 K/mm3 (0.00-0.68); EOSINOPHILS PERCENT MAN 1 % (0-6); LYMPHOCYTES ABSOLUTE MAN 1.20 K/mm3 (0.84-5.20); LYMPHOCYTES PERCENT MAN 12 % (21-46); METAMYELOCYTE ABSOLUTE MAN 0.30 K/mm3 (0.00-0.00); METAMYELOCYTE PERCENT MAN 3 % (0-0); MONOCYTES ABSOLUTE MAN 0.50 K/mm3 (0.16-1.47); MONOCYTES PERCENT MAN 5 % (4-13); NEUTROPHILS ABSOLUTE MAN 7.92 K/mm3 (1.96-9.15); SEG NEUTROPHILS PERCENT MAN 67 % (41-73)
[2025-02-07 16:42] LABS: C-REACTIVE PROTEIN, EXT RANGE >19.000 mg/dL (0.000-0.300)
[2025-02-07] MEDS ORDERED: Ketorolac Tromethamine 15mg Vial IV ONE (18:25)
[2025-02-07] MEDS ORDERED: MAGNESIUM OXID500 MG PO (19:45)
[2025-02-07] MEDS ORDERED: ENTRESTO 24 MG1 EACH PO (19:49)
[2025-02-07] MEDS ORDERED: NS 500 ML IV SCH (20:00)
[2025-02-07] MEDS ORDERED: Vancomycin (Pharmacy Consult) IV SCH (20:00)
[2025-02-07] MEDS ORDERED: Lactobacil 2-S.Thermo-Bifido 1 1 Cap PO SCH (21:00)
[2025-02-07 21:02] VITALS: BP 115/99
[2025-02-07] MEDS ORDERED: NS 250 ML IV PRN (21:20)
[2025-02-07] MEDS ORDERED: Polyethylene Glycol 3350 17 gm PO PRN (21:45)
[2025-02-07] MEDS ORDERED: Formoterol/Mometasone MDI 5/100 mcg 13 GM INH SCH (22:30)
[2025-02-07] MEDS ORDERED: Piperacillin/Tazobactam Sod 3.375 GM in NS 100 ML IV SCH (23:00)
[2025-02-07 23:47] VITALS: BP 98/84
[2025-02-08 03:59] VITALS: BP 100/71
--- NOTE | 2025-02-08 04:24 | NUR ---
SHIFT SUMMARY 59 YR M ADMITTED ON 02/08/25. FULL CODE. PT WAS ADMITTED TO MEDICAL FLOOR FROM ED THIS SHIFT. HE HAS A DIABET ULCER ON HIS LLE THAT THIS NURSE COVERED WITH A NON ADHESIVE PAD AND WRAPPED W/ GAUZE. PIC OF WOUND IN CHART. PER BEHAVIORIST, PT HAD ST DEPRESSIONS AND ONE ST ELEVATION. DISCUSSED WITH CHARGE NURSE AND AGREED TO CONTINUE TO MONITOR. PT IS ASYMPTOMATIC AND OTHERWISE WAS SR IN THE 80'S. HE HAS SLEPT FOR MOST OF THIS SHIFT. NO ACUTE CHANGES. ABX GIVEN AND WILL CONTINUE DIURESING IN THE A.M. PT IS A&O AND IS ABLE TO MAKE HIS NEEDS KNOWN. BED IN LOW POSITION WITH ALARM ON AND CALL LIGHT IN REACH.
[2025-02-08 06:05] LABS: Hematocrit 44.1 % (37.0-53.0); Hemoglobin 14.4 g/dL (13.5-17.5); Mean Corpuscular HGB Conc 32.7 g/dL (31.5-36.5); Mean Corpuscular Volume 81 fL (80-100); NRBC ABSOLUTE 0.00 K/mm3 (0.00-0.02); NRBC Auto 0.0 /100 WBC (0.0-0.2); Platelet Count 164 K/mm3 (150-400); RDW Coefficient Variation 16.5 % (11.7-14.2); RDW Standard Deviation 48.4 fL (35.1-46.3)
[2025-02-08 06:33] LABS: Alanine Aminotransfer (ALT/SGP 17.0 U/L (12-78); Albumin, Blood 2.5 g/dL (3.4-5.0); Albumin/Globulin Ratio 0.6 (0.8-1.8); Anion Gap 10.0 mmol/L (3-11); Aspartate Aminotrans (AST/SGOT 15.0 U/L (12-37); Bilirubin, Total 2.0 mg/dL (0.1-1.0); Blood Urea Nitrogen 24.0 mg/dL (8-24); CO2, Blood 23.0 mmol/L (21-32); Calcium, Blood 9.0 mg/dL (8.5-10.1); Chloride, Blood 105.0 mmol/L (98-108); Creatinine, Blood 0.83 mg/dL (0.60-1.20); Globulin, Blood 4.0 g/dL (2.2-4.0); Glucose, Blood 124.0 mg/dL (70-99); Potassium, Blood 3.2 mmol/L (3.5-5.5); Sodium, Blood 135.0 mmol/L (136-145); Total Protein, Blood 6.5 g/dL (6.4-8.2)
[2025-02-08 07:10] LABS: BAND PERCENT MAN 1 % (0-8); BASOPHILS ABSOLUTE MAN 0.07 K/mm3 (0.00-0.23); BASOPHILS PERCENT MAN 1 % (0-2); EOSINOPHILS ABSOLUTE MAN 0.00 K/mm3 (0.00-0.68); EOSINOPHILS PERCENT MAN 0 % (0-6); LYMPHOCYTES % ATYPICAL MANUAL 1 % (0-0); LYMPHOCYTES ABSOLUTE MAN 0.51 K/mm3 (0.84-5.20); LYMPHOCYTES PERCENT MAN 6 % (21-46); MONOCYTES ABSOLUTE MAN 0.58 K/mm3 (0.16-1.47); MONOCYTES PERCENT MAN 8 % (4-13); NEUTROPHILS ABSOLUTE MAN 6.12 K/mm3 (1.96-9.15); SEG NEUTROPHILS PERCENT MAN 83 % (41-73)
[2025-02-08] MEDS ORDERED: Insulin Human Lispro 100 Units/ML 3ML Syringe SC SCH (07:30)
[2025-02-08 07:39] VITALS: BP 129/101
[2025-02-08] MEDS ORDERED: Enoxaparin 40 MG/0.4 ML SYR SC SCH (09:00)
[2025-02-08] MEDS ORDERED: Miconazole Nitrate 2% 85 GM PWD TOP SCH (14:00)
--- NOTE | 2025-02-08 15:13 | NUR ---
Pt. is awake in bed and welcomes my visit. Pt. is known to this bowl sander from the community. Pt, is pleasant. Facilitated a life update and listened with empathy and interest. Conisdered matters of radha and belief. Pt. requested a bible and after I prayed with the Pt. a bible was brought to the Pt. at bedside.
[2025-02-08] MEDS ORDERED: FentaNYL Citrate 50 MCG/ML 2 ML Injection IV PRN (15:15)
[2025-02-08 16:45] VITALS: BP 94/71
--- NOTE | 2025-02-08 17:19 | NUR ---
SHIFT SUMMARY PT A&OX4, VSS, BEDRIDDEN AT THIS TIME, TOLERATING PO, VOIDING, AND PAIN MANAGED PER EMAR. PT C/O OUT OF PROPORTION PAIN X1 THIS SHIFT. THIS RN CALLED AND RECEIVED ORDER FOR LLE CT. PT AWAITING CT AT THIS TIME. WOUND CARE/DRESSING COMPLETED PER ORDER. CALL LIGHT WITHIN REACH AND PT ABLE TO MAKE NEEDS KNOWN.
[2025-02-08 19:28] VITALS: BP 101/81
[2025-02-08] MEDS ORDERED: Insulin Glargine-Yfgn 100 Unit/mL 3 ML SYR SC SCH (21:00)
[2025-02-08 23:46] VITALS: BP 90/70
[2025-02-09 04:13] VITALS: BP 92/80
--- NOTE | 2025-02-09 05:27 | NUR ---
SHIFT SUMMARY A&OX4. VSS ON RA, CONTINUOUS PULSE OXIMETRY IN PLACE. BRIEF DESATS WITH SLEEP, PT REFUSED CPAP OVERNIGHT. PT REPORTS 10/10 LLE PAIN, UNRELIEVED WITH TRAMADOL. MD CONTACTED, NEW ORDERS RECEIVED. PT ABLE TO SLEEP AND REPORTS 8/10 PAIN AFTER 2MG DILAUDID X 1. CALL LIGHT IN REACH, NO FURTHER NEEDS AT THIS TIME.
[2025-02-09 05:36] LABS: Hematocrit 45.9 % (37.0-53.0); Hemoglobin 15.2 g/dL (13.5-17.5); LYMPHOCYTES ABSOLUTE AUTO 0.95 K/mm3 (0.84-5.20); LYMPHOCYTES PERCENT AUTO 10 % (21-46); MONOCYTES ABSOLUTE AUTO 0.72 K/mm3 (0.16-1.47); MONOCYTES PERCENT AUTO 8 % (4-13); Mean Corpuscular HGB Conc 33.1 g/dL (31.5-36.5); Mean Corpuscular Volume 82 fL (80-100); NRBC ABSOLUTE 0.00 K/mm3 (0.00-0.02); NRBC Auto 0.0 /100 WBC (0.0-0.2); Platelet Count 158 K/mm3 (150-400); RDW Coefficient Variation 17.3 % (11.7-14.2); RDW Standard Deviation 49.7 fL (35.1-46.3)
[2025-02-09 05:37] LABS: BASOPHILS ABSOLUTE AUTO 0.02 K/mm3 (0.00-0.23); BASOPHILS PERCENT AUTO 0 % (0-2); EOSINOPHILS ABSOLUTE AUTO 0.06 K/mm3 (0.00-0.68); EOSINOPHILS PERCENT AUTO 1 % (0-6); IMMATURE GRAN ABSOLUTE AUTO 0.03 K/mm3 (0.00-0.10); IMMATURE GRAN PERCENT AUTO 0 % (0-1); NEUTROPHILS ABSOLUTE AUTO 7.87 K/mm3 (1.96-9.15); NEUTROPHILS PERCENT AUTO 82 % (41-73)
[2025-02-09 05:56] LABS: Anion Gap 10.0 mmol/L (3-11); Blood Urea Nitrogen 21.0 mg/dL (8-24); CO2, Blood 25.0 mmol/L (21-32); Calcium, Blood 9.0 mg/dL (8.5-10.1); Chloride, Blood 100.0 mmol/L (98-108); Creatinine, Blood 0.8 mg/dL (0.60-1.20); Glucose, Blood 150.0 mg/dL (70-99); Potassium, Blood 3.5 mmol/L (3.5-5.5); Sodium, Blood 131.0 mmol/L (136-145)
[2025-02-09 07:52] VITALS: BP 93/77
--- NOTE | 2025-02-09 09:00 | NUR ---
pt resting in bed, awake, a/ox4, pleasant and cooperative with care, follows commands well, states pain ok at this time, lungs are clear in [place], fine crackles in bases, resp even and unlabored, no cough noted, on r/a, hrr, tele in place running sr with pvc's in 90's, trace edema noted to b/l le, ppp faint, cap refill<4 sec, vs low b/p this am, afebrile, piv to reac site is clear and patent, btx4, abd flat soft nontender, voids via urinal, skin has very red b/l le, left side has a dressing in place for drainage, dressing c/d/i, sergio, states no bm for several days, and hasn't been oob for four days, christopher, call light in reach.
--- NOTE | 2025-02-09 13:14 | NUR ---
pt requested pain med, this was administered per emar, held medications that will lower b/p, notified MD, she will let me know if need to give. call light in reach.
[2025-02-09 16:45] VITALS: BP 111/79
[2025-02-09] MEDS ORDERED: Albuterol 2.5 MG/3 ML VIAL INH PRN (16:45)
--- NOTE | 2025-02-09 18:30 | NUR ---
Carlitos developed a temp of 100.5 this evening, consult called in for surgical for possible abcess, no further changes this shift. will keep npo after mid per Dr. grewal light in reach.
--- NOTE | 2025-02-09 18:51 | NUR ---
pt complaining of pain in his left leg, medicated per oct, and changed dressing which was saturated, pt reports relief. call light in reach.
[2025-02-09 20:25] VITALS: BP 102/82
[2025-02-09 20:26] VITALS: BP 102/82
[2025-02-09 20:38] LABS: Vancomycin, Trough 10.8 ug/mL (5.0-10.0)
[2025-02-10] VITALS (19 sets, daily range): BP systolic 86–124; BP diastolic 60–90
[2025-02-10 05:17] LABS: Hematocrit 43.8 % (37.0-53.0); Hemoglobin 14.6 g/dL (13.5-17.5); LYMPHOCYTES ABSOLUTE AUTO 1.09 K/mm3 (0.84-5.20); LYMPHOCYTES PERCENT AUTO 10 % (21-46); MONOCYTES ABSOLUTE AUTO 0.72 K/mm3 (0.16-1.47); MONOCYTES PERCENT AUTO 6 % (4-13); Mean Corpuscular HGB Conc 33.3 g/dL (31.5-36.5); Mean Corpuscular Volume 80 fL (80-100); NRBC ABSOLUTE 0.02 K/mm3 (0.00-0.02); NRBC Auto 0.2 /100 WBC (0.0-0.2); Platelet Count 151 K/mm3 (150-400); RDW Coefficient Variation 16.8 % (11.7-14.2); RDW Standard Deviation 48.6 fL (35.1-46.3)
[2025-02-10 05:23] LABS: BASOPHILS ABSOLUTE AUTO 0.01 K/mm3 (0.00-0.23); BASOPHILS PERCENT AUTO 0 % (0-2); EOSINOPHILS ABSOLUTE AUTO 0.05 K/mm3 (0.00-0.68); EOSINOPHILS PERCENT AUTO 0 % (0-6); IMMATURE GRAN ABSOLUTE AUTO 0.14 K/mm3 (0.00-0.10); IMMATURE GRAN PERCENT AUTO 1 % (0-1); NEUTROPHILS ABSOLUTE AUTO 9.52 K/mm3 (1.96-9.15); NEUTROPHILS PERCENT AUTO 83 % (41-73)
[2025-02-10 06:05] LABS: Anion Gap 10.0 mmol/L (3-11); Blood Urea Nitrogen 20.0 mg/dL (8-24); CO2, Blood 25.0 mmol/L (21-32); Calcium, Blood 8.8 mg/dL (8.5-10.1); Chloride, Blood 99.0 mmol/L (98-108); Creatinine, Blood 0.81 mg/dL (0.60-1.20); Glucose, Blood 111.0 mg/dL (70-99); Potassium, Blood 3.8 mmol/L (3.5-5.5); Sodium, Blood 130.0 mmol/L (136-145)
--- NOTE | 2025-02-10 08:23 | NUR ---
PER DR CRYSTAL. HOLD ELLIQUIS AND ASA TODAY, OKAY GIVE OTHER H/R PILLS R/T SOFT BP
[2025-02-10] MEDS ORDERED: HYDROmorphone HCl/Pf 1MG SYR IV ONE (09:00)
[2025-02-10] MEDS ORDERED: Ipratropium/Albuterol SulF 2.5-0.5MG/3 ML Amp INH ONE (10:30)
--- NOTE | 2025-02-10 11:05 | NUR ---
[facility] PRE OP NOTE PT A&OX4, BREATHING RA, PT TO DSU IN HOSPITAL BED. PT C/O DIFFICULTY BREATHING O2 SAT REMAINS IN HIGH 90'S ON RA, LUNG SOUNDS SHALLOW BUT CLEAR. PT GIVEN DUONEB PER ANESTHESIA. PT RESTING QUIETLY C EYES CLOSED. Pre-Op teaching done. Pt verbalizes understanding. Patient confirms NPO status and agrees with scheduled surgery. PT L LEG WEEPING, SWOLLEN AND RED- WRAPPED C GAUZE BY FLOOR RN.
--- NOTE | 2025-02-10 11:06 | NUR ---
OUT TO DAY SURG, 1000
[2025-02-10] MEDS ORDERED: Etomidate 2MG / ML 10ML Vial ONE (11:17)
[2025-02-10] MEDS ORDERED: FentaNYL Citrate 50 MCG/ML 2 ML Injection ONE (11:18)
[2025-02-10] MEDS ORDERED: Phenylephrine HCl 10mg/ml 1 ml Vial ONE (11:26)
[2025-02-10] MEDS ORDERED: Dexamethasone Sod Phos 10 MG/ML 1ML VIAL ONE (11:28)
[2025-02-10] MEDS ORDERED: Ondansetron HCl 2 MG / ML 2ML Vial ONE (11:28)
[2025-02-10] MEDS ORDERED: Ketorolac Tromethamine 30mg Vial ONE (11:29)
[2025-02-10] MEDS ORDERED: Sodium Hypochlorite 480 ML BTL (0.25%) ONE (11:59)
[2025-02-10] MEDS ORDERED: FentaNYL Citrate 50 MCG/ML 2 ML Injection IV PRN ×5 (12:40→12:45)
[2025-02-10] MEDS ORDERED: Morphine Sulfate 4 MG/1 ML Injection IV PRN ×2 (12:40→12:45)
[2025-02-10] MEDS ORDERED: Ondansetron HCl 2 MG / ML 2ML Vial IV PRN ×2 (12:40→12:45)
[2025-02-10] MEDS ORDERED: Albuterol 2.5 MG/3 ML VIAL INH PRN ×2 (12:40→13:05)
[2025-02-10] MEDS ORDERED: Metoclopramide HCl 5MG / ML 2ML Vial IV PRN (12:45)
[2025-02-10] MEDS ORDERED: HYDROmorphone HCl/Pf 1MG SYR IV PRN (12:45)
--- NOTE | 2025-02-10 14:20 | NUR ---
BACK TO ROOM AT 1300, REPORT PER FABIAN FIELDS. PT AWAKE, TALKING. ON 3L O2. 1400 OFF O2. VSS, AND DOING WELL. TALKING TO SLUICE TENDER AT THIS TIME.
--- NOTE | 2025-02-10 17:49 | NUR ---
PT PLEASANT TODAY. HE DID VISIT WITH SPIRITUAL CARE ALSO TODAY. DID GO TO DAY SURGERY FOR LEFT LEG I&D. I DID REPLACE OUTER ABD DRESSINGS THIS AFTERNONN PER DR INSTRUCTIONS. S/S FLUID DRAINING. TOES PINK, GOOD CAP REFIL. NO FURTHER CONCERNS NOTED. BED IN LOW POSITION, CALL LITEIN REACH, CALLS APPROP
[2025-02-10] MEDS ORDERED: NS 250 ML IV PRN (20:55)
[2025-02-11 03:38] VITALS: BP 121/95
[2025-02-11 05:32] LABS: Hematocrit 42.1 % (37.0-53.0); Hemoglobin 13.6 g/dL (13.5-17.5); Mean Corpuscular HGB Conc 32.3 g/dL (31.5-36.5); Mean Corpuscular Volume 80 fL (80-100); NRBC ABSOLUTE 0.00 K/mm3 (0.00-0.02); NRBC Auto 0.0 /100 WBC (0.0-0.2); Platelet Count 141 K/mm3 (150-400); RDW Coefficient Variation 16.8 % (11.7-14.2); RDW Standard Deviation 49.1 fL (35.1-46.3)
[2025-02-11 05:44] LABS: Anion Gap 9.0 mmol/L (3-11); Blood Urea Nitrogen 22.0 mg/dL (8-24); CO2, Blood 24.0 mmol/L (21-32); Calcium, Blood 9.1 mg/dL (8.5-10.1); Chloride, Blood 100.0 mmol/L (98-108); Creatinine, Blood 0.72 mg/dL (0.60-1.20); Glucose, Blood 176.0 mg/dL (70-99); Potassium, Blood 4.0 mmol/L (3.5-5.5); Sodium, Blood 129.0 mmol/L (136-145)
[2025-02-11 05:58] LABS: BAND PERCENT MAN 6 % (0-8); BASOPHILS ABSOLUTE MAN 0.00 K/mm3 (0.00-0.23); BASOPHILS PERCENT MAN 0 % (0-2); EOSINOPHILS ABSOLUTE MAN 0.00 K/mm3 (0.00-0.68); EOSINOPHILS PERCENT MAN 0 % (0-6); LYMPHOCYTES ABSOLUTE MAN 1.13 K/mm3 (0.84-5.20); LYMPHOCYTES PERCENT MAN 8 % (21-46); MONOCYTES ABSOLUTE MAN 0.42 K/mm3 (0.16-1.47); MONOCYTES PERCENT MAN 3 % (4-13); NEUTROPHILS ABSOLUTE MAN 12.64 K/mm3 (1.96-9.15); SEG NEUTROPHILS PERCENT MAN 83 % (41-73)
--- NOTE | 2025-02-11 06:21 | NUR ---
SHIFT SUMMARY A&Ox4, VSS ON RA. REFUSED CPAP OVERNIGHT. PT REPORTS 7/10 LLE PAIN, PRN TRAMADOL EFFECTIVE. DRESSING CHANGED X 2, PT TOLERATED WELL. ENCOURAGED MOBILIZATION RE 4 DAYS WITHOUT BM. PRN MIRALAX GIVEN AND PRUNE JUICE X2, NO RESULTS AT THIS TIME. PT STOOD AT BEDSIDE, TOLERATED WELL.
[2025-02-11 07:55] VITALS: BP 118/92
[2025-02-11] MEDS ORDERED: Docusate Sodium/Senna 1 Tab PO PRN (09:30)
[2025-02-11 11:43] VITALS: BP 107/91
[2025-02-11 15:27] VITALS: BP 103/83
[2025-02-11 17:16] LABS: Anion Gap 13.0 mmol/L (3-11); Blood Urea Nitrogen 24.0 mg/dL (8-24); CO2, Blood 22.0 mmol/L (21-32); Calcium, Blood 9.3 mg/dL (8.5-10.1); Chloride, Blood 99.0 mmol/L (98-108); Creatinine, Blood 0.71 mg/dL (0.60-1.20); Glucose, Blood 171.0 mg/dL (70-99); Potassium, Blood 4.0 mmol/L (3.5-5.5); Sodium, Blood 130.0 mmol/L (136-145)
--- NOTE | 2025-02-11 18:21 | NUR ---
SHIFT SUMMARY A/OX4, ABLE TO MAKE NEEDS KNOWN. PLEASANT AND COOPERATIVE WITH CARE. TRAMADOL ADMINISTERED PER MAR FOR PAIN TO LLE CELLILITIS. WOUND CARE PROVIDED X3 THIS SHIFT DUE TO EXCESSIVE DRAINAGE. PLAN TO BE NPO AT MIDNIGHT FOR I&D TOMORROW AT 0900. TELEMETRY IN PLACE, NO EVENTS NOTED. DR. CRYSTAL NOTIFIED OF PATIENT WITHOUT BM FOR 4 DAYS, PRN BOWEL MEDS ORDERED AND ADMINISTERED PER MAR. LLE ELEVATED WITH PILLOW. NO OTHER CONCERNS AT THIS TIME, WILL CONTINUE TO MONITOR.
[2025-02-11 20:05] VITALS: BP 108/86
[2025-02-11 23:37] VITALS: BP 109/83
[2025-02-12] VITALS (16 sets, daily range): BP systolic 91–121; BP diastolic 64–102
[2025-02-12 05:19] LABS: BASOPHILS ABSOLUTE AUTO 0.09 K/mm3 (0.00-0.23); BASOPHILS PERCENT AUTO 1 % (0-2); EOSINOPHILS ABSOLUTE AUTO 0.02 K/mm3 (0.00-0.68); EOSINOPHILS PERCENT AUTO 0 % (0-6); Hematocrit 42.1 % (37.0-53.0); Hemoglobin 13.9 g/dL (13.5-17.5); IMMATURE GRAN ABSOLUTE AUTO 0.32 K/mm3 (0.00-0.10); IMMATURE GRAN PERCENT AUTO 2 % (0-1); LYMPHOCYTES ABSOLUTE AUTO 1.07 K/mm3 (0.84-5.20); LYMPHOCYTES PERCENT AUTO 5 % (21-46); MONOCYTES ABSOLUTE AUTO 0.56 K/mm3 (0.16-1.47); MONOCYTES PERCENT AUTO 3 % (4-13); Mean Corpuscular HGB Conc 33.0 g/dL (31.5-36.5); Mean Corpuscular Volume 80 fL (80-100); NEUTROPHILS ABSOLUTE AUTO 17.91 K/mm3 (1.96-9.15); NEUTROPHILS PERCENT AUTO 90 % (41-73); NRBC ABSOLUTE 0.03 K/mm3 (0.00-0.02); NRBC Auto 0.2 /100 WBC (0.0-0.2); Platelet Count 175 K/mm3 (150-400); RDW Coefficient Variation 16.7 % (11.7-14.2); RDW Standard Deviation 48.6 fL (35.1-46.3)
--- NOTE | 2025-02-12 06:44 | NUR ---
SHIFT SUMMARY PT SLEPT INTERMITTENTLY DURING THE NIGHT. MEDICATED FOR PAIN WITH TRAMADOL AND TYLENOL PER EMAR. DRESSING CHANGED X1 DURING THE NIGHT. CURRENTLY DRESSING WITH SMALL AMOUNT OF SEROSANG DRAINAGE. IV ANTIBIOTICS CONTINUE PER ORDER. PT MEDICATED FOR CONSTIPATION WITH PRN SENNA AND DULC SUPP, BUT REMAINS WITHOUT BM. PT DID AMBULATE TO BATHROOM WITH WALKER AND 1 ASSIST. PT C/O SOME NAUSEA THIS AM, RELIEVED WITH SCHEDULED PRILOSEC. BED IN LOWEST POSITION, CALL LIGHT WITHIN REACH, SIDERAILS UP X2.
[2025-02-12] MEDS ORDERED: FentaNYL Citrate 50 MCG/ML 2 ML Injection ONE (11:29)
[2025-02-12] MEDS ORDERED: Phenylephrine HCl 100 MCG/ML-NS 10MLSYR (1MG/10ML) ONE (11:35)
[2025-02-12] MEDS ORDERED: Magnesium Hydroxide Conc 10 ML UDC PO PRN (13:15)
[2025-02-12] MEDS ORDERED: FentaNYL Citrate 50 MCG/ML 2 ML Injection IV PRN (13:15)
--- NOTE | 2025-02-12 13:39 | NUR ---
PT TO PACU FROM RM 355 VIA BED FOR PREOP CARE AT 1325. ALERT & PLEASANT. SURGICAL PACK COMPLETE. AFEBRILE/VSS. SURGICAL HAT/BP CUFF/PAS SLEEVE TO RLE. WARM BLANKETS PLACED. LR AT TKO. BLUE RODRÍGUEZ CRNA AT BEDSIDE SPEAKING w/PATIENT.
--- NOTE | 2025-02-12 13:47 | NUR ---
PT TO OR 3 VIA BED AT 1350 IN STABLE CONDITION.
[2025-02-12] MEDS ORDERED: Ondansetron HCl 2 MG / ML 2ML Vial ONE (13:48)
[2025-02-12] MEDS ORDERED: HYDROmorphone HCl/Pf 1MG SYR ONE (14:35)
--- NOTE | 2025-02-12 17:57 | NUR ---
SHIFT SUMMARY PATIENT A/OX4, ABLE TO MAKE NEEDS KNOWN. PLEASANT AND COOPERATIVE WITH CARE. PATIENT WITH I&D THIS AFTERNOON TO E, DRESSING CHANGED X3 THIS SHIFT. PATIENT WITH PAIN TO LLE, PRN TRAMADOL ADMINISTERED PER MAR. NEW ORDER FOR IV FRENTANYL IN PLACE FOR BREAKTHROUGH PAIN. CT OBTAINED OF LLE. WBC TRENDING UP, AWARE. IV ABX ADMINISTERED PER MAR. PATIENT CONTINUES WITH NO BM X5DAYS, MULTIPLE PRN MEDICATIONS ADMINISTERED AND DR. CRYSTAL AWARE OF CONSTIPATION. TELEMETRY IN PLACE, NO EVENTS NOTED TODAY. NO OTHER CONCERNS, WILL CONTINUE TO MONITOR.
[2025-02-12 20:55] LABS: Vancomycin, Trough 13.8 ug/mL (5.0-10.0)
[2025-02-12] MEDS ORDERED: Ondansetron 4 MG SoluTab MM PRN (20:55)
[2025-02-12] MEDS ORDERED: HYDROmorphone HCl/Pf 1MG SYR IV PRN (20:55)
[2025-02-13] VITALS (7 sets, daily range): BP systolic 82–108; BP diastolic 65–90
[2025-02-13 05:09] LABS: BASOPHILS ABSOLUTE AUTO 0.08 K/mm3 (0.00-0.23); BASOPHILS PERCENT AUTO 1 % (0-2); EOSINOPHILS ABSOLUTE AUTO 0.02 K/mm3 (0.00-0.68); EOSINOPHILS PERCENT AUTO 0 % (0-6); Hematocrit 42.9 % (37.0-53.0); Hemoglobin 14.0 g/dL (13.5-17.5); IMMATURE GRAN ABSOLUTE AUTO 0.45 K/mm3 (0.00-0.10); IMMATURE GRAN PERCENT AUTO 3 % (0-1); LYMPHOCYTES ABSOLUTE AUTO 1.31 K/mm3 (0.84-5.20); LYMPHOCYTES PERCENT AUTO 7 % (21-46); MONOCYTES ABSOLUTE AUTO 0.63 K/mm3 (0.16-1.47); MONOCYTES PERCENT AUTO 4 % (4-13); Mean Corpuscular HGB Conc 32.6 g/dL (31.5-36.5); Mean Corpuscular Volume 79 fL (80-100); NEUTROPHILS ABSOLUTE AUTO 15.16 K/mm3 (1.96-9.15); NEUTROPHILS PERCENT AUTO 86 % (41-73); NRBC ABSOLUTE 0.04 K/mm3 (0.00-0.02); NRBC Auto 0.2 /100 WBC (0.0-0.2); Platelet Count 205 K/mm3 (150-400); RDW Coefficient Variation 16.7 % (11.7-14.2); RDW Standard Deviation 47.8 fL (35.1-46.3)
[2025-02-13 05:33] LABS: Anion Gap 8.0 mmol/L (3-11); Blood Urea Nitrogen 24.0 mg/dL (8-24); CO2, Blood 26.0 mmol/L (21-32); Calcium, Blood 9.1 mg/dL (8.5-10.1); Chloride, Blood 99.0 mmol/L (98-108); Creatinine, Blood 0.74 mg/dL (0.60-1.20); Glucose, Blood 141.0 mg/dL (70-99); Potassium, Blood 4.3 mmol/L (3.5-5.5); Sodium, Blood 129.0 mmol/L (136-145)
--- NOTE | 2025-02-13 06:19 | NUR ---
SHIFT SUMMARY PT SLEPT INTERMITTENTLY DURING THE NIGHT. IV ANTIBIOTICS CONTINUE PER ORDER. MEDCIATED FOR PAIN PER EMAR. AFTER DRESSING AND PACKING CHANGE PT C/O INCREASED PAIN. ORDER RECEIVED FOR IV DILAUDID PRN BEFORE DRESSING CHANGES. MEDICATED WITH DILAUDID PER EMARE WITH STATED RELIEF. DRESSING HAS NOT NEEDED TO BE CHANGED SINCE DRESSING CHANGE AT 1930. LEFT LEG ELEVATED ON PILLOWS. BOWEL CARE CONTINUES WITH NO RESULTS. BED IN LOWEST POSITION, CALL LIGHT WITHIN REACH, SIDERAILS UP X3.
--- NOTE | 2025-02-13 17:27 | NUR ---
SHIFT SUMMARY NO ACUTE CHANGES. A/Ox4. BED BATH AND DRESSING CHANGE COMPLETED TODAY. NO BM - PT IS PASSING GAS. BROWN COW PROVIDED PER PT REQUEST. VITALS STABLE. TELE REMAINS IN PLACE. PAIN TREATED PER EMAR. PT CURRENTLY RESTING IN BED WITH BED IN LOWEST POSITION AND CALL LIGHT WITHIN REACH.
[2025-02-14 03:47] VITALS: BP 108/82
--- NOTE | 2025-02-14 04:37 | NUR ---
PT A&O X4, CAN USE CALL SYSTEM APPROPRIATELY. VS WNL, TELE SI NSR IN 80'S, UP TO SIDE OF BED INDEPENDENTLY. USES URINAL, CPAP WHEN SLEEPING, WHICH HE DID NOT DO MUCH OF THIS SHIFT. PAIN NOTED TO INCREASE THROUGH NIGHT, ADMINISTERED TRAMADOL AND TYLENOL THROUGHOUT NIGHT. MILD NAUSEA NOTED AFTER VANCOMYCIN ZOFRAN ADMINISTERED. CBG WNL. UNSURE WHAT PLAN IS AT THIS TIME CX ARE NOT COMPLETED.
[2025-02-14 05:08] LABS: BASOPHILS ABSOLUTE AUTO 0.07 K/mm3 (0.00-0.23); BASOPHILS PERCENT AUTO 0 % (0-2); EOSINOPHILS ABSOLUTE AUTO 0.08 K/mm3 (0.00-0.68); EOSINOPHILS PERCENT AUTO 0 % (0-6); Hematocrit 43.7 % (37.0-53.0); Hemoglobin 14.2 g/dL (13.5-17.5); IMMATURE GRAN ABSOLUTE AUTO 0.64 K/mm3 (0.00-0.10); IMMATURE GRAN PERCENT AUTO 3 % (0-1); LYMPHOCYTES ABSOLUTE AUTO 1.68 K/mm3 (0.84-5.20); LYMPHOCYTES PERCENT AUTO 9 % (21-46); MONOCYTES ABSOLUTE AUTO 0.71 K/mm3 (0.16-1.47); MONOCYTES PERCENT AUTO 4 % (4-13); Mean Corpuscular HGB Conc 32.5 g/dL (31.5-36.5); Mean Corpuscular Volume 80 fL (80-100); NEUTROPHILS ABSOLUTE AUTO 16.35 K/mm3 (1.96-9.15); NEUTROPHILS PERCENT AUTO 84 % (41-73); NRBC ABSOLUTE 0.02 K/mm3 (0.00-0.02); NRBC Auto 0.1 /100 WBC (0.0-0.2); Platelet Count 216 K/mm3 (150-400); RDW Coefficient Variation 16.4 % (11.7-14.2); RDW Standard Deviation 47.5 fL (35.1-46.3)
[2025-02-14 05:46] LABS: Anion Gap 10.0 mmol/L (3-11); Blood Urea Nitrogen 24.0 mg/dL (8-24); CO2, Blood 25.0 mmol/L (21-32); Calcium, Blood 8.8 mg/dL (8.5-10.1); Chloride, Blood 98.0 mmol/L (98-108); Creatinine, Blood 0.74 mg/dL (0.60-1.20); Glucose, Blood 112.0 mg/dL (70-99); Potassium, Blood 4.5 mmol/L (3.5-5.5); Sodium, Blood 128.0 mmol/L (136-145)
[2025-02-14 07:37] VITALS: BP 115/88
[2025-02-14 11:03] VITALS: BP 102/79
[2025-02-14 15:58] VITALS: BP 106/84
--- NOTE | 2025-02-14 16:27 | NUR ---
Pt. is awake and welcomes my visit. Pt. is displaying evidence of pain from his suregry earlier in the day. Listened with empathy and a calming presence. Pt. is known to this tool and fixture repairer from the community. facilitated an update and Pt. verbalized a request that I would let his presybeterian know he is in the hospital. Prayed for the Pt. Pt. verbalized gratitude for the spiritual care visit.
--- NOTE | 2025-02-14 17:57 | NUR ---
PATIENT A/OX4, UP WITH FWW AND 1PA. DRESSING CHANGED THIS EVENING TO LLE, MEDICATED WITH DILAUDID PRIOR TO WOUND CARE. LLE WITH 3+EDEMA, ELEVATING ON PILLOWS. VSS, 2LO2 PLACED THIS AFTERNOON TO MAINTAIN SATS >90%. ZOFRAN GIVEN X2 TODAY FOR NAUSEA WITH STATED RELIEF. NO BM SINCE BEFORE ADMIT, BOWEL CARE STARTED. NSR ON TELE, DENIES ANY CHEST PAIN OR PRESSURE. PATIENT IS PLEASANT AND COOPERATIVE WITH CARE AND CALLS APPROPRIATELY FOR ASSISTANCE. NO OTHER NEW CONCERNS THIS SHIFT.
[2025-02-14 19:28] VITALS: BP 102/82
--- NOTE | 2025-02-14 20:59 | NUR ---
CPAP ON STBY, CPAP IS READY TO BE PUT ON WHEN PT REQUESTS RN NOTIFIDED
[2025-02-14 23:58] VITALS: BP 100/81
[2025-02-15 05:01] VITALS: BP 98/80
[2025-02-15 05:04] LABS: BASOPHILS ABSOLUTE AUTO 0.07 K/mm3 (0.00-0.23); BASOPHILS PERCENT AUTO 0 % (0-2); EOSINOPHILS ABSOLUTE AUTO 0.06 K/mm3 (0.00-0.68); EOSINOPHILS PERCENT AUTO 0 % (0-6); Hematocrit 44.1 % (37.0-53.0); Hemoglobin 14.5 g/dL (13.5-17.5); IMMATURE GRAN ABSOLUTE AUTO 0.66 K/mm3 (0.00-0.10); IMMATURE GRAN PERCENT AUTO 3 % (0-1); LYMPHOCYTES ABSOLUTE AUTO 1.33 K/mm3 (0.84-5.20); LYMPHOCYTES PERCENT AUTO 7 % (21-46); MONOCYTES ABSOLUTE AUTO 0.61 K/mm3 (0.16-1.47); MONOCYTES PERCENT AUTO 3 % (4-13); Mean Corpuscular HGB Conc 32.9 g/dL (31.5-36.5); Mean Corpuscular Volume 81 fL (80-100); NEUTROPHILS ABSOLUTE AUTO 17.10 K/mm3 (1.96-9.15); NEUTROPHILS PERCENT AUTO 86 % (41-73); NRBC ABSOLUTE 0.00 K/mm3 (0.00-0.02); NRBC Auto 0.0 /100 WBC (0.0-0.2); Platelet Count 209 K/mm3 (150-400); RDW Coefficient Variation 16.5 % (11.7-14.2); RDW Standard Deviation 47.4 fL (35.1-46.3)
[2025-02-15 05:22] LABS: Anion Gap 8.0 mmol/L (3-11); Blood Urea Nitrogen 21.0 mg/dL (8-24); CO2, Blood 27.0 mmol/L (21-32); Calcium, Blood 8.5 mg/dL (8.5-10.1); Chloride, Blood 96.0 mmol/L (98-108); Creatinine, Blood 0.86 mg/dL (0.60-1.20); Glucose, Blood 118.0 mg/dL (70-99); Potassium, Blood 4.3 mmol/L (3.5-5.5); Sodium, Blood 127.0 mmol/L (136-145)
--- NOTE | 2025-02-15 07:16 | NUR ---
PLEASANT TO CARE, CLEARLY MAKES NEEDS KNOWN, MEDICATED FOR PAIN THROUGH OUT THE SHIFT, PATIENT VOIDED PER BSU, NO CHANGES TO REPORT, DRSG CDI, CALL LIGHT WITH IN REACH
[2025-02-15 07:31] VITALS: BP 100/80
[2025-02-15 11:17] VITALS: BP 102/85
[2025-02-15] MEDS ORDERED: Arginine/Glutamine/Calcium Hmb 1 Packet PO SCH (14:00)
[2025-02-15 15:17] VITALS: BP 113/90
--- NOTE | 2025-02-15 16:04 | NUR ---
Pt. is awake in bed when he welcomes my visit. Pt. is pleasant and displays evidence of confidence and a senior field service engineer mood. Pt. verbalized that he was feeling better and the conversation moved to matters of radha and belief. Rapport is re-established as the Pt. is known to this chapalin from the community. Prayed with the Pt. Pt. verbalzied gratitude for the spiritual care visit and welcomed this event marketing manager to return tomorrow.
--- NOTE | 2025-02-15 18:32 | NUR ---
PATIENT ALERT AND ORIENTED X4. COOPERATIVE WITH CARE AND ABMULATED TO CHAIR WITH ASSISTANCE BUT UNABLE TO STAY IN CHAIR LONGER THAN 15 MIN DUE TO PAIN. PATIENT DRESSING CHANGED WITH MINIMAL DISCOMFORT. NO CONCERNS. CALL LIGHT WITHIN REACH
[2025-02-15 19:18] VITALS: BP 105/83
[2025-02-15 20:42] LABS: Vancomycin, Trough 14.5 ug/mL (5.0-10.0)
[2025-02-16] VITALS (7 sets, daily range): BP systolic 102–112; BP diastolic 82–91
--- NOTE | 2025-02-16 03:28 | NUR ---
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 ALERT AND ORIENTED AND COOPERATIVE WITH CARE. ADMIT DX ACUTE EXACERBATION OF CHF. MED TELE SR IN THE 80'S WITH BBB. ASYMPTOMATIC. ADA DIET WITH ACCUCHECKS DONE. HS ACCUCHECK 140, LONG ACTING INSULIN (GLARGINE) ADMINISTERED ORDERED. DRESSING OF LEFT CALF IS CDI. LEG ELEVATED SLIGHTLY FOR COMFORT. CONTINENT, USES URINAL. ABLE TO REPOSITION SELF WITHOUT ASSIST FOR COMFORT. IV ANTIBIOTICS ASMINISTERED ORDERED - SEE MAR FOR DETAILS. HAS BEEN RESTING QUIETLY WITH FEW INTERRUPTONS. CALL LIGHT IN REACH, RAILS UP X 2 AND BED IN LOW POSITION FOR SAFETY. WILL CONTINUE TO MONITOR
[2025-02-16 05:31] LABS: BASOPHILS ABSOLUTE AUTO 0.04 K/mm3 (0.00-0.23); BASOPHILS PERCENT AUTO 0 % (0-2); EOSINOPHILS ABSOLUTE AUTO 0.05 K/mm3 (0.00-0.68); EOSINOPHILS PERCENT AUTO 0 % (0-6); Hematocrit 43.9 % (37.0-53.0); Hemoglobin 14.2 g/dL (13.5-17.5); IMMATURE GRAN ABSOLUTE AUTO 0.54 K/mm3 (0.00-0.10); IMMATURE GRAN PERCENT AUTO 3 % (0-1); LYMPHOCYTES ABSOLUTE AUTO 1.24 K/mm3 (0.84-5.20); LYMPHOCYTES PERCENT AUTO 8 % (21-46); MONOCYTES ABSOLUTE AUTO 0.59 K/mm3 (0.16-1.47); MONOCYTES PERCENT AUTO 4 % (4-13); Mean Corpuscular HGB Conc 32.3 g/dL (31.5-36.5); Mean Corpuscular Volume 83 fL (80-100); NEUTROPHILS ABSOLUTE AUTO 13.47 K/mm3 (1.96-9.15); NEUTROPHILS PERCENT AUTO 85 % (41-73); NRBC ABSOLUTE 0.00 K/mm3 (0.00-0.02); NRBC Auto 0.0 /100 WBC (0.0-0.2); Platelet Count 232 K/mm3 (150-400); RDW Coefficient Variation 16.6 % (11.7-14.2); RDW Standard Deviation 49.1 fL (35.1-46.3)
[2025-02-16 05:55] LABS: Anion Gap 7.0 mmol/L (3-11); Blood Urea Nitrogen 25.0 mg/dL (8-24); C-REACTIVE PROTEIN, EXT RANGE 6.05 mg/dL (0.000-0.300); CO2, Blood 29.0 mmol/L (21-32); Calcium, Blood 8.5 mg/dL (8.5-10.1); Chloride, Blood 96.0 mmol/L (98-108); Creatinine, Blood 0.86 mg/dL (0.60-1.20); Glucose, Blood 92.0 mg/dL (70-99); Potassium, Blood 4.6 mmol/L (3.5-5.5); Sodium, Blood 127.0 mmol/L (136-145)
--- NOTE | 2025-02-16 14:07 | NUR ---
Pt. is awake and watching TV when he welcomes my visit. Pt. is pleasant and verbalizes encouraging news about his progress. Lsiten with interest and an encouraging spirit. Pt. displayed evidence of being encouraged, but did verbalize concern over his pain meds that seem to be giving him dreams. Prayed with Pt. pt. verbalized gratitude for the spiritual care visit.
[2025-02-16] MEDS ORDERED: HYDROcodone 7.5-APAP 325 TAB PO PRN (16:35)
--- NOTE | 2025-02-16 18:01 | NUR ---
PATIENT RECEIVED MULTIPLE MEDICATIONS FOR BOWEL CARE AND PATIENT UNABLE TO HAVE BOWEL MOVEMENT. PATIENT CONSIDERING ENEMA FOR RELIEF. PT ABLE TO GET PATIENT TO CHAIR. A/O X4. WOUND CARE DONE TO LEFT LOWER LEG. EDEMA REMAINS ABOUT SAME YESTERDAY. SEE DOCUMENTATION FOR MORE INFORMATION. NO CONCERNS
--- NOTE | 2025-02-17 04:30 | NUR ---
NOC SUMMARY- PT CARE ASSUMED BY THIS RN FROM RK @ 8535. PT HAS BEEN RESTING COMFORTABLY. PT HAS HAD NO COMPLAINTS. CALL LIGHT IN REACH.
--- NOTE | 2025-02-17 04:37 | NUR ---
NOC SUMMARY- PT CARE ASSUMED BY THIS RN @ 2230 HRS. PT DRESSING CHANGED AT BEGINNING OF SHIFT BY PREVIOUS RN. PT WOKE UP WITH DISCOMFORT AND SOME NAUSEA. PT MEDICATED FOR ISSUES WITH GOOD RELIEF. NO OTHER ISSUES REPORTED. CALL LIGHT IN REACH.
[2025-02-17 05:08] VITALS: BP 106/81
[2025-02-17 05:54] LABS: BASOPHILS ABSOLUTE AUTO 0.05 K/mm3 (0.00-0.23); BASOPHILS PERCENT AUTO 0 % (0-2); EOSINOPHILS ABSOLUTE AUTO 0.06 K/mm3 (0.00-0.68); EOSINOPHILS PERCENT AUTO 1 % (0-6); Hematocrit 42.3 % (37.0-53.0); Hemoglobin 13.9 g/dL (13.5-17.5); IMMATURE GRAN ABSOLUTE AUTO 0.44 K/mm3 (0.00-0.10); IMMATURE GRAN PERCENT AUTO 3 % (0-1); LYMPHOCYTES ABSOLUTE AUTO 0.99 K/mm3 (0.84-5.20); LYMPHOCYTES PERCENT AUTO 8 % (21-46); MONOCYTES ABSOLUTE AUTO 0.64 K/mm3 (0.16-1.47); MONOCYTES PERCENT AUTO 5 % (4-13); Mean Corpuscular HGB Conc 32.9 g/dL (31.5-36.5); Mean Corpuscular Volume 81 fL (80-100); NEUTROPHILS ABSOLUTE AUTO 10.60 K/mm3 (1.96-9.15); NEUTROPHILS PERCENT AUTO 83 % (41-73); NRBC ABSOLUTE 0.00 K/mm3 (0.00-0.02); NRBC Auto 0.0 /100 WBC (0.0-0.2); Platelet Count 251 K/mm3 (150-400); RDW Coefficient Variation 16.3 % (11.7-14.2); RDW Standard Deviation 47.8 fL (35.1-46.3)
[2025-02-17 06:25] LABS: Anion Gap 8.0 mmol/L (3-11); Blood Urea Nitrogen 23.0 mg/dL (8-24); CO2, Blood 23.0 mmol/L (21-32); Calcium, Blood 8.8 mg/dL (8.5-10.1); Chloride, Blood 101.0 mmol/L (98-108); Creatinine, Blood 0.7 mg/dL (0.60-1.20); Glucose, Blood 112.0 mg/dL (70-99); Potassium, Blood 4.5 mmol/L (3.5-5.5); Sodium, Blood 127.0 mmol/L (136-145)
[2025-02-17 07:41] VITALS: BP 114/92
[2025-02-17 16:22] VITALS: BP 100/80
--- NOTE | 2025-02-17 17:34 | NUR ---
SHIFT SUMMARY NO ACUTE CHANGES. FULL CODE. REMAINS ON RA AND SATING ABOVE 92%. TREATED FOR PAIN PER EMAR. ENEMA ADMINISTERED WITH GOOD RESULTS - MEDIUM SOFT BM. DRESSING CHANGE COMPLETED PER ORDERS, PT TOLERATED WELL. PT CURRENTLY RESTING IN CHAIR WITH CALL LIGHT WITHIN REACH. CALLS APPROPRIATELY.
[2025-02-17 19:07] VITALS: BP 90/72
--- NOTE | 2025-02-18 04:22 | NUR ---
PT ALERT AND ORIENTED X4. PATIENT ON ROOM AIR- PULSE OX IN PLACE. PATIENT MEDICATED FOR PAIN- SEE EMAR. PATIENT ON IV ANTIBIOTICS. DRESSING CHANGED PER ORDERS-TOLERATED WELL. CALLS APPROPRIAYTELY. USES URINAL. BED IN LOCKED AND LOW POSITION. CALL LIGHT WITHIN REACH,
[2025-02-18 06:04] VITALS: BP 93/77
[2025-02-18 07:38] VITALS: BP 105/86
[2025-02-18 08:39] LABS: BASOPHILS ABSOLUTE AUTO 0.05 K/mm3 (0.00-0.23); BASOPHILS PERCENT AUTO 0 % (0-2); EOSINOPHILS ABSOLUTE AUTO 0.06 K/mm3 (0.00-0.68); EOSINOPHILS PERCENT AUTO 1 % (0-6); Hematocrit 44.3 % (37.0-53.0); Hemoglobin 14.3 g/dL (13.5-17.5); IMMATURE GRAN ABSOLUTE AUTO 0.41 K/mm3 (0.00-0.10); IMMATURE GRAN PERCENT AUTO 3 % (0-1); LYMPHOCYTES ABSOLUTE AUTO 1.17 K/mm3 (0.84-5.20); LYMPHOCYTES PERCENT AUTO 9 % (21-46); MONOCYTES ABSOLUTE AUTO 0.68 K/mm3 (0.16-1.47); MONOCYTES PERCENT AUTO 5 % (4-13); Mean Corpuscular HGB Conc 32.3 g/dL (31.5-36.5); Mean Corpuscular Volume 82 fL (80-100); NEUTROPHILS ABSOLUTE AUTO 10.46 K/mm3 (1.96-9.15); NEUTROPHILS PERCENT AUTO 82 % (41-73); NRBC ABSOLUTE 0.00 K/mm3 (0.00-0.02); NRBC Auto 0.0 /100 WBC (0.0-0.2); Platelet Count 317 K/mm3 (150-400); RDW Coefficient Variation 17.0 % (11.7-14.2); RDW Standard Deviation 49.1 fL (35.1-46.3)
--- NOTE | 2025-02-18 09:00 | NUR ---
pt resting in bed watching tv this am, states hes having pain in his leg, otherwise doing ok, a/ox4, pleasant and cooperative with care, follows commands well, states he slept ok, lungs are clear in upper [place], dim in bases, resp even and unlabored, no cough noted, hrr, is on cont. ox, hrr, edema noted to b/l feet, greater on left than right, ppp faint, cap refill<3 sec, vs stable, afebrile, piv to lfa site is clear and patent, btx4, abd flat soft nontender, voids via urinal, skin has wound that has been I&D'd on right lower ext, and pink coccyx, maew, weak christopher call light in reach.
[2025-02-18 09:04] LABS: Anion Gap 8.0 mmol/L (3-11); Blood Urea Nitrogen 25.0 mg/dL (8-24); CO2, Blood 26.0 mmol/L (21-32); Calcium, Blood 8.9 mg/dL (8.5-10.1); Chloride, Blood 98.0 mmol/L (98-108); Creatinine, Blood 0.86 mg/dL (0.60-1.20); Glucose, Blood 101.0 mg/dL (70-99); Potassium, Blood 4.5 mmol/L (3.5-5.5); Sodium, Blood 127.0 mmol/L (136-145)
[2025-02-18 16:23] VITALS: BP 100/79
[2025-02-18 19:06] VITALS: BP 104/86
--- NOTE | 2025-02-18 19:10 | NUR ---
pt took a shower today, dressing changed to leg as there was moderate drainage, medicated for pain as requested, no further changes this shift, call light in reach.
[2025-02-18 20:54] LABS: Vancomycin, Trough 14.0 ug/mL (5.0-10.0)
[2025-02-19 03:28] VITALS: BP 116/95
[2025-02-19 05:48] LABS: BASOPHILS ABSOLUTE AUTO 0.07 K/mm3 (0.00-0.23); BASOPHILS PERCENT AUTO 1 % (0-2); EOSINOPHILS ABSOLUTE AUTO 0.07 K/mm3 (0.00-0.68); EOSINOPHILS PERCENT AUTO 1 % (0-6); Hematocrit 44.2 % (37.0-53.0); Hemoglobin 14.1 g/dL (13.5-17.5); IMMATURE GRAN ABSOLUTE AUTO 0.25 K/mm3 (0.00-0.10); IMMATURE GRAN PERCENT AUTO 2 % (0-1); LYMPHOCYTES ABSOLUTE AUTO 0.99 K/mm3 (0.84-5.20); LYMPHOCYTES PERCENT AUTO 8 % (21-46); MONOCYTES ABSOLUTE AUTO 0.73 K/mm3 (0.16-1.47); MONOCYTES PERCENT AUTO 6 % (4-13); Mean Corpuscular HGB Conc 31.9 g/dL (31.5-36.5); Mean Corpuscular Volume 83 fL (80-100); NEUTROPHILS ABSOLUTE AUTO 9.93 K/mm3 (1.96-9.15); NEUTROPHILS PERCENT AUTO 82 % (41-73); NRBC ABSOLUTE 0.00 K/mm3 (0.00-0.02); NRBC Auto 0.0 /100 WBC (0.0-0.2); Platelet Count 331 K/mm3 (150-400); RDW Coefficient Variation 17.2 % (11.7-14.2); RDW Standard Deviation 49.8 fL (35.1-46.3)
--- NOTE | 2025-02-19 06:14 | NUR ---
PT ALERT AND ORIENTRED X4. PATIENT USED CPAP DURING THE NIGHT. PATIENT MEDICATED FOR PAIN- SEE EMAR. IV ANTIBIOTICS GIVEN. PATIENT C/O ITCHING-ORDER FOR BENADRYL OBTAINED. DRESSING CHANGED DONE PER ORDERS. BED IN LOW POSITION WITH WHEELS LOCKED. CALL LIGHT WITHIN REACH
[2025-02-19 06:16] LABS: Anion Gap 7.0 mmol/L (3-11); Blood Urea Nitrogen 26.0 mg/dL (8-24); CO2, Blood 28.0 mmol/L (21-32); Calcium, Blood 9.2 mg/dL (8.5-10.1); Chloride, Blood 97.0 mmol/L (98-108); Creatinine, Blood 0.77 mg/dL (0.60-1.20); Glucose, Blood 125.0 mg/dL (70-99); Potassium, Blood 4.3 mmol/L (3.5-5.5); Sodium, Blood 128.0 mmol/L (136-145)
[2025-02-19] MEDS ORDERED: Cosyntropin 0.25 MG / ML 1ML Vial IV ONE (06:40)
[2025-02-19 07:19] VITALS: BP 106/80
--- NOTE | 2025-02-19 13:19 | NUR ---
ASSUMED CARE OF PT. A/O X 4 VSS, PAIN TO LEFT LE COVERED PER MAR. PT HAS BEEN APPROPRIATE WITH CARE. LLE SWOLLEN DRESSING IS CDI, PT ENC TO TURN IN BED IF NEEDING, HEEL PROTECTOR PLACED TO RIGHT HEEL DUE TO SORNESS.
--- NOTE | 2025-02-19 19:18 | NUR ---
dressing chage to left knee done, pt premedicated with dilaudid, old dressing removed and discarded. packing removed, pt viral well. new packing applied wound is well approx and healing no maloderous oder noted nor and discharge, some serous drainage to abd. xeroform applied with abd and andrea bandage.
[2025-02-19 20:17] VITALS: BP 106/84
[2025-02-20 04:20] VITALS: BP 100/77
[2025-02-20 05:16] LABS: BASOPHILS ABSOLUTE AUTO 0.06 K/mm3 (0.00-0.23); BASOPHILS PERCENT AUTO 1 % (0-2); EOSINOPHILS ABSOLUTE AUTO 0.06 K/mm3 (0.00-0.68); EOSINOPHILS PERCENT AUTO 1 % (0-6); Hematocrit 42.8 % (37.0-53.0); Hemoglobin 13.8 g/dL (13.5-17.5); IMMATURE GRAN ABSOLUTE AUTO 0.24 K/mm3 (0.00-0.10); IMMATURE GRAN PERCENT AUTO 2 % (0-1); LYMPHOCYTES ABSOLUTE AUTO 0.97 K/mm3 (0.84-5.20); LYMPHOCYTES PERCENT AUTO 8 % (21-46); MONOCYTES ABSOLUTE AUTO 0.76 K/mm3 (0.16-1.47); MONOCYTES PERCENT AUTO 6 % (4-13); Mean Corpuscular HGB Conc 32.2 g/dL (31.5-36.5); Mean Corpuscular Volume 83 fL (80-100); NEUTROPHILS ABSOLUTE AUTO 10.53 K/mm3 (1.96-9.15); NEUTROPHILS PERCENT AUTO 83 % (41-73); NRBC ABSOLUTE 0.00 K/mm3 (0.00-0.02); NRBC Auto 0.0 /100 WBC (0.0-0.2); Platelet Count 335 K/mm3 (150-400); RDW Coefficient Variation 16.9 % (11.7-14.2); RDW Standard Deviation 49.3 fL (35.1-46.3)
--- NOTE | 2025-02-20 05:31 | NUR ---
PATIENT ALERT AND ORIENTED DURING SHIFT. ON ROOM AIR. PAIN MEDICATION GIVEN-SEE EMAR. PATIENT USES URINAL. IV ANTIBIOTICS GIVEN. DRESSING CHANGED COMPLETED ON LLE-PT TOLERATED WELL. PATIENT ABLE TO TURN SELF IN BED AND MAKE NEEDS KNOWN. BED IN LOW AND WHEELS ARE LOCKED. CALL LIGHT WITHIN REACH.
[2025-02-20 05:40] LABS: Anion Gap 8.0 mmol/L (3-11); Blood Urea Nitrogen 25.0 mg/dL (8-24); CO2, Blood 27.0 mmol/L (21-32); Calcium, Blood 9.1 mg/dL (8.5-10.1); Chloride, Blood 99.0 mmol/L (98-108); Creatinine, Blood 0.78 mg/dL (0.60-1.20); Glucose, Blood 130.0 mg/dL (70-99); Potassium, Blood 4.4 mmol/L (3.5-5.5); Sodium, Blood 130.0 mmol/L (136-145)
[2025-02-20 08:06] VITALS: BP 116/86
[2025-02-20] MEDS ORDERED: Enoxaparin 40 MG/0.4 ML SYR SC SCH (15:00)
[2025-02-20 16:55] VITALS: BP 90/72
--- NOTE | 2025-02-20 19:50 | NUR ---
assumed care of pt a/o is very pleasent and c/o pain to left leg. pt medicated per oct. pt dressings to left leg were removed and pt was assisted to showviral reyes very well. when pt returned to bed dressings were left off for surgeon to look at. Dr Rodarte into see pt, npo after mid night orders given, for possible sx revisit. pt take to ct.
[2025-02-21] VITALS: BP 100/79
--- NOTE | 2025-02-21 04:30 | NUR ---
SUMMARY: PT A/OX4, ENDORSES NEEDS AND IS PLEASANT AND COOPERATIVE W/CARE. HE'S UP W/SBA AND FWW AND USES URINAL AT EOB. L.LEG DAILY DX CHANGE WAS COMPLETED ON DAY SHIFT AND REMAINS C/D/I. HE'S BEEN NPO SINCE MT FOR POSSIBLE REVISION OF LLE WOUND. PT WAS MEDICATED FOR TOLERABLE RELIEF OF ASSOCIATED PAIN W/PRN NORCO AND DILAUDID AND ZOFRAN WAS PROVIDED FOR INTERMITTENT NAUSEA. FOOT CRADLE IS ON BED AND BLE'S ARE ELEVATED FOR ONGOING EDEMA. HE'S ON 1-2L O2 VIA NC W/CONT BIOX INTACT. NO ACUTE CHANGES, VSS/AFEBRILE. WILL REPORT TO DAY RN.
[2025-02-21 05:14] LABS: BASOPHILS ABSOLUTE AUTO 0.11 K/mm3 (0.00-0.23); BASOPHILS PERCENT AUTO 1 % (0-2); EOSINOPHILS ABSOLUTE AUTO 0.07 K/mm3 (0.00-0.68); EOSINOPHILS PERCENT AUTO 1 % (0-6); Hematocrit 45.3 % (37.0-53.0); Hemoglobin 14.2 g/dL (13.5-17.5); IMMATURE GRAN ABSOLUTE AUTO 0.23 K/mm3 (0.00-0.10); IMMATURE GRAN PERCENT AUTO 2 % (0-1); LYMPHOCYTES ABSOLUTE AUTO 1.45 K/mm3 (0.84-5.20); LYMPHOCYTES PERCENT AUTO 12 % (21-46); MONOCYTES ABSOLUTE AUTO 0.96 K/mm3 (0.16-1.47); MONOCYTES PERCENT AUTO 8 % (4-13); Mean Corpuscular HGB Conc 31.3 g/dL (31.5-36.5); Mean Corpuscular Volume 85 fL (80-100); NEUTROPHILS ABSOLUTE AUTO 9.69 K/mm3 (1.96-9.15); NEUTROPHILS PERCENT AUTO 77 % (41-73); NRBC ABSOLUTE 0.00 K/mm3 (0.00-0.02); NRBC Auto 0.0 /100 WBC (0.0-0.2); Platelet Count 391 K/mm3 (150-400); RDW Coefficient Variation 17.2 % (11.7-14.2); RDW Standard Deviation 51.3 fL (35.1-46.3)
[2025-02-21 05:38] LABS: Anion Gap 8.0 mmol/L (3-11); Blood Urea Nitrogen 31.0 mg/dL (8-24); CO2, Blood 28.0 mmol/L (21-32); Calcium, Blood 9.3 mg/dL (8.5-10.1); Chloride, Blood 95.0 mmol/L (98-108); Creatinine, Blood 0.84 mg/dL (0.60-1.20); Glucose, Blood 79.0 mg/dL (70-99); Potassium, Blood 4.9 mmol/L (3.5-5.5); Sodium, Blood 126.0 mmol/L (136-145)
[2025-02-21 07:43] VITALS: BP 99/76
[2025-02-21 13:49] VITALS: BP 108/88
--- NOTE | 2025-02-21 13:50 | NUR ---
PT BROUGHT FROM FLOOR TO DAY SURGERY FOR PROCEDURE W/DR XAVIER. History, Chart, Medications and Allergies reviewed before start of procedure. Lungs clear T/O to Auscultation. Patient confirms NPO status and agrees with scheduled surgery. Pre-Op teaching done. Pt verbalizes understanding. PT BELONGINGS LEFT IN PERSONAL ROOM ON MEDICAL FLOOR FOR SAFEKEEPING. PT REPORTS PAIN TO LLE. PILLOWS PROVIDED FOR COMFORT. DENIES NAUSEA OR OTHER DISCOMFORTS.
--- NOTE | 2025-02-21 13:56 | NUR ---
PT HAS 22G TO LEFT FOREARM THAT FLUSHES WELL.
--- NOTE | 2025-02-21 16:43 | NUR ---
PROCEDURE POSTPONED TO TOMORROW. WILL TRANSFER PT BACK TO ROOM ON MEDICAL FLOOR VIA RAMAGON.
[2025-02-21 17:03] VITALS: BP 114/89
--- NOTE | 2025-02-21 18:41 | NUR ---
SUMMARY PT WAS NPO ALL MORNING TAKEN DOWN TO DAY SURG AROUND 1330. PT RETURNED TO ROOM WITH NO INTERVENTION, OTHER SURGERIES WERE RUNNING LATE. VITALS TAKEN UPON RETURN ALL WNL. PER DAY SURG NURSE PT TO BE NPO AT MIDNIGHT AGAIN TO PREPARE PT FOR POSSIBLE I&D THAT COULD NOT BE COMPLETED TODAY. PT 1 ASSIST WITH FWW. DRESSING TO LEFT LE CHAGNED PER ORDERS WITH PACKING TO LEFT MEDIAL CALF WOUND. PT MEDICATED WITH PRN IV DILAUDID PRIOR TO DRESSING CHANGE. MEDICATED WITH PRN NORCO UPON RETURN TO ROOM FROM DAY SURG. ABLE TO MAKE NEEDS KNOWN. CALL LIGHT IN REACH.
[2025-02-21 19:21] VITALS: BP 96/67
[2025-02-21 20:54] LABS: Vancomycin, Trough 15.2 ug/mL (5.0-10.0)
[2025-02-22] VITALS (18 sets, daily range): BP systolic 100–136; BP diastolic 71–96
[2025-02-22 05:11] LABS: BASOPHILS ABSOLUTE AUTO 0.08 K/mm3 (0.00-0.23); BASOPHILS PERCENT AUTO 1 % (0-2); EOSINOPHILS ABSOLUTE AUTO 0.09 K/mm3 (0.00-0.68); EOSINOPHILS PERCENT AUTO 1 % (0-6); Hematocrit 40.8 % (37.0-53.0); Hemoglobin 13.2 g/dL (13.5-17.5); IMMATURE GRAN ABSOLUTE AUTO 0.17 K/mm3 (0.00-0.10); IMMATURE GRAN PERCENT AUTO 2 % (0-1); LYMPHOCYTES ABSOLUTE AUTO 1.08 K/mm3 (0.84-5.20); LYMPHOCYTES PERCENT AUTO 10 % (21-46); MONOCYTES ABSOLUTE AUTO 0.90 K/mm3 (0.16-1.47); MONOCYTES PERCENT AUTO 8 % (4-13); Mean Corpuscular HGB Conc 32.4 g/dL (31.5-36.5); Mean Corpuscular Volume 83 fL (80-100); NEUTROPHILS ABSOLUTE AUTO 9.09 K/mm3 (1.96-9.15); NEUTROPHILS PERCENT AUTO 80 % (41-73); NRBC ABSOLUTE 0.00 K/mm3 (0.00-0.02); NRBC Auto 0.0 /100 WBC (0.0-0.2); Platelet Count 331 K/mm3 (150-400); RDW Coefficient Variation 17.0 % (11.7-14.2); RDW Standard Deviation 50.4 fL (35.1-46.3)
--- NOTE | 2025-02-22 05:48 | NUR ---
PAT A&O X5, PAIN NOTED IN LLED MEDICATED WITH NORCO, AND DILAUDID FOR DRESSING CHANGES. VS WNL, NPO AFTER MN FOR POSSIBLE I&D TODAY. PT CBG 160 AT HS RECIEVED LONG ACTING INSULIN ONLY. PT IS INDEPENDENT WITH BED MOBILITY, AND HAD X2 BM'S ON THIS DAY. PT LIVES ALONE MAY D/C TO UVR. REMAINS ON IVABX.
[2025-02-22 05:58] LABS: Anion Gap 5.0 mmol/L (3-11); Blood Urea Nitrogen 28.0 mg/dL (8-24); CO2, Blood 27.0 mmol/L (21-32); Calcium, Blood 8.9 mg/dL (8.5-10.1); Chloride, Blood 100.0 mmol/L (98-108); Creatinine, Blood 0.8 mg/dL (0.60-1.20); Glucose, Blood 110.0 mg/dL (70-99); Potassium, Blood 4.8 mmol/L (3.5-5.5); Sodium, Blood 127.0 mmol/L (136-145)
[2025-02-22] MEDS ORDERED: Bupivacaine 0.5% W/EPI 1:200000 SDV 30 ML Vial ONE (15:34)
--- NOTE | 2025-02-22 15:34 | NUR ---
PT BROUGHT FROM FLOOR TO DAY SURGERY FOR PROCEDURE WITH DR KENNEY. NO CHANGES FROM YESTERDAY. Patient confirms NPO status and agrees with scheduled surgery. Pre-Op teaching done. Pt verbalizes understanding. PT BELONGINGS LEFT IN PERSONAL ROOM ON MEDICAL FLOOR FOR SAFEKEEPING.
[2025-02-22] MEDS ORDERED: FentaNYL Citrate 50 MCG/ML 2 ML Injection ONE ×3 (15:44→17:28)
[2025-02-22] MEDS ORDERED: Ondansetron HCl 2 MG / ML 2ML Vial ONE (15:44)
[2025-02-22] MEDS ORDERED: Dexamethasone Sod Phos 10 MG/ML 1ML VIAL ONE (15:44)
[2025-02-22] MEDS ORDERED: Phenylephrine HCl 100 MCG/ML-NS 10MLSYR (1MG/10ML) ONE (16:03)
[2025-02-22] MEDS ORDERED: ePHEDrine Sulfate 50 MG/ML 1ML Injection ONE (16:20)
[2025-02-22] MEDS ORDERED: Vancomycin HCl 1000 MG ADDvantage ONE (16:21)
[2025-02-22] MEDS ORDERED: HYDROmorphone HCl/Pf 1MG SYR ONE (17:02)
--- NOTE | 2025-02-22 19:21 | NUR ---
SUMMARY PT NPO ALL MORNING PENDING I&D. TAKEN DOWN TO DAY SURG AROUND 1500. BROUGHT BACK UP AROUND 1745. PT DRESSING TO LEFT LEG APPEARS MILDY SATURATED. HAD ASKED CORPORATE FITNESS PROGRAM COORDINATOR IF DR. KENNEY HAD NEW WOUND CARE ORDERS. PER NURSE DR. KENNEY STATED NO LONGER DOING BID DRESSING CHAGNES, TO REIFNORCE CURRENT DRESSING AND WILL RE-EVALUATE. PT MEDICATED WITH PRN IV DILAUDID ONCE THIS AM. BILAT LE'S ELEVATED ON PILLOWS. ABLE TO MAKE NEEDS KNOWN. CALL LIGHT IN REACH.
[2025-02-23 01:23] VITALS: BP 115/89
--- NOTE | 2025-02-23 03:43 | NUR ---
SHIFT SUMMARY NO ACUTE EVENTS DURING THIS SHIFT. PT C/O 05/26 LLE PAIN, MEDICATED PER EMAR WITH PRN TYLENOL AND NORCO. RICKY BANDAGE, THE TOP LEVEL OF DRESSING ONLY CHANGED DUE TO YELLOWISH/REDDISH DRAINAGE, MODERATE AMOUNT. LE'S ELEVATED WITH 2 PILLOWS. PT IN RA, O2 SAT'S>95%, CONTINUOUS PULSE OXIMETER IN PLACE. PT DENIES SOB. HS B, LONG ACTING INSULIN ADMINISTERED ORDERED. BED AT THE LOWEST POSITION, CALL LIGHT W/I REACH. ASSISTED TO THE RESTROOM, 1-PERSON WITH FWW. BM DURING THIS SHIFT. ALL NEEDS MET. SNACKS PROVIDED. PT IS A/O X4, ABLE TO MAKE HIS NEEDS KNOWN AND COOPERATIVE WITH CARE.
[2025-02-23 04:57] LABS: BASOPHILS ABSOLUTE AUTO 0.02 K/mm3 (0.00-0.23); BASOPHILS PERCENT AUTO 0 % (0-2); EOSINOPHILS ABSOLUTE AUTO 0.00 K/mm3 (0.00-0.68); EOSINOPHILS PERCENT AUTO 0 % (0-6); Hematocrit 38.3 % (37.0-53.0); Hemoglobin 12.5 g/dL (13.5-17.5); IMMATURE GRAN ABSOLUTE AUTO 0.11 K/mm3 (0.00-0.10); IMMATURE GRAN PERCENT AUTO 1 % (0-1); LYMPHOCYTES ABSOLUTE AUTO 0.52 K/mm3 (0.84-5.20); LYMPHOCYTES PERCENT AUTO 5 % (21-46); MONOCYTES ABSOLUTE AUTO 0.40 K/mm3 (0.16-1.47); MONOCYTES PERCENT AUTO 4 % (4-13); Mean Corpuscular HGB Conc 32.6 g/dL (31.5-36.5); Mean Corpuscular Volume 82 fL (80-100); NEUTROPHILS ABSOLUTE AUTO 9.96 K/mm3 (1.96-9.15); NEUTROPHILS PERCENT AUTO 91 % (41-73); NRBC ABSOLUTE 0.00 K/mm3 (0.00-0.02); NRBC Auto 0.0 /100 WBC (0.0-0.2); Platelet Count 305 K/mm3 (150-400); RDW Coefficient Variation 16.8 % (11.7-14.2); RDW Standard Deviation 49.0 fL (35.1-46.3)
[2025-02-23 07:03] LABS: Anion Gap 11.0 mmol/L (3-11); Blood Urea Nitrogen 26.0 mg/dL (8-24); CO2, Blood 21.0 mmol/L (21-32); Calcium, Blood 8.8 mg/dL (8.5-10.1); Chloride, Blood 98.0 mmol/L (98-108); Creatinine, Blood 0.63 mg/dL (0.60-1.20); Glucose, Blood 192.0 mg/dL (70-99); Potassium, Blood 4.8 mmol/L (3.5-5.5); Sodium, Blood 125.0 mmol/L (136-145)
[2025-02-23 07:43] VITALS: BP 106/83
[2025-02-23 16:54] VITALS: BP 101/84
--- NOTE | 2025-02-23 17:32 | NUR ---
Spiritual Care Visit. Pt. is awake and welcomes my visit. Pt. had guest in room. Pt. requested I share kade eof his food with a friend who had been admitted in another room. The request was unfulfilled as the friend had already been discharged. This Pt. verbalized gratitude for the spiritual care visit and support.
--- NOTE | 2025-02-23 19:07 | NUR ---
DAY SUMMARY A&OX4, VSS, MEDICATED PER OCT FOR PAIN 05/26, DRESSINGS SATURATED THIS SHIFT, DID NOT REMOVE GAUZE DRESSING BUT REPLACED RICKY WRAPS, BEDRESTING AT THIS TIME, REPORT GIVEN TO STACIA VELASQUEZ.
[2025-02-23 19:21] VITALS: BP 106/78
[2025-02-24] VITALS (13 sets, daily range): BP systolic 98–113; BP diastolic 75–85
--- NOTE | 2025-02-24 02:51 | NUR ---
SHIFT SUMMARY NO ACUTE EVENTS DURING THIS SHIFT. NPO AFTER MIDNIGHT FOR A POSSIBLE 4TH I&D FOR LLE CELLULITIS, (PER PROVIDERS NOTES FROM 01/24/25). HS B. PT C/O 05/26 LLE PAIN, MEDICATED PER EMAR. NO DRAINAGE NOTED ON LLE DRESSING, RICKY BANDAGE IS C/D/I. LE'S ELEVATED WITH PILLOWS. ONE EPISODE OF NAUSEA DURING NIGHT HRS, MEDICATED WITH PRN ZOFRAN. BED AT THE LOWEST POSITION, CALL LIGHT W/I REACH. PT IS A/O X4, ABLE TO MAKE HIS NEEDS KNOWN AND COOPERATIVE WITH CARE.
[2025-02-24 06:25] LABS: Anion Gap 11.0 mmol/L (3-11); Blood Urea Nitrogen 33.0 mg/dL (8-24); CO2, Blood 22.0 mmol/L (21-32); Calcium, Blood 9.1 mg/dL (8.5-10.1); Chloride, Blood 98.0 mmol/L (98-108); Creatinine, Blood 0.75 mg/dL (0.60-1.20); Glucose, Blood 128.0 mg/dL (70-99); Potassium, Blood 4.8 mmol/L (3.5-5.5); Sodium, Blood 126.0 mmol/L (136-145)
--- NOTE | 2025-02-24 08:37 | NUR ---
BP 105//81 P 72, CALLED ALICIA WARD TO GIVE ALL HEART MEDS AND FLOMAX.
--- NOTE | 2025-02-24 10:54 | NUR ---
CALLED DR KENNEY, EXPECTED SURG ON LEG 1230 TODAY. CONTINUE NPO. HELD ANTICOAGS.
[2025-02-24] MEDS ORDERED: Ondansetron HCl 2 MG / ML 2ML Vial ONE (11:04)
[2025-02-24] MEDS ORDERED: FentaNYL Citrate 50 MCG/ML 2 ML Injection ONE (11:04)
[2025-02-24] MEDS ORDERED: Midazolam HCl 1MG / ML 2ML Vial ONE (11:04)
[2025-02-24] MEDS ORDERED: Dexamethasone Sod Phos 10 MG/ML 1ML VIAL ONE (11:04)
--- NOTE | 2025-02-24 11:45 | NUR ---
PT INTO SDS VIA YAHIR FOR RIGHT LEG I+D PER . PT NPO, Pre-Op teaching done. Pt verbalizes understanding. History, Chart, Medications and Allergies reviewed before start of procedure.
--- NOTE | 2025-02-24 11:47 | NUR ---
TO DAY SURG 113
[2025-02-24] MEDS ORDERED: Etomidate 2MG / ML 10ML Vial ONE (12:38)
[2025-02-24] MEDS ORDERED: ePHEDrine Sulfate 50 MG/ML 1ML Injection ONE (13:38)
[2025-02-24] MEDS ORDERED: Glycopyrrolate 0.2 MG/ML 5ML VIAL ONE (13:39)
--- NOTE | 2025-02-24 17:06 | NUR ---
OBSERVED LARGE BLISTER FILLED WITH DARK RED FLUID GROWING UNDER WOUND VAC AT TOP OF WOUND. PT HAS GOOD CAP REFILL ON TOES. CALLED DR KENNEY, HE TO COME SEE LATER. OKAY WRAP WITH 6" RICKY WRAP AND PLACE PAD UNDER IF POPS TO CATCH DISCHARGE. ABOUT ONE INCH RED FLUID IN WOUND VAC AT THIS TIME.
--- NOTE | 2025-02-24 17:37 | NUR ---
Pt. is awake in bed when he welcomes my visit. Pt. verbalizes that he has had his fifth surgery on his leg earlier in the day. Listen with empathy and a caring and calming presence. Pt. displayed evidence of being hopeful and positive. Pt. verbalized a request to have this personal trainer contact his orthodoxy. Prayed with the Pt. Confucianism is contacted by text. Pt. verbalized gratitude for the spiritual care visit.
--- NOTE | 2025-02-24 18:25 | NUR ---
PT PLEASANT COOP. DR IN TO SEE PT AND BLISTER. HE PUNCTURED AND DRAINED. REQUESTED ME TO PLACE MEPILEX OVER TO REGAIN SUCTION. DONE. AND IS WORKING . MARKED BLOOD LINE ON WOUND VAC CONTAINER. PT IN GOOD SPIRITS. PAIN MANAGED WITH AVAIL MEDS. FAMILY AND FRIENDS IN TO VISIT TODAY. NO OTHER NEW CONCERNS NOTED. BED IN LOW POSITION, CALL LITE IN REACH, CALLS APPROP
[2025-02-25 05:20] VITALS: BP 106/76
--- NOTE | 2025-02-25 05:32 | NUR ---
SHIFT SUMMARY: PATIENT SLEPT IN SHORT INTERVALS, MEDICATED X 2 FOR PAIN. ONCE FOR NAUSEA. WOUND VAC DRAINEED 100 ML RED LIQUID. CIRC TO LEFT TOES WNL.
[2025-02-25 06:19] LABS: Anion Gap 9.0 mmol/L (3-11); Blood Urea Nitrogen 27.0 mg/dL (8-24); CO2, Blood 25.0 mmol/L (21-32); Calcium, Blood 8.9 mg/dL (8.5-10.1); Chloride, Blood 98.0 mmol/L (98-108); Creatinine, Blood 0.74 mg/dL (0.60-1.20); Glucose, Blood 136.0 mg/dL (70-99); Potassium, Blood 4.5 mmol/L (3.5-5.5); Sodium, Blood 127.0 mmol/L (136-145)
[2025-02-25 07:36] VITALS: BP 100/71
--- NOTE | 2025-02-25 14:19 | NUR ---
REQUESTED MED LIST FROM [facility], LAST 90 DAYS
--- NOTE | 2025-02-25 14:24 | NUR ---
CONTACTED DR KENNEY FOR WOUND VAC ORDERS
[2025-02-25 16:03] VITALS: BP 96/71
[2025-02-25 19:06] VITALS: BP 114/88
[2025-02-25 21:46] VITALS: BP 108/82
[2025-02-26 03:02] VITALS: BP 125/88
--- NOTE | 2025-02-26 04:18 | NUR ---
SUMMARY: PT AOX4. PT UP TO CHAIR FOR A COUPLE OF HOURS ASSIST OF 1 FWW AND GB. PT WALKED TO BATHROOM AND BACK. HAD 1 BM OVERNIGHT. WOUND VAC DRAINED 100ML OF SANGUINEOUS OUTPUT. DRESSING CHANGED. PAIN MEDICATION AND NAUSEA MEDICATION GIVEN PER EMAR. CALL LIGHT WITHIN REACH AND BED IN LOW POSITION.
[2025-02-26 05:07] LABS: BASOPHILS ABSOLUTE AUTO 0.01 K/mm3 (0.00-0.23); BASOPHILS PERCENT AUTO 0 % (0-2); EOSINOPHILS ABSOLUTE AUTO 0.03 K/mm3 (0.00-0.68); EOSINOPHILS PERCENT AUTO 0 % (0-6); Hematocrit 36.8 % (37.0-53.0); Hemoglobin 12.1 g/dL (13.5-17.5); IMMATURE GRAN ABSOLUTE AUTO 0.12 K/mm3 (0.00-0.10); IMMATURE GRAN PERCENT AUTO 1 % (0-1); LYMPHOCYTES ABSOLUTE AUTO 1.21 K/mm3 (0.84-5.20); LYMPHOCYTES PERCENT AUTO 10 % (21-46); MONOCYTES ABSOLUTE AUTO 0.73 K/mm3 (0.16-1.47); MONOCYTES PERCENT AUTO 6 % (4-13); Mean Corpuscular HGB Conc 32.9 g/dL (31.5-36.5); Mean Corpuscular Volume 82 fL (80-100); NEUTROPHILS ABSOLUTE AUTO 9.68 K/mm3 (1.96-9.15); NEUTROPHILS PERCENT AUTO 82 % (41-73); NRBC ABSOLUTE 0.00 K/mm3 (0.00-0.02); NRBC Auto 0.0 /100 WBC (0.0-0.2); Platelet Count 319 K/mm3 (150-400); RDW Coefficient Variation 16.6 % (11.7-14.2); RDW Standard Deviation 49.1 fL (35.1-46.3)
[2025-02-26 05:27] LABS: Anion Gap 8.0 mmol/L (3-11); Blood Urea Nitrogen 28.0 mg/dL (8-24); CO2, Blood 24.0 mmol/L (21-32); Calcium, Blood 8.8 mg/dL (8.5-10.1); Chloride, Blood 97.0 mmol/L (98-108); Creatinine, Blood 0.74 mg/dL (0.60-1.20); Glucose, Blood 101.0 mg/dL (70-99); Potassium, Blood 4.9 mmol/L (3.5-5.5); Sodium, Blood 124.0 mmol/L (136-145)
[2025-02-26 07:44] VITALS: BP 152/128
--- NOTE | 2025-02-26 18:47 | NUR ---
SUMMARY- PT A/O X4, GETS UP TO THE BATHROOM INDEPENDANT. STOOD UP AND BATHED SELF IN BATHROOM. WOUND VAC PATENT, DRAINING MOD AMOUNT SS. REWRAPPED RICKY. MOD EDEMA TO THAT LEG/FOOT, CMS INTACT WITH PRE-EXHISTING NEUROPATHY, PT STILL ADMITS TO PAIN. MEDICATED WITH NORCO Q4-6 AND PT STATES ADQ RELEIF. PT ELEVATES LEG 95% OF THE DAY WHILE IN BED. PT STATES HE IS FEELING BACKED UP AND ABD FEELS BLOATED, STARTED BOWEL REGIMINE. BLOOD SUGARS STAY AROUND 100- WILL REPORT TO NOC RN
[2025-02-26 19:48] VITALS: BP 92/71
[2025-02-27 03:51] VITALS: BP 86/63
--- NOTE | 2025-02-27 04:42 | NUR ---
SHIFT SUMMARY: PT AOX4 CALLS APPROPRIATELY AND ABLE TO MAKE NEEDS KNOWN. PTSTILL VERY DISTENDED, AND CLAIMING SOME GI DISCOMFORT, ZOFRAN AND TUMS GIVEN PRN. PT TOLERATING WELL, NO BM DESPITE THE LACTULOSE. A LOT OF PAIN IN THE LLE, MEDICATED PER EMR. TOLERATING MEDICATIONS WELL. PT ANXIOUS AND ASKED TO ALLOW FAMILY TO STAY WITH HIM. FAMILY STAYED THE NIGHT, AND ARE PLEASANT. PT COOPERATIVE IN CARE. WOUND VAC HASNT HAD MUCH OUTPUT SINCE CHANGE OF SHIFT, STILL HOLDING SUCTION AND IN PLACE. PT IND WITH URINAL. PT IN BED RESTING, BED IN LOWEST POSITION, CALL LIGHT IN REACH. CONTINUING CARE.
[2025-02-27 05:53] LABS: BASOPHILS ABSOLUTE AUTO 0.01 K/mm3 (0.00-0.23); BASOPHILS PERCENT AUTO 0 % (0-2); EOSINOPHILS ABSOLUTE AUTO 0.14 K/mm3 (0.00-0.68); EOSINOPHILS PERCENT AUTO 2 % (0-6); Hematocrit 37.3 % (37.0-53.0); Hemoglobin 12.1 g/dL (13.5-17.5); IMMATURE GRAN ABSOLUTE AUTO 0.10 K/mm3 (0.00-0.10); IMMATURE GRAN PERCENT AUTO 1 % (0-1); LYMPHOCYTES ABSOLUTE AUTO 1.17 K/mm3 (0.84-5.20); LYMPHOCYTES PERCENT AUTO 12 % (21-46); MONOCYTES ABSOLUTE AUTO 0.54 K/mm3 (0.16-1.47); MONOCYTES PERCENT AUTO 6 % (4-13); Mean Corpuscular HGB Conc 32.4 g/dL (31.5-36.5); Mean Corpuscular Volume 82 fL (80-100); NEUTROPHILS ABSOLUTE AUTO 7.55 K/mm3 (1.96-9.15); NEUTROPHILS PERCENT AUTO 79 % (41-73); NRBC ABSOLUTE 0.00 K/mm3 (0.00-0.02); NRBC Auto 0.0 /100 WBC (0.0-0.2); Platelet Count 275 K/mm3 (150-400); RDW Coefficient Variation 16.4 % (11.7-14.2); RDW Standard Deviation 48.6 fL (35.1-46.3)
[2025-02-27 06:10] LABS: Anion Gap 13.0 mmol/L (3-11); Blood Urea Nitrogen 33.0 mg/dL (8-24); CO2, Blood 20.0 mmol/L (21-32); Calcium, Blood 9.1 mg/dL (8.5-10.1); Chloride, Blood 98.0 mmol/L (98-108); Creatinine, Blood 0.83 mg/dL (0.60-1.20); Glucose, Blood 127.0 mg/dL (70-99); Potassium, Blood 4.8 mmol/L (3.5-5.5); Sodium, Blood 126.0 mmol/L (136-145)
[2025-02-27 07:46] VITALS: BP 100/77
[2025-02-27] MEDS ORDERED: Torsemide 20 MG TAB PO SCH (09:00)
[2025-02-27 11:09] VITALS: BP 105/77
[2025-02-27 16:19] VITALS: BP 105/85
--- NOTE | 2025-02-27 16:23 | NUR ---
SHIFT SUMMARY- PT HAS BEEN PLEASENT AND COOPERATIVE WITH CARE ALL SHIFT. HIS BP HAS BEEN A LITTLE SOFT, HE RECIEVED HIS MEDICATIONS THIS MORNING THERE ARE HOLD PARAMETERS FOR BP AFFECTING MEDS, WILL PASS ON TO NIGHT RN TO BE SURE TO MONITOR. PT WAS MEDICATED FOR PAIN, BUT STAFF HAD TO OFFER PAIN MED, OTHERWISE HE DID NOT C/O INCREASED PAIN. PT HAS BEEN UP TO THE BATHROOM SEVERAL TIMES TODAY, LACTULOSE DOSE HELD AFTER THE AM DOSE, WHICH WORKED MARKEDLY WELL. PT IS DEFINATELY NO LONGER CONSTIPATED. PT IS CURRENTLY IN BED, CALL LIGHT IN REACH NO S&S OF DISTRESS NOTED, WILL PASS ON TO NIGHT RN IN REPORT. PT HAS KENNEDY THAT SECURITY HAS IN THE SAFE. HIS DAUGHTER WAS HERE AND HE REQUESTED THAT SECURITY BRING IT UP SO HE CAN GIVE HER KENNEDY, THEY DID AND THE SASH WAS RECOUNTED AND SENT BACK WITH SECURITY WITH A WITNESS FOR THE COUNT. OF NOTE, A STAFF MEMBER WENT INTO THE ROOM AND DISCOVERED A MOTOR POOL CLERK IN THE CHAIR, HIS DAUGHTER HAS BEEN SLEEPING IN THAT CHAIR. PLUNKET NURSE NOTIFIED, DAUGHTER NOT PRESENT AT THIS TIME.
[2025-02-27 19:57] VITALS: BP 88/61
[2025-02-28 02:43] VITALS: BP 94/67
[2025-02-28] MEDS ORDERED: HYDROmorphone HCl/Pf 1MG SYR IV ONE (04:30)
[2025-02-28 05:42] LABS: BASOPHILS ABSOLUTE AUTO 0.02 K/mm3 (0.00-0.23); BASOPHILS PERCENT AUTO 0 % (0-2); EOSINOPHILS ABSOLUTE AUTO 0.16 K/mm3 (0.00-0.68); EOSINOPHILS PERCENT AUTO 2 % (0-6); Hematocrit 36.2 % (37.0-53.0); Hemoglobin 12.0 g/dL (13.5-17.5); IMMATURE GRAN ABSOLUTE AUTO 0.08 K/mm3 (0.00-0.10); IMMATURE GRAN PERCENT AUTO 1 % (0-1); LYMPHOCYTES ABSOLUTE AUTO 0.85 K/mm3 (0.84-5.20); LYMPHOCYTES PERCENT AUTO 8 % (21-46); MONOCYTES ABSOLUTE AUTO 0.47 K/mm3 (0.16-1.47); MONOCYTES PERCENT AUTO 4 % (4-13); Mean Corpuscular HGB Conc 33.1 g/dL (31.5-36.5); Mean Corpuscular Volume 80 fL (80-100); NEUTROPHILS ABSOLUTE AUTO 9.10 K/mm3 (1.96-9.15); NEUTROPHILS PERCENT AUTO 85 % (41-73); NRBC ABSOLUTE 0.00 K/mm3 (0.00-0.02); NRBC Auto 0.0 /100 WBC (0.0-0.2); Platelet Count 232 K/mm3 (150-400); RDW Coefficient Variation 16.2 % (11.7-14.2); RDW Standard Deviation 47.2 fL (35.1-46.3)
--- NOTE | 2025-02-28 07:42 | NUR ---
PT HAS HAD SIGNIFICANT PAIN T/O THIS SHIFT. PAIN MEDICATIONS GIVEN EVERY 2 HOURS RX PT A&OX4, INDEPENDENT IN RM, ROADS SUPERINTENDENT=X4. PT DID NOT SLEEP T/O THIS SHIFT. POST RESIDUAL VOID WAS 92 ML. PT PLEASANT AND COOPERATIVE. PT REPORTED SOFT FORMED STOOL ONCE DURING THIS SHIFT.
--- NOTE | 2025-02-28 07:50 | NUR ---
PT HAD WOUND VAC CHANGED DURING THIS SHIFT. WOUND BED SHOWS 100% RED GRANULATED TISSUE WITH MUSCLE AND FASCIA VISIBLE. XEROFORM WAS REMOVED AND WOUND VAC WAS REPLACED WITH 2 PIECES OF BLACK FOAM. PT IS DRAINING SMALL AMOUNT OF SANGUINES DRAINAGE AT 120 MMHG.WOUND EDGES SHOW EPIBOLE AND INTACT WOUND EDGES WITH A SMALL PROXIMAL SECTION OF WOUND EDGE AT 1200 WITH UNDERMINDING NOTED AT 1 CM. PERIWOUND HAS H.R.S.T. AN RICKY WRAP LIGHTLY PLACED OVER WOUND. LLE HAS 1= EDEMA NOTED. PT HAS BEEN URINATING CLEAR YELLOW URINE WITHOUT DIFFICULTY T/O THIS SHIFT. AFTER DRESSING CHANGE PT HAD UNCONTROLLED PAIN AND 1MG IV DILAUDIUD WAS GIVEN AND WAS EFFECTIVE IN RELIEVING PAIN TO A TOLERABLE LEVEL. PT DID NOT SLEEP T/O THIS SHIFT.
[2025-02-28 07:56] VITALS: BP 105/79
[2025-02-28 11:07] LABS: Alanine Aminotransfer (ALT/SGP 20.0 U/L (12-78); Albumin, Blood 2.6 g/dL (3.4-5.0); Albumin/Globulin Ratio 0.7 (0.8-1.8); Anion Gap 12.0 mmol/L (3-11); Aspartate Aminotrans (AST/SGOT 24.0 U/L (12-37); Bilirubin, Total 1.0 mg/dL (0.1-1.0); Blood Urea Nitrogen 32.0 mg/dL (8-24); CO2, Blood 26.0 mmol/L (21-32); Calcium, Blood 8.7 mg/dL (8.5-10.1); Chloride, Blood 94.0 mmol/L (98-108); Creatinine, Blood 0.99 mg/dL (0.60-1.20); Globulin, Blood 3.8 g/dL (2.2-4.0); Glucose, Blood 96.0 mg/dL (70-99); Potassium, Blood 4.2 mmol/L (3.5-5.5); Sodium, Blood 128.0 mmol/L (136-145); Total Protein, Blood 6.4 g/dL (6.4-8.2)
[2025-02-28 15:07] VITALS: BP 112/75
--- NOTE | 2025-02-28 16:52 | NUR ---
SHIFT SUMMARY PT AOX4, COOPERATIVE, ABLE TO MAKE NEEDS KNOWN. PT IS 2 PERSON ASSIST, WAS IND/SBA WITH FWW YESTERDAY, BUT DUE TO IMPULSIVE AMBULATING AND NOT WAITING ON STAFF ASSISTANCE, PT COULD BE WEAKER TODAY. TOLERATING MEDICATIONS. WOUND VAC CHANGED LAST SHIFT, ORDERS TO CHANGE EVERY 2-3 DAYS. HAS BEEN IN BED MOST OF DAY EXCEPT ONE TRIP TO BATHROOM, AND THIS RN OPTED TO USE COMMODE INSTEAD OF TOILET FOR SAFETY REASONS. POSSIBLE DC TO SNF TOMORROW. BED IN LOWEST POSITION, CALL LIGHT WITHIN REACH.
--- NOTE | 2025-02-28 18:18 | NUR ---
Pt. is awake in bed and welcomes my visit. This grinder operator surface tool has visited this Pt. on many occassions. Pt. is pleasant and has his bible open on his lap. Facilitated an update and Pt. informs alonso pena that he has had a 6th surgery, but that the results have been encouraging. Considered matters of radha and family. Pt. displayed evidence of being very encouraged. Prayed with the Pt. Pt. verbalized gratitude for the spiritual care visit and welcomed this grinder operator surface tool to return.
[2025-02-28] MEDS ORDERED: HYDROcodone 10-APAP 325 TAB PO PRN (18:40)
[2025-02-28 19:58] VITALS: BP 99/71
[2025-03-01 04:38] VITALS: BP 93/69
--- NOTE | 2025-03-01 04:50 | NUR ---
SHIFT SUMMARY: PT AOX4 IND/ 1PA TO THE BATHROOM NEEDED. IN SOME PAIN AND NAUSEA MEDICATED PER EMR. WOUND VAC NOT HAVING MUCH OUTPUT BUT SEROSANGUINOUS FLUID STILL DRAINING. NO ACUTE OVERNIGHT EVENTS. SLEPT WELL THROUGH THE NIGHT WITH LITTLE COMPLAINTS. PT IN BED RESTING, BED IN LOWEST POSITION, CALL LIGHT IN REACH. CONTINUING CARE.
[2025-03-01 06:41] LABS: BASOPHILS ABSOLUTE AUTO 0.01 K/mm3 (0.00-0.23); BASOPHILS PERCENT AUTO 0 % (0-2); EOSINOPHILS ABSOLUTE AUTO 0.26 K/mm3 (0.00-0.68); EOSINOPHILS PERCENT AUTO 3 % (0-6); Hematocrit 38.9 % (37.0-53.0); Hemoglobin 12.4 g/dL (13.5-17.5); IMMATURE GRAN ABSOLUTE AUTO 0.05 K/mm3 (0.00-0.10); IMMATURE GRAN PERCENT AUTO 1 % (0-1); LYMPHOCYTES ABSOLUTE AUTO 0.95 K/mm3 (0.84-5.20); LYMPHOCYTES PERCENT AUTO 10 % (21-46); MONOCYTES ABSOLUTE AUTO 0.40 K/mm3 (0.16-1.47); MONOCYTES PERCENT AUTO 4 % (4-13); Mean Corpuscular HGB Conc 31.9 g/dL (31.5-36.5); Mean Corpuscular Volume 83 fL (80-100); NEUTROPHILS ABSOLUTE AUTO 7.84 K/mm3 (1.96-9.15); NEUTROPHILS PERCENT AUTO 83 % (41-73); NRBC ABSOLUTE 0.00 K/mm3 (0.00-0.02); NRBC Auto 0.0 /100 WBC (0.0-0.2); Platelet Count 224 K/mm3 (150-400); RDW Coefficient Variation 16.3 % (11.7-14.2); RDW Standard Deviation 48.8 fL (35.1-46.3)
[2025-03-01 07:14] LABS: Alanine Aminotransfer (ALT/SGP 21.0 U/L (12-78); Albumin, Blood 2.7 g/dL (3.4-5.0); Albumin/Globulin Ratio 0.6 (0.8-1.8); Anion Gap 11.0 mmol/L (3-11); Aspartate Aminotrans (AST/SGOT 21.0 U/L (12-37); Bilirubin, Total 1.2 mg/dL (0.1-1.0); Blood Urea Nitrogen 34.0 mg/dL (8-24); CO2, Blood 27.0 mmol/L (21-32); Calcium, Blood 9.0 mg/dL (8.5-10.1); Chloride, Blood 94.0 mmol/L (98-108); Creatinine, Blood 0.85 mg/dL (0.60-1.20); Globulin, Blood 4.4 g/dL (2.2-4.0); Glucose, Blood 99.0 mg/dL (70-99); Potassium, Blood 4.3 mmol/L (3.5-5.5); Sodium, Blood 128.0 mmol/L (136-145); Total Protein, Blood 7.1 g/dL (6.4-8.2)
[2025-03-01 07:39] VITALS: BP 106/75
--- NOTE | 2025-03-01 10:57 | NUR ---
"Spiritual Care | Pt. and Nurse request Pt. is awake in bed and welcomes my visit. Pt. is pleasant but verbalizes an expectation that he might be discharged home soon. Pt. added the expectation that he could get himself to wound care treatments. Listen with empathy and a calming presence. Facilitated more update and considered matters of radha and family. This chaplaon got turcios doout of the visit to another need in ICU. Pt. verbalized gratitude for the spiritual care encouragement and visits."
[2025-03-01] MEDS ORDERED: ELIQUIS5 M2 PO (15:14)
[2025-03-01] MEDS ORDERED: JUVEN PACKET1 EAC3 PO (15:17)
[2025-03-01] MEDS ORDERED: LINE600 PO (15:18)
[2025-03-01] MEDS ORDERED: Norco 10-325 T1 EACH PO (15:18)
[2025-03-01] MEDS ORDERED: DULERA 100 MCG-13 GM INH (15:19)
[2025-03-01] MEDS ORDERED: VISBIOME 112.51 EACH PO (15:19)
[2025-03-01 15:48] VITALS: BP 99/69
--- NOTE | 2025-03-01 16:52 | NUR ---
SHIFT SUMMARY PT AOX4, COOPERATIVE, ABLE TO MAKE NEEDS KNOWN. PT HAS BEEN ON ROOM AIR FOR DURATION OF SHIFT. TOLERATING MEDICATIONS. PT DC'D TO [facility], GAVE REPORT TO LIZZ PALOMO. PT TRANSFERRED VIA 1-2PERSON ASSIST TO WHEELCHAIR. HARD SCRIPT WENT WITH PT FOR [place], INFORMED MIXER DIAMOND POWDER. BELONGINGS WENT WITH PT. BED IN LOWEST POSITION, CALL LIGHT WITHIN REACH.
== END 2025-03-01 17:09 | DRG 853 ==
LOC: ER 14:29 → MEDS 19:06 → ENPENDDIS 03-01 13:57 → MEDS 03-01 17:09
PROVIDERS: Emergency Medicine; Family Medicine; Internal Medicine; Orthopaedic Surgery Sports Medicine; Student in an Organized Health Care Education/Training Program; ADMIT Internal Medicine
PROC: 3E03329 Introduction of Other Anti-infective into Peripheral Vein, Percutaneous Approach (ICD-10-PCS; 2025-02-07)
PROC: 5A09357 Assistance with Respiratory Ventilation, Less than 24 Consecutive Hours, Continuous Positive Airway Pressure (ICD-10-PCS; 2025-02-08)
PROC: 0J9P0ZZ Drainage of Left Lower Leg Subcutaneous Tissue and Fascia, Open Approach (ICD-10-PCS; 2025-02-10)
PROC: 0J9P0ZZ Drainage of Left Lower Leg Subcutaneous Tissue and Fascia, Open Approach (ICD-10-PCS; 2025-02-12)
PROC: 0JBP0ZZ Excision of Left Lower Leg Subcutaneous Tissue and Fascia, Open Approach (ICD-10-PCS; principal; 2025-02-22 16:00)
PROC: 0JBP0ZZ Excision of Left Lower Leg Subcutaneous Tissue and Fascia, Open Approach (ICD-10-PCS; 2025-02-24)
DX: A41.02 Sepsis due to Methicillin resistant Staphylococcus aureus (principal); I50.23 Acute on chronic systolic (congestive) heart failure; E87.1 Hypo-osmolality and hyponatremia; L03.116 Cellulitis of left lower limb; L02.416 Cutaneous abscess of left lower limb; E87.21 Acute metabolic acidosis; I96 Gangrene, not elsewhere classified; R65.20 Severe sepsis without septic shock; I25.10 Atherosclerotic heart disease of native coronary artery without angina pectoris; I48.0 Paroxysmal atrial fibrillation; F19.11 Other psychoactive substance abuse, in remission; E11.40 Type 2 diabetes mellitus with diabetic neuropathy, unspecified; I11.0 Hypertensive heart disease with heart failure; F17.210 Nicotine dependence, cigarettes, uncomplicated; G47.33 Obstructive sleep apnea (adult) (pediatric); J44.9 Chronic obstructive pulmonary disease, unspecified; T50.1X6A Underdosing of loop [high-ceiling] diuretics, initial encounter; D69.6 Thrombocytopenia, unspecified; Z91.138 Patient's unintentional underdosing of medication regimen for other reason; I25.2 Old myocardial infarction; Z95.5 Presence of coronary angioplasty implant and graft; Z86.19 Personal history of other infectious and parasitic diseases; Z86.718 Personal history of other venous thrombosis and embolism; Z88.8 Allergy status to other drugs, medicaments and biological substances; Z88.1 Allergy status to other antibiotic agents; Z79.4 Long term (current) use of insulin; Z79.82 Long term (current) use of aspirin; Z79.84 Long term (current) use of oral hypoglycemic drugs; Z86.73 Personal history of transient ischemic attack (TIA), and cerebral infarction without residual deficits
CPT/HCPCS: 36415; 71046; 73701; 80048; 80053; 80202; 80400; 82533; 82947; 83605; 83735; 83880; 83930; 83935; 84300; 84439; 84443; 85025; 85651; 86140; 87040; 87070; 87071; 87075; 87077; 87147; 87186; 87205; 93970; 93971; 94640; 94660; 94664; 94762; 96365; 96375; 97110; 97161; 97165; 97530; 97535; 99285-25; A9270; C8929; J0295; J0834; J1100; J1171; J1650; J1815; J1885; J1938; J2250; J2371; J2405; J2543; J2704; J3010; J3370; J3373; J7040; J7050; J7120; Q9957; Q9967

== ENCOUNTER 2025-03-02 08:35 | Emergency (ER) | payer OTHER ==
[~2025-03-02] VITALS: Ht 182.9 cm; Wt 95.2 kg
[~2025-03-02 08:35] MED LIST changes: +DULERA 100 MCG-13 GM INH; +ENTRESTO 24 MG1 EACH PO; +JUVEN PACKET1 EAC3 PO; +LINE600 PO; +Norco 10-325 T1 EACH PO; +VISBIOME 112.51 EACH PO
[2025-03-02] MEDS ORDERED: HYDROmorphone HCl/Pf 1MG SYR IV ONE (08:45)
[2025-03-02 09:51] LABS: BASOPHILS ABSOLUTE AUTO 0.03 K/mm3 (0.00-0.23); BASOPHILS PERCENT AUTO 0 % (0-2); EOSINOPHILS ABSOLUTE AUTO 0.16 K/mm3 (0.00-0.68); EOSINOPHILS PERCENT AUTO 1 % (0-6); Hematocrit 29.5 % (37.0-53.0); Hemoglobin 9.9 g/dL (13.5-17.5); IMMATURE GRAN ABSOLUTE AUTO 0.10 K/mm3 (0.00-0.10); IMMATURE GRAN PERCENT AUTO 1 % (0-1); LYMPHOCYTES ABSOLUTE AUTO 1.75 K/mm3 (0.84-5.20); LYMPHOCYTES PERCENT AUTO 13 % (21-46); MONOCYTES ABSOLUTE AUTO 0.57 K/mm3 (0.16-1.47); MONOCYTES PERCENT AUTO 4 % (4-13); Mean Corpuscular HGB Conc 33.6 g/dL (31.5-36.5); Mean Corpuscular Volume 80 fL (80-100); NEUTROPHILS ABSOLUTE AUTO 10.83 K/mm3 (1.96-9.15); NEUTROPHILS PERCENT AUTO 81 % (41-73); NRBC ABSOLUTE 0.00 K/mm3 (0.00-0.02); NRBC Auto 0.0 /100 WBC (0.0-0.2); Platelet Count 195 K/mm3 (150-400); RDW Coefficient Variation 16.0 % (11.7-14.2); RDW Standard Deviation 46.7 fL (35.1-46.3)
[2025-03-02 10:00] LABS: Anion Gap 12.0 mmol/L (3-11); Blood Urea Nitrogen 35.0 mg/dL (8-24); CO2, Blood 23.0 mmol/L (21-32); Calcium, Blood 8.8 mg/dL (8.5-10.1); Chloride, Blood 94.0 mmol/L (98-108); Creatinine, Blood 0.92 mg/dL (0.60-1.20); Glucose, Blood 138.0 mg/dL (70-99); Potassium, Blood 4.8 mmol/L (3.5-5.5); Sodium, Blood 124.0 mmol/L (136-145)
[2025-03-02 11:30] VITALS: BP 124/74
== END 2025-03-02 11:40 | disposition home or self-care (01) ==
LOC: ER 08:35
PROVIDERS: Emergency Medicine
DX: L76.22 Postprocedural hemorrhage of skin and subcutaneous tissue following other procedure (principal); E11.9 Type 2 diabetes mellitus without complications; I11.0 Hypertensive heart disease with heart failure; I50.9 Heart failure, unspecified; E78.5 Hyperlipidemia, unspecified; I48.91 Unspecified atrial fibrillation; J44.9 Chronic obstructive pulmonary disease, unspecified; F17.210 Nicotine dependence, cigarettes, uncomplicated; Z86.73 Personal history of transient ischemic attack (TIA), and cerebral infarction without residual deficits; Z79.82 Long term (current) use of aspirin; Z79.899 Other long term (current) drug therapy; Z79.4 Long term (current) use of insulin; Z88.1 Allergy status to other antibiotic agents; Z88.5 Allergy status to narcotic agent; Z88.8 Allergy status to other drugs, medicaments and biological substances
CPT/HCPCS: 80048; 85025; 96374; 99283-25; J1171

== ENCOUNTER 2025-03-02 19:06 | Inpatient (IN) | payer OTHER ==
[~2025-03-02] VITALS: Ht 167.6 cm; Wt 90.5 kg
[2025-03-02] MEDS ORDERED: HYDROmorphone HCl/Pf 1MG SYR IV ONE (20:35)
[2025-03-02 21:04] LABS: BASOPHILS ABSOLUTE AUTO 0.04 K/mm3 (0.00-0.23); BASOPHILS PERCENT AUTO 0 % (0-2); EOSINOPHILS ABSOLUTE AUTO 0.22 K/mm3 (0.00-0.68); EOSINOPHILS PERCENT AUTO 2 % (0-6); Hematocrit 24.9 % (37.0-53.0); Hemoglobin 8.2 g/dL (13.5-17.5); IMMATURE GRAN ABSOLUTE AUTO 0.05 K/mm3 (0.00-0.10); IMMATURE GRAN PERCENT AUTO 1 % (0-1); LYMPHOCYTES ABSOLUTE AUTO 1.32 K/mm3 (0.84-5.20); LYMPHOCYTES PERCENT AUTO 14 % (21-46); MONOCYTES ABSOLUTE AUTO 0.56 K/mm3 (0.16-1.47); MONOCYTES PERCENT AUTO 6 % (4-13); Mean Corpuscular HGB Conc 32.9 g/dL (31.5-36.5); Mean Corpuscular Volume 81 fL (80-100); NEUTROPHILS ABSOLUTE AUTO 7.02 K/mm3 (1.96-9.15); NEUTROPHILS PERCENT AUTO 76 % (41-73); NRBC ABSOLUTE 0.00 K/mm3 (0.00-0.02); NRBC Auto 0.0 /100 WBC (0.0-0.2); Platelet Count 155 K/mm3 (150-400); RDW Coefficient Variation 16.3 % (11.7-14.2); RDW Standard Deviation 47.4 fL (35.1-46.3)
[2025-03-02 21:27] LABS: Anion Gap 11.0 mmol/L (3-11); Blood Urea Nitrogen 36.0 mg/dL (8-24); CO2, Blood 24.0 mmol/L (21-32); Calcium, Blood 8.5 mg/dL (8.5-10.1); Chloride, Blood 97.0 mmol/L (98-108); Creatinine, Blood 0.94 mg/dL (0.60-1.20); Glucose, Blood 121.0 mg/dL (70-99); Potassium, Blood 4.6 mmol/L (3.5-5.5); Sodium, Blood 127.0 mmol/L (136-145)
[2025-03-02] MEDS ORDERED: NS 1,000 ML IV SCH ×3 (21:55→23:00)
[2025-03-02] MEDS ORDERED: HYDROmorphone HCl/Pf 1MG SYR IV PRN (22:50)
[2025-03-02] MEDS ORDERED: Naloxone HCl 0.4MG / ML 1ML Vial IV PRN (22:55)
[2025-03-02] MEDS ORDERED: Ondansetron HCl 2 MG / ML 2ML Vial IV PRN (22:55)
[2025-03-02] MEDS ORDERED: HYDROcodone 5-APAP 325 TAB PO PRN (23:45)
[2025-03-03] VITALS (8 sets, daily range): BP systolic 91–110; BP diastolic 63–78
--- NOTE | 2025-03-03 00:25 | NUR ---
TOOK REPORT FROM ED STACIA LOPEZ @ [id number]
[2025-03-03 01:21] LABS: Hematocrit 25.2 % (37.0-53.0); Hemoglobin 8.3 g/dL (13.5-17.5)
[2025-03-03 05:10] LABS: BASOPHILS ABSOLUTE AUTO 0.03 K/mm3 (0.00-0.23); BASOPHILS PERCENT AUTO 0 % (0-2); EOSINOPHILS ABSOLUTE AUTO 0.28 K/mm3 (0.00-0.68); EOSINOPHILS PERCENT AUTO 3 % (0-6); Hematocrit 26.1 % (37.0-53.0); Hemoglobin 8.6 g/dL (13.5-17.5); IMMATURE GRAN ABSOLUTE AUTO 0.05 K/mm3 (0.00-0.10); IMMATURE GRAN PERCENT AUTO 1 % (0-1); LYMPHOCYTES ABSOLUTE AUTO 1.21 K/mm3 (0.84-5.20); LYMPHOCYTES PERCENT AUTO 13 % (21-46); MONOCYTES ABSOLUTE AUTO 0.52 K/mm3 (0.16-1.47); MONOCYTES PERCENT AUTO 5 % (4-13); Mean Corpuscular HGB Conc 33.0 g/dL (31.5-36.5); Mean Corpuscular Volume 82 fL (80-100); NEUTROPHILS ABSOLUTE AUTO 7.47 K/mm3 (1.96-9.15); NEUTROPHILS PERCENT AUTO 78 % (41-73); NRBC ABSOLUTE 0.00 K/mm3 (0.00-0.02); NRBC Auto 0.0 /100 WBC (0.0-0.2); Platelet Count 161 K/mm3 (150-400); RDW Coefficient Variation 16.1 % (11.7-14.2); RDW Standard Deviation 47.3 fL (35.1-46.3)
[2025-03-03 05:32] LABS: Alanine Aminotransfer (ALT/SGP 21.0 U/L (12-78); Albumin, Blood 2.6 g/dL (3.4-5.0); Albumin/Globulin Ratio 0.6 (0.8-1.8); Anion Gap 10.0 mmol/L (3-11); Aspartate Aminotrans (AST/SGOT 21.0 U/L (12-37); Bilirubin, Total 1.0 mg/dL (0.1-1.0); Blood Urea Nitrogen 30.0 mg/dL (8-24); CO2, Blood 24.0 mmol/L (21-32); Calcium, Blood 8.8 mg/dL (8.5-10.1); Chloride, Blood 97.0 mmol/L (98-108); Creatinine, Blood 0.79 mg/dL (0.60-1.20); Globulin, Blood 4.3 g/dL (2.2-4.0); Glucose, Blood 133.0 mg/dL (70-99); Magnesium, Blood 1.8 mg/dL (1.6-2.4); Potassium, Blood 4.2 mmol/L (3.5-5.5); Sodium, Blood 127.0 mmol/L (136-145); Total Protein, Blood 6.9 g/dL (6.4-8.2)
--- NOTE | 2025-03-03 05:34 | NUR ---
SHIFT SUMMARY NOC PT A/O X 4. PLEASANT AND COOPERATIVE WITH CARE. BP SOFT. PT HAD ONGOING BLEEDING IN LLE FROM RECENT I&D'S. PT HGB 8.2 UPON ADMIT AND 2 SUTURES PLACED IN ED THAT STOPPED BLEEDING AND HGB 8.6 THIS AM. WOUND VAC PLACED ON LLE PER MD ORDERS AND MEPILEX IN PLACE ON COCCYX FOR STAGE 2 PRESSURE INJURIES. PT ON TELE SINUS RHYTHM/BBB/1DHB IN 80'S WITH PROLONGED QTC 0.50, ZOFRAN D/C. PT PAIN BEING MANAGED PER EMAR. ON CONTACT ISOLATION FOR MRSA IN WOUND. PT CURRENTLY RESTING WITH BED IN LOWEST POSITION, AND CALL LIGHT WITHIN REACH.
[2025-03-03] MEDS ORDERED: Lactobacil 2-S.Thermo-Bifido 1 1 Cap PO SCH (09:00)
[2025-03-03] MEDS ORDERED: Torsemide 20 MG TAB PO SCH (09:00)
[2025-03-03 13:09] LABS: Hematocrit 27.5 % (37.0-53.0); Hemoglobin 9.0 g/dL (13.5-17.5)
--- NOTE | 2025-03-03 13:53 | NUR ---
Pt. is awake in bed nad welcomed my visit. Pt. is pleasant. This high school assistant football coach has seen this Pt. on many occassions. Pt. had to return to the hospital because of a bd bleed in his surgical area. Facilitated an update. LListened with interest and empathy. Pt. welcomed prayer. Prayed with Pt. Pt. verbalized gratitude for th epsiritual care visit and welcomed this high school assistant football coach to return.
[2025-03-03] MEDS ORDERED: Polyethylene Glycol 3350 17 gm PO PRN (15:15)
[2025-03-03] MEDS ORDERED: Formoterol/Mometasone MDI 5/100 mcg 13 GM INH SCH (15:20)
[2025-03-03] MEDS ORDERED: Albuterol HFA200 ACT/6.7 GM INH INH PRN (15:20)
--- NOTE | 2025-03-03 17:28 | NUR ---
NO ACUTE CHANGES, MAKES NEEDS KNOWN, PT WORKED WITH PATIENT, PATIENT VERY WEEK TO EVEN TRANSFER, 2PA FOR TRANSFERS, MEDICATED FOR PAIN, WOUND VAC IN PLACE, CALL LIGHT WITH IN REACH
[2025-03-03] MEDS ORDERED: Insulin Glargine-Yfgn 100 Unit/mL 3 ML SYR SC SCH (21:00)
[2025-03-03] MEDS ORDERED: Arginine/Glutamine/Calcium Hmb 1 Packet PO SCH (21:00)
[2025-03-04 03:54] VITALS: BP 91/71
--- NOTE | 2025-03-04 04:04 | NUR ---
SHIFT SUMM: PT HAS BEEN RELAXING THIS SHIFT AND WAS MEDICATED PER EMAR FOR PAIN AND NAUSEA. PT HAS A WOUND VAC PATENT [facility]. PT HAS BEEN CONT W/URINAL AND SOME INCONT AND LINEN CHANGE COMPLETED. PT HAD A "BROWN COW" THIS EVEINING IN HOPES FOR A BM. PT IS ON TELE NSR IN THE 70'S W/BBB. PT IS ON RA AND CONT PULSE OX MAINTAINING SATS ABOVE 92%. PT USES CPAP AT NIGHT FOR SLEEPING. PT HAS CALL LIGHT IN REACH AND BED LOW AND LOCKED FOR SAFETY.
[2025-03-04 05:14] LABS: BASOPHILS ABSOLUTE AUTO 0.05 K/mm3 (0.00-0.23); BASOPHILS PERCENT AUTO 1 % (0-2); EOSINOPHILS ABSOLUTE AUTO 0.29 K/mm3 (0.00-0.68); EOSINOPHILS PERCENT AUTO 4 % (0-6); Hematocrit 25.4 % (37.0-53.0); Hemoglobin 8.3 g/dL (13.5-17.5); IMMATURE GRAN ABSOLUTE AUTO 0.03 K/mm3 (0.00-0.10); IMMATURE GRAN PERCENT AUTO 0 % (0-1); LYMPHOCYTES ABSOLUTE AUTO 1.23 K/mm3 (0.84-5.20); LYMPHOCYTES PERCENT AUTO 18 % (21-46); MONOCYTES ABSOLUTE AUTO 0.49 K/mm3 (0.16-1.47); MONOCYTES PERCENT AUTO 7 % (4-13); Mean Corpuscular HGB Conc 32.7 g/dL (31.5-36.5); Mean Corpuscular Volume 82 fL (80-100); NEUTROPHILS ABSOLUTE AUTO 4.70 K/mm3 (1.96-9.15); NEUTROPHILS PERCENT AUTO 69 % (41-73); NRBC ABSOLUTE 0.00 K/mm3 (0.00-0.02); NRBC Auto 0.0 /100 WBC (0.0-0.2); Platelet Count 154 K/mm3 (150-400); RDW Coefficient Variation 16.5 % (11.7-14.2); RDW Standard Deviation 47.9 fL (35.1-46.3)
[2025-03-04 06:11] LABS: Alanine Aminotransfer (ALT/SGP 22.0 U/L (12-78); Albumin, Blood 3.1 g/dL (3.4-5.0); Albumin/Globulin Ratio 0.7 (0.8-1.8); Anion Gap 10.0 mmol/L (3-11); Aspartate Aminotrans (AST/SGOT 24.0 U/L (12-37); Bilirubin, Total 0.9 mg/dL (0.1-1.0); Blood Urea Nitrogen 34.0 mg/dL (8-24); CO2, Blood 28.0 mmol/L (21-32); Calcium, Blood 9.4 mg/dL (8.5-10.1); Chloride, Blood 94.0 mmol/L (98-108); Creatinine, Blood 0.83 mg/dL (0.60-1.20); Globulin, Blood 4.4 g/dL (2.2-4.0); Glucose, Blood 101.0 mg/dL (70-99); Potassium, Blood 4.2 mmol/L (3.5-5.5); Sodium, Blood 128.0 mmol/L (136-145); Total Protein, Blood 7.5 g/dL (6.4-8.2)
[2025-03-04 07:49] VITALS: BP 96/65
[2025-03-04] MEDS ORDERED: Multivitamins 1 Tab PO SCH (09:00)
[2025-03-04 12:03] VITALS: BP 100/68
[2025-03-04 15:55] VITALS: BP 105/74
--- NOTE | 2025-03-04 17:19 | NUR ---
NO CHANGES TO CARE OR ACUITY, CLEARLY MAKES NEEDS KNOWN, MEDICATED FOR PAIN, CHAPLIAN CALLED IN FOR PATIENT, WORKED WITH PT TODAY, CALL LIGHT WITH IN REACH, WILL RLEAY TO PM RN
--- NOTE | 2025-03-04 17:58 | NUR ---
Callback- Spiritual care visit conducted. Carlitos (pt) is awake and alert. Pt is distressed following a recent phone call with his brother who recently , potentially suicide according to the pt. Conducted life review of pt's brother and examined their connection. Provided compassionate listening and normalized pt's experience of grief. Spiritual assessment conducted. Pt has a clear connection to radha, despite having various life challenges. Pt has a number of family members in the immediate area and is connected. Pt has been in the hospital for a longer than usual duration and is concerned about his leg being amputated as a result of cellulitis. 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 Pt thanked me for the prayer and visit and appeared uplifted following the visit.
[2025-03-04 19:45] VITALS: BP 100/68
[2025-03-04 23:56] VITALS: BP 83/58
[2025-03-05] VITALS (7 sets, daily range): BP systolic 88–105; BP diastolic 63–73
--- NOTE | 2025-03-05 03:23 | NUR ---
SHIFT SUMM: PT HAS BEEN RELAXING THIS SHIFT AND CALLS TO MAKE NEEDS KNOWN. PT IS IN CONTACT PREC FOR MRSA IN THE WOUNDS WITH A PATENT WOUND VAC TO THE E. PT HAS BEEN ON BEDREST AND USES THE URINAL IND. PT IS ON RA W/CONTINUOUS PULSE OX AND MAINTAINS SATS ABOVE 92%. PT HAS HAD SOFT BP'S BUT MAP ABOVE 65. PT HAS BEEN MEDICATED FOR NAUSEA AND PAIN THIS SHIFT PER EMAR. PT IS ON TELE NSR W/BBB IN THE 70'S. PT HAS AN ORDER FOR NO IV SINCE HIS INFILTRATED AND PT TOLERATES PO MEDS AND NO IV ANTIBIOTICS. PT WAS GIVEN A "BROWN COW" AND MIRALAX TO HELP PROMOTE A BM. PT HAS CALL LIGHT IN REACH AND BED LOW AND LOCKED.
[2025-03-05 05:11] LABS: BASOPHILS ABSOLUTE AUTO 0.04 K/mm3 (0.00-0.23); BASOPHILS PERCENT AUTO 1 % (0-2); EOSINOPHILS ABSOLUTE AUTO 0.25 K/mm3 (0.00-0.68); EOSINOPHILS PERCENT AUTO 4 % (0-6); Hematocrit 26.0 % (37.0-53.0); Hemoglobin 8.6 g/dL (13.5-17.5); IMMATURE GRAN ABSOLUTE AUTO 0.03 K/mm3 (0.00-0.10); IMMATURE GRAN PERCENT AUTO 1 % (0-1); LYMPHOCYTES ABSOLUTE AUTO 1.25 K/mm3 (0.84-5.20); LYMPHOCYTES PERCENT AUTO 19 % (21-46); MONOCYTES ABSOLUTE AUTO 0.58 K/mm3 (0.16-1.47); MONOCYTES PERCENT AUTO 9 % (4-13); Mean Corpuscular HGB Conc 33.1 g/dL (31.5-36.5); Mean Corpuscular Volume 81 fL (80-100); NEUTROPHILS ABSOLUTE AUTO 4.36 K/mm3 (1.96-9.15); NEUTROPHILS PERCENT AUTO 67 % (41-73); NRBC ABSOLUTE 0.00 K/mm3 (0.00-0.02); NRBC Auto 0.0 /100 WBC (0.0-0.2); Platelet Count 163 K/mm3 (150-400); RDW Coefficient Variation 16.2 % (11.7-14.2); RDW Standard Deviation 47.7 fL (35.1-46.3)
[2025-03-05 05:26] LABS: Anion Gap 10.0 mmol/L (3-11); Blood Urea Nitrogen 40.0 mg/dL (8-24); CO2, Blood 29.0 mmol/L (21-32); Calcium, Blood 9.6 mg/dL (8.5-10.1); Chloride, Blood 93.0 mmol/L (98-108); Creatinine, Blood 0.87 mg/dL (0.60-1.20); Glucose, Blood 91.0 mg/dL (70-99); Potassium, Blood 4.9 mmol/L (3.5-5.5); Sodium, Blood 127.0 mmol/L (136-145)
--- NOTE | 2025-03-05 18:38 | NUR ---
NO CHANGES, WOUND VAC TO LEG, MEDICATED FOR PAIN THROUGH OUT THE DAY, POSSIBLE DISCHARGE TOMORROW, CALL LIGHT WITH IN REACH
[2025-03-06] VITALS (8 sets, daily range): BP systolic 76–97; BP diastolic 47–70
--- NOTE | 2025-03-06 03:35 | NUR ---
SHIFT SUMMARY PATIENT HAS BEEN SLEEPING INTERMITTANTLY THROUGHOUT THE NIGHT. HE IS BEING MEDICATED WITH 2 NORCO EVERY 4 HOURS FOR PAIN CONTROL. PATIENT HAS BEEN ORIENTED X4. HE HAS HIS CALL LIGHT WITHIN REACH. SAFETY PRECAUTIONS ARE BEING MAINTAINED.
[2025-03-06 06:26] LABS: BASOPHILS ABSOLUTE AUTO 0.06 K/mm3 (0.00-0.23); BASOPHILS PERCENT AUTO 1 % (0-2); EOSINOPHILS ABSOLUTE AUTO 0.13 K/mm3 (0.00-0.68); EOSINOPHILS PERCENT AUTO 2 % (0-6); Hematocrit 23.8 % (37.0-53.0); Hemoglobin 7.9 g/dL (13.5-17.5); IMMATURE GRAN ABSOLUTE AUTO 0.04 K/mm3 (0.00-0.10); IMMATURE GRAN PERCENT AUTO 1 % (0-1); LYMPHOCYTES ABSOLUTE AUTO 1.35 K/mm3 (0.84-5.20); LYMPHOCYTES PERCENT AUTO 16 % (21-46); MONOCYTES ABSOLUTE AUTO 0.71 K/mm3 (0.16-1.47); MONOCYTES PERCENT AUTO 8 % (4-13); Mean Corpuscular HGB Conc 33.2 g/dL (31.5-36.5); Mean Corpuscular Volume 82 fL (80-100); NEUTROPHILS ABSOLUTE AUTO 6.30 K/mm3 (1.96-9.15); NEUTROPHILS PERCENT AUTO 73 % (41-73); NRBC ABSOLUTE 0.00 K/mm3 (0.00-0.02); NRBC Auto 0.0 /100 WBC (0.0-0.2); Platelet Count 174 K/mm3 (150-400); RDW Coefficient Variation 16.0 % (11.7-14.2); RDW Standard Deviation 46.5 fL (35.1-46.3)
[2025-03-06 06:43] LABS: Anion Gap 12.0 mmol/L (3-11); Blood Urea Nitrogen 63.0 mg/dL (8-24); CO2, Blood 25.0 mmol/L (21-32); Calcium, Blood 8.9 mg/dL (8.5-10.1); Chloride, Blood 92.0 mmol/L (98-108); Creatinine, Blood 1.42 mg/dL (0.60-1.20); Glucose, Blood 105.0 mg/dL (70-99); Potassium, Blood 5.0 mmol/L (3.5-5.5); Sodium, Blood 124.0 mmol/L (136-145)
[2025-03-06] MEDS ORDERED: NS 500 ML IV SCH ×3 (08:05→14:30)
--- NOTE | 2025-03-06 13:54 | NUR ---
THIS RN CALLED TO NOTIFY OF PT RETAINING 994 MLS OF URINE. PER PROVIDER, PLACE CASTREJON.
--- NOTE | 2025-03-06 13:59 | NUR ---
THIS RN CALLED TO NOTIFY OF PT'S LOW BP. PT ASYMPTOMATIC. NEW ORDER RECEIVED. EMAR UPDATED.
[2025-03-06 14:17] LABS: Source, Urine Clean Catch
[2025-03-06 15:30] LABS: Hematocrit 22.9 % (37.0-53.0); Hemoglobin 7.8 g/dL (13.5-17.5)
[2025-03-06 15:38] LABS: Bilirubin, Urine Neg (Neg); Color, Urine Yellow (P-Yellow); Glucose Qualitative, Urine Neg (Neg); Ketones, Urine Neg (Neg); Leukocyte Esterase, Urine Neg (Neg); Protein, Urine 1+ (Neg); Specific Gravity, Urine 1.010 (1.003-1.022); Urobilinogen, Urine 1+ (Normal)
[2025-03-06 15:56] LABS: White Blood Cells, Urine 0-2 /hpf (0-5)
[2025-03-06 16:09] LABS: Anion Gap 12.0 mmol/L (3-11); Blood Urea Nitrogen 65.0 mg/dL (8-24); CO2, Blood 26.0 mmol/L (21-32); Calcium, Blood 9.3 mg/dL (8.5-10.1); Chloride, Blood 91.0 mmol/L (98-108); Creatinine, Blood 1.3 mg/dL (0.60-1.20); Glucose, Blood 103.0 mg/dL (70-99); Potassium, Blood 4.8 mmol/L (3.5-5.5); Sodium, Blood 124.0 mmol/L (136-145)
--- NOTE | 2025-03-06 17:42 | NUR ---
SHIFT SUMMARY PT PLAN D/C TODAY, BUT BECAME HYPOTENSIVE AND WAS RETAINING URINE. PROVIDER WAS NOTIFIED, 2 500ML BONUS GIVEN, AND CASTREJON PLACED. SEE PREVIOUS NOTES. PT INITIALLY ASYMPTOMATIC BUT THEN C/O DIZZINESS WHILE WORKING W/ PHYSICAL THERAPY. BP MEDS AND DIURETIC HELD THIS AM. WOUND VAC REMAINS IN PLACE. BP CONT TO BE LOW, BUT SLIGHTLY IMPROVED. NO OTHER ACUTE CHANGES. CALL LIGHT WITHIN REACH AND PT ABLE TO MAKE NEEDS KNOWN.
[2025-03-06 18:34] LABS: Creatinine, Urine Random 46.9 mg/dL (27.00-270.00); Sodium, Urine, Random 28.0 mmol/L (20-110); Urea Nitrogen, Urine, Random 595.0 mg/dL (350-1000)
[2025-03-06] MEDS ORDERED: NS 250 ML IV ONE (21:15)
--- NOTE | 2025-03-06 21:42 | NUR ---
AFTER RECEIVING REPORT FROM MULTIPLE STAFF MEMBERS THAT THERE WAS A DOG IN PT'S BATHROOM WHO HAD LUNGED AT STAFF PREVIOUSLY, KNOCKED ON PT'S DOOR. PT'S DAUGHTER AT BEDSIDE WITH A SMALL, LONG HAIRED BLACK DOG WITH UPRIGHT EARS. DAUGHTER STATES THAT THE DOG IS PROTECTIVE OF PT. ASKED IF DOG HAD LUNGED AT ANY STAFF PREVIOUSLY, DAUGHTER AND PT CONFIRMED DOG HAD, BUT STATED IT WAS BECAUSE A NURSE WAS "RUNNING IN THE HALLWAY WITH A BED". PROVIDED THERAPEUTIC LISTENING. DAUGHTER STATED THAT THE DOG WAS LEFT IN THE BATHROOM BY SOMEONE ELSE WHILE SHE WAS DOWN IN PCU VISITING A FRIEND WHO SHE DOES NOT EXPECT TO SURVIVE. UPDATED PT AND HIS DAUGHTER THAT STAFF SAFETY MUST BE MAINTAINED, AND STATED THAT THE DOG COULD NOT BE BROUGHT INTO THE HOSPITAL AGAIN. DAUGHTER BECAME UPSET AND STATED THAT SHE COULD NOT RETURN BECAUSE THE DOG IS HER SERVICE DOG. DAUGHTER HAD VISITED LAST NIGHT WITHOUT DOG. DAUGHTER STATED THAT PT HAD ASKED HER TO BE AT BEDSIDE. DISCUSSED WITH PT WHO VERBALIZED AGREEMENT FOR DAUGHTER TO GO HOME AND TAKE CARE OF HERSELF SO THAT SHE COULD BE PRESENT FOR PT TOMORROW. RETITERATED THE IMPORTANCE OF A SAFE WORKING ENVIRONMENT AND THE NECESSITY OF STAFF BEING ABLE TO ENTER PT'S ROOM TO PROVIDE CARE. DURING THE CONVERSATION, PT'S BEDSIDE NURSE CAME INTO THE ROOM TO ADMINISTER PT'S MEDICATIONS. DOG BARKED AT RN. DAUGHTER PULLED DOG BACK AND ATTEMPTED TO STOP DOG FROM BARKING, DOG DID NOT FOLLOW DAUGHTER'S COMMANDS. DOG THEN LUNGED AT RN. STATED TO PT'S DAUGHTER THAT SHE HAD TO LEAVE AND TAKE THE DOG WITH HER, AND INSTRUCTED HER NOT TO BRING THE DOG BACK TO THE HOSPITAL. CALLED SECURITY AND UPDATED THEM THAT PT'S DAUGHTER MAY RETURN, BUT THE DOG IS NOT ALLOWED BACK IN THE HOSPITAL D/T SAFETY CONCERNS. DAUGHTER LEFT WITH THE DOG AT APPROX 2141.
[2025-03-07] VITALS (10 sets, daily range): BP systolic 77–99; BP diastolic 58–71
[2025-03-07 05:54] LABS: BASOPHILS ABSOLUTE AUTO 0.06 K/mm3 (0.00-0.23); BASOPHILS PERCENT AUTO 1 % (0-2); EOSINOPHILS ABSOLUTE AUTO 0.08 K/mm3 (0.00-0.68); EOSINOPHILS PERCENT AUTO 1 % (0-6); Hematocrit 23.0 % (37.0-53.0); Hemoglobin 7.7 g/dL (13.5-17.5); IMMATURE GRAN ABSOLUTE AUTO 0.05 K/mm3 (0.00-0.10); IMMATURE GRAN PERCENT AUTO 1 % (0-1); LYMPHOCYTES ABSOLUTE AUTO 1.13 K/mm3 (0.84-5.20); LYMPHOCYTES PERCENT AUTO 11 % (21-46); MONOCYTES ABSOLUTE AUTO 0.81 K/mm3 (0.16-1.47); MONOCYTES PERCENT AUTO 8 % (4-13); Mean Corpuscular HGB Conc 33.5 g/dL (31.5-36.5); Mean Corpuscular Volume 82 fL (80-100); NEUTROPHILS ABSOLUTE AUTO 7.98 K/mm3 (1.96-9.15); NEUTROPHILS PERCENT AUTO 79 % (41-73); NRBC ABSOLUTE 0.00 K/mm3 (0.00-0.02); NRBC Auto 0.0 /100 WBC (0.0-0.2); Platelet Count 179 K/mm3 (150-400); RDW Coefficient Variation 15.9 % (11.7-14.2); RDW Standard Deviation 45.6 fL (35.1-46.3)
[2025-03-07 06:14] LABS: Alanine Aminotransfer (ALT/SGP 22.0 U/L (12-78); Albumin, Blood 2.8 g/dL (3.4-5.0); Albumin/Globulin Ratio 0.7 (0.8-1.8); Anion Gap 10.0 mmol/L (3-11); Aspartate Aminotrans (AST/SGOT 22.0 U/L (12-37); Bilirubin, Total 1.2 mg/dL (0.1-1.0); Blood Urea Nitrogen 46.0 mg/dL (8-24); CO2, Blood 24.0 mmol/L (21-32); Calcium, Blood 9.3 mg/dL (8.5-10.1); Chloride, Blood 96.0 mmol/L (98-108); Creatinine, Blood 1.08 mg/dL (0.60-1.20); Globulin, Blood 4.3 g/dL (2.2-4.0); Glucose, Blood 105.0 mg/dL (70-99); Potassium, Blood 4.6 mmol/L (3.5-5.5); Sodium, Blood 125.0 mmol/L (136-145); Total Protein, Blood 7.1 g/dL (6.4-8.2)
--- NOTE | 2025-03-07 06:38 | NUR ---
SUMMARY AWAKE & ORIENTED. BP ON LOW SIDE DESPITE HAVING BOLUS IN AM. HELD AMIODARONE & ENTRESTO FOR NOW. DR BILLINGS AWARE AND ORDERED MIDODRINE + NS 250 BOLUS. BP IMPROVED SLIGHTLY TO NORMAL BUT AT BORDERLINE LEVEL. CN DISCOVERED THEY HAVE KEPT HIS DOG INSIDE BR SINCE YESTERDAY, RELATIVE ARRIVE AND ARGUED THAT THE DOG IS FOR THE PT'S THERAPY AND NEEDS TO STAY W/ HIM BUT INSIDE THE BR. WAS KNOWN THAT THE DOG MAY POTENTIALLY DO SOME HARM. THEN WE WITNESSED BARKING WHEN I ROLLED THE COMPUTER INSIDE THE RM THAT THE MANAGER RESPIRATORY COULDNT STOP IT WELL FROM BARKING, MIGHT HAVE USED THE COMPUTER'S WHEELS THAT THE DOG DISLIKE AN EXCUSE, ONLY BY THEN SHE AGREE TO GET IT OUT THROUGH [facility]. WOUND VAC DRESSING CHANGED. PT REFUSED DILAUDID DUE TO SICKNESS EFFECT BUT EVENTUALLY AGREED FOR IT DUE TO SEVERE INTOLERANCE TO THE PROCEDURAL PAIN.
--- NOTE | 2025-03-07 15:16 | NUR ---
THIS RN CALLED TO NOTIFY OF PT'S CONTINUED LOW BP AND CLARIFY GABAPENTIN FOR 1400. PER PROVIDER, HOLD 1400 GABAPENTIN DOSE.
--- NOTE | 2025-03-07 16:53 | NUR ---
Pt. is awake in bed and welcomed my visit. Pt. displayed evidence of looking ill, and verbalized that while his leg would is healing that he has been experiencing nausea. Listen with empathy michael a calming presence. Pt. displayed evidence of trust and being encouraged. Considered matters of faithful practice of radha. Prayed with Pt. Pt. verbalized gratitude for the spiritual care visit.
--- NOTE | 2025-03-07 17:51 | NUR ---
PT CONT TO BE HYPOTENSIVE AND HAVE POSITIVE ORTHOSTATIC VITALS. NEW MIDODRINE ORDER RECEIVED AND GIVEN W/ SLIGHT IMPROVEMENT. PT ASYMPTOMATIC AT THIS TIME, SEE PREVIOUS NOTES. WOUND VAC AND CASTREJON IN PLACE AND PATENT. POSSIBLE D/C TOMORROW. CALL LIGHT WITHIN REACH AND PT ABLE TO MAKE NEEDS KNOWN.
[2025-03-08] MEDS ORDERED: Metoclopramide HCl 5MG / ML 2ML Vial IV PRN (00:15)
[2025-03-08] MEDS ORDERED: FentaNYL Citrate 50 MCG/ML 2 ML Injection IV PRN (00:15)
[2025-03-08 02:57] VITALS: BP 99/68
[2025-03-08 04:56] LABS: BASOPHILS ABSOLUTE AUTO 0.06 K/mm3 (0.00-0.23); BASOPHILS PERCENT AUTO 1 % (0-2); EOSINOPHILS ABSOLUTE AUTO 0.13 K/mm3 (0.00-0.68); EOSINOPHILS PERCENT AUTO 2 % (0-6); Hematocrit 23.0 % (37.0-53.0); Hemoglobin 7.6 g/dL (13.5-17.5); IMMATURE GRAN ABSOLUTE AUTO 0.04 K/mm3 (0.00-0.10); IMMATURE GRAN PERCENT AUTO 1 % (0-1); LYMPHOCYTES ABSOLUTE AUTO 1.16 K/mm3 (0.84-5.20); LYMPHOCYTES PERCENT AUTO 16 % (21-46); MONOCYTES ABSOLUTE AUTO 0.52 K/mm3 (0.16-1.47); MONOCYTES PERCENT AUTO 7 % (4-13); Mean Corpuscular HGB Conc 33.0 g/dL (31.5-36.5); Mean Corpuscular Volume 82 fL (80-100); NEUTROPHILS ABSOLUTE AUTO 5.22 K/mm3 (1.96-9.15); NEUTROPHILS PERCENT AUTO 73 % (41-73); NRBC ABSOLUTE 0.00 K/mm3 (0.00-0.02); NRBC Auto 0.0 /100 WBC (0.0-0.2); Platelet Count 182 K/mm3 (150-400); RDW Coefficient Variation 15.9 % (11.7-14.2); RDW Standard Deviation 46.3 fL (35.1-46.3)
--- NOTE | 2025-03-08 05:14 | NUR ---
SHIFT SUMMARY NOC PT A/O X 4. PLEASANT AND COOPERATIVE WITH CARE. BP IMPROVED 99/71 AND 99/68. BEDTIME BP MEDICATION HELD DUE PARAMATERS. PT HAS WOUND VAC IN PLACE WITH SUCTION PER ORDERS ON LLE WITH SEROSANGUINOUS DRAINAGE. LLE PAIN BEING MANAGED PER EMAR. PT POSSIBLE DISCHARGE TODAY IF BP CONTINUES TO TREND IN CURRENT DIRECTION, AND GO BACK TO SNF. HGB 7.6 THIS AM. ON CONTACT ISOLATION FOR MRSA. PT CURRENTLY RESTING WITH BED IN LOWEST POSITION, AND CALL LIGHT WITHIN REACH.
[2025-03-08 05:25] LABS: Anion Gap 8.0 mmol/L (3-11); Blood Urea Nitrogen 42.0 mg/dL (8-24); CO2, Blood 24.0 mmol/L (21-32); Calcium, Blood 9.1 mg/dL (8.5-10.1); Chloride, Blood 99.0 mmol/L (98-108); Creatinine, Blood 0.83 mg/dL (0.60-1.20); Glucose, Blood 80.0 mg/dL (70-99); Potassium, Blood 4.5 mmol/L (3.5-5.5); Sodium, Blood 126.0 mmol/L (136-145)
[2025-03-08 07:08] VITALS: BP 90/69
[2025-03-08 07:16] LABS: Ferritin, Serum 288.0 ng/mL (26-388); Total Iron Binding Capacity 338.0 ug/dL (250-450)
--- NOTE | 2025-03-08 09:35 | NUR ---
UPON ATTEMPTING ORTHOSTATIC VITALS, PT C/O DIZZINESS. BP REMAINS LOW. DIZZINESS RESOLVED ONCE PT LYING IN BED. THIS RN CALLED TO NOTIFY. NEW ORDERS RECEIVED.
--- NOTE | 2025-03-08 10:11 | NUR ---
THIS RN GAVE REPORT TO STACIA DOVER. JAZZMINE TO ASSUME CARE OF PT.
[2025-03-08 13:21] VITALS: BP 76/54
[2025-03-08 13:26] VITALS: BP 94/64
[2025-03-08 16:24] VITALS: BP 100/67
--- NOTE | 2025-03-08 17:54 | NUR ---
P.t is awake and eating dinner. Daughter is at bedside. Pt. verbalized that he was improving and requested this bird cage assembler to visit a Pt. in [id number].
--- NOTE | 2025-03-08 18:29 | NUR ---
SHIFT SUMMARY: PT A&O X3-4. PLEASANT AND COOPERATIVE. RECEIVED REPORT FROM STACIA SANDERS AT APPROX 1000. AT THIS TIME, DRESSING WAS BEING PLACED ON COCCYX FOR PRESSURE ULCER. PT ADMITTED FOR LLE WOUND. WOUND VAC CHANGED THIS SHIFT. MEDICATED FOR PAIN BEFORE AND AFTER WOUND CHANGE. PRIOR RN SPOKE WITH PHYSICIAN REGARDING HYPOTENSION. MIDODRINE TID PROVIDED WITH AN AFTERNOON BLOOD PRESSURE OF 100/67. PLAN TO POTENTIALLY D/C BACK TO [facility] TOMORROW 03-09-2025. CALL LIGHT IN REACH. BED IN LOWEST POSITION.
[2025-03-08 19:30] VITALS: BP 112/77
[2025-03-09 04:00] VITALS: BP 97/74
[2025-03-09] MEDS ORDERED: Cosyntropin 0.25 MG / ML 1ML Vial IV ONE (05:55)
[2025-03-09 06:21] LABS: BASOPHILS ABSOLUTE AUTO 0.06 K/mm3 (0.00-0.23); BASOPHILS PERCENT AUTO 1 % (0-2); EOSINOPHILS ABSOLUTE AUTO 0.16 K/mm3 (0.00-0.68); EOSINOPHILS PERCENT AUTO 2 % (0-6); Hematocrit 23.3 % (37.0-53.0); Hemoglobin 7.7 g/dL (13.5-17.5); IMMATURE GRAN ABSOLUTE AUTO 0.03 K/mm3 (0.00-0.10); IMMATURE GRAN PERCENT AUTO 0 % (0-1); LYMPHOCYTES ABSOLUTE AUTO 1.25 K/mm3 (0.84-5.20); LYMPHOCYTES PERCENT AUTO 17 % (21-46); MONOCYTES ABSOLUTE AUTO 0.56 K/mm3 (0.16-1.47); MONOCYTES PERCENT AUTO 8 % (4-13); Mean Corpuscular HGB Conc 33.0 g/dL (31.5-36.5); Mean Corpuscular Volume 83 fL (80-100); NEUTROPHILS ABSOLUTE AUTO 5.43 K/mm3 (1.96-9.15); NEUTROPHILS PERCENT AUTO 73 % (41-73); NRBC ABSOLUTE 0.00 K/mm3 (0.00-0.02); NRBC Auto 0.0 /100 WBC (0.0-0.2); Platelet Count 190 K/mm3 (150-400); RDW Coefficient Variation 15.8 % (11.7-14.2); RDW Standard Deviation 46.4 fL (35.1-46.3)
[2025-03-09 06:43] LABS: Alanine Aminotransfer (ALT/SGP 20.0 U/L (12-78); Albumin, Blood 2.6 g/dL (3.4-5.0); Albumin/Globulin Ratio 0.6 (0.8-1.8); Anion Gap 10.0 mmol/L (3-11); Aspartate Aminotrans (AST/SGOT 17.0 U/L (12-37); Bilirubin, Total 0.7 mg/dL (0.1-1.0); Blood Urea Nitrogen 30.0 mg/dL (8-24); CO2, Blood 21.0 mmol/L (21-32); Calcium, Blood 8.8 mg/dL (8.5-10.1); Chloride, Blood 101.0 mmol/L (98-108); Creatinine, Blood 0.61 mg/dL (0.60-1.20); Globulin, Blood 4.2 g/dL (2.2-4.0); Glucose, Blood 82.0 mg/dL (70-99); Potassium, Blood 4.4 mmol/L (3.5-5.5); Sodium, Blood 128.0 mmol/L (136-145); Total Protein, Blood 6.8 g/dL (6.4-8.2)
[2025-03-09 07:32] VITALS: BP 107/75
--- NOTE | 2025-03-09 09:16 | NUR ---
0700-ASSUMED CARE OF PATIENT. PATIENT IS RESTING QUIETLY AT THIS TIME. DAUGHTER IN ROOM. PATIENT WITH WOUND VAC TO LEFT LOWER EXTREMITY. GOOD SEAL. MODERATE AMOUNT OF DRAINAGE TO DRAIN CONTAINER. CALL LIGHT WITHIN REACH. ENCOURAGED TO CALL WITH ANY NEEDS.
[2025-03-09] MEDS ORDERED: MIDO5 PO (12:13)
--- NOTE | 2025-03-09 15:54 | NUR ---
DISCHARGE ORDERS RECEIVED. REVIEWED WITH PATIENT AND REPORT CALLED TO [facility]. WOUND VAC TO LLE REMOVED. WET TO DRY DRESSING APPLIED PER MD ORDER. PATIENT TOLERATED WELL. WOUND OPEN, RED, HEALING TISSUE NOTED. PATIENT DISCHARGE VIA MEDICAL TRANSPORT.
--- NOTE | 2025-03-09 15:58 | NUR ---
PATIENT DISCHARGED HOME WITH CASTREJON CATHETER IN PLACE PER MED ORDER. PATIENT EDUCATED ON HOW TO PERFORM OWN CATHETER CARE. QUESTIONS ASKED AND ANSWERED. PATIENT VERBALIZES UNDERSTANDING OF CATHETER CARE
== END 2025-03-09 16:01 | DRG 982 ==
LOC: ER 19:06 → MEDS 19:07 → ENPENDDIS 03-07 15:12 → MEDS 03-09 16:01
PROVIDERS: Emergency Medicine; Internal Medicine; ADMIT Student in an Organized Health Care Education/Training Program
PROC: 0Y3J0ZZ Control Bleeding in Left Lower Leg, Open Approach (ICD-10-PCS; principal; 2025-03-02)
PROC: 5A09357 Assistance with Respiratory Ventilation, Less than 24 Consecutive Hours, Continuous Positive Airway Pressure (ICD-10-PCS; 2025-03-03)
PROC: 0T9B70Z Drainage of Bladder with Drainage Device, Via Natural or Artificial Opening (ICD-10-PCS; 2025-03-06)
DX: D62 Acute posthemorrhagic anemia (principal); E87.1 Hypo-osmolality and hyponatremia; N17.9 Acute kidney failure, unspecified; L03.116 Cellulitis of left lower limb; L02.416 Cutaneous abscess of left lower limb; I50.22 Chronic systolic (congestive) heart failure; L76.21 Postprocedural hemorrhage of skin and subcutaneous tissue following a dermatologic procedure; I48.20 Chronic atrial fibrillation, unspecified; I95.1 Orthostatic hypotension; G47.33 Obstructive sleep apnea (adult) (pediatric); I25.10 Atherosclerotic heart disease of native coronary artery without angina pectoris; J44.9 Chronic obstructive pulmonary disease, unspecified; F19.11 Other psychoactive substance abuse, in remission; Y83.8 Other surgical procedures as the cause of abnormal reaction of the patient, or of later complication, without mention of misadventure at the time of the procedure; E11.40 Type 2 diabetes mellitus with diabetic neuropathy, unspecified; K74.60 Unspecified cirrhosis of liver; F17.200 Nicotine dependence, unspecified, uncomplicated; I11.0 Hypertensive heart disease with heart failure; E78.5 Hyperlipidemia, unspecified; L89.152 Pressure ulcer of sacral region, stage 2; N40.1 Benign prostatic hyperplasia with lower urinary tract symptoms; R33.8 Other retention of urine; Z86.73 Personal history of transient ischemic attack (TIA), and cerebral infarction without residual deficits; Z79.4 Long term (current) use of insulin; Z79.82 Long term (current) use of aspirin; Z86.19 Personal history of other infectious and parasitic diseases; Z88.8 Allergy status to other drugs, medicaments and biological substances; Z88.1 Allergy status to other antibiotic agents; Z79.01 Long term (current) use of anticoagulants; Z79.891 Long term (current) use of opiate analgesic; Z79.51 Long term (current) use of inhaled steroids; Z95.5 Presence of coronary angioplasty implant and graft; I25.2 Old myocardial infarction; Z86.14 Personal history of Methicillin resistant Staphylococcus aureus infection; Z86.718 Personal history of other venous thrombosis and embolism
CPT/HCPCS: 12001; 36415; 80048; 80053; 80400; 81001; 82533; 82570; 82728; 82947; 83540; 83550; 83735; 84300; 84540; 85014; 85018; 85025; 86850; 86900; 86901; 94640; 94660; 94664; 94762; 96361; 96374; 96376; 97110; 97112; 97161; 97530; 99285-25; A9270; G0378; J0834; J1171; J1815; J2765; J3010; J7030; J7040; J7050

== ENCOUNTER 2025-03-10 23:30 | Inpatient (IN) | payer OTHER ==
[~2025-03-10] VITALS: Ht 167.6 cm; Wt 83.3 kg
[~2025-03-10 23:30] MED LIST changes: +MIDO5 PO
[2025-03-10 23:58] LABS: BASOPHILS ABSOLUTE AUTO 0.04 K/mm3 (0.00-0.23); BASOPHILS PERCENT AUTO 1 % (0-2); EOSINOPHILS ABSOLUTE AUTO 0.10 K/mm3 (0.00-0.68); EOSINOPHILS PERCENT AUTO 1 % (0-6); Hematocrit 21.6 % (37.0-53.0); Hemoglobin 7.3 g/dL (13.5-17.5); IMMATURE GRAN ABSOLUTE AUTO 0.03 K/mm3 (0.00-0.10); IMMATURE GRAN PERCENT AUTO 0 % (0-1); LYMPHOCYTES ABSOLUTE AUTO 1.20 K/mm3 (0.84-5.20); LYMPHOCYTES PERCENT AUTO 14 % (21-46); MONOCYTES ABSOLUTE AUTO 0.52 K/mm3 (0.16-1.47); MONOCYTES PERCENT AUTO 6 % (4-13); Mean Corpuscular HGB Conc 33.8 g/dL (31.5-36.5); Mean Corpuscular Volume 82 fL (80-100); NEUTROPHILS ABSOLUTE AUTO 6.45 K/mm3 (1.96-9.15); NEUTROPHILS PERCENT AUTO 77 % (41-73); NRBC ABSOLUTE 0.00 K/mm3 (0.00-0.02); NRBC Auto 0.0 /100 WBC (0.0-0.2); Platelet Count 216 K/mm3 (150-400); RDW Coefficient Variation 15.8 % (11.7-14.2); RDW Standard Deviation 45.1 fL (35.1-46.3)
[2025-03-11] VITALS (12 sets, daily range): BP systolic 92–110; BP diastolic 54–81
[2025-03-11 00:17] LABS: Alanine Aminotransfer (ALT/SGP 21.0 U/L (12-78); Albumin, Blood 2.7 g/dL (3.4-5.0); Albumin/Globulin Ratio 0.6 (0.8-1.8); Anion Gap 11.0 mmol/L (3-11); Aspartate Aminotrans (AST/SGOT 18.0 U/L (12-37); Bilirubin, Total 0.5 mg/dL (0.1-1.0); Blood Urea Nitrogen 24.0 mg/dL (8-24); CO2, Blood 21.0 mmol/L (21-32); Calcium, Blood 9.0 mg/dL (8.5-10.1); Chloride, Blood 101.0 mmol/L (98-108); Creatinine, Blood 0.56 mg/dL (0.60-1.20); Globulin, Blood 4.6 g/dL (2.2-4.0); Glucose, Blood 120.0 mg/dL (70-99); Potassium, Blood 4.8 mmol/L (3.5-5.5); Sodium, Blood 128.0 mmol/L (136-145); Total Protein, Blood 7.3 g/dL (6.4-8.2)
[2025-03-11] MEDS ORDERED: FentaNYL Citrate 50 MCG/ML 2 ML Injection IV PRN (00:30)
[2025-03-11] MEDS ORDERED: NS 1,000 ML IV SCH (00:35)
[2025-03-11 00:53] LABS: C-Reactive Protein, High Sens. 24.9 mg/L (0.000-3.000)
[2025-03-11] MEDS ORDERED: Ondansetron HCl 2 MG / ML 2ML Vial IV PRN (02:30)
[2025-03-11] MEDS ORDERED: Piperacillin/Tazobactam Sod 4.5 GM in NS 100 ML IV ONE (02:30)
[2025-03-11] MEDS ORDERED: NS 500 ML IV ONE (04:05)
[2025-03-11] MEDS ORDERED: NS 500 ML IV SCH ×2 (04:20→12:05)
[2025-03-11] MEDS ORDERED: Insulin Human Lispro 100 Units/ML 3ML Syringe SC SCH ×2 (06:00→21:00)
[2025-03-11 06:26] LABS: BASOPHILS ABSOLUTE AUTO 0.06 K/mm3 (0.00-0.23); BASOPHILS PERCENT AUTO 1 % (0-2); EOSINOPHILS ABSOLUTE AUTO 0.13 K/mm3 (0.00-0.68); EOSINOPHILS PERCENT AUTO 2 % (0-6); Hematocrit 19.8 % (37.0-53.0); Hemoglobin 6.6 g/dL (13.5-17.5); IMMATURE GRAN ABSOLUTE AUTO 0.03 K/mm3 (0.00-0.10); IMMATURE GRAN PERCENT AUTO 1 % (0-1); LYMPHOCYTES ABSOLUTE AUTO 1.17 K/mm3 (0.84-5.20); LYMPHOCYTES PERCENT AUTO 18 % (21-46); MONOCYTES ABSOLUTE AUTO 0.43 K/mm3 (0.16-1.47); MONOCYTES PERCENT AUTO 7 % (4-13); Mean Corpuscular HGB Conc 33.3 g/dL (31.5-36.5); Mean Corpuscular Volume 83 fL (80-100); NEUTROPHILS ABSOLUTE AUTO 4.67 K/mm3 (1.96-9.15); NEUTROPHILS PERCENT AUTO 72 % (41-73); NRBC ABSOLUTE 0.00 K/mm3 (0.00-0.02); NRBC Auto 0.0 /100 WBC (0.0-0.2); Platelet Count 182 K/mm3 (150-400); RDW Coefficient Variation 15.9 % (11.7-14.2); RDW Standard Deviation 46.6 fL (35.1-46.3)
[2025-03-11 06:51] LABS: Anion Gap 8.0 mmol/L (3-11); Blood Urea Nitrogen 21.0 mg/dL (8-24); CO2, Blood 21.0 mmol/L (21-32); Calcium, Blood 8.5 mg/dL (8.5-10.1); Chloride, Blood 104.0 mmol/L (98-108); Creatinine, Blood 0.62 mg/dL (0.60-1.20); Glucose, Blood 80.0 mg/dL (70-99); Potassium, Blood 4.4 mmol/L (3.5-5.5); Sodium, Blood 129.0 mmol/L (136-145)
[2025-03-11] MEDS ORDERED: ASPI81CH PO (10:23)
[2025-03-11] MEDS ORDERED: DULERA 100 MCG/13 GM INH (10:24)
[2025-03-11] MEDS ORDERED: BISA10S PR (10:24)
[2025-03-11 11:45] LABS: Ferritin, Serum 228.0 ng/mL (26-388); Total Iron Binding Capacity 358.0 ug/dL (250-450)
[2025-03-11] MEDS ORDERED: Ondansetron HCl 2 MG / ML 2ML Vial IV ONE (14:00)
[2025-03-11] MEDS ORDERED: HYDROcodone 5-APAP 325 TAB PO PRN (14:05)
[2025-03-11] MEDS ORDERED: Albuterol HFA200 ACT/6.7 GM INH INH PRN (14:20)
[2025-03-11] MEDS ORDERED: Formoterol/Mometasone MDI 5/100 mcg 13 GM INH SCH (14:20)
[2025-03-11 14:27] LABS: Stool Occult Blood Guaiac 1 Neg (Neg)
[2025-03-11 17:26] LABS: Hematocrit 22.3 % (37.0-53.0); Hemoglobin 7.4 g/dL (13.5-17.5)
[2025-03-11 17:53] LABS: Thyroid Stimulating Hormone 4.27 uIU/mL (0.360-4.800)
[2025-03-11] MEDS ORDERED: Lactobacil 2-S.Thermo-Bifido 1 1 Cap PO SCH (21:00)
[2025-03-12] VITALS (7 sets, daily range): BP systolic 81–114; BP diastolic 57–95
[2025-03-12 05:01] LABS: BASOPHILS ABSOLUTE AUTO 0.07 K/mm3 (0.00-0.23); BASOPHILS PERCENT AUTO 1 % (0-2); EOSINOPHILS ABSOLUTE AUTO 0.14 K/mm3 (0.00-0.68); EOSINOPHILS PERCENT AUTO 2 % (0-6); Hematocrit 23.2 % (37.0-53.0); Hemoglobin 7.6 g/dL (13.5-17.5); IMMATURE GRAN ABSOLUTE AUTO 0.04 K/mm3 (0.00-0.10); IMMATURE GRAN PERCENT AUTO 1 % (0-1); LYMPHOCYTES ABSOLUTE AUTO 1.33 K/mm3 (0.84-5.20); LYMPHOCYTES PERCENT AUTO 20 % (21-46); MONOCYTES ABSOLUTE AUTO 0.44 K/mm3 (0.16-1.47); MONOCYTES PERCENT AUTO 7 % (4-13); Mean Corpuscular HGB Conc 32.8 g/dL (31.5-36.5); Mean Corpuscular Volume 86 fL (80-100); NEUTROPHILS ABSOLUTE AUTO 4.60 K/mm3 (1.96-9.15); NEUTROPHILS PERCENT AUTO 70 % (41-73); NRBC ABSOLUTE 0.00 K/mm3 (0.00-0.02); NRBC Auto 0.0 /100 WBC (0.0-0.2); Platelet Count 176 K/mm3 (150-400); RDW Coefficient Variation 15.9 % (11.7-14.2); RDW Standard Deviation 47.3 fL (35.1-46.3)
[2025-03-12 05:29] LABS: Anion Gap 9.0 mmol/L (3-11); Blood Urea Nitrogen 15.0 mg/dL (8-24); CO2, Blood 22.0 mmol/L (21-32); Calcium, Blood 8.7 mg/dL (8.5-10.1); Chloride, Blood 102.0 mmol/L (98-108); Creatinine, Blood 0.61 mg/dL (0.60-1.20); Glucose, Blood 88.0 mg/dL (70-99); Potassium, Blood 4.1 mmol/L (3.5-5.5); Sodium, Blood 129.0 mmol/L (136-145)
[2025-03-12] MEDS ORDERED: Multivitamins 1 Tab PO SCH (09:00)
[2025-03-12] MEDS ORDERED: HYDROmorphone HCl/Pf 1MG SYR IV ONE (15:00)
[2025-03-13] VITALS (9 sets, daily range): BP systolic 85–104; BP diastolic 55–73
[2025-03-13 04:37] LABS: BASOPHILS ABSOLUTE AUTO 0.08 K/mm3 (0.00-0.23); BASOPHILS PERCENT AUTO 1 % (0-2); EOSINOPHILS ABSOLUTE AUTO 0.11 K/mm3 (0.00-0.68); EOSINOPHILS PERCENT AUTO 1 % (0-6); Hematocrit 24.5 % (37.0-53.0); Hemoglobin 8.2 g/dL (13.5-17.5); IMMATURE GRAN ABSOLUTE AUTO 0.03 K/mm3 (0.00-0.10); IMMATURE GRAN PERCENT AUTO 0 % (0-1); LYMPHOCYTES ABSOLUTE AUTO 1.44 K/mm3 (0.84-5.20); LYMPHOCYTES PERCENT AUTO 16 % (21-46); MONOCYTES ABSOLUTE AUTO 0.72 K/mm3 (0.16-1.47); MONOCYTES PERCENT AUTO 8 % (4-13); Mean Corpuscular HGB Conc 33.5 g/dL (31.5-36.5); Mean Corpuscular Volume 83 fL (80-100); NEUTROPHILS ABSOLUTE AUTO 6.38 K/mm3 (1.96-9.15); NEUTROPHILS PERCENT AUTO 73 % (41-73); NRBC ABSOLUTE 0.00 K/mm3 (0.00-0.02); NRBC Auto 0.0 /100 WBC (0.0-0.2); Platelet Count 187 K/mm3 (150-400); RDW Coefficient Variation 15.7 % (11.7-14.2); RDW Standard Deviation 46.0 fL (35.1-46.3)
[2025-03-13 05:01] LABS: Anion Gap 10.0 mmol/L (3-11); Blood Urea Nitrogen 13.0 mg/dL (8-24); CO2, Blood 24.0 mmol/L (21-32); Calcium, Blood 8.6 mg/dL (8.5-10.1); Chloride, Blood 100.0 mmol/L (98-108); Creatinine, Blood 0.56 mg/dL (0.60-1.20); Glucose, Blood 93.0 mg/dL (70-99); Potassium, Blood 4.7 mmol/L (3.5-5.5); Sodium, Blood 129.0 mmol/L (136-145)
[2025-03-13] MEDS ORDERED: HYDROcodone 5-APAP 325 TAB PO PRN (07:25)
[2025-03-13] MEDS ORDERED: ZINC OXIDE/PETROLATUM, YELLOW 1 APPLIC/71 GM PASTE TOP PRN (14:30)
[2025-03-14 02:39] VITALS: BP 93/73
[2025-03-14 06:04] LABS: BASOPHILS ABSOLUTE AUTO 0.09 K/mm3 (0.00-0.23); BASOPHILS PERCENT AUTO 1 % (0-2); EOSINOPHILS ABSOLUTE AUTO 0.13 K/mm3 (0.00-0.68); EOSINOPHILS PERCENT AUTO 2 % (0-6); Hematocrit 24.2 % (37.0-53.0); Hemoglobin 7.9 g/dL (13.5-17.5); IMMATURE GRAN ABSOLUTE AUTO 0.02 K/mm3 (0.00-0.10); IMMATURE GRAN PERCENT AUTO 0 % (0-1); LYMPHOCYTES ABSOLUTE AUTO 1.27 K/mm3 (0.84-5.20); LYMPHOCYTES PERCENT AUTO 19 % (21-46); MONOCYTES ABSOLUTE AUTO 0.53 K/mm3 (0.16-1.47); MONOCYTES PERCENT AUTO 8 % (4-13); Mean Corpuscular HGB Conc 32.6 g/dL (31.5-36.5); Mean Corpuscular Volume 84 fL (80-100); NEUTROPHILS ABSOLUTE AUTO 4.50 K/mm3 (1.96-9.15); NEUTROPHILS PERCENT AUTO 69 % (41-73); NRBC ABSOLUTE 0.00 K/mm3 (0.00-0.02); NRBC Auto 0.0 /100 WBC (0.0-0.2); Platelet Count 198 K/mm3 (150-400); RDW Coefficient Variation 15.9 % (11.7-14.2); RDW Standard Deviation 47.4 fL (35.1-46.3)
[2025-03-14 06:32] LABS: Alanine Aminotransfer (ALT/SGP 21.0 U/L (12-78); Albumin, Blood 2.7 g/dL (3.4-5.0); Albumin/Globulin Ratio 0.7 (0.8-1.8); Anion Gap 10.0 mmol/L (3-11); Aspartate Aminotrans (AST/SGOT 14.0 U/L (12-37); Bilirubin, Total 0.6 mg/dL (0.1-1.0); Blood Urea Nitrogen 14.0 mg/dL (8-24); CO2, Blood 24.0 mmol/L (21-32); Calcium, Blood 8.8 mg/dL (8.5-10.1); Chloride, Blood 100.0 mmol/L (98-108); Creatinine, Blood 0.61 mg/dL (0.60-1.20); Globulin, Blood 4.0 g/dL (2.2-4.0); Glucose, Blood 99.0 mg/dL (70-99); Potassium, Blood 4.5 mmol/L (3.5-5.5); Sodium, Blood 129.0 mmol/L (136-145); Total Protein, Blood 6.7 g/dL (6.4-8.2)
[2025-03-14 07:19] VITALS: BP 94/68
[2025-03-14 13:28] VITALS: BP 97/68
[2025-03-14 14:48] LABS: Hematocrit 23.6 % (37.0-53.0); Hemoglobin 7.7 g/dL (13.5-17.5)
[2025-03-14 15:02] VITALS: BP 87/61
[2025-03-14 18:21] VITALS: BP 104/68
[2025-03-14 19:47] VITALS: BP 93/63
[2025-03-15 05:13] VITALS: BP 94/62
[2025-03-15 05:39] LABS: BASOPHILS ABSOLUTE AUTO 0.08 K/mm3 (0.00-0.23); BASOPHILS PERCENT AUTO 1 % (0-2); EOSINOPHILS ABSOLUTE AUTO 0.10 K/mm3 (0.00-0.68); EOSINOPHILS PERCENT AUTO 1 % (0-6); Hematocrit 23.7 % (37.0-53.0); Hemoglobin 7.7 g/dL (13.5-17.5); IMMATURE GRAN ABSOLUTE AUTO 0.03 K/mm3 (0.00-0.10); IMMATURE GRAN PERCENT AUTO 0 % (0-1); LYMPHOCYTES ABSOLUTE AUTO 1.26 K/mm3 (0.84-5.20); LYMPHOCYTES PERCENT AUTO 15 % (21-46); MONOCYTES ABSOLUTE AUTO 0.74 K/mm3 (0.16-1.47); MONOCYTES PERCENT AUTO 9 % (4-13); Mean Corpuscular HGB Conc 32.5 g/dL (31.5-36.5); Mean Corpuscular Volume 85 fL (80-100); NEUTROPHILS ABSOLUTE AUTO 6.39 K/mm3 (1.96-9.15); NEUTROPHILS PERCENT AUTO 74 % (41-73); NRBC ABSOLUTE 0.00 K/mm3 (0.00-0.02); NRBC Auto 0.0 /100 WBC (0.0-0.2); Platelet Count 178 K/mm3 (150-400); RDW Coefficient Variation 15.9 % (11.7-14.2); RDW Standard Deviation 46.7 fL (35.1-46.3)
[2025-03-15 06:07] LABS: Anion Gap 7.0 mmol/L (3-11); Blood Urea Nitrogen 14.0 mg/dL (8-24); CO2, Blood 25.0 mmol/L (21-32); Calcium, Blood 9.0 mg/dL (8.5-10.1); Chloride, Blood 101.0 mmol/L (98-108); Creatinine, Blood 0.69 mg/dL (0.60-1.20); Glucose, Blood 105.0 mg/dL (70-99); Potassium, Blood 4.3 mmol/L (3.5-5.5); Sodium, Blood 129.0 mmol/L (136-145)
[2025-03-15 07:11] VITALS: BP 92/65
[2025-03-15 13:06] VITALS: BP 95/69
[2025-03-15 15:08] VITALS: BP 103/72
[2025-03-15 18:35] VITALS: BP 98/67
[2025-03-15 20:14] VITALS: BP 92/64
[2025-03-16 02:39] VITALS: BP 78/53
[2025-03-16 02:46] VITALS: BP 96/67
[2025-03-16 06:10] LABS: BASOPHILS ABSOLUTE AUTO 0.07 K/mm3 (0.00-0.23); BASOPHILS PERCENT AUTO 1 % (0-2); EOSINOPHILS ABSOLUTE AUTO 0.13 K/mm3 (0.00-0.68); EOSINOPHILS PERCENT AUTO 1 % (0-6); Hematocrit 21.4 % (37.0-53.0); Hemoglobin 7.1 g/dL (13.5-17.5); IMMATURE GRAN ABSOLUTE AUTO 0.05 K/mm3 (0.00-0.10); IMMATURE GRAN PERCENT AUTO 0 % (0-1); LYMPHOCYTES ABSOLUTE AUTO 1.10 K/mm3 (0.84-5.20); LYMPHOCYTES PERCENT AUTO 10 % (21-46); MONOCYTES ABSOLUTE AUTO 0.69 K/mm3 (0.16-1.47); MONOCYTES PERCENT AUTO 6 % (4-13); Mean Corpuscular HGB Conc 33.2 g/dL (31.5-36.5); Mean Corpuscular Volume 84 fL (80-100); NEUTROPHILS ABSOLUTE AUTO 9.31 K/mm3 (1.96-9.15); NEUTROPHILS PERCENT AUTO 82 % (41-73); NRBC ABSOLUTE 0.00 K/mm3 (0.00-0.02); NRBC Auto 0.0 /100 WBC (0.0-0.2); Platelet Count 174 K/mm3 (150-400); RDW Coefficient Variation 15.9 % (11.7-14.2); RDW Standard Deviation 47.8 fL (35.1-46.3)
[2025-03-16 06:28] LABS: Anion Gap 11.0 mmol/L (3-11); Blood Urea Nitrogen 12.0 mg/dL (8-24); CO2, Blood 21.0 mmol/L (21-32); Calcium, Blood 8.8 mg/dL (8.5-10.1); Chloride, Blood 102.0 mmol/L (98-108); Creatinine, Blood 0.59 mg/dL (0.60-1.20); Glucose, Blood 102.0 mg/dL (70-99); Potassium, Blood 4.4 mmol/L (3.5-5.5); Sodium, Blood 130.0 mmol/L (136-145)
[2025-03-16 07:58] VITALS: BP 94/67
[2025-03-16 13:31] VITALS: BP 94/75
[2025-03-16 16:43] VITALS: BP 106/71
[2025-03-16 17:33] LABS: BASOPHILS ABSOLUTE AUTO 0.05 K/mm3 (0.00-0.23); BASOPHILS PERCENT AUTO 1 % (0-2); EOSINOPHILS ABSOLUTE AUTO 0.09 K/mm3 (0.00-0.68); EOSINOPHILS PERCENT AUTO 1 % (0-6); Hematocrit 22.3 % (37.0-53.0); Hemoglobin 7.3 g/dL (13.5-17.5); IMMATURE GRAN ABSOLUTE AUTO 0.05 K/mm3 (0.00-0.10); IMMATURE GRAN PERCENT AUTO 1 % (0-1); LYMPHOCYTES ABSOLUTE AUTO 1.38 K/mm3 (0.84-5.20); LYMPHOCYTES PERCENT AUTO 13 % (21-46); MONOCYTES ABSOLUTE AUTO 0.61 K/mm3 (0.16-1.47); MONOCYTES PERCENT AUTO 6 % (4-13); Mean Corpuscular HGB Conc 32.7 g/dL (31.5-36.5); Mean Corpuscular Volume 85 fL (80-100); NEUTROPHILS ABSOLUTE AUTO 8.62 K/mm3 (1.96-9.15); NEUTROPHILS PERCENT AUTO 80 % (41-73); NRBC ABSOLUTE 0.00 K/mm3 (0.00-0.02); NRBC Auto 0.0 /100 WBC (0.0-0.2); Platelet Count 163 K/mm3 (150-400); RDW Coefficient Variation 15.9 % (11.7-14.2); RDW Standard Deviation 46.8 fL (35.1-46.3)
[2025-03-16 19:37] VITALS: BP 97/64
[2025-03-17] VITALS (7 sets, daily range): BP systolic 70–96; BP diastolic 41–65
[2025-03-17 05:29] LABS: BASOPHILS ABSOLUTE AUTO 0.06 K/mm3 (0.00-0.23); BASOPHILS PERCENT AUTO 1 % (0-2); EOSINOPHILS ABSOLUTE AUTO 0.13 K/mm3 (0.00-0.68); EOSINOPHILS PERCENT AUTO 2 % (0-6); Hematocrit 22.5 % (37.0-53.0); Hemoglobin 7.3 g/dL (13.5-17.5); IMMATURE GRAN ABSOLUTE AUTO 0.03 K/mm3 (0.00-0.10); IMMATURE GRAN PERCENT AUTO 0 % (0-1); LYMPHOCYTES ABSOLUTE AUTO 1.28 K/mm3 (0.84-5.20); LYMPHOCYTES PERCENT AUTO 16 % (21-46); MONOCYTES ABSOLUTE AUTO 0.51 K/mm3 (0.16-1.47); MONOCYTES PERCENT AUTO 6 % (4-13); Mean Corpuscular HGB Conc 32.4 g/dL (31.5-36.5); Mean Corpuscular Volume 85 fL (80-100); NEUTROPHILS ABSOLUTE AUTO 6.15 K/mm3 (1.96-9.15); NEUTROPHILS PERCENT AUTO 75 % (41-73); NRBC ABSOLUTE 0.00 K/mm3 (0.00-0.02); NRBC Auto 0.0 /100 WBC (0.0-0.2); Platelet Count 166 K/mm3 (150-400); RDW Coefficient Variation 15.9 % (11.7-14.2); RDW Standard Deviation 47.4 fL (35.1-46.3)
[2025-03-17 05:57] LABS: Anion Gap 8.0 mmol/L (3-11); Blood Urea Nitrogen 9.0 mg/dL (8-24); CO2, Blood 24.0 mmol/L (21-32); Calcium, Blood 8.9 mg/dL (8.5-10.1); Chloride, Blood 101.0 mmol/L (98-108); Creatinine, Blood 0.59 mg/dL (0.60-1.20); Glucose, Blood 95.0 mg/dL (70-99); Potassium, Blood 4.2 mmol/L (3.5-5.5); Sodium, Blood 129.0 mmol/L (136-145)
[2025-03-17] MEDS ORDERED: HYDROmorphone HCl/Pf 1MG SYR IV ONE (14:25)
[2025-03-18] VITALS (7 sets, daily range): BP systolic 89–105; BP diastolic 60–70
[2025-03-18 05:37] LABS: BASOPHILS ABSOLUTE AUTO 0.06 K/mm3 (0.00-0.23); BASOPHILS PERCENT AUTO 1 % (0-2); EOSINOPHILS ABSOLUTE AUTO 0.14 K/mm3 (0.00-0.68); EOSINOPHILS PERCENT AUTO 2 % (0-6); Hematocrit 21.6 % (37.0-53.0); Hemoglobin 7.0 g/dL (13.5-17.5); IMMATURE GRAN ABSOLUTE AUTO 0.03 K/mm3 (0.00-0.10); IMMATURE GRAN PERCENT AUTO 1 % (0-1); LYMPHOCYTES ABSOLUTE AUTO 1.38 K/mm3 (0.84-5.20); LYMPHOCYTES PERCENT AUTO 21 % (21-46); MONOCYTES ABSOLUTE AUTO 0.56 K/mm3 (0.16-1.47); MONOCYTES PERCENT AUTO 8 % (4-13); Mean Corpuscular HGB Conc 32.4 g/dL (31.5-36.5); Mean Corpuscular Volume 84 fL (80-100); NEUTROPHILS ABSOLUTE AUTO 4.47 K/mm3 (1.96-9.15); NEUTROPHILS PERCENT AUTO 67 % (41-73); NRBC ABSOLUTE 0.00 K/mm3 (0.00-0.02); NRBC Auto 0.0 /100 WBC (0.0-0.2); Platelet Count 175 K/mm3 (150-400); RDW Coefficient Variation 16.2 % (11.7-14.2); RDW Standard Deviation 47.8 fL (35.1-46.3)
[2025-03-18 06:01] LABS: Alanine Aminotransfer (ALT/SGP 19.0 U/L (12-78); Albumin, Blood 2.6 g/dL (3.4-5.0); Albumin/Globulin Ratio 0.6 (0.8-1.8); Anion Gap 9.0 mmol/L (3-11); Aspartate Aminotrans (AST/SGOT 15.0 U/L (12-37); Bilirubin, Total 0.5 mg/dL (0.1-1.0); Blood Urea Nitrogen 11.0 mg/dL (8-24); CO2, Blood 24.0 mmol/L (21-32); Calcium, Blood 8.5 mg/dL (8.5-10.1); Chloride, Blood 102.0 mmol/L (98-108); Creatinine, Blood 0.64 mg/dL (0.60-1.20); Globulin, Blood 4.0 g/dL (2.2-4.0); Glucose, Blood 95.0 mg/dL (70-99); Potassium, Blood 4.3 mmol/L (3.5-5.5); Sodium, Blood 131.0 mmol/L (136-145); Total Protein, Blood 6.6 g/dL (6.4-8.2)
[2025-03-18] MEDS ORDERED: NS 1,000 ML BAG IR SCH (10:35)
[2025-03-18] MEDS ORDERED: NS 500 ML IV SCH (10:40)
[2025-03-19 04:14] VITALS: BP 92/59
[2025-03-19 05:04] LABS: BASOPHILS ABSOLUTE AUTO 0.06 K/mm3 (0.00-0.23); BASOPHILS PERCENT AUTO 1 % (0-2); EOSINOPHILS ABSOLUTE AUTO 0.14 K/mm3 (0.00-0.68); EOSINOPHILS PERCENT AUTO 2 % (0-6); Hematocrit 24.9 % (37.0-53.0); Hemoglobin 8.3 g/dL (13.5-17.5); IMMATURE GRAN ABSOLUTE AUTO 0.02 K/mm3 (0.00-0.10); IMMATURE GRAN PERCENT AUTO 0 % (0-1); LYMPHOCYTES ABSOLUTE AUTO 1.23 K/mm3 (0.84-5.20); LYMPHOCYTES PERCENT AUTO 20 % (21-46); MONOCYTES ABSOLUTE AUTO 0.46 K/mm3 (0.16-1.47); MONOCYTES PERCENT AUTO 8 % (4-13); Mean Corpuscular HGB Conc 33.3 g/dL (31.5-36.5); Mean Corpuscular Volume 84 fL (80-100); NEUTROPHILS ABSOLUTE AUTO 4.14 K/mm3 (1.96-9.15); NEUTROPHILS PERCENT AUTO 69 % (41-73); NRBC ABSOLUTE 0.00 K/mm3 (0.00-0.02); NRBC Auto 0.0 /100 WBC (0.0-0.2); Platelet Count 159 K/mm3 (150-400); RDW Coefficient Variation 16.3 % (11.7-14.2); RDW Standard Deviation 46.5 fL (35.1-46.3)
[2025-03-19 05:21] LABS: Anion Gap 12.0 mmol/L (3-11); Blood Urea Nitrogen 10.0 mg/dL (8-24); CO2, Blood 23.0 mmol/L (21-32); Calcium, Blood 8.6 mg/dL (8.5-10.1); Chloride, Blood 99.0 mmol/L (98-108); Creatinine, Blood 0.62 mg/dL (0.60-1.20); Glucose, Blood 87.0 mg/dL (70-99); Potassium, Blood 4.6 mmol/L (3.5-5.5); Sodium, Blood 129.0 mmol/L (136-145)
[2025-03-19 07:39] VITALS: BP 93/64
[2025-03-19] MEDS ORDERED: HYDROmorphone HCl/Pf 1MG SYR IV ONE (13:00)
[2025-03-19 13:19] VITALS: BP 99/60
[2025-03-19] MEDS ORDERED: HYDROmorphone HCl/Pf 1MG SYR ONE (15:04)
[2025-03-19 15:07] VITALS: BP 105/72
[2025-03-19 19:37] VITALS: BP 93/67
[2025-03-20 05:18] VITALS: BP 94/73
[2025-03-20 05:57] LABS: BASOPHILS ABSOLUTE AUTO 0.06 K/mm3 (0.00-0.23); BASOPHILS PERCENT AUTO 1 % (0-2); EOSINOPHILS ABSOLUTE AUTO 0.12 K/mm3 (0.00-0.68); EOSINOPHILS PERCENT AUTO 2 % (0-6); Hematocrit 24.1 % (37.0-53.0); Hemoglobin 8.0 g/dL (13.5-17.5); IMMATURE GRAN ABSOLUTE AUTO 0.02 K/mm3 (0.00-0.10); IMMATURE GRAN PERCENT AUTO 0 % (0-1); LYMPHOCYTES ABSOLUTE AUTO 1.28 K/mm3 (0.84-5.20); LYMPHOCYTES PERCENT AUTO 20 % (21-46); MONOCYTES ABSOLUTE AUTO 0.45 K/mm3 (0.16-1.47); MONOCYTES PERCENT AUTO 7 % (4-13); Mean Corpuscular HGB Conc 33.2 g/dL (31.5-36.5); Mean Corpuscular Volume 85 fL (80-100); NEUTROPHILS ABSOLUTE AUTO 4.35 K/mm3 (1.96-9.15); NEUTROPHILS PERCENT AUTO 69 % (41-73); NRBC ABSOLUTE 0.00 K/mm3 (0.00-0.02); NRBC Auto 0.0 /100 WBC (0.0-0.2); Platelet Count 172 K/mm3 (150-400); RDW Coefficient Variation 16.8 % (11.7-14.2); RDW Standard Deviation 47.4 fL (35.1-46.3)
[2025-03-20 06:17] LABS: Anion Gap 11.0 mmol/L (3-11); Blood Urea Nitrogen 12.0 mg/dL (8-24); CO2, Blood 23.0 mmol/L (21-32); Calcium, Blood 8.5 mg/dL (8.5-10.1); Chloride, Blood 100.0 mmol/L (98-108); Creatinine, Blood 0.6 mg/dL (0.60-1.20); Glucose, Blood 86.0 mg/dL (70-99); Potassium, Blood 4.6 mmol/L (3.5-5.5); Sodium, Blood 129.0 mmol/L (136-145)
[2025-03-20 07:38] VITALS: BP 98/68
== END 2025-03-20 15:30 | DRG 570 ==
LOC: ER 23:30 → MEDS 03-11 02:26 → PCU 03-11 02:26 → MEDS 03-13 20:23
PROVIDERS: Emergency Medicine; Family Medicine; Internal Medicine; Student in an Organized Health Care Education/Training Program; ADMIT Internal Medicine
PROC: 3E03329 Introduction of Other Anti-infective into Peripheral Vein, Percutaneous Approach (ICD-10-PCS; 2025-03-11)
PROC: 0JBP0ZZ Excision of Left Lower Leg Subcutaneous Tissue and Fascia, Open Approach (ICD-10-PCS; principal; 2025-03-12)
PROC: 0T9B70Z Drainage of Bladder with Drainage Device, Via Natural or Artificial Opening (ICD-10-PCS; 2025-03-12)
PROC: 30233N1 Transfusion of Nonautologous Red Blood Cells into Peripheral Vein, Percutaneous Approach (ICD-10-PCS; 2025-03-18)
DX: L03.116 Cellulitis of left lower limb (principal); G92.8 Other toxic encephalopathy; E87.1 Hypo-osmolality and hyponatremia; G45.9 Transient cerebral ischemic attack, unspecified; I50.22 Chronic systolic (congestive) heart failure; N17.9 Acute kidney failure, unspecified; R07.89 Other chest pain; M10.9 Gout, unspecified; I25.10 Atherosclerotic heart disease of native coronary artery without angina pectoris; I25.2 Old myocardial infarction; E11.42 Type 2 diabetes mellitus with diabetic polyneuropathy; E78.5 Hyperlipidemia, unspecified; I11.0 Hypertensive heart disease with heart failure; J44.9 Chronic obstructive pulmonary disease, unspecified; I48.91 Unspecified atrial fibrillation; F17.210 Nicotine dependence, cigarettes, uncomplicated; E86.0 Dehydration; G47.33 Obstructive sleep apnea (adult) (pediatric); D64.9 Anemia, unspecified; R33.9 Retention of urine, unspecified; I48.0 Paroxysmal atrial fibrillation; Z86.73 Personal history of transient ischemic attack (TIA), and cerebral infarction without residual deficits; Z87.442 Personal history of urinary calculi; Z86.718 Personal history of other venous thrombosis and embolism; Z86.19 Personal history of other infectious and parasitic diseases; Z98.890 Other specified postprocedural states; Z88.1 Allergy status to other antibiotic agents; Z88.5 Allergy status to narcotic agent; Z88.8 Allergy status to other drugs, medicaments and biological substances; Z79.01 Long term (current) use of anticoagulants; Z79.82 Long term (current) use of aspirin; Z79.4 Long term (current) use of insulin; Z79.899 Other long term (current) drug therapy
CPT/HCPCS: 36415; 36430; 51702; 70450; 71046; 73701; 80048; 80053; 82140; 82272; 82607; 82728; 82746; 82947; 83540; 83550; 83605; 84439; 84443; 84481; 84484; 85014; 85018; 85025; 86141; 86850; 86900; 86901; 86923; 87040; 93005; 93010; 94640; 94664; 94762; 96361; 96374; 97110; 97116; 97161; 97165; 97530; 97535; 99285-25; A9270; J1171; J2405; J2543; J3010; J7030; J7040; P9016; Q9967

== ENCOUNTER 2025-04-07 23:58 | Emergency (ER) | payer OTHER ==
[~2025-04-07] VITALS: Ht 167.6 cm; Wt 89.4 kg
[~2025-04-07 23:58] MED LIST changes: +BISA10S PR
[2025-04-08 00:35] LABS: BASOPHILS ABSOLUTE AUTO 0.09 K/mm3 (0.00-0.23); BASOPHILS PERCENT AUTO 1 % (0-2); EOSINOPHILS ABSOLUTE AUTO 0.26 K/mm3 (0.00-0.68); EOSINOPHILS PERCENT AUTO 3 % (0-6); Hematocrit 30.2 % (37.0-53.0); Hemoglobin 9.6 g/dL (13.5-17.5); IMMATURE GRAN ABSOLUTE AUTO 0.10 K/mm3 (0.00-0.10); IMMATURE GRAN PERCENT AUTO 1 % (0-1); LYMPHOCYTES ABSOLUTE AUTO 1.53 K/mm3 (0.84-5.20); LYMPHOCYTES PERCENT AUTO 17 % (21-46); MONOCYTES ABSOLUTE AUTO 0.79 K/mm3 (0.16-1.47); MONOCYTES PERCENT AUTO 9 % (4-13); Mean Corpuscular HGB Conc 31.8 g/dL (31.5-36.5); Mean Corpuscular Volume 84 fL (80-100); NEUTROPHILS ABSOLUTE AUTO 6.03 K/mm3 (1.96-9.15); NEUTROPHILS PERCENT AUTO 69 % (41-73); NRBC ABSOLUTE 0.00 K/mm3 (0.00-0.02); NRBC Auto 0.0 /100 WBC (0.0-0.2); Platelet Count 373 K/mm3 (150-400); RDW Coefficient Variation 17.2 % (11.7-14.2); RDW Standard Deviation 50.8 fL (35.1-46.3)
[2025-04-08 00:57] LABS: Alanine Aminotransfer (ALT/SGP 21.0 U/L (12-78); Albumin, Blood 2.8 g/dL (3.4-5.0); Albumin/Globulin Ratio 0.7 (0.8-1.8); Anion Gap 10.0 mmol/L (3-11); Aspartate Aminotrans (AST/SGOT 16.0 U/L (12-37); Bilirubin, Total 0.6 mg/dL (0.1-1.0); Blood Urea Nitrogen 12.0 mg/dL (8-24); CO2, Blood 21.0 mmol/L (21-32); Calcium, Blood 8.6 mg/dL (8.5-10.1); Chloride, Blood 109.0 mmol/L (98-108); Creatinine, Blood 0.58 mg/dL (0.60-1.20); Globulin, Blood 4.3 g/dL (2.2-4.0); Glucose, Blood 127.0 mg/dL (70-99); Potassium, Blood 3.8 mmol/L (3.5-5.5); Sodium, Blood 136.0 mmol/L (136-145); Total Protein, Blood 7.1 g/dL (6.4-8.2)
[2025-04-08] MEDS ORDERED: Ondansetron HCl 2 MG / ML 2ML Vial IV ONE (01:10)
[2025-04-08] MEDS ORDERED: Ketorolac Tromethamine 15mg Vial IV ONE (03:25)
[2025-04-08] MEDS ORDERED: Cleocin HCl150 MG PO (03:37)
[2025-04-08 12:14] VITALS: BP 110/67
[2025-04-08] MEDS ORDERED: Ondansetron 4 MG SoluTab SL ONE (13:00)
== END 2025-04-08 13:29 | disposition home or self-care (01) ==
LOC: ER 23:58
PROVIDERS: Emergency Medicine
DX: L03.116 Cellulitis of left lower limb (principal); E11.9 Type 2 diabetes mellitus without complications; I11.0 Hypertensive heart disease with heart failure; I50.9 Heart failure, unspecified; I48.91 Unspecified atrial fibrillation; Z79.82 Long term (current) use of aspirin; E78.5 Hyperlipidemia, unspecified; Z87.442 Personal history of urinary calculi; F17.210 Nicotine dependence, cigarettes, uncomplicated; Z59.89 Other problems related to housing and economic circumstances; Z88.8 Allergy status to other drugs, medicaments and biological substances; Z79.2 Long term (current) use of antibiotics; Z79.84 Long term (current) use of oral hypoglycemic drugs; Z79.4 Long term (current) use of insulin
CPT/HCPCS: 80053; 85025; 96374; 96375; 99283; A9270; J1885; J2405

== ENCOUNTER 2025-04-14 18:14 | Emergency (ER) | payer OTHER ==
[~2025-04-14] VITALS: Ht 167.6 cm; Wt 88.9 kg
[2025-04-14 18:55] VITALS: BP 110/74
[2025-04-14 20:06] LABS: BASOPHILS ABSOLUTE AUTO 0.12 K/mm3 (0.00-0.23); BASOPHILS PERCENT AUTO 1 % (0-2); EOSINOPHILS ABSOLUTE AUTO 0.12 K/mm3 (0.00-0.68); EOSINOPHILS PERCENT AUTO 1 % (0-6); Hematocrit 38.0 % (37.0-53.0); Hemoglobin 12.0 g/dL (13.5-17.5); IMMATURE GRAN ABSOLUTE AUTO 0.08 K/mm3 (0.00-0.10); IMMATURE GRAN PERCENT AUTO 1 % (0-1); LYMPHOCYTES ABSOLUTE AUTO 2.87 K/mm3 (0.84-5.20); LYMPHOCYTES PERCENT AUTO 23 % (21-46); MONOCYTES ABSOLUTE AUTO 0.70 K/mm3 (0.16-1.47); MONOCYTES PERCENT AUTO 6 % (4-13); Mean Corpuscular HGB Conc 31.6 g/dL (31.5-36.5); Mean Corpuscular Volume 85 fL (80-100); NEUTROPHILS ABSOLUTE AUTO 8.81 K/mm3 (1.96-9.15); NEUTROPHILS PERCENT AUTO 70 % (41-73); NRBC ABSOLUTE 0.00 K/mm3 (0.00-0.02); NRBC Auto 0.0 /100 WBC (0.0-0.2); Platelet Count 400 K/mm3 (150-400); RDW Coefficient Variation 17.1 % (11.7-14.2); RDW Standard Deviation 52.0 fL (35.1-46.3)
[2025-04-14 20:19] LABS: Alanine Aminotransfer (ALT/SGP 32.0 U/L (12-78); Albumin, Blood 3.5 g/dL (3.4-5.0); Albumin/Globulin Ratio 0.7 (0.8-1.8); Anion Gap 10.0 mmol/L (3-11); Aspartate Aminotrans (AST/SGOT 29.0 U/L (12-37); Bilirubin, Total 0.8 mg/dL (0.1-1.0); Blood Urea Nitrogen 21.0 mg/dL (8-24); CO2, Blood 24.0 mmol/L (21-32); Calcium, Blood 9.9 mg/dL (8.5-10.1); Chloride, Blood 101.0 mmol/L (98-108); Creatinine, Blood 0.83 mg/dL (0.60-1.20); Globulin, Blood 5.1 g/dL (2.2-4.0); Glucose, Blood 139.0 mg/dL (70-99); Potassium, Blood 3.9 mmol/L (3.5-5.5); Sodium, Blood 131.0 mmol/L (136-145); Total Protein, Blood 8.6 g/dL (6.4-8.2)
== END 2025-04-14 23:50 | disposition home or self-care (01) ==
LOC: ER 18:14
PROVIDERS: Student in an Organized Health Care Education/Training Program
DX: S81.802A Unspecified open wound, left lower leg, initial encounter (principal); I11.0 Hypertensive heart disease with heart failure; I50.9 Heart failure, unspecified; Z86.73 Personal history of transient ischemic attack (TIA), and cerebral infarction without residual deficits; J44.9 Chronic obstructive pulmonary disease, unspecified; E78.5 Hyperlipidemia, unspecified; I48.91 Unspecified atrial fibrillation; F17.210 Nicotine dependence, cigarettes, uncomplicated; X58.XXXA Exposure to other specified factors, initial encounter; Z79.82 Long term (current) use of aspirin; Z79.899 Other long term (current) drug therapy; Z88.1 Allergy status to other antibiotic agents; Z88.5 Allergy status to narcotic agent; Z88.8 Allergy status to other drugs, medicaments and biological substances
CPT/HCPCS: 80053; 83605; 85025; 99282; A9270

== ENCOUNTER 2025-04-26 11:37 | Emergency (ER) | payer OTHER ==
[~2025-04-26] VITALS: Ht 167.6 cm; Wt 89.4 kg
[2025-04-26 12:46] VITALS: BP 113/86
== END 2025-04-26 16:02 | disposition left against medical advice (07) ==
LOC: ER 11:37
DX: L03.116 Cellulitis of left lower limb (principal); Z53.29 Procedure and treatment not carried out because of patient's decision for other reasons
CPT/HCPCS: 99281

== ENCOUNTER 2025-04-26 19:53 | Emergency (ER) | payer OTHER ==
[~2025-04-26] VITALS: Ht 167.6 cm; Wt 89.4 kg
[2025-04-26 21:14] LABS: BASOPHILS ABSOLUTE AUTO 0.18 K/mm3 (0.00-0.23); BASOPHILS PERCENT AUTO 2 % (0-2); EOSINOPHILS ABSOLUTE AUTO 0.26 K/mm3 (0.00-0.68); EOSINOPHILS PERCENT AUTO 3 % (0-6); Hematocrit 38.2 % (37.0-53.0); Hemoglobin 12.3 g/dL (13.5-17.5); IMMATURE GRAN ABSOLUTE AUTO 0.07 K/mm3 (0.00-0.10); IMMATURE GRAN PERCENT AUTO 1 % (0-1); LYMPHOCYTES ABSOLUTE AUTO 2.62 K/mm3 (0.84-5.20); LYMPHOCYTES PERCENT AUTO 25 % (21-46); MONOCYTES ABSOLUTE AUTO 0.82 K/mm3 (0.16-1.47); MONOCYTES PERCENT AUTO 8 % (4-13); Mean Corpuscular HGB Conc 32.2 g/dL (31.5-36.5); Mean Corpuscular Volume 85 fL (80-100); NEUTROPHILS ABSOLUTE AUTO 6.52 K/mm3 (1.96-9.15); NEUTROPHILS PERCENT AUTO 62 % (41-73); NRBC ABSOLUTE 0.00 K/mm3 (0.00-0.02); NRBC Auto 0.0 /100 WBC (0.0-0.2); Platelet Count 324 K/mm3 (150-400); RDW Coefficient Variation 16.7 % (11.7-14.2); RDW Standard Deviation 51.6 fL (35.1-46.3)
[2025-04-26 21:42] LABS: Alanine Aminotransfer (ALT/SGP 35.0 U/L (12-78); Albumin, Blood 3.3 g/dL (3.4-5.0); Albumin/Globulin Ratio 0.7 (0.8-1.8); Anion Gap 12.0 mmol/L (3-11); Aspartate Aminotrans (AST/SGOT 23.0 U/L (12-37); Bilirubin, Total 0.4 mg/dL (0.1-1.0); Blood Urea Nitrogen 20.0 mg/dL (8-24); CO2, Blood 22.0 mmol/L (21-32); Calcium, Blood 9.3 mg/dL (8.5-10.1); Chloride, Blood 106.0 mmol/L (98-108); Creatinine, Blood 1.01 mg/dL (0.60-1.20); Globulin, Blood 4.6 g/dL (2.2-4.0); Glucose, Blood 104.0 mg/dL (70-99); Potassium, Blood 3.5 mmol/L (3.5-5.5); Sodium, Blood 136.0 mmol/L (136-145); Total Protein, Blood 7.9 g/dL (6.4-8.2)
[2025-04-27] MEDS ORDERED: Ketorolac Tromethamine 15mg Vial IV ONE (03:05)
[2025-04-27] MEDS ORDERED: Ondansetron 4 MG SoluTab SL ONE (03:10)
[2025-04-27 03:17] VITALS: BP 141/98
[2025-05-02] MEDS ORDERED: IBUP600 PO (11:29)
== END 2025-04-27 03:33 | disposition home or self-care (01) ==
LOC: ER 19:53
PROVIDERS: Physician Assistant
DX: Z48.00 Encounter for change or removal of nonsurgical wound dressing (principal); I25.10 Atherosclerotic heart disease of native coronary artery without angina pectoris; I25.2 Old myocardial infarction; E78.5 Hyperlipidemia, unspecified; E11.40 Type 2 diabetes mellitus with diabetic neuropathy, unspecified; I11.0 Hypertensive heart disease with heart failure; I50.9 Heart failure, unspecified; J44.9 Chronic obstructive pulmonary disease, unspecified; I48.91 Unspecified atrial fibrillation; F17.210 Nicotine dependence, cigarettes, uncomplicated; L03.116 Cellulitis of left lower limb; Z53.29 Procedure and treatment not carried out because of patient's decision for other reasons; Z88.1 Allergy status to other antibiotic agents; Z88.5 Allergy status to narcotic agent; Z88.8 Allergy status to other drugs, medicaments and biological substances; Z79.4 Long term (current) use of insulin; Z79.01 Long term (current) use of anticoagulants; Z79.51 Long term (current) use of inhaled steroids; Z79.82 Long term (current) use of aspirin; Z79.899 Other long term (current) drug therapy
CPT/HCPCS: 73590; 80053; 83605; 83690; 84484; 85025; 93005; 93010; 96374; 99281; 99284-25; A9270; J1885

== ENCOUNTER 2025-05-20 16:23 | Emergency (ER) | payer OTHER ==
[~2025-05-20] VITALS: Ht 167.6 cm; Wt 84.8 kg
[~2025-05-20 16:23] MED LIST changes: +IBUP600 PO
[2025-05-20] MEDS ORDERED: OxyCODONE 5 mg/Acetamin 325 mg TABLET PO ONE (17:10)
[2025-05-20 17:15] LABS: BASOPHILS ABSOLUTE AUTO 0.11 K/mm3 (0.00-0.23); BASOPHILS PERCENT AUTO 1 % (0-2); EOSINOPHILS ABSOLUTE AUTO 0.14 K/mm3 (0.00-0.68); EOSINOPHILS PERCENT AUTO 1 % (0-6); Hematocrit 35.7 % (37.0-53.0); Hemoglobin 11.5 g/dL (13.5-17.5); IMMATURE GRAN ABSOLUTE AUTO 0.07 K/mm3 (0.00-0.10); IMMATURE GRAN PERCENT AUTO 1 % (0-1); LYMPHOCYTES ABSOLUTE AUTO 1.24 K/mm3 (0.84-5.20); LYMPHOCYTES PERCENT AUTO 11 % (21-46); MONOCYTES ABSOLUTE AUTO 0.93 K/mm3 (0.16-1.47); MONOCYTES PERCENT AUTO 8 % (4-13); Mean Corpuscular HGB Conc 32.2 g/dL (31.5-36.5); Mean Corpuscular Volume 84 fL (80-100); NEUTROPHILS ABSOLUTE AUTO 8.85 K/mm3 (1.96-9.15); NEUTROPHILS PERCENT AUTO 78 % (41-73); NRBC ABSOLUTE 0.00 K/mm3 (0.00-0.02); NRBC Auto 0.0 /100 WBC (0.0-0.2); Platelet Count 301 K/mm3 (150-400); RDW Coefficient Variation 14.6 % (11.7-14.2); RDW Standard Deviation 44.8 fL (35.1-46.3)
[2025-05-20 17:32] LABS: Alanine Aminotransfer (ALT/SGP 27.0 U/L (12-78); Albumin, Blood 3.2 g/dL (3.4-5.0); Albumin/Globulin Ratio 0.7 (0.8-1.8); Anion Gap 9.0 mmol/L (3-11); Aspartate Aminotrans (AST/SGOT 23.0 U/L (12-37); Bilirubin, Total 0.8 mg/dL (0.1-1.0); Blood Urea Nitrogen 41.0 mg/dL (8-24); CO2, Blood 24.0 mmol/L (21-32); Calcium, Blood 9.4 mg/dL (8.5-10.1); Chloride, Blood 105.0 mmol/L (98-108); Creatinine, Blood 1.3 mg/dL (0.60-1.20); Globulin, Blood 4.4 g/dL (2.2-4.0); Glucose, Blood 115.0 mg/dL (70-99); Potassium, Blood 3.6 mmol/L (3.5-5.5); Sodium, Blood 134.0 mmol/L (136-145); Total Protein, Blood 7.6 g/dL (6.4-8.2)
[2025-05-20] MEDS ORDERED: NS 1,000 ML IV SCH ×2 (18:50→22:25)
[2025-05-20 23:38] LABS: Source, Urine Clean Catch
[2025-05-20 23:41] LABS: Bilirubin, Urine Neg (Neg); Glucose Qualitative, Urine Neg (Neg); Ketones, Urine Neg (Neg); Leukocyte Esterase, Urine 1+ (Neg); Protein, Urine 2+ (Neg); Specific Gravity, Urine 1.020 (1.003-1.022); Urobilinogen, Urine NORM (Normal)
[2025-05-20 23:55] LABS: Color, Urine Pale Yellow (P-Yellow)
[2025-05-20 23:56] LABS: Red Blood Cells, Urine 0-2 /hpf (0-2)
[2025-05-21] MEDS ORDERED: Nitrofurantoin/Nitrofuran Mac 100 MG Cap PO ONE (01:30)
[2025-05-21] MEDS ORDERED: NITR100CA PO (01:38)
[2025-05-21] MEDS ORDERED: CLIN300 PO (01:38)
[2025-05-21 02:31] VITALS: BP 127/70
== END 2025-05-21 02:33 | disposition home or self-care (01) ==
LOC: ER 16:23
PROVIDERS: Emergency Medicine
DX: N17.9 Acute kidney failure, unspecified (principal); D64.9 Anemia, unspecified; F17.210 Nicotine dependence, cigarettes, uncomplicated; I13.0 Hypertensive heart and chronic kidney disease with heart failure and stage 1 through stage 4 chronic kidney disease, or unspecified chronic kidney disease; I50.9 Heart failure, unspecified; N18.9 Chronic kidney disease, unspecified; J44.89 Other specified chronic obstructive pulmonary disease; E11.22 Type 2 diabetes mellitus with diabetic chronic kidney disease; E78.00 Pure hypercholesterolemia, unspecified; Z91.199 Patient's noncompliance with other medical treatment and regimen due to unspecified reason; Z79.4 Long term (current) use of insulin; Z79.899 Other long term (current) drug therapy; Z79.82 Long term (current) use of aspirin; Z88.1 Allergy status to other antibiotic agents; Z88.5 Allergy status to narcotic agent; Z88.8 Allergy status to other drugs, medicaments and biological substances
CPT/HCPCS: 80053; 80320; 81001; 82565; 83605; 85025; 96360; 96361; 99283-25; A9270; J7030

== ENCOUNTER 2025-06-06 06:37 | Emergency (ER) | payer OTHER ==
[~2025-06-06] VITALS: Ht 167.6 cm; Wt 86.3 kg
[~2025-06-06 06:37] MED LIST changes: +CLIN300 PO; +NITR100CA PO
[2025-06-06] MEDS ORDERED: Ketorolac Tromethamine 30mg Vial IV ONE (07:05)
[2025-06-06 08:11] LABS: BASOPHILS ABSOLUTE AUTO 0.08 K/mm3 (0.00-0.23); BASOPHILS PERCENT AUTO 1 % (0-2); EOSINOPHILS ABSOLUTE AUTO 0.23 K/mm3 (0.00-0.68); EOSINOPHILS PERCENT AUTO 4 % (0-6); Hematocrit 36.7 % (37.0-53.0); Hemoglobin 11.7 g/dL (13.5-17.5); IMMATURE GRAN ABSOLUTE AUTO 0.03 K/mm3 (0.00-0.10); IMMATURE GRAN PERCENT AUTO 1 % (0-1); LYMPHOCYTES ABSOLUTE AUTO 1.62 K/mm3 (0.84-5.20); LYMPHOCYTES PERCENT AUTO 28 % (21-46); MONOCYTES ABSOLUTE AUTO 0.51 K/mm3 (0.16-1.47); MONOCYTES PERCENT AUTO 9 % (4-13); Mean Corpuscular HGB Conc 31.9 g/dL (31.5-36.5); Mean Corpuscular Volume 81 fL (80-100); NEUTROPHILS ABSOLUTE AUTO 3.23 K/mm3 (1.96-9.15); NEUTROPHILS PERCENT AUTO 57 % (41-73); NRBC ABSOLUTE 0.00 K/mm3 (0.00-0.02); NRBC Auto 0.0 /100 WBC (0.0-0.2); Platelet Count 270 K/mm3 (150-400); RDW Coefficient Variation 14.2 % (11.7-14.2); RDW Standard Deviation 41.2 fL (35.1-46.3)
[2025-06-06 08:31] LABS: Alanine Aminotransfer (ALT/SGP 28.0 U/L (12-78); Albumin, Blood 3.4 g/dL (3.4-5.0); Albumin/Globulin Ratio 0.9 (0.8-1.8); Anion Gap 9.0 mmol/L (3-11); Aspartate Aminotrans (AST/SGOT 27.0 U/L (12-37); Bilirubin, Total 0.8 mg/dL (0.1-1.0); Blood Urea Nitrogen 29.0 mg/dL (8-24); CO2, Blood 24.0 mmol/L (21-32); Calcium, Blood 9.3 mg/dL (8.5-10.1); Chloride, Blood 107.0 mmol/L (98-108); Creatinine, Blood 0.78 mg/dL (0.60-1.20); Globulin, Blood 3.8 g/dL (2.2-4.0); Glucose, Blood 111.0 mg/dL (70-99); Potassium, Blood 3.8 mmol/L (3.5-5.5); Sodium, Blood 136.0 mmol/L (136-145); Total Protein, Blood 7.2 g/dL (6.4-8.2)
[2025-06-06 10:00] VITALS: BP 126/82
[2025-06-06 11:33] LABS: U Amphetamine Screen DETECTED; U Barbiturate Screen Not Detected; U Benzodiazapine Screen Not Detected; U Buprenorphine Screen Not Detected; U Cannabinoids Screen DETECTED; U Cocaine Screen Not Detected; U Methadone Screen Not Detected; U Methamphetamine Screen DETECTED; U Opiates Screen Not Detected; U Oxycodone Screen Not Detected; U Phencyclidine Screen Not Detected
== END 2025-06-06 13:00 | disposition home or self-care (01) ==
LOC: ER 06:37
PROVIDERS: Emergency Medicine
DX: L03.116 Cellulitis of left lower limb (principal); T36.8X6A Underdosing of other systemic antibiotics, initial encounter; E11.9 Type 2 diabetes mellitus without complications; I25.10 Atherosclerotic heart disease of native coronary artery without angina pectoris; I25.2 Old myocardial infarction; E78.5 Hyperlipidemia, unspecified; I11.0 Hypertensive heart disease with heart failure; I50.9 Heart failure, unspecified; J44.9 Chronic obstructive pulmonary disease, unspecified; I48.91 Unspecified atrial fibrillation; F17.210 Nicotine dependence, cigarettes, uncomplicated; Z91.148 Patient's other noncompliance with medication regimen for other reason; Z88.8 Allergy status to other drugs, medicaments and biological substances; Z88.1 Allergy status to other antibiotic agents; Z88.5 Allergy status to narcotic agent; Z79.4 Long term (current) use of insulin; Z79.01 Long term (current) use of anticoagulants; Z79.51 Long term (current) use of inhaled steroids; Z79.82 Long term (current) use of aspirin; Z79.899 Other long term (current) drug therapy
CPT/HCPCS: 80053; 85025; 96374; 99283-25; A9270; J1885

== ENCOUNTER 2025-06-15 02:39 | Day surgery (SDC) | payer OTHER ==
[2025-06-15] MEDS ORDERED: Lidocaine HCl 4% Cream 5 GM ONE (12:13)
== END 2025-06-15 23:00 | disposition home or self-care (01) ==
LOC: WOUND 02:39
DX: E11.622 Type 2 diabetes mellitus with other skin ulcer (principal); L97.822 Non-pressure chronic ulcer of other part of left lower leg with fat layer exposed; L03.116 Cellulitis of left lower limb; E11.621 Type 2 diabetes mellitus with foot ulcer; L97.511 Non-pressure chronic ulcer of other part of right foot limited to breakdown of skin; I87.2 Venous insufficiency (chronic) (peripheral); E11.51 Type 2 diabetes mellitus with diabetic peripheral angiopathy without gangrene; J44.9 Chronic obstructive pulmonary disease, unspecified; I25.10 Atherosclerotic heart disease of native coronary artery without angina pectoris; I11.0 Hypertensive heart disease with heart failure; I50.9 Heart failure, unspecified; I25.2 Old myocardial infarction; E78.5 Hyperlipidemia, unspecified; F17.200 Nicotine dependence, unspecified, uncomplicated; Z95.5 Presence of coronary angioplasty implant and graft; Z88.1 Allergy status to other antibiotic agents; Z88.8 Allergy status to other drugs, medicaments and biological substances; Z86.73 Personal history of transient ischemic attack (TIA), and cerebral infarction without residual deficits
CPT/HCPCS: A9270; G0463

== ENCOUNTER 2025-06-29 00:43 | Day surgery (SDC) | payer OTHER ==
[2025-06-29] MEDS ORDERED: Lidocaine HCl 4% Cream 5 GM ONE (13:04)
== END 2025-06-29 23:00 | disposition home or self-care (01) ==
LOC: WOUND 00:43
DX: E11.622 Type 2 diabetes mellitus with other skin ulcer (principal); L97.822 Non-pressure chronic ulcer of other part of left lower leg with fat layer exposed; L89.899 Pressure ulcer of other site, unspecified stage; I87.2 Venous insufficiency (chronic) (peripheral); E11.51 Type 2 diabetes mellitus with diabetic peripheral angiopathy without gangrene; Z88.1 Allergy status to other antibiotic agents; Z88.5 Allergy status to narcotic agent; Z88.8 Allergy status to other drugs, medicaments and biological substances
CPT/HCPCS: A9270

== ENCOUNTER → 2025-07-04 | Outpatient (CLI) | payer OTHER ==
[2025-07-04 14:24] LABS: BASOPHILS ABSOLUTE AUTO 0.05 K/mm3 (0.00-0.23); BASOPHILS PERCENT AUTO 1 % (0-2); EOSINOPHILS ABSOLUTE AUTO 0.21 K/mm3 (0.00-0.68); EOSINOPHILS PERCENT AUTO 3 % (0-6); Hematocrit 43.3 % (37.0-53.0); Hemoglobin 13.8 g/dL (13.5-17.5); IMMATURE GRAN ABSOLUTE AUTO 0.03 K/mm3 (0.00-0.10); IMMATURE GRAN PERCENT AUTO 0 % (0-1); LYMPHOCYTES ABSOLUTE AUTO 2.29 K/mm3 (0.84-5.20); LYMPHOCYTES PERCENT AUTO 33 % (21-46); MONOCYTES ABSOLUTE AUTO 0.44 K/mm3 (0.16-1.47); MONOCYTES PERCENT AUTO 6 % (4-13); Mean Corpuscular HGB Conc 31.9 g/dL (31.5-36.5); Mean Corpuscular Volume 81 fL (80-100); NEUTROPHILS ABSOLUTE AUTO 3.85 K/mm3 (1.96-9.15); NEUTROPHILS PERCENT AUTO 56 % (41-73); NRBC ABSOLUTE 0.00 K/mm3 (0.00-0.02); NRBC Auto 0.0 /100 WBC (0.0-0.2); Platelet Count 259 K/mm3 (150-400); RDW Coefficient Variation 13.9 % (11.7-14.2); RDW Standard Deviation 40.9 fL (35.1-46.3)
== END ==
LOC: LAB 14:20 → LAB SHORT 14:20
PROVIDERS: Family Medicine
DX: T14.8XXA Other injury of unspecified body region, initial encounter (principal)
CPT/HCPCS: 85025

== ENCOUNTER 2025-08-10 13:02 | Emergency (ER) | payer OTHER ==
[~2025-08-10] VITALS: Ht 167.6 cm; Wt 87.1 kg
[2025-08-10 13:06] VITALS: BP 148/89
[2025-08-10 13:27] LABS: BASOPHILS ABSOLUTE AUTO 0.13 K/mm3 (0.00-0.23); BASOPHILS PERCENT AUTO 1 % (0-2); EOSINOPHILS ABSOLUTE AUTO 0.31 K/mm3 (0.00-0.68); EOSINOPHILS PERCENT AUTO 3 % (0-6); Hematocrit 38.3 % (37.0-53.0); Hemoglobin 12.2 g/dL (13.5-17.5); IMMATURE GRAN ABSOLUTE AUTO 0.06 K/mm3 (0.00-0.10); IMMATURE GRAN PERCENT AUTO 1 % (0-1); LYMPHOCYTES ABSOLUTE AUTO 2.66 K/mm3 (0.84-5.20); LYMPHOCYTES PERCENT AUTO 25 % (21-46); MONOCYTES ABSOLUTE AUTO 0.78 K/mm3 (0.16-1.47); MONOCYTES PERCENT AUTO 7 % (4-13); Mean Corpuscular HGB Conc 31.9 g/dL (31.5-36.5); Mean Corpuscular Volume 78 fL (80-100); NEUTROPHILS ABSOLUTE AUTO 6.69 K/mm3 (1.96-9.15); NEUTROPHILS PERCENT AUTO 63 % (41-73); NRBC ABSOLUTE 0.00 K/mm3 (0.00-0.02); NRBC Auto 0.0 /100 WBC (0.0-0.2); Platelet Count 329 K/mm3 (150-400); RDW Coefficient Variation 13.8 % (11.7-14.2); RDW Standard Deviation 39.0 fL (35.1-46.3)
[2025-08-10 13:46] LABS: Alanine Aminotransfer (ALT/SGP 49.0 U/L (12-78); Albumin, Blood 3.5 g/dL (3.4-5.0); Albumin/Globulin Ratio 0.8 (0.8-1.8); Anion Gap 7.0 mmol/L (3-11); Aspartate Aminotrans (AST/SGOT 85.0 U/L (12-37); Bilirubin, Total 0.7 mg/dL (0.1-1.0); Blood Urea Nitrogen 40.0 mg/dL (8-24); CO2, Blood 25.0 mmol/L (21-32); Calcium, Blood 9.7 mg/dL (8.5-10.1); Chloride, Blood 106.0 mmol/L (98-108); Creatinine, Blood 0.97 mg/dL (0.60-1.20); Globulin, Blood 4.6 g/dL (2.2-4.0); Glucose, Blood 102.0 mg/dL (70-99); Potassium, Blood 3.3 mmol/L (3.5-5.5); Sodium, Blood 135.0 mmol/L (136-145); Total Protein, Blood 8.1 g/dL (6.4-8.2)
== END 2025-08-10 19:07 | disposition home or self-care (01) ==
LOC: ER 13:02
PROVIDERS: Physician Assistant
DX: L03.116 Cellulitis of left lower limb (principal); E87.6 Hypokalemia; E11.9 Type 2 diabetes mellitus without complications; I10 Essential (primary) hypertension; I48.91 Unspecified atrial fibrillation; F17.210 Nicotine dependence, cigarettes, uncomplicated; Z79.84 Long term (current) use of oral hypoglycemic drugs; Z79.899 Other long term (current) drug therapy; Z79.4 Long term (current) use of insulin
CPT/HCPCS: 80053; 85025; 99283; A9270

== ENCOUNTER 2025-08-12 13:58 | Emergency (ER) | payer OTHER ==
[~2025-08-12] VITALS: Ht 167.6 cm; Wt 88.5 kg
[2025-08-12 14:43] VITALS: BP 146/92
[2025-08-12 15:41] LABS: BASOPHILS ABSOLUTE AUTO 0.07 K/mm3 (0.00-0.23); BASOPHILS PERCENT AUTO 1 % (0-2); EOSINOPHILS ABSOLUTE AUTO 0.22 K/mm3 (0.00-0.68); EOSINOPHILS PERCENT AUTO 2 % (0-6); Hematocrit 37.4 % (37.0-53.0); Hemoglobin 12.0 g/dL (13.5-17.5); IMMATURE GRAN ABSOLUTE AUTO 0.06 K/mm3 (0.00-0.10); IMMATURE GRAN PERCENT AUTO 1 % (0-1); LYMPHOCYTES ABSOLUTE AUTO 2.59 K/mm3 (0.84-5.20); LYMPHOCYTES PERCENT AUTO 23 % (21-46); MONOCYTES ABSOLUTE AUTO 1.09 K/mm3 (0.16-1.47); MONOCYTES PERCENT AUTO 10 % (4-13); Mean Corpuscular HGB Conc 32.1 g/dL (31.5-36.5); Mean Corpuscular Volume 78 fL (80-100); NEUTROPHILS ABSOLUTE AUTO 7.03 K/mm3 (1.96-9.15); NEUTROPHILS PERCENT AUTO 64 % (41-73); NRBC ABSOLUTE 0.00 K/mm3 (0.00-0.02); NRBC Auto 0.0 /100 WBC (0.0-0.2); Platelet Count 316 K/mm3 (150-400); RDW Coefficient Variation 13.8 % (11.7-14.2); RDW Standard Deviation 39.3 fL (35.1-46.3)
[2025-08-12 16:21] LABS: Alanine Aminotransfer (ALT/SGP 44.0 U/L (12-78); Albumin, Blood 3.2 g/dL (3.4-5.0); Albumin/Globulin Ratio 0.7 (0.8-1.8); Anion Gap 7.0 mmol/L (3-11); Aspartate Aminotrans (AST/SGOT 44.0 U/L (12-37); Bilirubin, Total 0.6 mg/dL (0.1-1.0); Blood Urea Nitrogen 22.0 mg/dL (8-24); CO2, Blood 25.0 mmol/L (21-32); Calcium, Blood 9.3 mg/dL (8.5-10.1); Chloride, Blood 106.0 mmol/L (98-108); Creatinine, Blood 0.81 mg/dL (0.60-1.20); Globulin, Blood 4.4 g/dL (2.2-4.0); Glucose, Blood 106.0 mg/dL (70-99); Potassium, Blood 3.5 mmol/L (3.5-5.5); Sodium, Blood 134.0 mmol/L (136-145); Total Protein, Blood 7.6 g/dL (6.4-8.2)
== END 2025-08-12 16:56 | disposition home or self-care (01) ==
LOC: ER 13:58
PROVIDERS: Emergency Medicine
DX: Z48.00 Encounter for change or removal of nonsurgical wound dressing (principal); R05.9 Cough, unspecified; I25.10 Atherosclerotic heart disease of native coronary artery without angina pectoris; I25.2 Old myocardial infarction; E78.5 Hyperlipidemia, unspecified; E11.40 Type 2 diabetes mellitus with diabetic neuropathy, unspecified; I11.0 Hypertensive heart disease with heart failure; I50.9 Heart failure, unspecified; J44.9 Chronic obstructive pulmonary disease, unspecified; K74.60 Unspecified cirrhosis of liver; I48.91 Unspecified atrial fibrillation; F17.210 Nicotine dependence, cigarettes, uncomplicated; Z86.73 Personal history of transient ischemic attack (TIA), and cerebral infarction without residual deficits; Z59.00 Homelessness unspecified; Z88.1 Allergy status to other antibiotic agents; Z88.5 Allergy status to narcotic agent; Z88.8 Allergy status to other drugs, medicaments and biological substances; Z79.4 Long term (current) use of insulin; Z79.01 Long term (current) use of anticoagulants; Z79.51 Long term (current) use of inhaled steroids; Z79.82 Long term (current) use of aspirin; Z79.899 Other long term (current) drug therapy
CPT/HCPCS: 71045; 80053; 85025; 99283-25; A9270